=== PATIENT | male | born 1970 | race Caucasian/White ===

== ENCOUNTER 2016-06-20 18:14 | Inpatient (IN) | payer SELFPAY ==
[~2016-06-20] VITALS: Ht 190.5 cm; Wt 90.0 kg
[~2016-06-20 18:14] MED LIST: ACETAMIN-HYDROcod 325-5 MG PO; AMLO10 PO; ASPI81TA82 PO; ATOR10TA PO; BUME1TAB PO; CARV6.25 PO; FERR324T4 PO; KCL20 PO; LEVA500T PO; LISI20 PO; NRSS SQ; SPIR25 PO; VITA100020 PO
[2016-06-20 18:20] VITALS: BP 160/106; PULSE 96; RESP 16; TEMP 97.8; O2SAT 98
--- NOTE | 2016-06-20 18:35 | PD ---
HPI Chief Complaint: Chest Pain Time Seen by Provider: 18:20 Travel History International Travel<30 days: No Contact w/Intl Traveler<30days: No Traveled to known affect area: No History of Present Illness HPI This 46-year-old male is complaining of shortness of breath and pressure in his chest. He has a history of severe congestive heart failure. He has a ejection fraction of 15%. He has been being considered for heart transplant. He has a history of diabetes. He has been having trouble with congestive failure for the past 2 weeks. He had a cardiac catheterization at [facility] 2 weeks ago and apparently had kind of event during the catheterization that was thought related to the anesthesia. He has a pacemaker defibrillator. He has a history of diabetes and has multiple open sores throughout his body. He has had his chest drained repeatedly PFSH Past Medical History Hx Anticoagulant Therapy: Yes Asthma: No Autoimmune Disease: No Blood Disorders: No Anxiety: Yes Depression: Yes Heart Rhythm Problems: No Cancer: No Cardiovascular Problems: Yes High Cholesterol: Yes Chemotherapy: No Chest Pain: Yes Congestive Heart Failure: Yes COPD: No Cerebrovascular Accident: No Diabetes: Yes Diminished Hearing: No Endocrine: Yes Fibromyalgia: Yes Gastrointestinal Disorders: Yes (c-diff) GERD: No Genitourinary: No Headaches: Yes Hiatal Hernia: No Hypertension: Yes Immune Disorder: No Musculoskeletal: No Neurologic: Yes Psychiatric: Yes Reproductive: No Respiratory: Yes (PLEURAL EFFUSION) Migraines: Yes Radiation Therapy: No Seizures: No Sleep Apnea: No Thyroid Disease: No Ulcer: No Past Surgical History Abdominal Surgery: Yes (CHOLYSECTOMY ) Cardiac Surgery: Yes (2 STENT PLACEMENT ) Cholecystectomy: Yes Coronary Stent: Yes (3 CATHS, 2 STENTS) Ear Surgery: No Endocrine Surgery: No Eye Surgery: No Genitourinary Surgery: No Gynecologic Surgery: No Neurologic Surgery: Yes (CRANIOTOMY WHEN HE WAS N[age] ) Oral Surgery: No Other Surgery: Yes (3rd left toe amputated) Social History Alcohol Use: No Tobacco Use: No Substance Use: No Allergies-Medications (Allergen,Severity, Reaction): Coded Allergies: Monosodium Glutamate (Verified Allergy, Severe, 06/20/16) Penicillin (Verified Allergy, Intermediate, SWELLING, 06/20/16) Valium (Verified Adverse Reaction, Unknown, ANXIETY, 06/20/16) Uncoded Allergies: ARTICIFICAL SWEETNER (Allergy, Severe, 06/25/15) Reported Meds & Prescriptions Reported Meds & Active Scripts Active [ACETAMIN-HYDROcod 325-5 MG] 1 TAB Tab 1 Tab PO Q6H PRN Reported Aspirin 81 Mg Tabdr 81 Mg PO DAILY Lisinopril 5 Mg Tab 5 Mg PO HS Furosemide 20 Mg Tab 20 Mg PO HS Coreg (Carvedilol) 6.25 Mg Tab 6.25 Mg PO HS Review of Systems General / Constitutional: No: Fever, Chills Eyes: No: Diploplia, Blurred Vision HENT: No: Headaches, Vertigo Cardiovascular: Positive: Chest Pain or Discomfort, No: Palpitations, Irregular Rhythm Respiratory: Positive: Cough, Shortness of Breath Gastrointestinal: No: Vomiting Genitourinary: No: Dysuria Musculoskeletal: No: Myalgias Skin: Positive Rash, Positive Lesions Neurologic: Positive: Weakness, Dizziness Physical Exam Narrative GENERAL: Chronically ill-appearing male. He is very pale SKIN: Warm and dry. He has multiple pustular lesions. There is one on his right leg which has fair amount of drainage HEAD: Atraumatic. Normocephalic. EYES: Pupils equal and round. No scleral icterus. No injection or drainage. ENT: No nasal bleeding or discharge. Mucous membranes pink and moist. NECK: Trachea midline. No JVD. CARDIOVASCULAR: Regular rate and rhythm. No murmur appreciated. RESPIRATORY: No accessory muscle use. Diminished breath sounds in the right chest GASTROINTESTINAL: Abdomen soft, non-tender, nondistended. Hepatic and splenic margins not palpable. MUSCULOSKELETAL: No obvious deformities. No clubbing. No cyanosis. Bilateral pedal edema NEUROLOGICAL: Awake and alert. No obvious cranial nerve deficits. Motor grossly within normal limits. Normal speech. PSYCHIATRIC: Appropriate mood and affect; insight and judgment normal. Data Data Last Documented VS Vital Signs Date Time Temp Pulse Resp B/P Pulse Ox O2 Delivery O2 Flow Rate FiO2 06/20/16 18:20 97.8 96 16 160/106 98 Orders Electrocardiogram (06/20/16 18:31) Complete Blood Count With Diff (06/20/16 18:31) Comprehensive Metabolic Panel (06/20/16 18:31) Troponin I (06/20/16 18:31) B-Type Natriuretic Peptide (06/20/16 18:31) Prothrombin Time / Inr (Pt) (06/20/16 18:31) Act Partial Throm Time (Ptt) (06/20/16 18:31) Urinalysis - C+S If Indicated (06/20/16 18:31) Magnesium (Mg) (06/20/16 18:31) Wound Culture And Gram Stain (06/20/16 18:31) Chest, Single Ap (06/20/16 18:31) Labs Laboratory Tests Test 06/20/16 18:15 White Blood Count 6.7 TH/MM3 Red Blood Count 5.00 MIL/MM3 Hemoglobin 11.8 GM/DL Hematocrit 37.3 % Mean Corpuscular Volume 74.5 FL Mean Corpuscular Hemoglobin 23.7 PG Mean Corpuscular Hemoglobin 31.8 % Concent Red Cell Distribution Width 19.8 % Platelet Count 329 TH/MM3 Mean Platelet Volume 8.5 FL Neutrophils (%) (Auto) 73.9 % Lymphocytes (%) (Auto) 19.4 % Monocytes (%) (Auto) 4.6 % Eosinophils (%) (Auto) 1.2 % Basophils (%) (Auto) 0.9 % Neutrophils # (Auto) 4.9 TH/MM3 Lymphocytes # (Auto) 1.3 TH/MM3 Monocytes # (Auto) 0.3 TH/MM3 Eosinophils # (Auto) 0.1 TH/MM3 Basophils # (Auto) 0.1 TH/MM3 CBC Comment AUTO DIFF Prothrombin Time 16.5 SEC Prothromb Time International 1.5 RATIO Ratio Activated Partial 28.9 SEC Thromboplast Time Sodium Level 139 MEQ/L Potassium Level 4.2 MEQ/L Chloride Level 103 MEQ/L Carbon Dioxide Level 25.2 MEQ/L Anion Gap 11 MEQ/L Blood Urea Nitrogen 27 MG/DL Creatinine 1.40 MG/DL Estimat Glomerular Filtration 55 ML/MIN Rate Random Glucose 168 MG/DL Calcium Level 8.6 MG/DL Magnesium Level 2.1 MG/DL Total Bilirubin 1.2 MG/DL Aspartate Amino Transf 29 U/L (AST/SGOT) Alanine Aminotransferase 26 U/L (ALT/SGPT) Alkaline Phosphatase 282 U/L Troponin I 0.02 NG/ML B-Type Natriuretic Peptide 2336 PG/ML Total Protein 8.4 GM/DL Albumin 3.2 GM/DL [facility] Medical Decision Making Medical Screen Exam Complete: Yes Emergency Medical Condition: Yes Medical Record Reviewed: Yes Differential Diagnosis Differential includes CHF, cardiomyopathy, MO Narrative Course EKG shows paced rhythm. Chest x-ray shows moderate-sized right pleural effusion. The heart isn't enlarged. Pulmonary vascularity is normal Matt Marc MD Jun 20, 2016 18:35
[2016-06-20] MEDS ORDERED: CARV6.25 PO (18:49)
[2016-06-20] MEDS ORDERED: ASPI1TAB69 PO (18:49)
[2016-06-20] MEDS ORDERED: FURO20TA PO (18:49)
[2016-06-20] MEDS ORDERED: LISI-519 PO (18:49)
[2016-06-20 19:00] LABS: CHLORIDE 103 MEQ/L (98-107); POTASSIUM 4.2 MEQ/L (3.5-5.1); SODIUM (NA) 139 MEQ/L (136-145)
[2016-06-20 19:03] LABS: ANION GAP 11 MEQ/L (5-15); BICARBONATE 25.2 MEQ/L (21.0-32.0); MAGNESIUM 2.1 MG/DL (1.5-2.5)
[2016-06-20 19:04] LABS: BLOOD UREA NITROGEN 27 MG/DL (7-18)
[2016-06-20 19:06] LABS: ALT (GPT) 26 U/L (12-78); APTT (PATIENT) 28.9 SEC (24.3-30.1); INTERNATIONAL NORMALIZED RATIO 1.5 RATIO; PROTHROMBIN TIME - PATIENT 16.5 SEC (9.8-11.6)
[2016-06-20 19:07] LABS: AST (GOT) 29 U/L (15-37); GLOMERULAR FILTRATION RATE 55 ML/MIN (>89)
--- NOTE | 2016-06-20 19:07 | RADHPO ---
EXAM DATE/TIME: 06/20/2016 18:53 [place] COMPARISON: CHEST SINGLE AP, February 08, 2016, 7:26. INDICATIONS : Shortness of breath. MEDICAL HISTORY : Hypertension. Diabetes mellitus type II. Hypercholesterolemia. SURGICAL HISTORY : Pacemaker. Cholecystectomy. Coronary artery stent. Congestive heart failure, Cirrhosis. ENCOUNTER: Initial ACUITY: 2 days PAIN SCORE: 0/10 LOCATION: Bilateral chest FINDINGS: Pacemaker is implanted in the left chest. There are minimal bibasilar parenchymal changes with a mod erate right-sided pleural effusion. Consolidative changes present in the right base. Pulmonary vasc ularity is reasonably normal. CONCLUSION: 1. Consolidative changes in the right base with moderate size right pleural effusion. 2. The heart is enlarged. 3. Pulmonary vascularity is normal. Jim Dumont MD FACR on June 20, 2016 at 19:03 Board Certified Radiologist. This report was verified electronically.
[2016-06-20 19:08] LABS: TOTAL BILIRUBIN ADULT 1.2 MG/DL (0.2-1.0)
[2016-06-20 19:09] LABS: ALKALINE PHOSPHATASE 282 U/L (45-117)
[2016-06-20 19:27] LABS: AUTOMATED NEUTROPHIL # 4.9 TH/MM3 (1.8-7.7); BASOPHIL # 0.1 TH/MM3 (0-0.2); BASOPHIL % 0.9 % (0.0-2.0); EOSINOPHIL # 0.1 TH/MM3 (0-0.4); EOSINOPHIL % 1.2 % (0.0-4.0); HEMATOCRIT 37.3 % (39.0-51.0); LYMPH % 19.4 % (9.0-44.0); LYMPHOCYTE # 1.3 TH/MM3 (1.0-4.8); MEAN CELL VOLUME 74.5 FL (80.0-100.0); MEAN CORPUSCULAR HEMOGLOBIN 23.7 PG (27.0-34.0); MEAN CORPUSCULAR HGB CONC 31.8 % (32.0-36.0); MONO % 4.6 % (0.0-8.0); NEUT % 73.9 % (16.0-70.0); PLATELET COUNT 329 TH/MM3 (150-450); RED CELL DISTRIBUTION WIDTH 19.8 % (11.6-17.2); WHITE BLOOD COUNT 6.7 TH/MM3 (4.0-11.0)
[2016-06-20 19:28] LABS: HEMO FLAGS AUTO DIFF
[2016-06-20 19:37] LABS: BLOOD, URINE TRACE (NEG); GLUCOSE,URINE NEG (NEG); KETONE, URINE NEG (NEG); NITRITE,URINE NEG (NEG)
[2016-06-20 19:45] LABS: URINE COLOR YELLOW (YELLW/STRAW)
[2016-06-20 19:46] LABS: HYALINE CAST, URINE 15-19 /lpf (RARE)
[2016-06-20 19:47] LABS: BACTERIA, URINE OCC /hpf; COMMENT (UR) CULT NOT INDICATED; CULTURE IF INDICATED CULT NOT INDICATED; RBC, URINE 0-3 /hpf (0-3)
[2016-06-20 19:57] LABS: SCAN/DIFF AUTO DIFF CONFIRMED
[2016-06-20] MEDS ORDERED: FUROSEMIDE 40 MG/4 ML VIAL IV PUSH ONE (20:00)
[2016-06-20] MEDS ORDERED: ALPRAZolam 0.5 MG TAB PO ONE (20:45)
[2016-06-20] MEDS ORDERED: ACETAMINOPHEN 325 MG TAB PO ONE (20:45)
[2016-06-20 20:46] VITALS: BP 148/102; PULSE 99; RESP 18; O2SAT 97
[2016-06-20] MEDS ORDERED: CARVEDILOL 6.25 MG TAB PO SCH (21:45)
[2016-06-20 22:09] VITALS: BP 147/112; PULSE 91; RESP 18; O2SAT 98
[2016-06-20 22:33] VITALS: BP 139/103
[2016-06-20] MEDS ORDERED: LISINOPRIL 5 MG TAB PO ONE (23:30)
[2016-06-20] MEDS ORDERED: GLUCAGON 1 MG/ML VIAL OTHER PRN (23:45)
[2016-06-20] MEDS ORDERED: DEXTROSE 50% IN WATER 50 ML VIAL(D50) IV PUSH PRN (23:45)
[2016-06-21] VITALS (12 sets, daily range): BP systolic 119–155; BP diastolic 91–107; PULSE 64–93; RESP 16–22; TEMP 97.5–98.2; O2SAT 95–99
[2016-06-21 04:49] LABS: POTASSIUM 4.1 MEQ/L (3.5-5.1)
[2016-06-21 04:53] LABS: BICARBONATE 26.5 MEQ/L (21.0-32.0); MAGNESIUM 2.1 MG/DL (1.5-2.5)
[2016-06-21] MEDS: LOW DOSE INSULIN NOVOLIN REGULAR SUPPLEMENTAL SCALE SQ SCH ×4 (05:40→21:00)
[2016-06-21] MEDS: POTASSIUM CHLORIDE 20 MEQ CONTROLLED RELEASE TAB PO SCH ×2 (09:15→21:03)
[2016-06-21] MEDS: ASPIRIN EC 81 MG TABEC PO SCH (09:15)
[2016-06-21] MEDS: SODIUM CHLORIDE 0.9% FLUSH 5 ML FLUSH IVF SCH ×2 (09:16→21:06)
[2016-06-21] MEDS: FUROSEMIDE 40 MG/4 ML VIAL IVP SCH ×2 (09:16→17:45)
[2016-06-21] MEDS: HEPARIN SODIUM - SQ 10,000 UNITS/ML VIAL SQ SCH ×2 (13:35→21:04)
[2016-06-21] MEDS: PANTOPRAZOLE SOD 40 MG DELAYED RELEASE TAB PO SCH (13:35)
[2016-06-21] MEDS: LEVOFLOXACIN 250 MG PREMIX INJ 50 ML IV SCH (13:35)
--- NOTE | 2016-06-21 14:54 | MH ---
cc: JADA VIZCAINO MD DATE OF ADMISSION: 06/20/2016 CHIEF COMPLAINT Shortness of breath HISTORY OF PRESENT ILLNESS This is a 46-year-old male well-known to me and had been seen me in the past and admitted under my service. PAST MEDICAL HISTORY/PAST SURGICAL HISTORY: Significant for congestive heart failure, anxiety, depression, fibromyalgia, headache, hypertension, cardiomyopathy in need of cardiac transplant, pleural effusion, history of cholecystectomy, to do stent placement in the heart. A craniotomy in the past, left toe amputation who came to the emergency room department [facility] with shortness of breath and also having wound on the both lower extremities which are getting worse. He was recently hospitalized was hospitalized in the past with pneumonia. He had a congestive heart failure with ejection fraction 15% and he is saying that his shortness of breath getting worse and he denies any cough. Denies any nausea or vomiting, diarrhea, constipation. He denies any blood in stool any blood in urine. He denies any chest pain other than that nothing significant past medical-surgical history as dictated above. SOCIAL HISTORY He denies smoking, drinking, taking any drugs. He does live at home with . He is unemployed. FAMILY HISTORY Nothing significant ALLERGIES MONOSODIUM GLUTAMATE PENICILLIN VALIUM ARTIFICAL SWEETER MEDICATIONS 1. Aspirin 81 mg p.o. daily. 2. Lisinopril 5 mg p.o. at bedtime. 3. Furosemide 20 mg daily. 4. Coreg 6.25 mg p.o. at bedtime REVIEW OF SYSTEMS review of systems positive for shortness of breath which has been improved of bilateral lower extremity swelling and a lower extremity wound. All other review of systems are negative. PHYSICAL EXAMINATION This is 46-year male sitting laying on the bed not sitting on the bed not in acute distress. VITAL SIGNS: Temperature 97.5, heart rate 80, respirations 22, blood pressure 146/104, O2 saturation 99% on room air. HEAD, EYES, EARS, NOSE, AND THROAT: Normocephalic, atraumatic. Extraocular muscles intact, Pupils equal, round, reactive to light and accommodation. Oral mucosa moist. NECK: Supple. No visible thyromegaly or neck mass. Trachea central. CARDIOVASCULAR SYSTEM: Regular rate and rhythm. LUNGS: Respiration bilateral mild crackles. ABDOMEN: Soft, nontender. Bowel sounds. EXTREMITIES: Shows no cyanosis or clubbing. Amputation of the left toes and second toe and wound on the lower wound on the foot which had mild erythema which have erythema. SKIN: Warm and dry shows the wound on the lower extremity. PSYCHIATRIC: The patient is cooperative. LABORATORY DATA Include CBC totally unremarkable except for hemoglobin 11.8 low, medical 37.3 low, MCV 74.5 low, MCH is 23.7 low, MCHC 31.8 low, RDW is 19.8 high, neutrophils 73.9 high. BMP totally unremarkable except for BUN 29 at 27 high creatinine 1.40 high, glucose 168 high, total bilirubin 1.2 high alkaline phosphatase 282 high BNP 57446 high, total protein 8.4 high, albumin 3.2 low. PT 16.5, INR 0.5, APTT 28.9. Urine examination shows trace of occult blood 6 to 8 white blood cells. 6 to 8 squamous epithelial cells. Culture not indicated. Gram stain of the wound culture done report is still pending. Chest x-ray Done shows consolidative changes in the right base with moderate-sized right pleural effusion. The heart is enlarged pulmonary vascularity is normal. ASSESSMENT/PLAN This is a 46-year male who came to the ER diagnosed with 1. Shortness of breath; most likely secondary to congestive heart failure exacerbation. The patient has acute on chronic systolic heart failure, ejection fraction 15% in the previous echo the patient is on lisinopril. The patient on Lasix 40 mg IV twice a day. Fluid restriction to 1.5 liters a day. Cardiology consulted. Further recommendation per cardiology. 2. Lower extremity wound, wound cultures done. Wound care nurse consulted. I will start the patient on Levaquin 250 mg IV daily for the wound infection. 3. History of hypertension. Continue home medication started clonidine 0.1 mg p.o. q. 6-hour p.r.n. if blood pressure above 180/95. 4. Deep venous thrombosis prophylaxis and Lovenox 5000 units subcutaneous twice a day. 5. Gastrointestinal prophylaxis Protonix 40 mg p.o. daily. 6. Renal insufficiency will monitor BUN, creatinine. His high B-type natriuretic peptide secondary to congestive heart failure exacerbation. 7. Anemia secondary to chronic disease. 8. Deep venous thrombosis prophylaxis. 9. We are going to manage the patient daily basis and make recommendation daily basis. MD Freida Siu /11:55 AM /12:06 PM MTDDaniela
--- NOTE | 2016-06-21 16:30 | EKG ---
Date Performed: 06/20/2016 Time Performed: 18:11:22 PTAGE: 46 years EKG: P wave syncrinous pacing with ventricular fussion. The underlying QRS complex is largely co nducted, but is partially Paced. When compared to previous tracing, the pacing activity is new, so Th e studies are not directly comparable. Clinical correlation to reprogram the pacing devise to avoid V entricular fussion would be appropriate. Abnormal ECG PREVIOUS TRACING : 02/08/2016 07.15 DOCTOR: Chanelle Soliz Interpretating Date/Time 06/21/2016 16:29:26
[2016-06-21] MEDS: SODIUM CHLORIDE 0.9% FLUSH 5 ML FLUSH IVF PRN (17:45)
[2016-06-21] MEDS ORDERED: LISINOPRIL 5 MG TAB PO SCH (21:00)
[2016-06-21] MEDS: LISINOPRIL 5 MG TAB PO SCH (21:02)
[2016-06-21] MEDS: CARVEDILOL 12.5 MG TAB PO SCH (21:03)
[2016-06-21] MEDS: METOLAZONE 5 MG TAB PO SCH (21:16)
[2016-06-21] MEDS: ALPRAZolam 0.5 MG TAB PO PRN (21:39)
[2016-06-22] VITALS (15 sets, daily range): BP systolic 112–140; BP diastolic 77–106; PULSE 59–72; RESP 4–24; TEMP 97.5–98; O2SAT 96–100
[2016-06-22] MEDS: ACETAMINOPHEN/HYDROcodone 325 MG/5 MG TAB PO PRN ×3 (01:28→16:47)
--- NOTE | 2016-06-22 05:50 | MB ---
cc: GABRIELLA ZEPEDA GLENN H. M.D. DATE OF CONSULTATION: 06/21/2016 REASON FOR CONSULTATION: Congestive heart failure. HISTORY OF PRESENT ILLNESS The patient is a 46-year-old white male with a history of diabetes, coronary artery disease, hypertension, severe ischemic cardiomyopathy with ejection fraction of 15-20%, status post recent biventricular AICD implant, followed in the office by Dr. Gabriella Zepeda, who presented to the hospital with an approximately 3-day history of increasing shortness of breath. Over these few days he has also been having increasing pedal edema. He denies chest pain, palpitations, lightheadedness, syncope, near-syncope, paroxysmal nocturnal dyspnea. He reports compliance with his medications and a no added salt diet. He has had no AICD shocks since implant. According to the patient his AICD is an investigational device is under a [employer] research protocol. Since coming into the hospital his shortness of breath has minimally improved. PAST MEDICAL HISTORY 1. Diabetes. 2. Coronary artery disease status post percutaneous coronary intervention on the LAD about [address] Mack Abreu. 3. Hypertension 4. Severe ischemic cardiomyopathy with ejection fraction of 15-20% demonstrated by echo 01/22/2016. 5. Hyperlipidemia. 6. Fibromyalgia. 7. Status post [employer] biventricular AICD implant 3 months ago. HIS CARDIAC MEDIATIONS: at home 1. Coreg 6.25 mg p.o. q.h.s. 2. Furosemide 20 mg p.o. q.h.s. 3. Lisinopril 5 mg p.o. q.h.s. 4. Aspirin 81 mg p.o. daily. ALLERGIES PENICILLIN VALIUM MONOSODIUM BUTAMIRATE FAMILY HISTORY Noncontributory. SOCIAL HISTORY The patient denies history of alcohol, tobacco abuse. REVIEW OF SYSTEMS Review of systems as in the history of present illness otherwise negative or noncontributory. He also denies headache, dyspepsia, bright red blood per rectum, cough, fevers. PHYSICAL EXAMINATION: VITAL SIGNS: On physical examination his blood pressure 140/95 with a pulse of 74, respirations 18. IN GENERAL: In general he is a well-developed, well-nourished white male in no acute distress HEAD, EYES, EARS, NOSE, AND THROAT: Jugular venous pressure is normal. Carotid pulses are 2+ bilaterally and without bruits. CHEST: Examination of the chest reveals markedly decreased breath sounds at the bases right greater than left. CARDIOVASCULAR SYSTEM: On cardiac examination he has a regular rhythm and rate without definite S3-S4 or murmur. ABDOMEN: On abdominal examination he has a soft, nontender abdomen. Bowel sounds are present. There is no definite hepatosplenomegaly. EXTREMITIES: Examination of extremities reveals no clubbing or cyanosis. There is 1+ pretibial edema bilaterally. RADIOLOGIC: Chest x-ray Shows consolidative changes in the right base with moderate right-sided pleural effusion. LABORATORY DATA: Laboratory data includes WBC 6.7, hemoglobin 11.8, platelets 329, potassium 4.1, BUN 29, creatinine 1.40, troponin 0.02, INR 1.5. IMPRESSION Recurrent right pleural effusion, possible congestive heart failure exacerbation in this 46-year-old white male with a history of ischemic cardiomyopathy, ejection fraction 15-20%, coronary artery disease, diabetes, hypertension, status post biventricular AICD implant. Review of his records reveal a few admissions in the last 2 years for congestive heart failure. He has also had as many as eight thoracenteses for recurrent right pleural effusion and a couple for left pleural effusions in the past. The precipitating factor for the recurrences of his pulmonary edema and congestive heart failure is not entirely clear. He reports compliance with his medications and a low-sodium diet. His blood pressures have been very suboptimally controlled and could be contributing to heart failure exacerbations. With respect to his coronary artery disease, there is no evidence for acute coronary syndrome. The patient reports no history of arrhythmias or AICD shocks since implant. RECOMMENDATIONS 1. Optimize the dosing of his beta jovany and GILA inhibitor. 2. His carvedilol and GILA inhibitor should be taken b.i.d. 3. Consider another right-sided thoracentesis 4. Continue intravenous Lasix diuresis. 5. Consider Entresto although he has no insurance coverage for medications at this time. MD SUSAN Black/maricel /8:42 PM /5:41 AM RAMIRO
[2016-06-22 06:21] LABS: BASOPHIL % 0.8 % (0.0-2.0); EOSINOPHIL # 0.1 TH/MM3 (0-0.4); EOSINOPHIL % 2.6 % (0.0-4.0); HEMATOCRIT 34.2 % (39.0-51.0); LYMPH % 26.6 % (9.0-44.0); LYMPHOCYTE # 1.3 TH/MM3 (1.0-4.8); MEAN CELL VOLUME 75.1 FL (80.0-100.0); MEAN CORPUSCULAR HEMOGLOBIN 23.8 PG (27.0-34.0); MEAN CORPUSCULAR HGB CONC 31.8 % (32.0-36.0); MONO % 7.4 % (0.0-8.0); NEUT % 62.6 % (16.0-70.0); PLATELET COUNT 262 TH/MM3 (150-450); RED BLOOD COUNT 4.56 MIL/MM3 (4.50-5.90); RED CELL DISTRIBUTION WIDTH 20.9 % (11.6-17.2); WHITE BLOOD COUNT 4.8 TH/MM3 (4.0-11.0)
[2016-06-22 06:24] LABS: HEMO FLAGS DIFF FINAL
[2016-06-22 06:29] LABS: CHLORIDE 104 MEQ/L (98-107); POTASSIUM 4.3 MEQ/L (3.5-5.1); SODIUM (NA) 140 MEQ/L (136-145)
[2016-06-22 06:49] LABS: ALKALINE PHOSPHATASE 210 U/L (45-117); ALT (GPT) 16 U/L (12-78); ANION GAP 10 MEQ/L (5-15); AST (GOT) 13 U/L (15-37); BLOOD UREA NITROGEN 36 MG/DL (7-18); GLOMERULAR FILTRATION RATE 51 ML/MIN (>89)
[2016-06-22] MEDS: LOW DOSE INSULIN NOVOLIN REGULAR SUPPLEMENTAL SCALE SQ SCH ×4 (07:00→21:00)
[2016-06-22] MEDS: METOLAZONE 5 MG TAB PO SCH (07:56)
[2016-06-22] MEDS: CARVEDILOL 12.5 MG TAB PO SCH ×2 (07:57→21:52)
[2016-06-22] MEDS: ASPIRIN EC 81 MG TABEC PO SCH (07:57)
[2016-06-22] MEDS: LISINOPRIL 5 MG TAB PO SCH ×2 (07:58→21:52)
[2016-06-22] MEDS: POTASSIUM CHLORIDE 20 MEQ CONTROLLED RELEASE TAB PO SCH ×2 (07:58→21:52)
[2016-06-22] MEDS: PANTOPRAZOLE SOD 40 MG DELAYED RELEASE TAB PO SCH (07:58)
[2016-06-22] MEDS: FUROSEMIDE 40 MG/4 ML VIAL IVP SCH ×2 (07:59→16:47)
[2016-06-22] MEDS: SODIUM CHLORIDE 0.9% FLUSH 5 ML FLUSH IVF SCH ×2 (07:59→21:54)
[2016-06-22] MEDS: HEPARIN SODIUM - SQ 10,000 UNITS/ML VIAL SQ SCH ×2 (07:59→21:52)
--- NOTE | 2016-06-22 08:56 | PD.CARD.PN ---
Subjective Subjective Remarks Pt's bp better controlled, breathing improved but still a bit "heavy." Objective Medications Administered Medications Medications (Trade) Dose Ordered Sig/Roya Route PRN Reason Start Time Stop Time Status Last Admin Dose Admin IV Flush (NS Flush) 2 ml BID IVF 06/21/16 09:00 06/22/16 07:59 IV Flush (NS Flush) 2 ml UNSCH PRN IVF FLUSH AFTER USING IV ACCESS 06/20/16 21:30 06/21/16 17:45 Furosemide (Lasix Inj) 40 mg BID@09,18 IVP 06/21/16 09:00 06/22/16 07:59 Potassium Chloride (KCl) 20 meq BID PO 06/21/16 09:00 06/22/16 07:58 Aspirin (Ecotrin Ec) 81 mg DAILY PO 06/21/16 09:00 06/22/16 07:57 Acetaminophen/ Hydrocodone Bitart 1 tab 1 tab Q6H PRN PO PAIN SCALE 1 TO 10 06/20/16 22:00 06/22/16 07:59 Levofloxacin/ Dextrose (Levaquin 250 Mg Premix Inj) 50 ml @ 50 mls/hr Q24H IV 06/21/16 13:00 06/21/16 13:35 Heparin Sodium (Porcine) (Heparin Inj) 5,000 units Q12HR SQ 06/21/16 13:00 06/22/16 07:59 Pantoprazole Sodium (Protonix) 40 mg DAILY PO 06/21/16 13:00 06/22/16 07:58 Carvedilol (Coreg) 12.5 mg BID PO 06/21/16 21:00 06/22/16 07:57 Lisinopril (Prinivil) 5 mg BID PO 06/21/16 21:00 06/22/16 07:58 Metolazone (Zaroxolyn) 5 mg DAILY PO 06/21/16 21:00 06/22/16 07:56 Alprazolam (Xanax) 0.5 mg HS PRN PO ANXIETY 06/21/16 21:45 06/21/16 21:39 Vital Signs / I&O Vital Signs Date Time Temp Pulse Resp B/P Pulse Ox O2 Delivery O2 Flow Rate FiO2 06/22/16 08:00 62 06/22/16 08:00 97.5 62 21 131/96 96 06/22/16 04:13 98.0 68 15 136/94 97 06/22/16 04:00 62 06/22/16 01:15 70 24 127/90 06/22/16 00:00 98.0 72 23 134/104 98 06/22/16 00:00 71 06/21/16 20:00 78 06/21/16 20:00 98.0 74 18 140/95 98 06/21/16 19:21 76 20 129/97 98 06/21/16 16:00 64 06/21/16 16:00 97.6 65 18 119/91 95 06/21/16 12:00 74 06/21/16 12:00 97.6 74 21 143/107 98 I/O 06/21/16 06/21/16 06/21/16 06/22/16 06/22/16 06/22/16 07:00 15:00 23:00 07:00 15:00 23:00 Intake Total 240 ml 520 ml 240 ml 220 ml Output Total 300 ml 850 ml 700 ml 775 ml Balance -60 ml -330 ml -460 ml -555 ml Intake Oral 240 ml 520 ml 240 ml 220 ml Output Urine Total 300 ml 850 ml 700 ml 775 ml Stool Total 0 ml # Voids 3 # Bowel Movements 1 0 Physical Exam GENERAL: This is a well-nourished, well-developed patient, in no apparent distress. CARDIOVASCULAR: Regular rate and rhythm without murmurs, gallops, or rubs. RESPIRATORY: Decreased at bases GASTROINTESTINAL: Abdomen soft, non-tender, nondistended. Normal active bowel sounds MUSCULOSKELETAL: Extremities without clubbing, cyanosis, or edema. NEURO: Alert & Oriented x4 to person, place, time, situation. Moves all ext x4 Laboratory Laboratory Tests Test 06/21/16 06/22/16 11:50 06:00 Nasal Screen MRSA (PCR) NEGATIVE White Blood Count 4.8 TH/MM3 Red Blood Count 4.56 MIL/MM3 Hemoglobin 10.9 GM/DL Hematocrit 34.2 % Mean Corpuscular Volume 75.1 FL Mean Corpuscular Hemoglobin 23.8 PG Mean Corpuscular Hemoglobin 31.8 % Concent Red Cell Distribution Width 20.9 % Platelet Count 262 TH/MM3 Mean Platelet Volume 8.2 FL Neutrophils (%) (Auto) 62.6 % Lymphocytes (%) (Auto) 26.6 % Monocytes (%) (Auto) 7.4 % Eosinophils (%) (Auto) 2.6 % Basophils (%) (Auto) 0.8 % Neutrophils # (Auto) 3.0 TH/MM3 Lymphocytes # (Auto) 1.3 TH/MM3 Monocytes # (Auto) 0.4 TH/MM3 Eosinophils # (Auto) 0.1 TH/MM3 Basophils # (Auto) 0.0 TH/MM3 CBC Comment DIFF FINAL Differential Comment Sodium Level 140 MEQ/L Potassium Level 4.3 MEQ/L Chloride Level 104 MEQ/L Carbon Dioxide Level 26.0 MEQ/L Anion Gap 10 MEQ/L Blood Urea Nitrogen 36 MG/DL Creatinine 1.50 MG/DL Estimat Glomerular Filtration 51 ML/MIN Rate Random Glucose 106 MG/DL Calcium Level 7.8 MG/DL Total Bilirubin 1.0 MG/DL Aspartate Amino Transf 13 U/L (AST/SGOT) Alanine Aminotransferase 16 U/L (ALT/SGPT) Alkaline Phosphatase 210 U/L Total Protein 6.4 GM/DL Albumin 2.4 GM/DL Imaging Last Impressions Chest X-Ray 06/20/16 1831 Signed Impressions: Service Date/Time: June 18:53 - CONCLUSION: 1. Consolidative changes in the right base with moderate size right pleural effusion. 2. The heart is enlarged. 3. Pulmonary vascularity is normal. Jim Dumont MD FACR Assessment and Plan Problem List: (1) Acute on chronic diastolic CHF (congestive heart failure) Assessment and Plan: Improving, he would like medical mgt of his pleural effusion (seen by cxr) if at all possible; continue IV lasix for now, perhaps can change to PO tomorrow. (2) Ischemic cardiomyopathy Assessment and Plan: on mary/bb; entresto would be ideal if he could get coverage (3) CAD (coronary artery disease) (4) Hypertension Assessment and Plan: Improved on current regimen. Mahamed Dickerson MD Jun 22, 2016 08:56
--- NOTE | 2016-06-22 10:58 | HHI.PR ---
Subjective History of Present Illness Patient feel weak and tired. US guided right side thoracocentesis ordered d/w [employer] Yoel. Review of Systems Constitutional Constitutional: Fatigue, Weakness Pulmonary Respiratory: Shortness of Breath Vitals/Results Intake & Output 06/21/16 06/21/16 06/22/16 15:00 23:00 07:00 Intake Total 520 ml 240 ml 220 ml Output Total 850 ml 700 ml 775 ml Balance -330 ml -460 ml -555 ml Intake Oral 520 ml 240 ml 220 ml Output Urine Total 850 ml 700 ml 775 ml Stool Total 0 ml # Voids 3 # Bowel Movements 1 0 Vital Signs Vital Signs Date Time Temp Pulse Resp B/P Pulse Ox O2 Delivery O2 Flow Rate FiO2 06/22/16 08:00 62 06/22/16 08:00 97.5 62 21 131/96 96 06/22/16 04:13 98.0 68 15 136/94 97 06/22/16 04:00 62 06/22/16 01:15 70 24 127/90 06/22/16 00:00 98.0 72 23 134/104 98 06/22/16 00:00 71 06/21/16 20:00 78 06/21/16 20:00 98.0 74 18 140/95 98 06/21/16 19:21 76 20 129/97 98 06/21/16 16:00 64 06/21/16 16:00 97.6 65 18 119/91 95 06/21/16 12:00 74 06/21/16 12:00 97.6 74 21 143/107 98 CBC/BMP: 06/22/16 0600 06/22/16 0600 Lab Results Laboratory Tests Test 06/21/16 06/22/16 11:50 06:00 Nasal Screen MRSA (PCR) NEGATIVE White Blood Count 4.8 TH/MM3 Red Blood Count 4.56 MIL/MM3 Hemoglobin 10.9 GM/DL Hematocrit 34.2 % Mean Corpuscular Volume 75.1 FL Mean Corpuscular Hemoglobin 23.8 PG Mean Corpuscular Hemoglobin 31.8 % Concent Red Cell Distribution Width 20.9 % Platelet Count 262 TH/MM3 Mean Platelet Volume 8.2 FL Neutrophils (%) (Auto) 62.6 % Lymphocytes (%) (Auto) 26.6 % Monocytes (%) (Auto) 7.4 % Eosinophils (%) (Auto) 2.6 % Basophils (%) (Auto) 0.8 % Neutrophils # (Auto) 3.0 TH/MM3 Lymphocytes # (Auto) 1.3 TH/MM3 Monocytes # (Auto) 0.4 TH/MM3 Eosinophils # (Auto) 0.1 TH/MM3 Basophils # (Auto) 0.0 TH/MM3 CBC Comment DIFF FINAL Differential Comment Sodium Level 140 MEQ/L Potassium Level 4.3 MEQ/L Chloride Level 104 MEQ/L Carbon Dioxide Level 26.0 MEQ/L Anion Gap 10 MEQ/L Blood Urea Nitrogen 36 MG/DL Creatinine 1.50 MG/DL Estimat Glomerular Filtration 51 ML/MIN Rate Random Glucose 106 MG/DL Calcium Level 7.8 MG/DL Total Bilirubin 1.0 MG/DL Aspartate Amino Transf 13 U/L (AST/SGOT) Alanine Aminotransferase 16 U/L (ALT/SGPT) Alkaline Phosphatase 210 U/L Total Protein 6.4 GM/DL Albumin 2.4 GM/DL Physical Exam General General Appearance: No Acute Distress, Comfortable Eyes Eye Exam: Pupils Equal, Pupils Reactive, Sclera White, Extraocular Movement Intact Throat Throat Exam: Oral Mucosa [place] & Moist Neck Neck Exam: Neck Supple, Trachea Midline Pulmonary Resp Exam: Clear Bilaterally Cardiology CV Exam: Regular, Normal Sinus Rhythm Gastrointestinal/Abdomen GI Exam: Soft, Non-Tender, Bowel Sounds Present Musculoskeletal MS Exam: Joints Intact Integumentary Skin Exam: Warm, Dry Skin Remarks wound on foot. Extremeties Extremities Exam: Pitting Edema Neurologic Neuro Exam: Alert, Awake, Oriented, Speech Clear, Moving All Extremities, No Focal Deficits PUD Prophylasis PUD Prophylaxis: Protonix Assessment/Plan Assessment/Plan ASSESSMENT/PLAN This is a 46-year male who came to the ER diagnosed with 1. Shortness of breath; most likely secondary to congestive heart failure exacerbation. The patient has acute on chronic systolic heart failure, ejection fraction 15% in the previous echo the patient is on lisinopril. The patient on Lasix 40 mg IV twice a day. Fluid restriction to 1.5 liters a day. Cardiology input noted. Further recommendation per cardiology. 2. Lower extremity wound, wound cultures done. Wound care nurse input noted. patient on Levaquin 250 mg IV daily for the wound infection. 3. History of hypertension. Continue home medication started clonidine 0.1 mg p.o. q. 6-hour p.r.n. if blood pressure above 180/95. 4. Deep venous thrombosis prophylaxis and Lovenox 5000 units subcutaneous twice a day. 5. Gastrointestinal prophylaxis Protonix 40 mg p.o. daily. 6. Renal insufficiency will monitor BUN, creatinine. His high B-type natriuretic peptide secondary to congestive heart failure exacerbation. 7. Anemia secondary to chronic disease. 8. Right side Pleural effusion .. US guided right side thoracocentesis ordered. We are going to manage the patient daily basis and make recommendation daily basis. check CBC with diff CMP in AM. Discussed Condition with: Patient Kyle Cassidy MD Jun 22, 2016 10:58
[2016-06-22] MEDS: SODIUM CHLORIDE 0.9% FLUSH 5 ML FLUSH IVF PRN ×2 (13:11→16:47)
[2016-06-22] MEDS: LEVOFLOXACIN 250 MG PREMIX INJ 50 ML IV SCH (13:11)
--- NOTE | 2016-06-22 19:54 | PD.ID.CON ---
History of Present Illness Service ID Consult Requested By Dr Cassidy Reason for Consult cellu;itis Primary Care Physician No Primary Care Physician Diagnoses: History of Present Illness 46 yo diabetic male with CAD and severe ischemic cardiomyopathy with EF of 15 % and pleural effusaions admitted with CHF exacerbation in ICU sp CT guided R side thoracenthesis today Afebrile Normal WBC Pt has a L plantar diabetic wound which was cultured and has normal skin dori growth at 24 hrs Pt has chronic BLE edema and he states that his legs are normally discolored and even more swollen at baseline He also has multiple shallow scattered ulcer on both lower extremeties biggest one on the L plantr griselda Per chart, he has this ulcer for months and it apears that he had in back in Febemebr thr R ankle wound also was presnet in Feb and it greww out PSAE S to levaquine Pt is on Levaquine He states the LLE redness has improved Review of Systems Respiratory: COMPLAINS OF: Shortness of breath Cardiovascular: COMPLAINS OF: Lower Extremity Edema, Orthopnea Other as per history of present illness, the rest of 12 point review is negative Past Family Social History Allergies: Coded Allergies: Monosodium Glutamate (Verified Allergy, Severe, 06/20/16) Penicillin (Verified Allergy, Intermediate, SWELLING, 06/20/16) Valium (Verified Adverse Reaction, Unknown, ANXIETY, 06/20/16) Uncoded Allergies: ARTICIFICAL SWEETNER (Allergy, Severe, 06/25/15) Past Medical History Diabees HTN CAD TBI Past Surgical History cardiac stents AICD craniotomy 2/2 TBI L 2-3 toes amputation Active Ordered Medications Medications where reviewed in EMR Antibiotics Include: levaquine Family History Non-Contributory. Social History No Tobacco. No ETOH. No Illicit Drugs. Physical Exam Vital Signs Vital Signs Date Time Temp Pulse Resp B/P Pulse Ox O2 Delivery O2 Flow Rate FiO2 06/22/16 16:00 60 06/22/16 16:00 98.0 60 14 121/97 96 06/22/16 12:00 60 06/22/16 12:00 97.5 60 17 125/87 96 06/22/16 08:00 62 06/22/16 08:00 97.5 62 21 131/96 96 06/22/16 04:13 98.0 68 15 136/94 97 06/22/16 04:00 62 06/22/16 01:15 70 24 127/90 06/22/16 00:00 98.0 72 23 134/104 98 06/22/16 00:00 71 06/21/16 20:00 78 06/21/16 20:00 98.0 74 18 140/95 98 Physical Exam CONSTITUTIONAL/GENERAL: This is an adequately nourished patient chronically ill appearing, in no apparent distress. TUBES/LINES/DRAINS: SKIN: No jaundice, rashes, Scattered crusted lesions mostly on the back. Skin temperature appropriate. Not diaphoretic. HEAD: Atraumatic. Normocephalic. EYES: Pupils equal and round and reactive. Extraocular motions intact. No scleral icterus. No injection or drainage. Fundi not examined. ENT: Hearing grossly normal. Nose without bleeding or purulent drainage. Oral mucosae moist without visible erythema, exudates, masses, or lesions. NECK: Trachea midline. Supple, nontender. No palpable thyroid enlargement or nodularity. CARDIOVASCULAR: Regular rate and rhythm + systolic murmur, no gallops, or rubs. No JVD. Pedal pls not palpabe (likely 2/2 edema) RESPIRATORY/CHEST: Symmetric, unlabored respirations. B/b crackles to auscultation. Breath sounds equal bilaterally. . GASTROINTESTINAL: Abdomen soft, non-tender, nondistended. No hepato-splenomegaly , or palpable masses. No guarding. Bowel sounds present. GENITOURINARY: Without palpable bladder distension. Landeros catheter in place. MUSCULOSKELETAL: Extremities without clubbing, cyanosis, B/l 2-3 + lower extremeits edema Chronic apearing discoloration sp L 2-3 toes amputation - well healed . No joint tenderness or effusion noted. No calf tenderness. No mottling or clubbing. Prominent loss of skin appendages Multiple showllow ulcers BLE some open some crusted L plannta stage III clean based wound with minimal odorless serous dc LYMPHATICS: No palpable cervical or supraclavicular adenopathy. NEUROLOGICAL: Awake and alert. Motor and grossly within normal limits. Decreased sensation BLE in socks distribtion Follows commands. Normal speech. Moves all extremities. PSYCHIATRIC: No obvious anxiety/depression. no apparent hallucinations or other psychotic thought process. Laboratory Laboratory Tests Test 06/22/16 06:00 White Blood Count 4.8 Red Blood Count 4.56 Hemoglobin 10.9 Hematocrit 34.2 Mean Corpuscular Volume 75.1 Mean Corpuscular Hemoglobin 23.8 Mean Corpuscular Hemoglobin 31.8 Concent Red Cell Distribution Width 20.9 Platelet Count 262 Mean Platelet Volume 8.2 Neutrophils (%) (Auto) 62.6 Lymphocytes (%) (Auto) 26.6 Monocytes (%) (Auto) 7.4 Eosinophils (%) (Auto) 2.6 Basophils (%) (Auto) 0.8 Neutrophils # (Auto) 3.0 Lymphocytes # (Auto) 1.3 Monocytes # (Auto) 0.4 Eosinophils # (Auto) 0.1 Basophils # (Auto) 0.0 CBC Comment DIFF FINAL Differential Comment Sodium Level 140 Potassium Level 4.3 Chloride Level 104 Carbon Dioxide Level 26.0 Anion Gap 10 Blood Urea Nitrogen 36 Creatinine 1.50 Estimat Glomerular Filtration 51 Rate Random Glucose 106 Calcium Level 7.8 Total Bilirubin 1.0 Aspartate Amino Transf 13 (AST/SGOT) Alanine Aminotransferase 16 (ALT/SGPT) Alkaline Phosphatase 210 Total Protein 6.4 Albumin 2.4 Date/Time Procedure Status Source Growth 06/20/16 19:12 Gram Stain - Final Resulted Wound Leg 06/20/16 19:12 Wound Culture - Preliminary Resulted Wound Leg HEAVY GROWTH NORMAL SKIN DORI AT 24HRS Result Diagram: 06/22/16 0600 06/22/16 0600 Imaging Last Impressions Chest X-Ray 06/20/16 1831 Signed Impressions: Service Date/Time: June 18:53 - CONCLUSION: 1. Consolidative changes in the right base with moderate size right pleural effusion. 2. The heart is enlarged. 3. Pulmonary vascularity is normal. Jim Dumont MD FACR Assessment and Plan Assessment and Plan Severe cardiomyopathy with CHF exacerbation Chronic diabetic wounds none appear infected Doubt cellulitis, BLE skin changes appear chronic and is comnbination of chronic edema, venostasis , diabetic chronic skin changes Recent h/o C.diff hypervirulent strain 027 (November 2015) - Dc Levaquine - observe clinically for signs of wound infx and cellulitis - monitor WBC, temp Discussed Condition With Renetta Lester MD Jun 22, 2016 19:54
--- NOTE | 2016-06-22 20:08 | PD.RAD ---
Post US Procedure Prog Note Pre Procedure Diagnosis: (1) Pleural effusion Post Procedure Diagnosis: (1) Pleural effusion Procedure Date: Jun 22, 2016 Supervising Radiologist: Richard Rivas Proceduralist/Assist: Julia Montes Anesthesia: Local Plan of Activity Patient to Unit: Nursing Unit Patient Condition: Good See PACS Report for procedural detail/treatment Drainage Procedure Procedure 1 Imaging Guidance: Ultrasound Side: Right Procedure Type: Thoracentesis Congolese: 6 Drainage: Suction Fluid Removal (CCs): 1850 Fluid Description: Yellow, Simple Richard Rivas MD Jun 22, 2016 20:08
--- NOTE | 2016-06-22 20:32 | RADHPO ---
EXAM DATE/TIME: 06/22/2016 20:08 [facility] COMPARISON: CHEST SINGLE AP, June 20, 2016, 18:53. INDICATIONS : Status post thoracentesis. MEDICAL HISTORY : Diabetes mellitus type II. Hypertension. Congestive heart failure. Cirrhosis. SURGICAL HISTORY : Coronary artery stent. Pacemaker. ENCOUNTER: Initial ACUITY: 1 day PAIN SCORE: 0/10 LOCATION: chest FINDINGS: Pacemaker device is noted with control pack over the left chest. There has been interval right thorac entesis. Minimal residual right pleural fluid and atelectasis at the right base. No evidence of pneum othorax. Moderate persistent left pleural effusion. Stable moderate cardiomegaly. CONCLUSION: No evidence of pneumothorax post right thoracentesis. Richard Rivas MD Board Certified Radiologist. This report was verified electronically.
--- NOTE | 2016-06-22 20:38 | RADHPO ---
EXAM DATE/TIME: 06/23/2016 00:11 [facility] COMPARISON: None. INDICATIONS : Pleural effusion. MEDICAL HISTORY : Hypertension. CHF. Dyspnea. Fibromyalgia. Diabetes. Cirrhosis. SURGICAL HISTORY : Cholecystectomy 2nd and 3rd toe amputated. Heart cath. Craniotomy. ENCOUNTER: [facility] ACUITY: 1 day PAIN SCORE: 7/10 LOCATION: Right chest. Total volume of 2850 of clear, yellow fluid was removed. Fluid was discarded. Thoracentesis was therapeutic only. Post procedure scanning reveals no hematoma or other complication. TECHNIQUE: 1. Ultrasound guidance for thoracentesis. 2. Thoracentesis. The risks, benefits, and alternatives to ultrasound guided thoracentesis were explained to the patien t in lay simple terms, including the risk of bleeding and infection. Written and verbal informed con sent was obtained. Appropriate area for thoracentesis was marked under ultrasound guidance with the patient in the uprig ht position. Overlying skin was prepped and draped in the usual sterile fashion and with local anest hetic, a dermatotomy was made with an 11 blade scalpel. A 6 [place] thoracentesis catheter was placed in the pleural space and fluid was removed. Catheter was then removed and a sterile dressing applie d. There were no immediate complications. The patient tolerated the procedure well and the left the ultrasound suite in stable condition. Chest radiograph is to be obtained. CONCLUSION: Uncomplicated ultrasound guided thoracentesis. Richard Rivas MD Board Certified Radiologist. This report was verified electronically.
[2016-06-22] MEDS: ALPRAZolam 0.5 MG TAB PO PRN (22:12)
[2016-06-23] VITALS (7 sets, daily range): BP systolic 93–132; BP diastolic 69–89; PULSE 60–78; RESP 13–29; TEMP 97.5–98.1; O2SAT 93–98
[2016-06-23 06:28] LABS: AUTOMATED NEUTROPHIL # 6.5 TH/MM3 (1.8-7.7); BASOPHIL % 0.2 % (0.0-2.0); EOSINOPHIL # 0.1 TH/MM3 (0-0.4); HEMATOCRIT 37.8 % (39.0-51.0); LYMPH % 6.4 % (9.0-44.0); LYMPHOCYTE # 0.5 TH/MM3 (1.0-4.8); MEAN CELL VOLUME 75.3 FL (80.0-100.0); MEAN CORPUSCULAR HEMOGLOBIN 23.7 PG (27.0-34.0); MEAN CORPUSCULAR HGB CONC 31.5 % (32.0-36.0); MONO % 4.7 % (0.0-8.0); NEUT % 87.7 % (16.0-70.0); PLATELET COUNT 235 TH/MM3 (150-450); RED BLOOD COUNT 5.03 MIL/MM3 (4.50-5.90); RED CELL DISTRIBUTION WIDTH 20.9 % (11.6-17.2); WHITE BLOOD COUNT 7.4 TH/MM3 (4.0-11.0)
[2016-06-23 06:32] LABS: HEMO FLAGS AUTO DIFF
[2016-06-23 06:35] LABS: CHLORIDE 102 MEQ/L (98-107); POTASSIUM 4.1 MEQ/L (3.5-5.1); SODIUM (NA) 140 MEQ/L (136-145)
[2016-06-23 06:39] LABS: ANION GAP 11 MEQ/L (5-15); BICARBONATE 26.9 MEQ/L (21.0-32.0)
[2016-06-23 06:40] LABS: BLOOD UREA NITROGEN 37 MG/DL (7-18)
[2016-06-23 06:43] LABS: ALT (GPT) 17 U/L (12-78); AST (GOT) 15 U/L (15-37); GLOMERULAR FILTRATION RATE 47 ML/MIN (>89)
[2016-06-23 06:44] LABS: TOTAL BILIRUBIN ADULT 1.3 MG/DL (0.2-1.0)
[2016-06-23 06:45] LABS: ALKALINE PHOSPHATASE 213 U/L (45-117)
[2016-06-23 06:55] LABS: KERATOCYTES OCC (NORMAL); OVALOCYTES 1+ (NORMAL); PLATELET ESTIMATE SMEAR NORMAL (NORMAL); PLATELET MORPHOLOGY NORMAL (NORMAL); SCAN/DIFF AUTO DIFF CONFIRMED
[2016-06-23] MEDS: FUROSEMIDE 40 MG/4 ML VIAL IVP SCH (08:17)
[2016-06-23] MEDS: HEPARIN SODIUM - SQ 10,000 UNITS/ML VIAL SQ SCH ×2 (08:17→21:13)
[2016-06-23] MEDS: ASPIRIN EC 81 MG TABEC PO SCH (08:17)
[2016-06-23] MEDS: PANTOPRAZOLE SOD 40 MG DELAYED RELEASE TAB PO SCH (08:17)
[2016-06-23] MEDS: LISINOPRIL 5 MG TAB PO SCH ×2 (08:18→21:13)
[2016-06-23] MEDS: POTASSIUM CHLORIDE 20 MEQ CONTROLLED RELEASE TAB PO SCH ×2 (08:18→21:12)
[2016-06-23] MEDS: METOLAZONE 5 MG TAB PO SCH (08:18)
[2016-06-23] MEDS: ACETAMINOPHEN/HYDROcodone 325 MG/5 MG TAB PO PRN (08:18)
[2016-06-23] MEDS: SODIUM CHLORIDE 0.9% FLUSH 5 ML FLUSH IVF SCH ×2 (08:18→21:12)
[2016-06-23] MEDS: CARVEDILOL 12.5 MG TAB PO SCH ×2 (08:18→21:13)
--- NOTE | 2016-06-23 08:36 | PD.CARD.PN ---
Subjective Subjective Remarks Pt doing well, breathing back to baseline Objective Medications Administered Medications Medications (Trade) Dose Ordered Sig/Roya Route PRN Reason Start Time Stop Time Status Last Admin Dose Admin IV Flush (NS Flush) 2 ml BID IVF 06/21/16 09:00 06/23/16 08:18 IV Flush (NS Flush) 2 ml UNSCH PRN IVF FLUSH AFTER USING IV ACCESS 06/20/16 21:30 06/22/16 16:47 Furosemide (Lasix Inj) 40 mg BID@,18 IVP 06/21/16 09:00 06/23/16 08:17 Potassium Chloride (KCl) 20 meq BID PO 06/21/16 09:00 06/23/16 08:18 Aspirin (Ecotrin Ec) 81 mg DAILY PO 06/21/16 09:00 06/23/16 08:17 Acetaminophen/ Hydrocodone Bitart ([place] 5-325 Mg) 1 tab Q6H PRN PO PAIN SCALE 1 TO 10 06/20/16 22:00 06/23/16 08:18 Heparin Sodium (Porcine) (Heparin Inj) 5,000 units Q12HR SQ 06/21/16 13:00 06/23/16 08:17 Pantoprazole Sodium (Protonix) 40 mg DAILY PO 06/21/16 13:00 06/23/16 08:17 Carvedilol (Coreg) 12.5 mg BID PO 06/21/16 21:00 06/23/16 08:18 Lisinopril (Prinivil) 5 mg BID PO 06/21/16 21:00 06/23/16 08:18 Metolazone (Zaroxolyn) 5 mg DAILY PO 06/21/16 21:00 06/23/16 08:18 Alprazolam (Xanax) 0.5 mg HS PRN PO ANXIETY 06/21/16 21:45 06/22/16 22:12 Vital Signs / I&O Vital Signs Date Time Temp Pulse Resp B/P Pulse Ox O2 Delivery O2 Flow Rate FiO2 06/23/16 04:00 78 15 06/23/16 04:00 70 06/23/16 03:22 98.1 78 13 116/89 97 06/23/16 00:00 60 06/23/16 00:00 97.7 62 14 110/78 97 06/22/16 21:15 97.7 60 4 135/99 100 06/22/16 21:15 60 16 135/99 99 06/22/16 21:00 62 24 140/103 99 06/22/16 21:00 97.7 60 20 140/103 100 06/22/16 20:45 62 20 135/106 100 06/22/16 20:45 97.6 60 18 135/102 100 06/22/16 20:28 98.0 60 16 122/90 100 06/22/16 20:25 97.7 60 18 122/90 100 06/22/16 20:05 60 18 112/77 99 06/22/16 20:00 60 06/22/16 19:50 59 18 118/82 98 06/22/16 16:00 60 06/22/16 16:00 98.0 60 14 121/97 96 06/22/16 12:00 60 06/22/16 12:00 97.5 60 17 125/87 96 I/O 06/22/16 06/22/16 06/22/16 06/23/16 06/23/16 06/23/16 07:00 15:00 23:00 07:00 15:00 23:00 Intake Total 220 ml 480 ml 320 ml 60 ml Output Total 775 ml 850 ml 3925 ml 700 ml Balance -555 ml -370 ml -3605 ml -640 ml Intake Oral 220 ml 480 ml 320 ml 60 ml Output Urine Total 775 ml 850 ml 1075 ml 700 ml Stool Total 0 ml Drainage Total 2850 ml # Voids 3 3 # Bowel Movements 0 1 0 Physical Exam GENERAL: This is a well-nourished, well-developed patient, in no apparent distress. CARDIOVASCULAR: Regular rate and rhythm without murmurs, gallops, or rubs. RESPIRATORY: Decreased at bases GASTROINTESTINAL: Abdomen soft, non-tender, nondistended. Normal active bowel sounds MUSCULOSKELETAL: Extremities without clubbing, cyanosis, or edema. NEURO: Alert & Oriented x4 to person, place, time, situation. Moves all ext x4 Laboratory Laboratory Tests Test 06/23/16 06:00 White Blood Count 7.4 TH/MM3 Red Blood Count 5.03 MIL/MM3 Hemoglobin 11.9 GM/DL Hematocrit 37.8 % Mean Corpuscular Volume 75.3 FL Mean Corpuscular Hemoglobin 23.7 PG Mean Corpuscular Hemoglobin 31.5 % Concent Red Cell Distribution Width 20.9 % Platelet Count 235 TH/MM3 Mean Platelet Volume 8.5 FL Neutrophils (%) (Auto) 87.7 % Lymphocytes (%) (Auto) 6.4 % Monocytes (%) (Auto) 4.7 % Eosinophils (%) (Auto) 1.0 % Basophils (%) (Auto) 0.2 % Neutrophils # (Auto) 6.5 TH/MM3 Lymphocytes # (Auto) 0.5 TH/MM3 Monocytes # (Auto) 0.3 TH/MM3 Eosinophils # (Auto) 0.1 TH/MM3 Basophils # (Auto) 0.0 TH/MM3 CBC Comment AUTO DIFF Differential Comment AUTO DIFF CONFIRMED Platelet Estimate NORMAL Platelet Morphology Comment NORMAL Ovalocytes 1+ Keratocytes OCC Sodium Level 140 MEQ/L Potassium Level 4.1 MEQ/L Chloride Level 102 MEQ/L Carbon Dioxide Level 26.9 MEQ/L Anion Gap 11 MEQ/L Blood Urea Nitrogen 37 MG/DL Creatinine 1.60 MG/DL Estimat Glomerular Filtration 47 ML/MIN Rate Random Glucose 115 MG/DL Calcium Level 8.1 MG/DL Total Bilirubin 1.3 MG/DL Aspartate Amino Transf 15 U/L (AST/SGOT) Alanine Aminotransferase 17 U/L (ALT/SGPT) Alkaline Phosphatase 213 U/L Total Protein 6.9 GM/DL Albumin 2.6 GM/DL Imaging Last Impressions Chest X-Ray 06/20/16 1831 Signed Impressions: Service Date/Time: June 18:53 - CONCLUSION: 1. Consolidative changes in the right base with moderate size right pleural effusion. 2. The heart is enlarged. 3. Pulmonary vascularity is normal. Jim Dumont MD FACR Assessment and Plan Problem List: (1) Acute on chronic diastolic CHF (congestive heart failure) Assessment and Plan: Improving, he would like medical mgt of his pleural effusion (seen by cxr) if at all possible; stopped IV lasix (seems dry and cr. bumped) will start PO tomorrow. (2) Ischemic cardiomyopathy Assessment and Plan: on mary/bb; entresto would be ideal if he could get coverage (3) CAD (coronary artery disease) (4) Hypertension Assessment and Plan: Improved on current regimen. Assessment and Plan Likely could go home later today or tomorrow; will sign off at this time, please call with questions. Mahamed Dickerson MD Jun 23, 2016 08:36
[2016-06-23] MEDS: LOW DOSE INSULIN NOVOLIN REGULAR SUPPLEMENTAL SCALE SQ SCH ×4 (12:13→21:00)
--- NOTE | 2016-06-23 13:22 | HHI.PR ---
Subjective History of Present Illness Patient feel better . S/P US guided right side thoracocentesis Review of Systems Constitutional Constitutional: Fatigue, Weakness Pulmonary Respiratory: Shortness of Breath Vitals/Results Intake & Output 06/22/16 06/22/16 06/23/16 15:00 23:00 07:00 Intake Total 480 ml 320 ml 60 ml Output Total 850 ml 3925 ml 700 ml Balance -370 ml -3605 ml -640 ml Intake Oral 480 ml 320 ml 60 ml Output Urine Total 850 ml 1075 ml 700 ml Stool Total 0 ml Drainage Total 2850 ml # Voids 3 # Bowel Movements 1 0 Vital Signs Vital Signs Date Time Temp Pulse Resp B/P Pulse Ox O2 Delivery O2 Flow Rate FiO2 06/23/16 08:00 97.5 66 19 132/85 98 06/23/16 08:00 66 06/23/16 04:00 78 15 06/23/16 04:00 70 06/23/16 03:22 98.1 78 13 116/89 97 06/23/16 00:00 60 06/23/16 00:00 97.7 62 14 110/78 97 06/22/16 21:15 97.7 60 4 135/99 100 06/22/16 21:15 60 16 135/99 99 06/22/16 21:00 62 24 140/103 99 06/22/16 21:00 97.7 60 20 140/103 100 06/22/16 20:45 62 20 135/106 100 06/22/16 20:45 97.6 60 18 135/102 100 06/22/16 20:28 98.0 60 16 122/90 100 06/22/16 20:25 97.7 60 18 122/90 100 06/22/16 20:05 60 18 112/77 99 06/22/16 20:00 60 06/22/16 19:50 59 18 118/82 98 06/22/16 16:00 60 06/22/16 16:00 98.0 60 14 121/97 96 CBC/BMP: 06/23/16 0600 06/23/16 0600 Lab Results Laboratory Tests Test 06/23/16 06:00 White Blood Count 7.4 TH/MM3 Red Blood Count 5.03 MIL/MM3 Hemoglobin 11.9 GM/DL Hematocrit 37.8 % Mean Corpuscular Volume 75.3 FL Mean Corpuscular Hemoglobin 23.7 PG Mean Corpuscular Hemoglobin 31.5 % Concent Red Cell Distribution Width 20.9 % Platelet Count 235 TH/MM3 Mean Platelet Volume 8.5 FL Neutrophils (%) (Auto) 87.7 % Lymphocytes (%) (Auto) 6.4 % Monocytes (%) (Auto) 4.7 % Eosinophils (%) (Auto) 1.0 % Basophils (%) (Auto) 0.2 % Neutrophils # (Auto) 6.5 TH/MM3 Lymphocytes # (Auto) 0.5 TH/MM3 Monocytes # (Auto) 0.3 TH/MM3 Eosinophils # (Auto) 0.1 TH/MM3 Basophils # (Auto) 0.0 TH/MM3 CBC Comment AUTO DIFF Differential Comment AUTO DIFF CONFIRMED Platelet Estimate NORMAL Platelet Morphology Comment NORMAL Ovalocytes 1+ Keratocytes OCC Sodium Level 140 MEQ/L Potassium Level 4.1 MEQ/L Chloride Level 102 MEQ/L Carbon Dioxide Level 26.9 MEQ/L Anion Gap 11 MEQ/L Blood Urea Nitrogen 37 MG/DL Creatinine 1.60 MG/DL Estimat Glomerular Filtration 47 ML/MIN Rate Random Glucose 115 MG/DL Calcium Level 8.1 MG/DL Total Bilirubin 1.3 MG/DL Aspartate Amino Transf 15 U/L (AST/SGOT) Alanine Aminotransferase 17 U/L (ALT/SGPT) Alkaline Phosphatase 213 U/L Total Protein 6.9 GM/DL Albumin 2.6 GM/DL Physical Exam General General Appearance: No Acute Distress, Comfortable Eyes Eye Exam: Pupils Equal, Pupils Reactive, Sclera White, Extraocular Movement Intact Throat Throat Exam: Oral Mucosa [place] & Moist Neck Neck Exam: Neck Supple, Trachea Midline Pulmonary Resp Exam: Clear Bilaterally Cardiology CV Exam: Regular, Normal Sinus Rhythm Gastrointestinal/Abdomen GI Exam: Soft, Non-Tender, Bowel Sounds Present Musculoskeletal MS Exam: Joints Intact Integumentary Skin Exam: Warm, Dry Skin Remarks wound on foot. Extremeties Extremities Exam: Pitting Edema Neurologic Neuro Exam: Alert, Awake, Oriented, Speech Clear, Moving All Extremities, No Focal Deficits PUD Prophylasis PUD Prophylaxis: Protonix Assessment/Plan Assessment/Plan ASSESSMENT/PLAN This is a 46-year male who came to the ER diagnosed with 1. Shortness of breath; most likely secondary to congestive heart failure exacerbation. The patient has acute on chronic systolic heart failure, ejection fraction 15% in the previous echo the patient is on lisinopril. The patient on Lasix 40 mg IV twice a day. Fluid restriction to 1.5 liters a day. Cardiology input noted. Further recommendation per cardiology. 2. Lower extremity wound, wound cultures done. Wound care nurse input noted. patient on Levaquin 250 mg IV daily for the wound infection. 3. History of hypertension. Continue home medication started clonidine 0.1 mg p.o. q. 6-hour p.r.n. if blood pressure above 180/95. 4. Deep venous thrombosis prophylaxis and Lovenox 5000 units subcutaneous twice a day. 5. Gastrointestinal prophylaxis Protonix 40 mg p.o. daily. 6. Renal insufficiency will monitor BUN, creatinine. His high B-type natriuretic peptide secondary to congestive heart failure exacerbation. 7. Anemia secondary to chronic disease. 8. Right side Pleural effusion .. S/P US guided right side thoracocentesis. We are going to manage the patient daily basis and make recommendation daily basis. check CBC with diff CMP in AM. Discussed Condition with: Patient Kyle Cassidy MD Jun 23, 2016 13:22
[2016-06-24] VITALS (9 sets, daily range): BP systolic 96–132; BP diastolic 64–98; PULSE 54–76; RESP 16–37; TEMP 97.7–98.2; O2SAT 95–97
[2016-06-24 05:56] LABS: CHLORIDE 101 MEQ/L (98-107); SODIUM (NA) 141 MEQ/L (136-145)
[2016-06-24 06:01] LABS: ANION GAP 10 MEQ/L (5-15); BICARBONATE 30.2 MEQ/L (21.0-32.0); BLOOD UREA NITROGEN 34 MG/DL (7-18)
[2016-06-24 06:04] LABS: ALT (GPT) 13 U/L (12-78); AST (GOT) 13 U/L (15-37); GLOMERULAR FILTRATION RATE 47 ML/MIN (>89); TOTAL BILIRUBIN ADULT 0.8 MG/DL (0.2-1.0)
[2016-06-24 06:05] LABS: ALKALINE PHOSPHATASE 177 U/L (45-117)
[2016-06-24 06:10] LABS: AUTOMATED NEUTROPHIL # 2.6 TH/MM3 (1.8-7.7); BASOPHIL % 0.6 % (0.0-2.0); EOSINOPHIL # 0.1 TH/MM3 (0-0.4); HEMATOCRIT 32.2 % (39.0-51.0); LYMPH % 23.4 % (9.0-44.0); LYMPHOCYTE # 0.9 TH/MM3 (1.0-4.8); MEAN CELL VOLUME 74.8 FL (80.0-100.0); MEAN CORPUSCULAR HGB CONC 30.8 % (32.0-36.0); MONO % 7.8 % (0.0-8.0); NEUT % 65.2 % (16.0-70.0); PLATELET COUNT 226 TH/MM3 (150-450); RED CELL DISTRIBUTION WIDTH 20.8 % (11.6-17.2); WHITE BLOOD COUNT 3.9 TH/MM3 (4.0-11.0)
[2016-06-24 06:23] LABS: HEMO FLAGS AUTO DIFF
[2016-06-24] MEDS: LOW DOSE INSULIN NOVOLIN REGULAR SUPPLEMENTAL SCALE SQ SCH ×4 (06:45→20:50)
[2016-06-24 07:03] LABS: OVALOCYTES 1+ (NORMAL); SCAN/DIFF AUTO DIFF CONFIRMED
--- NOTE | 2016-06-24 07:30 | HHI.PR ---
Subjective History of Present Illness Patient feel better .have wheezing started on duoneb neublization. 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 OK to DC HOME TODAY. Review of Systems Constitutional Constitutional: Fatigue, Weakness Pulmonary Respiratory: Shortness of Breath Vitals/Results Intake & Output 06/23/16 06/23/16 06/24/16 15:00 23:00 07:00 Intake Total 520 ml 120 ml 240 ml Output Total 2300 ml 1050 ml 575 ml Balance -1780 ml -930 ml -335 ml Intake Oral 520 ml 120 ml 240 ml IV Total 0 ml 0 ml Output Urine Total 2300 ml 1050 ml 575 ml # Bowel Movements 0 0 3 Vital Signs Vital Signs Date Time Temp Pulse Resp B/P Pulse Ox O2 Delivery O2 Flow Rate FiO2 06/24/16 04:00 98.0 68 16 96/64 95 06/24/16 04:00 60 06/24/16 00:00 98.2 60 21 106/77 95 06/24/16 00:00 60 06/23/16 20:00 60 06/23/16 20:00 98.1 60 15 110/77 93 06/23/16 16:00 60 06/23/16 16:00 98.0 60 22 93/69 06/23/16 12:00 64 06/23/16 12:00 97.8 64 29 120/84 98 06/23/16 08:00 97.5 66 19 132/85 98 06/23/16 08:00 66 CBC/BMP: 06/24/16 0425 06/24/16 0425 Lab Results Laboratory Tests Test 06/24/16 04:25 White Blood Count 3.9 TH/MM3 Red Blood Count 4.30 MIL/MM3 Hemoglobin 9.9 GM/DL Hematocrit 32.2 % Mean Corpuscular Volume 74.8 FL Mean Corpuscular Hemoglobin 23.0 PG Mean Corpuscular Hemoglobin 30.8 % Concent Red Cell Distribution Width 20.8 % Platelet Count 226 TH/MM3 Mean Platelet Volume 9.0 FL Neutrophils (%) (Auto) 65.2 % Lymphocytes (%) (Auto) 23.4 % Monocytes (%) (Auto) 7.8 % Eosinophils (%) (Auto) 3.0 % Basophils (%) (Auto) 0.6 % Neutrophils # (Auto) 2.6 TH/MM3 Lymphocytes # (Auto) 0.9 TH/MM3 Monocytes # (Auto) 0.3 TH/MM3 Eosinophils # (Auto) 0.1 TH/MM3 Basophils # (Auto) 0.0 TH/MM3 CBC Comment AUTO DIFF Differential Comment AUTO DIFF CONFIRMED Ovalocytes 1+ Sodium Level 141 MEQ/L Potassium Level 4.0 MEQ/L Chloride Level 101 MEQ/L Carbon Dioxide Level 30.2 MEQ/L Anion Gap 10 MEQ/L Blood Urea Nitrogen 34 MG/DL Creatinine 1.60 MG/DL Estimat Glomerular Filtration 47 ML/MIN Rate Random Glucose 148 MG/DL Calcium Level 7.7 MG/DL Total Bilirubin 0.8 MG/DL Aspartate Amino Transf 13 U/L (AST/SGOT) Alanine Aminotransferase 13 U/L (ALT/SGPT) Alkaline Phosphatase 177 U/L Total Protein 6.2 GM/DL Albumin 2.3 GM/DL Physical Exam General General Appearance: No Acute Distress, Comfortable Eyes Eye Exam: Pupils Equal, Pupils Reactive, Sclera White, Extraocular Movement Intact Throat Throat Exam: Oral Mucosa [place] & Moist Neck Neck Exam: Neck Supple, Trachea Midline Pulmonary Resp Exam: Clear Bilaterally Cardiology CV Exam: Regular, Normal Sinus Rhythm Gastrointestinal/Abdomen GI Exam: Soft, Non-Tender, Bowel Sounds Present Musculoskeletal MS Exam: Joints Intact Integumentary Skin Exam: Warm, Dry Skin Remarks wound on foot. Extremeties Extremities Exam: Pitting Edema Neurologic Neuro Exam: Alert, Awake, Oriented, Speech Clear, Moving All Extremities, No Focal Deficits PUD Prophylasis PUD Prophylaxis: Protonix Assessment/Plan Assessment/Plan ASSESSMENT/PLAN This is a 46-year male who came to the ER diagnosed with 1. Shortness of breath; most likely secondary to congestive heart failure exacerbation. The patient has acute on chronic systolic heart failure, ejection fraction 15% in the previous echo the patient is on lisinopril. The patient on Lasix 40 mg IV twice a day. Fluid restriction to 1.5 liters a day. Cardiology input noted. Further recommendation per cardiology. 2. Lower extremity wound, wound cultures done. Wound care nurse input noted. patient on Levaquin 250 mg IV daily for the wound infection. 3. History of hypertension. Continue home medication started clonidine 0.1 mg p.o. q. 6-hour p.r.n. if blood pressure above 180/95. 4. Deep venous thrombosis prophylaxis and Lovenox 5000 units subcutaneous twice a day. 5. Gastrointestinal prophylaxis Protonix 40 mg p.o. daily. 6. Renal insufficiency will monitor BUN, creatinine. His high B-type natriuretic peptide secondary to congestive heart failure exacerbation. 7. Anemia secondary to chronic disease. 8. Right side Pleural effusion .. S/P US guided right side thoracocentesis. OK TO DC HOME TODAY. F/U WITH PCP/ CARDIOLOGY 1 WEEK. Discussed Condition with: Patient Kyle Cassidy MD Jun 24, 2016 07:30
[2016-06-24] MEDS ORDERED: FURO1TAB60 PO (07:43)
[2016-06-24] MEDS ORDERED: POTA20TA5 PO (07:43)
[2016-06-24] MEDS ORDERED: ALPR.5 PO (07:43)
[2016-06-24] MEDS: POTASSIUM CHLORIDE 20 MEQ CONTROLLED RELEASE TAB PO SCH ×2 (08:04→20:50)
[2016-06-24] MEDS: ACETAMINOPHEN/HYDROcodone 325 MG/5 MG TAB PO PRN ×2 (08:04→17:23)
[2016-06-24] MEDS: ASPIRIN EC 81 MG TABEC PO SCH (08:04)
[2016-06-24] MEDS: HEPARIN SODIUM - SQ 10,000 UNITS/ML VIAL SQ SCH ×2 (08:05→20:49)
[2016-06-24] MEDS: METOLAZONE 5 MG TAB PO SCH (08:05)
[2016-06-24] MEDS: PANTOPRAZOLE SOD 40 MG DELAYED RELEASE TAB PO SCH (08:05)
[2016-06-24] MEDS: CARVEDILOL 12.5 MG TAB PO SCH ×2 (08:05→20:49)
[2016-06-24] MEDS: SODIUM CHLORIDE 0.9% FLUSH 5 ML FLUSH IVF SCH ×2 (08:05→20:49)
[2016-06-24] MEDS: LISINOPRIL 5 MG TAB PO SCH ×2 (08:05→20:50)
[2016-06-24] MEDS: FUROSEMIDE 40 MG TAB PO SCH (08:05)
[2016-06-24] MEDS: RESP: ALBUTEROL 2.5 MG/IPRATROPIUM 0.5 MG NEB (SCH) NEB ×3 (09:51→20:07)
[2016-06-25] VITALS (7 sets, daily range): BP systolic 128–142; BP diastolic 51–107; PULSE 61–74; RESP 16–26; TEMP 96.5–98.4; O2SAT 97–99
[2016-06-25] MEDS: RESP: ALBUTEROL 2.5 MG/IPRATROPIUM 0.5 MG NEB (SCH) NEB ×4 (03:32→21:26)
[2016-06-25 04:45] LABS: AUTOMATED NEUTROPHIL # 3.3 TH/MM3 (1.8-7.7); BASOPHIL % 0.8 % (0.0-2.0); EOSINOPHIL # 0.2 TH/MM3 (0-0.4); HEMATOCRIT 32.4 % (39.0-51.0); LYMPH % 19.8 % (9.0-44.0); MEAN CELL VOLUME 76.1 FL (80.0-100.0); MEAN CORPUSCULAR HEMOGLOBIN 23.9 PG (27.0-34.0); MEAN CORPUSCULAR HGB CONC 31.4 % (32.0-36.0); MONO % 7.4 % (0.0-8.0); PLATELET COUNT 219 TH/MM3 (150-450); RED BLOOD COUNT 4.26 MIL/MM3 (4.50-5.90); WHITE BLOOD COUNT 4.9 TH/MM3 (4.0-11.0)
[2016-06-25 04:49] LABS: HEMO FLAGS AUTO DIFF
[2016-06-25 04:50] LABS: CHLORIDE 103 MEQ/L (98-107); POTASSIUM 3.9 MEQ/L (3.5-5.1); SODIUM (NA) 140 MEQ/L (136-145)
[2016-06-25 04:55] LABS: ANION GAP 8 MEQ/L (5-15); BICARBONATE 29.2 MEQ/L (21.0-32.0); BLOOD UREA NITROGEN 30 MG/DL (7-18)
[2016-06-25 04:58] LABS: ALT (GPT) 15 U/L (12-78); AST (GOT) 15 U/L (15-37); GLOMERULAR FILTRATION RATE 55 ML/MIN (>89)
[2016-06-25 04:59] LABS: TOTAL BILIRUBIN ADULT 0.8 MG/DL (0.2-1.0)
[2016-06-25 05:01] LABS: ALKALINE PHOSPHATASE 184 U/L (45-117)
[2016-06-25] MEDS: ACETAMINOPHEN/HYDROcodone 325 MG/5 MG TAB PO PRN ×2 (05:18→21:15)
[2016-06-25] MEDS: LOW DOSE INSULIN NOVOLIN REGULAR SUPPLEMENTAL SCALE SQ SCH ×4 (06:20→21:14)
[2016-06-25 06:48] LABS: HOWELL-JOLLY BODIES PRESENT (NONE SEEN); SCAN/DIFF AUTO DIFF CONFIRMED
[2016-06-25] MEDS: SODIUM CHLORIDE 0.9% FLUSH 5 ML FLUSH IVF SCH ×2 (09:19→20:55)
[2016-06-25] MEDS: FUROSEMIDE 40 MG TAB PO SCH (09:20)
[2016-06-25] MEDS: ASPIRIN EC 81 MG TABEC PO SCH (09:20)
[2016-06-25] MEDS: POTASSIUM CHLORIDE 20 MEQ CONTROLLED RELEASE TAB PO SCH ×2 (09:20→20:55)
[2016-06-25] MEDS: CARVEDILOL 12.5 MG TAB PO SCH ×2 (09:20→20:55)
[2016-06-25] MEDS: LISINOPRIL 5 MG TAB PO SCH ×2 (09:20→20:55)
[2016-06-25] MEDS: METOLAZONE 5 MG TAB PO SCH (09:21)
[2016-06-25] MEDS: PANTOPRAZOLE SOD 40 MG DELAYED RELEASE TAB PO SCH (09:21)
[2016-06-25] MEDS: HEPARIN SODIUM - SQ 10,000 UNITS/ML VIAL SQ SCH ×2 (09:22→20:55)
--- NOTE | 2016-06-25 11:32 | HHI.PR ---
Subjective History of Present Illness Patient feel better .have wheezing on duoneb neublization. d/w MANUFACTURERS AGENT Yoel. start Physical therapy. Review of Systems Constitutional Constitutional: Fatigue, Weakness Pulmonary Respiratory: Shortness of Breath Vitals/Results Intake & Output 06/24/16 06/24/16 06/25/16 15:00 23:00 07:00 Intake Total 320 ml 240 ml 240 ml Output Total 900 ml 500 ml 350 ml Balance -580 ml -260 ml -110 ml Intake Oral 320 ml 240 ml 240 ml IV Total 0 ml 0 ml Output Urine Total 900 ml 500 ml 350 ml # Voids 2 # Bowel Movements 2 0 0 Vital Signs Vital Signs Date Time Temp Pulse Resp B/P Pulse Ox O2 Delivery O2 Flow Rate FiO2 06/25/16 04:00 98.1 68 26 134/99 99 06/25/16 00:00 98.3 64 18 138/92 98 06/24/16 20:00 64 06/24/16 20:00 97.7 70 16 132/92 97 06/24/16 16:19 62 06/24/16 16:19 98.2 62 20 124/98 95 06/24/16 12:00 54 06/24/16 12:00 98.0 54 22 106/77 95 CBC/BMP: 06/25/16 0407 06/25/16 0407 Lab Results Laboratory Tests Test 06/25/16 04:07 White Blood Count 4.9 TH/MM3 Red Blood Count 4.26 MIL/MM3 Hemoglobin 10.2 GM/DL Hematocrit 32.4 % Mean Corpuscular Volume 76.1 FL Mean Corpuscular Hemoglobin 23.9 PG Mean Corpuscular Hemoglobin 31.4 % Concent Red Cell Distribution Width 21.0 % Platelet Count 219 TH/MM3 Mean Platelet Volume 8.9 FL Neutrophils (%) (Auto) 68.0 % Lymphocytes (%) (Auto) 19.8 % Monocytes (%) (Auto) 7.4 % Eosinophils (%) (Auto) 4.0 % Basophils (%) (Auto) 0.8 % Neutrophils # (Auto) 3.3 TH/MM3 Lymphocytes # (Auto) 1.0 TH/MM3 Monocytes # (Auto) 0.4 TH/MM3 Eosinophils # (Auto) 0.2 TH/MM3 Basophils # (Auto) 0.0 TH/MM3 CBC Comment AUTO DIFF Differential Comment AUTO DIFF CONFIRMED [place] Bodies PRESENT Sodium Level 140 MEQ/L Potassium Level 3.9 MEQ/L Chloride Level 103 MEQ/L Carbon Dioxide Level 29.2 MEQ/L Anion Gap 8 MEQ/L Blood Urea Nitrogen 30 MG/DL Creatinine 1.40 MG/DL Estimat Glomerular Filtration 55 ML/MIN Rate Random Glucose 177 MG/DL Calcium Level 8.1 MG/DL Total Bilirubin 0.8 MG/DL Aspartate Amino Transf 15 U/L (AST/SGOT) Alanine Aminotransferase 15 U/L (ALT/SGPT) Alkaline Phosphatase 184 U/L Total Protein 6.4 GM/DL Albumin 2.4 GM/DL Physical Exam General General Appearance: No Acute Distress, Comfortable Eyes Eye Exam: Pupils Equal, Pupils Reactive, Sclera White, Extraocular Movement Intact Throat Throat Exam: Oral Mucosa [place] & Moist Neck Neck Exam: Neck Supple, Trachea Midline Pulmonary Resp Exam: Clear Bilaterally Cardiology CV Exam: Regular, Normal Sinus Rhythm Gastrointestinal/Abdomen GI Exam: Soft, Non-Tender, Bowel Sounds Present Musculoskeletal MS Exam: Joints Intact Integumentary Skin Exam: Warm, Dry Skin Remarks wound on foot. Extremeties Extremities Exam: Pitting Edema Neurologic Neuro Exam: Alert, Awake, Oriented, Speech Clear, Moving All Extremities, No Focal Deficits PUD Prophylasis PUD Prophylaxis: Protonix Assessment/Plan Assessment/Plan ASSESSMENT/PLAN This is a 46-year male who came to the ER diagnosed with 1. Shortness of breath; most likely secondary to congestive heart failure exacerbation. The patient has acute on chronic systolic heart failure, ejection fraction 15% in the previous echo the patient is on lisinopril. The patient on Lasix 40 mg IV twice a day. Fluid restriction to 1.5 liters a day. Cardiology input noted. Further recommendation per cardiology. 2. Lower extremity wound, wound cultures done. Wound care nurse input noted. patient on Levaquin 250 mg IV daily for the wound infection. 3. History of hypertension. Continue home medication started clonidine 0.1 mg p.o. q. 6-hour p.r.n. if blood pressure above 180/95. 4. Deep venous thrombosis prophylaxis and Lovenox 5000 units subcutaneous twice a day. 5. Gastrointestinal prophylaxis Protonix 40 mg p.o. daily. 6. Renal insufficiency will monitor BUN, creatinine. His high B-type natriuretic peptide secondary to congestive heart failure exacerbation. 7. Anemia secondary to chronic disease. 8. Right side Pleural effusion .. S/P US guided right side thoracocentesis. start Physical therapy. Discussed Condition with: Patient Kyle Cassidy MD Jun 25, 2016 11:32
[2016-06-25] MEDS: ALPRAZolam 0.5 MG TAB PO PRN (21:14)
[2016-06-26] VITALS: BP 142/99; PULSE 75; RESP 18; TEMP 96.7; O2SAT 97
[2016-06-26] MEDS: RESP: ALBUTEROL 2.5 MG/IPRATROPIUM 0.5 MG NEB (SCH) NEB ×4 (03:21→22:00)
[2016-06-26 04:00] VITALS: BP 110/82; PULSE 106; RESP 18; TEMP 97.5; O2SAT 98
--- NOTE | 2016-06-26 05:09 | HHI.PR ---
Subjective History of Present Illness Patient feel better Have wheezing on duoneb neublization. d/w GABRIELA Davis . getting Physical therapy. still feel weak and tired. Review of Systems Constitutional Constitutional: Fatigue, Weakness Pulmonary Respiratory: Shortness of Breath Vitals/Results Intake & Output 06/25/16 06/25/16 06/26/16 15:00 23:00 07:00 Intake Total 525 ml 460 ml Output Total 675 ml 200 ml Balance -150 ml 260 ml Intake Oral 525 ml 460 ml Output Urine Total 675 ml 200 ml # Voids 3 # Bowel Movements 0 Vital Signs Vital Signs Date Time Temp Pulse Resp B/P Pulse Ox O2 Delivery O2 Flow Rate FiO2 06/26/16 04:00 97.5 106 18 110/82 98 06/26/16 00:00 96.7 75 18 142/99 97 06/25/16 20:00 96.5 74 18 142/107 97 06/25/16 20:00 74 06/25/16 16:00 98.1 66 17 128/88 98 06/25/16 12:00 97.5 70 20 131/86 99 06/25/16 09:18 98.0 74 16 132/88 98 06/25/16 08:30 64 CBC/BMP: 06/25/16 0407 06/25/16 0407 Physical Exam General General Appearance: No Acute Distress, Comfortable Eyes Eye Exam: Pupils Equal, Pupils Reactive, Sclera White, Extraocular Movement Intact Throat Throat Exam: Oral Mucosa [place] & Moist Neck Neck Exam: Neck Supple, Trachea Midline Pulmonary Resp Exam: Clear Bilaterally Cardiology CV Exam: Regular, Normal Sinus Rhythm Gastrointestinal/Abdomen GI Exam: Soft, Non-Tender, Bowel Sounds Present Musculoskeletal MS Exam: Joints Intact Integumentary Skin Exam: Warm, Dry Skin Remarks wound on foot. Extremeties Extremities Exam: Pitting Edema Neurologic Neuro Exam: Alert, Awake, Oriented, Speech Clear, Moving All Extremities, No Focal Deficits PUD Prophylasis PUD Prophylaxis: Protonix Assessment/Plan Assessment/Plan ASSESSMENT/PLAN This is a 46-year male who came to the ER diagnosed with 1. Shortness of breath; most likely secondary to congestive heart failure exacerbation. The patient has acute on chronic systolic heart failure, ejection fraction 15% in the previous echo the patient is on lisinopril. The patient on Lasix 40 mg IV twice a day. Fluid restriction to 1.5 liters a day. Cardiology input noted. Further recommendation per cardiology. 2. Lower extremity wound, wound cultures done. Wound care nurse input noted. ID Input noted. 3. History of hypertension. Continue home medication on clonidine 0.1 mg p.o. q. 6-hour p.r.n. if blood pressure above 180/95. 4. Deep venous thrombosis prophylaxis and Lovenox 5000 units subcutaneous twice a day. 5. Gastrointestinal prophylaxis Protonix 40 mg p.o. daily. 6. Renal insufficiency will monitor BUN, creatinine. His high B-type natriuretic peptide secondary to congestive heart failure exacerbation. 7. Anemia secondary to chronic disease. 8. Right side Pleural effusion .. S/P US guided right side thoracocentesis. getting Physical therapy. Check CBC with diff CMP in AM. Discussed Condition with: Patient Kyle Cassidy MD Jun 26, 2016 05:09
[2016-06-26] MEDS: LOW DOSE INSULIN NOVOLIN REGULAR SUPPLEMENTAL SCALE SQ SCH ×4 (06:08→21:00)
[2016-06-26 08:00] VITALS: BP 137/84; PULSE 71; RESP 18; TEMP 97.4; O2SAT 97
[2016-06-26] MEDS: CARVEDILOL 12.5 MG TAB PO SCH ×2 (09:20→21:29)
[2016-06-26] MEDS: ASPIRIN EC 81 MG TABEC PO SCH (09:20)
[2016-06-26] MEDS: POTASSIUM CHLORIDE 20 MEQ CONTROLLED RELEASE TAB PO SCH ×2 (09:20→21:29)
[2016-06-26] MEDS: PANTOPRAZOLE SOD 40 MG DELAYED RELEASE TAB PO SCH (09:20)
[2016-06-26] MEDS: ACETAMINOPHEN/HYDROcodone 325 MG/5 MG TAB PO PRN ×2 (09:20→21:36)
[2016-06-26] MEDS: LISINOPRIL 5 MG TAB PO SCH ×2 (09:20→21:29)
[2016-06-26] MEDS: METOLAZONE 5 MG TAB PO SCH (09:21)
[2016-06-26] MEDS: SODIUM CHLORIDE 0.9% FLUSH 5 ML FLUSH IVF SCH ×2 (09:21→21:29)
[2016-06-26] MEDS: HEPARIN SODIUM - SQ 10,000 UNITS/ML VIAL SQ SCH ×2 (09:21→21:29)
[2016-06-26] MEDS: FUROSEMIDE 40 MG TAB PO SCH (09:21)
[2016-06-26 12:00] VITALS: BP 141/85; PULSE 71; RESP 18; TEMP 97; O2SAT 98
[2016-06-26 16:00] VITALS: BP 139/83; PULSE 62; RESP 18; TEMP 97.3; O2SAT 96
[2016-06-26 20:00] VITALS: BP 118/83; PULSE 68; PULSE 69; RESP 20; TEMP 96.9; O2SAT 98
[2016-06-26] MEDS: ALPRAZolam 0.5 MG TAB PO PRN (21:35)
[2016-06-27] VITALS: BP 120/83; PULSE 65; RESP 20; TEMP 96.4; O2SAT 94
[2016-06-27] MEDS: RESP: ALBUTEROL 2.5 MG/IPRATROPIUM 0.5 MG NEB (SCH) NEB ×4 (03:46→21:50)
[2016-06-27 04:00] VITALS: BP 124/85; PULSE 65; RESP 20; TEMP 97; O2SAT 95
[2016-06-27] MEDS: LOW DOSE INSULIN NOVOLIN REGULAR SUPPLEMENTAL SCALE SQ SCH ×4 (06:08→22:01)
[2016-06-27 08:00] VITALS: BP 117/83; PULSE 62; RESP 20; TEMP 96.3; O2SAT 96
--- NOTE | 2016-06-27 08:19 | HHI.PR ---
Subjective History of Present Illness Patient feel weak and tired Have wheezing on duoneb neublization. d/w GABRIELA Davis at bed side. . getting Physical therapy. Review of Systems Constitutional Constitutional: Fatigue, Weakness Pulmonary Respiratory: Shortness of Breath Vitals/Results Intake & Output 06/26/16 06/26/16 06/27/16 15:00 23:00 07:00 Intake Total 950 ml 120 ml 120 ml Output Total 300 ml 1225 ml Balance 950 ml -180 ml -1105 ml Intake Oral 950 ml 120 ml 120 ml Output Urine Total 300 ml 1225 ml # Voids 6 1 4 # Bowel Movements 0 0 Vital Signs Vital Signs Date Time Temp Pulse Resp B/P Pulse Ox O2 Delivery O2 Flow Rate FiO2 06/27/16 04:00 97.0 65 20 124/85 95 06/27/16 00:00 96.4 65 20 120/83 94 06/26/16 20:00 96.9 68 20 118/83 98 06/26/16 20:00 69 06/26/16 16:00 97.3 62 18 139/83 96 06/26/16 12:00 97.0 71 18 141/85 98 06/26/16 10:22 18 CBC/BMP: 06/25/16 0407 06/25/16 0407 Physical Exam General General Appearance: No Acute Distress, Comfortable Eyes Eye Exam: Pupils Equal, Pupils Reactive, Sclera White, Extraocular Movement Intact Throat Throat Exam: Oral Mucosa [place] & Moist Neck Neck Exam: Neck Supple, Trachea Midline Pulmonary Resp Exam: Clear Bilaterally Cardiology CV Exam: Regular, Normal Sinus Rhythm Gastrointestinal/Abdomen GI Exam: Soft, Non-Tender, Bowel Sounds Present Musculoskeletal MS Exam: Joints Intact Integumentary Skin Exam: Warm, Dry Skin Remarks wound on foot. Extremeties Extremities Exam: Pitting Edema Neurologic Neuro Exam: Alert, Awake, Oriented, Speech Clear, Moving All Extremities, No Focal Deficits PUD Prophylasis PUD Prophylaxis: Protonix Assessment/Plan Assessment/Plan ASSESSMENT/PLAN This is a 46-year male who came to the ER diagnosed with 1. Shortness of breath; most likely secondary to congestive heart failure exacerbation. The patient has acute on chronic systolic heart failure, ejection fraction 15% in the previous echo the patient is on lisinopril. The patient on Lasix 40 mg IV twice a day. Fluid restriction to 1.5 liters a day. Cardiology input noted. Further recommendation per cardiology. 2. Lower extremity wound, wound cultures done. Wound care nurse input noted. ID Input noted. 3. History of hypertension. Continue home medication on clonidine 0.1 mg p.o. q. 6-hour p.r.n. if blood pressure above 180/95. 4. Deep venous thrombosis prophylaxis and Lovenox 5000 units subcutaneous twice a day. 5. Gastrointestinal prophylaxis Protonix 40 mg p.o. daily. 6. Renal insufficiency will monitor BUN, creatinine. His high B-type natriuretic peptide secondary to congestive heart failure exacerbation. 7. Anemia secondary to chronic disease. 8. Right side Pleural effusion .. S/P US guided right side thoracocentesis. getting Physical therapy. Check CBC with diff CMP in AM. Discussed Condition with: Patient Kyle Cassidy MD Jun 27, 2016 08:19
[2016-06-27] MEDS: CARVEDILOL 12.5 MG TAB PO SCH ×2 (10:34→22:00)
[2016-06-27] MEDS: HEPARIN SODIUM - SQ 10,000 UNITS/ML VIAL SQ SCH ×2 (10:34→21:58)
[2016-06-27] MEDS: PANTOPRAZOLE SOD 40 MG DELAYED RELEASE TAB PO SCH (10:34)
[2016-06-27] MEDS: FUROSEMIDE 40 MG TAB PO SCH (10:35)
[2016-06-27] MEDS: LISINOPRIL 5 MG TAB PO SCH ×2 (10:35→22:00)
[2016-06-27] MEDS: METOLAZONE 5 MG TAB PO SCH (10:35)
[2016-06-27] MEDS: ASPIRIN EC 81 MG TABEC PO SCH (10:35)
[2016-06-27] MEDS: SODIUM CHLORIDE 0.9% FLUSH 5 ML FLUSH IVF SCH ×2 (10:36→21:58)
[2016-06-27] MEDS: POTASSIUM CHLORIDE 20 MEQ CONTROLLED RELEASE TAB PO SCH ×2 (10:36→22:00)
[2016-06-27 12:00] VITALS: BP 120/80; PULSE 66; RESP 20; TEMP 96.6; O2SAT 96
[2016-06-27] MEDS: ACETAMINOPHEN/HYDROcodone 325 MG/5 MG TAB PO PRN ×2 (13:25→22:01)
[2016-06-27 16:00] VITALS: BP 120/95; PULSE 61; RESP 18; TEMP 96.7; O2SAT 97
[2016-06-27 20:00] VITALS: BP 141/104; PULSE 72; PULSE 73; RESP 18; TEMP 95.1; O2SAT 98
[2016-06-28] VITALS: BP 119/81; PULSE 68; RESP 18; TEMP 96.7; O2SAT 93
[2016-06-28 04:00] VITALS: BP 125/83; PULSE 88; RESP 18; TEMP 96.8; O2SAT 98
[2016-06-28] MEDS: RESP: ALBUTEROL 2.5 MG/IPRATROPIUM 0.5 MG NEB (SCH) NEB (04:00)
[2016-06-28] MEDS: LOW DOSE INSULIN NOVOLIN REGULAR SUPPLEMENTAL SCALE SQ SCH ×4 (05:49→21:00)
[2016-06-28 06:18] LABS: AUTOMATED NEUTROPHIL # 3.1 TH/MM3 (1.8-7.7); BASOPHIL % 0.8 % (0.0-2.0); EOSINOPHIL # 0.3 TH/MM3 (0-0.4); EOSINOPHIL % 6.6 % (0.0-4.0); HEMATOCRIT 32.6 % (39.0-51.0); LYMPH % 21.9 % (9.0-44.0); MEAN CELL VOLUME 75.3 FL (80.0-100.0); MEAN CORPUSCULAR HEMOGLOBIN 23.8 PG (27.0-34.0); MEAN CORPUSCULAR HGB CONC 31.6 % (32.0-36.0); NEUT % 63.7 % (16.0-70.0); PLATELET COUNT 236 TH/MM3 (150-450); RED BLOOD COUNT 4.33 MIL/MM3 (4.50-5.90); RED CELL DISTRIBUTION WIDTH 20.9 % (11.6-17.2); WHITE BLOOD COUNT 4.7 TH/MM3 (4.0-11.0)
[2016-06-28 06:19] LABS: HEMO FLAGS DIFF FINAL
[2016-06-28] MEDS: ACETAMINOPHEN/HYDROcodone 325 MG/5 MG TAB PO PRN ×3 (06:21→17:46)
[2016-06-28 06:25] LABS: CHLORIDE 103 MEQ/L (98-107); POTASSIUM 4.2 MEQ/L (3.5-5.1); SODIUM (NA) 141 MEQ/L (136-145)
[2016-06-28 06:32] LABS: ANION GAP 8 MEQ/L (5-15); BLOOD UREA NITROGEN 22 MG/DL (7-18)
[2016-06-28 06:35] LABS: ALT (GPT) 13 U/L (12-78); AST (GOT) 13 U/L (15-37); GLOMERULAR FILTRATION RATE 72 ML/MIN (>89)
[2016-06-28 06:37] LABS: TOTAL BILIRUBIN ADULT 0.5 MG/DL (0.2-1.0)
[2016-06-28 06:38] LABS: ALKALINE PHOSPHATASE 168 U/L (45-117)
[2016-06-28 08:00] VITALS: BP 100/50; PULSE 55; PULSE 80; RESP 18; TEMP 97.2; O2SAT 93
--- NOTE | 2016-06-28 08:04 | HHI.PR ---
Subjective History of Present Illness Patient feel weak and tired Have wheezing on duoneb neublization. d/w RNGrace at bed side. . getting Physical therapy. All question answered to patient satisfaction have bradycardia cardiology on board. Review of Systems Constitutional Constitutional: Fatigue, Weakness Pulmonary Respiratory: Shortness of Breath Vitals/Results Intake & Output 06/27/16 06/27/16 06/28/16 15:00 23:00 07:00 Intake Total 1070 ml 80 ml Output Total 1400 ml 800 ml Balance -330 ml -720 ml Intake Oral 1070 ml 80 ml IV Total 0 ml 0 ml Output Urine Total 1400 ml 800 ml # Bowel Movements 0 0 Vital Signs Vital Signs Date Time Temp Pulse Resp B/P Pulse Ox O2 Delivery O2 Flow Rate FiO2 06/28/16 04:00 96.8 88 18 125/83 98 06/28/16 00:00 96.7 68 18 119/81 93 06/27/16 20:00 72 06/27/16 20:00 95.1 73 18 141/104 98 06/27/16 16:00 96.7 61 18 120/95 97 06/27/16 14:31 18 06/27/16 12:00 96.6 66 20 120/80 96 CBC/BMP: 06/28/16 0545 06/28/16 0545 Lab Results Laboratory Tests Test 06/28/16 05:45 White Blood Count 4.7 TH/MM3 Red Blood Count 4.33 MIL/MM3 Hemoglobin 10.3 GM/DL Hematocrit 32.6 % Mean Corpuscular Volume 75.3 FL Mean Corpuscular Hemoglobin 23.8 PG Mean Corpuscular Hemoglobin 31.6 % Concent Red Cell Distribution Width 20.9 % Platelet Count 236 TH/MM3 Mean Platelet Volume 8.6 FL Neutrophils (%) (Auto) 63.7 % Lymphocytes (%) (Auto) 21.9 % Monocytes (%) (Auto) 7.0 % Eosinophils (%) (Auto) 6.6 % Basophils (%) (Auto) 0.8 % Neutrophils # (Auto) 3.1 TH/MM3 Lymphocytes # (Auto) 1.0 TH/MM3 Monocytes # (Auto) 0.3 TH/MM3 Eosinophils # (Auto) 0.3 TH/MM3 Basophils # (Auto) 0.0 TH/MM3 CBC Comment DIFF FINAL Differential Comment Sodium Level 141 MEQ/L Potassium Level 4.2 MEQ/L Chloride Level 103 MEQ/L Carbon Dioxide Level 30.0 MEQ/L Anion Gap 8 MEQ/L Blood Urea Nitrogen 22 MG/DL Creatinine 1.10 MG/DL Estimat Glomerular Filtration 72 ML/MIN Rate Random Glucose 123 MG/DL Calcium Level 7.9 MG/DL Total Bilirubin 0.5 MG/DL Aspartate Amino Transf 13 U/L (AST/SGOT) Alanine Aminotransferase 13 U/L (ALT/SGPT) Alkaline Phosphatase 168 U/L Total Protein 6.4 GM/DL Albumin 2.3 GM/DL Physical Exam General General Appearance: No Acute Distress, Comfortable Eyes Eye Exam: Pupils Equal, Pupils Reactive, Sclera White, Extraocular Movement Intact Throat Throat Exam: Oral Mucosa [place] & Moist Neck Neck Exam: Neck Supple, Trachea Midline Pulmonary Resp Exam: Clear Bilaterally Cardiology CV Exam: Regular, Normal Sinus Rhythm Gastrointestinal/Abdomen GI Exam: Soft, Non-Tender, Bowel Sounds Present Musculoskeletal MS Exam: Joints Intact Integumentary Skin Exam: Warm, Dry Skin Remarks wound on foot. Extremeties Extremities Exam: Pitting Edema Neurologic Neuro Exam: Alert, Awake, Oriented, Speech Clear, Moving All Extremities, No Focal Deficits PUD Prophylasis PUD Prophylaxis: Protonix Assessment/Plan Assessment/Plan ASSESSMENT/PLAN This is a 46-year male who came to the ER diagnosed with 1. Shortness of breath; most likely secondary to congestive heart failure exacerbation. The patient has acute on chronic systolic heart failure, ejection fraction 15% in the previous echo the patient is on lisinopril. The patient on Lasix 40 mg IV twice a day. Fluid restriction to 1.5 liters a day. Cardiology input noted. Further recommendation per cardiology. 2. Lower extremity wound, wound cultures done. Wound care nurse input noted. ID Input noted. 3. History of hypertension. Continue home medication on clonidine 0.1 mg p.o. q. 6-hour p.r.n. if blood pressure above 180/95. 4. Deep venous thrombosis prophylaxis and Lovenox 5000 units subcutaneous twice a day. 5. Gastrointestinal prophylaxis Protonix 40 mg p.o. daily. 6. Renal insufficiency will monitor BUN, creatinine. His high B-type natriuretic peptide secondary to congestive heart failure exacerbation. 7. Anemia secondary to chronic disease. 8. Right side Pleural effusion .. S/P US guided right side thoracocentesis. 9. Bradycardia cardiology on board. getting Physical therapy. Check CBC with diff CMP in AM. Discussed Condition with: Patient Kyle Cassidy MD Jun 28, 2016 08:04
[2016-06-28] MEDS: METOLAZONE 5 MG TAB PO SCH (08:41)
[2016-06-28] MEDS: FUROSEMIDE 40 MG TAB PO SCH (08:42)
[2016-06-28] MEDS: POTASSIUM CHLORIDE 20 MEQ CONTROLLED RELEASE TAB PO SCH ×2 (08:42→23:12)
[2016-06-28] MEDS: LISINOPRIL 5 MG TAB PO SCH ×2 (08:42→23:14)
[2016-06-28] MEDS: PANTOPRAZOLE SOD 40 MG DELAYED RELEASE TAB PO SCH (08:42)
[2016-06-28] MEDS: HEPARIN SODIUM - SQ 10,000 UNITS/ML VIAL SQ SCH ×2 (08:43→23:13)
[2016-06-28] MEDS: SODIUM CHLORIDE 0.9% FLUSH 5 ML FLUSH IVF SCH ×2 (08:43→23:12)
[2016-06-28] MEDS: CARVEDILOL 12.5 MG TAB PO SCH ×2 (08:43→23:14)
[2016-06-28] MEDS: ASPIRIN EC 81 MG TABEC PO SCH (08:43)
[2016-06-28 12:00] VITALS: BP 108/54; PULSE 60; RESP 18; TEMP 97.3; O2SAT 94
[2016-06-28 16:00] VITALS: BP 110/60; PULSE 60; RESP 18; TEMP 98; O2SAT 92
[2016-06-28 20:00] VITALS: BP 143/100; PULSE 65; PULSE 68; RESP 18; TEMP 95.9; O2SAT 100
[2016-06-29] VITALS (8 sets, daily range): BP systolic 114–141; BP diastolic 78–100; PULSE 62–72; RESP 14–18; TEMP 96.4–97.7; O2SAT 92–98
[2016-06-29] MEDS: LOW DOSE INSULIN NOVOLIN REGULAR SUPPLEMENTAL SCALE SQ SCH ×4 (06:07→21:25)
[2016-06-29 07:31] LABS: AUTOMATED NEUTROPHIL # 3.1 TH/MM3 (1.8-7.7); BASOPHIL % 0.8 % (0.0-2.0); EOSINOPHIL # 0.3 TH/MM3 (0-0.4); EOSINOPHIL % 6.3 % (0.0-4.0); HEMATOCRIT 35.3 % (39.0-51.0); LYMPH % 17.2 % (9.0-44.0); LYMPHOCYTE # 0.8 TH/MM3 (1.0-4.8); MEAN CELL VOLUME 75.6 FL (80.0-100.0); MEAN CORPUSCULAR HGB CONC 31.8 % (32.0-36.0); NEUT % 67.7 % (16.0-70.0); PLATELET COUNT 241 TH/MM3 (150-450); RED BLOOD COUNT 4.67 MIL/MM3 (4.50-5.90); RED CELL DISTRIBUTION WIDTH 21.1 % (11.6-17.2); WHITE BLOOD COUNT 4.6 TH/MM3 (4.0-11.0)
[2016-06-29 07:33] LABS: HEMO FLAGS DIFF FINAL
[2016-06-29 07:40] LABS: CHLORIDE 101 MEQ/L (98-107); SODIUM (NA) 139 MEQ/L (136-145)
[2016-06-29 07:44] LABS: ANION GAP 8 MEQ/L (5-15); BICARBONATE 29.8 MEQ/L (21.0-32.0)
[2016-06-29 07:45] LABS: BLOOD UREA NITROGEN 24 MG/DL (7-18)
[2016-06-29 07:48] LABS: ALT (GPT) 14 U/L (12-78); AST (GOT) 14 U/L (15-37); GLOMERULAR FILTRATION RATE 72 ML/MIN (>89)
[2016-06-29 07:49] LABS: TOTAL BILIRUBIN ADULT 0.6 MG/DL (0.2-1.0)
[2016-06-29 07:51] LABS: ALKALINE PHOSPHATASE 184 U/L (45-117)
--- NOTE | 2016-06-29 08:03 | HHI.PR ---
Subjective History of Present Illness Patient feel weak and tired Have wheezing on duoneb Neublization. d/w RN Kristie at bed side. . getting Physical therapy. All question answered to patient satisfaction have bradycardia cardiology on board. have diarrhea check stool studies.. Review of Systems Constitutional Constitutional: Fatigue, Weakness Pulmonary Respiratory: Shortness of Breath Vitals/Results Intake & Output 06/28/16 06/28/16 06/29/16 15:00 23:00 07:00 Intake Total 840 ml 240 ml Output Total 300 ml 300 ml Balance 540 ml -60 ml Intake Oral 840 ml 240 ml IV Total 0 ml 0 ml Output Urine Total 300 ml 300 ml # Voids 3 # Bowel Movements 1 Vital Signs Vital Signs Date Time Temp Pulse Resp B/P Pulse Ox O2 Delivery O2 Flow Rate FiO2 06/29/16 04:00 96.5 68 18 141/93 92 06/29/16 00:00 96.4 64 18 123/85 94 06/28/16 20:00 95.9 65 18 143/100 100 06/28/16 20:00 68 06/28/16 16:00 98.0 60 18 110/60 92 06/28/16 13:13 20 06/28/16 12:00 97.3 60 18 108/54 94 CBC/BMP: 06/29/16 0715 06/29/16 0715 Lab Results Laboratory Tests Test 06/29/16 07:15 White Blood Count 4.6 TH/MM3 Red Blood Count 4.67 MIL/MM3 Hemoglobin 11.2 GM/DL Hematocrit 35.3 % Mean Corpuscular Volume 75.6 FL Mean Corpuscular Hemoglobin 24.0 PG Mean Corpuscular Hemoglobin 31.8 % Concent Red Cell Distribution Width 21.1 % Platelet Count 241 TH/MM3 Mean Platelet Volume 8.6 FL Neutrophils (%) (Auto) 67.7 % Lymphocytes (%) (Auto) 17.2 % Monocytes (%) (Auto) 8.0 % Eosinophils (%) (Auto) 6.3 % Basophils (%) (Auto) 0.8 % Neutrophils # (Auto) 3.1 TH/MM3 Lymphocytes # (Auto) 0.8 TH/MM3 Monocytes # (Auto) 0.4 TH/MM3 Eosinophils # (Auto) 0.3 TH/MM3 Basophils # (Auto) 0.0 TH/MM3 CBC Comment DIFF FINAL Differential Comment Sodium Level 139 MEQ/L Potassium Level 4.0 MEQ/L Chloride Level 101 MEQ/L Carbon Dioxide Level 29.8 MEQ/L Anion Gap 8 MEQ/L Blood Urea Nitrogen 24 MG/DL Creatinine 1.10 MG/DL Estimat Glomerular Filtration 72 ML/MIN Rate Random Glucose 156 MG/DL Calcium Level 8.1 MG/DL Total Bilirubin 0.6 MG/DL Aspartate Amino Transf 14 U/L (AST/SGOT) Alanine Aminotransferase 14 U/L (ALT/SGPT) Alkaline Phosphatase 184 U/L Total Protein 6.8 GM/DL Albumin 2.5 GM/DL Physical Exam General General Appearance: No Acute Distress, Comfortable Eyes Eye Exam: Pupils Equal, Pupils Reactive, Sclera White, Extraocular Movement Intact Throat Throat Exam: Oral Mucosa [place] & Moist Neck Neck Exam: Neck Supple, Trachea Midline Pulmonary Resp Exam: Clear Bilaterally Cardiology CV Exam: Regular, Normal Sinus Rhythm Gastrointestinal/Abdomen GI Exam: Soft, Non-Tender, Bowel Sounds Present Musculoskeletal MS Exam: Joints Intact Integumentary Skin Exam: Warm, Dry Skin Remarks wound on foot. Extremeties Extremities Exam: Pitting Edema Neurologic Neuro Exam: Alert, Awake, Oriented, Speech Clear, Moving All Extremities, No Focal Deficits PUD Prophylasis PUD Prophylaxis: Protonix Assessment/Plan Assessment/Plan ASSESSMENT/PLAN This is a 46-year male who came to the ER diagnosed with 1. Shortness of breath; most likely secondary to congestive heart failure exacerbation. The patient has acute on chronic systolic heart failure, ejection fraction 15% in the previous echo the patient is on lisinopril. The patient on Lasix 40 mg IV twice a day. Fluid restriction to 1.5 liters a day. Cardiology input noted. Further recommendation per cardiology. 2. Lower extremity wound, wound cultures done. Wound care nurse input noted. ID Input noted. 3. History of hypertension. Continue home medication on clonidine 0.1 mg p.o. q. 6-hour p.r.n. if blood pressure above 180/95. 4. Deep venous thrombosis prophylaxis and Lovenox 5000 units subcutaneous twice a day. 5. Gastrointestinal prophylaxis Protonix 40 mg p.o. daily. 6. Renal insufficiency will monitor BUN, creatinine. His high B-type natriuretic peptide secondary to congestive heart failure exacerbation. 7. Anemia secondary to chronic disease. 8. Right side Pleural effusion .. S/P US guided right side thoracocentesis. 9. Bradycardia cardiology on board. 10. Diarrhea check stool studies.. getting Physical therapy. Check CBC with diff CMP in AM. Discussed Condition with: Patient Kyle Cassidy MD Jun 29, 2016 08:03
[2016-06-29] MEDS: SODIUM CHLORIDE 0.9% FLUSH 5 ML FLUSH IVF SCH ×2 (09:00→21:24)
[2016-06-29] MEDS: ASPIRIN EC 81 MG TABEC PO SCH (09:06)
[2016-06-29] MEDS: LISINOPRIL 5 MG TAB PO SCH ×2 (09:06→21:24)
[2016-06-29] MEDS: METOLAZONE 5 MG TAB PO SCH (09:07)
[2016-06-29] MEDS: PANTOPRAZOLE SOD 40 MG DELAYED RELEASE TAB PO SCH (09:07)
[2016-06-29] MEDS: FUROSEMIDE 40 MG TAB PO SCH (09:07)
[2016-06-29] MEDS: ACETAMINOPHEN/HYDROcodone 325 MG/5 MG TAB PO PRN ×3 (09:07→21:02)
[2016-06-29] MEDS: HEPARIN SODIUM - SQ 10,000 UNITS/ML VIAL SQ SCH ×2 (09:08→21:24)
[2016-06-29] MEDS: POTASSIUM CHLORIDE 20 MEQ CONTROLLED RELEASE TAB PO SCH ×2 (09:08→21:24)
[2016-06-29] MEDS: CARVEDILOL 12.5 MG TAB PO SCH ×2 (09:08→21:24)
[2016-06-30] VITALS: BP 142/99; PULSE 66; RESP 18; TEMP 97; O2SAT 97
[2016-06-30] MEDS: ACETAMINOPHEN/HYDROcodone 325 MG/5 MG TAB PO PRN ×2 (03:11→08:36)
[2016-06-30 04:00] VITALS: BP 129/92; PULSE 66; RESP 16; TEMP 96.5; O2SAT 96
[2016-06-30] MEDS: LOW DOSE INSULIN NOVOLIN REGULAR SUPPLEMENTAL SCALE SQ SCH (05:03)
[2016-06-30 07:28] LABS: AUTOMATED NEUTROPHIL # 2.6 TH/MM3 (1.8-7.7); EOSINOPHIL # 0.3 TH/MM3 (0-0.4); EOSINOPHIL % 6.2 % (0.0-4.0); HEMATOCRIT 31.6 % (39.0-51.0); LYMPH % 24.4 % (9.0-44.0); MEAN CELL VOLUME 75.1 FL (80.0-100.0); MEAN CORPUSCULAR HEMOGLOBIN 23.4 PG (27.0-34.0); MEAN CORPUSCULAR HGB CONC 31.1 % (32.0-36.0); MONO % 8.2 % (0.0-8.0); NEUT % 60.2 % (16.0-70.0); PLATELET COUNT 243 TH/MM3 (150-450); RED BLOOD COUNT 4.21 MIL/MM3 (4.50-5.90); RED CELL DISTRIBUTION WIDTH 21.2 % (11.6-17.2); WHITE BLOOD COUNT 4.2 TH/MM3 (4.0-11.0)
[2016-06-30 07:29] LABS: HEMO FLAGS AUTO DIFF
[2016-06-30 07:43] LABS: CHLORIDE 101 MEQ/L (98-107); POTASSIUM 4.1 MEQ/L (3.5-5.1); SODIUM (NA) 138 MEQ/L (136-145)
[2016-06-30 07:48] LABS: ANION GAP 7 MEQ/L (5-15); BLOOD UREA NITROGEN 23 MG/DL (7-18)
[2016-06-30 07:51] LABS: ALT (GPT) 13 U/L (12-78); AST (GOT) 16 U/L (15-37); GLOMERULAR FILTRATION RATE 72 ML/MIN (>89)
[2016-06-30 07:53] LABS: TOTAL BILIRUBIN ADULT 0.6 MG/DL (0.2-1.0)
[2016-06-30 07:54] LABS: ALKALINE PHOSPHATASE 174 U/L (45-117)
[2016-06-30 08:00] VITALS: BP 141/100; PULSE 68; RESP 19; TEMP 98.1; O2SAT 96
[2016-06-30] MEDS: SODIUM CHLORIDE 0.9% FLUSH 5 ML FLUSH IVF SCH (08:35)
[2016-06-30] MEDS: HEPARIN SODIUM - SQ 10,000 UNITS/ML VIAL SQ SCH (08:35)
[2016-06-30] MEDS: FUROSEMIDE 40 MG TAB PO SCH (08:36)
[2016-06-30] MEDS: METOLAZONE 5 MG TAB PO SCH (08:36)
[2016-06-30] MEDS: CARVEDILOL 12.5 MG TAB PO SCH (08:36)
[2016-06-30] MEDS: ASPIRIN EC 81 MG TABEC PO SCH (08:36)
[2016-06-30] MEDS: POTASSIUM CHLORIDE 20 MEQ CONTROLLED RELEASE TAB PO SCH (08:36)
[2016-06-30] MEDS: LISINOPRIL 5 MG TAB PO SCH (08:36)
[2016-06-30] MEDS: PANTOPRAZOLE SOD 40 MG DELAYED RELEASE TAB PO SCH (08:36)
[2016-06-30 09:07] LABS: SCAN/DIFF AUTO DIFF CONFIRMED
--- NOTE | 2016-06-30 09:50 | HHI.PR ---
Subjective History of Present Illness Patient feel weak and tired Have wheezing on duoneb Neublization. d/w RN Agnieszka at bed side. . getting Physical therapy. All question answered to patient satisfaction have bradycardia cardiology on board...resolved wants to go home today ..OK to DC Home today. Review of Systems Constitutional Constitutional: Fatigue, Weakness Pulmonary Respiratory: Shortness of Breath Vitals/Results Intake & Output 06/29/16 06/29/16 06/30/16 15:00 23:00 07:00 Output Total 600 ml Balance -600 ml Output Urine Total 600 ml # Voids 2 # Bowel Movements 0 Vital Signs Vital Signs Date Time Temp Pulse Resp B/P Pulse Ox O2 Delivery O2 Flow Rate FiO2 06/30/16 08:00 98.1 68 19 141/100 96 06/30/16 04:00 96.5 66 16 129/92 96 06/30/16 00:00 97.0 66 18 142/99 97 06/29/16 22:29 18 06/29/16 20:10 72 06/29/16 20:00 97.5 62 16 127/88 98 06/29/16 17:00 96.8 66 15 137/95 97 06/29/16 15:04 97.7 62 14 114/78 94 CBC/BMP: 06/30/16 0700 06/30/16 0700 Lab Results Laboratory Tests Test 06/30/16 07:00 White Blood Count 4.2 TH/MM3 Red Blood Count 4.21 MIL/MM3 Hemoglobin 9.8 GM/DL Hematocrit 31.6 % Mean Corpuscular Volume 75.1 FL Mean Corpuscular Hemoglobin 23.4 PG Mean Corpuscular Hemoglobin 31.1 % Concent Red Cell Distribution Width 21.2 % Platelet Count 243 TH/MM3 Mean Platelet Volume 8.6 FL Neutrophils (%) (Auto) 60.2 % Lymphocytes (%) (Auto) 24.4 % Monocytes (%) (Auto) 8.2 % Eosinophils (%) (Auto) 6.2 % Basophils (%) (Auto) 1.0 % Neutrophils # (Auto) 2.6 TH/MM3 Lymphocytes # (Auto) 1.0 TH/MM3 Monocytes # (Auto) 0.3 TH/MM3 Eosinophils # (Auto) 0.3 TH/MM3 Basophils # (Auto) 0.0 TH/MM3 CBC Comment AUTO DIFF Differential Comment AUTO DIFF CONFIRMED Sodium Level 138 MEQ/L Potassium Level 4.1 MEQ/L Chloride Level 101 MEQ/L Carbon Dioxide Level 30.0 MEQ/L Anion Gap 7 MEQ/L Blood Urea Nitrogen 23 MG/DL Creatinine 1.10 MG/DL Estimat Glomerular Filtration 72 ML/MIN Rate Random Glucose 130 MG/DL Calcium Level 7.9 MG/DL Total Bilirubin 0.6 MG/DL Aspartate Amino Transf 16 U/L (AST/SGOT) Alanine Aminotransferase 13 U/L (ALT/SGPT) Alkaline Phosphatase 174 U/L Total Protein 6.7 GM/DL Albumin 2.4 GM/DL Physical Exam General General Appearance: No Acute Distress, Comfortable Eyes Eye Exam: Pupils Equal, Pupils Reactive, Sclera White, Extraocular Movement Intact Throat Throat Exam: Oral Mucosa [place] & Moist Neck Neck Exam: Neck Supple, Trachea Midline Pulmonary Resp Exam: Clear Bilaterally Cardiology CV Exam: Regular, Normal Sinus Rhythm Gastrointestinal/Abdomen GI Exam: Soft, Non-Tender, Bowel Sounds Present Musculoskeletal MS Exam: Joints Intact Integumentary Skin Exam: Warm, Dry Skin Remarks wound on foot. Extremeties Extremities Exam: Pitting Edema Neurologic Neuro Exam: Alert, Awake, Oriented, Speech Clear, Moving All Extremities, No Focal Deficits PUD Prophylasis PUD Prophylaxis: Protonix Assessment/Plan Assessment/Plan ASSESSMENT/PLAN This is a 46-year male who came to the ER diagnosed with 1. Shortness of breath; most likely secondary to congestive heart failure exacerbation. The patient has acute on chronic systolic heart failure, ejection fraction 15% in the previous echo the patient is on lisinopril. The patient on Lasix 40 mg IV twice a day. Fluid restriction to 1.5 liters a day. Cardiology input noted. Further recommendation per cardiology. 2. Lower extremity wound, wound cultures done. Wound care nurse input noted. ID Input noted. 3. History of hypertension. Continue home medication on clonidine 0.1 mg p.o. q. 6-hour p.r.n. if blood pressure above 180/95. 4. Deep venous thrombosis prophylaxis and Lovenox 5000 units subcutaneous twice a day. 5. Gastrointestinal prophylaxis Protonix 40 mg p.o. daily. 6. Renal insufficiency will monitor BUN, creatinine. His high B-type natriuretic peptide secondary to congestive heart failure exacerbation. 7. Anemia secondary to chronic disease. 8. Right side Pleural effusion .. S/P US guided right side thoracocentesis. 9. Bradycardia cardiology on board. 10. Diarrhea check stool studies.. getting Physical therapy. .OK to DC Home today. f/u with PCP/Cardiology 1 week. Discussed Condition with: Patient Kyle Cassidy MD Jun 30, 2016 09:50
--- NOTE | 2016-07-03 05:31 | MD ---
cc: KYLE VIZCAINO MD ADMISSION DATE: 06/20/2016 DISCHARGE DATE: 06/30/2016 DISPOSITION Okay to discharge the patient home. CONDITION AT THE TIME OF DISCHARGE Satisfactory. ACTIVITY As tolerated. DIET Cardiac diet. ALLERGY ARTIFICIAL SWEETENERS. MONOSODIUM GLUTAMATE. PENICILLIN. VALIUM. DISCHARGE MEDICATIONS 1. Xanax 0.5 mg at bedtime p.r.n. anxiety. 2. Fosamax 40 mg p.o. daily. 3. Potassium chloride 20 mEq twice a day. 4. Aspirin 81 mg p.o. daily. 5. Coreg 6.25 mg twice a day. 6. Lisinopril 5 mg p.o. daily. 7. Lortab 5/325 q. 6 p.r.n. pain. FOLLOWUP The patient was advised to follow up with PCP and Cardiology. ADMISSION DIAGNOSIS Shortness of breath secondary to CHF exacerbation. HOSPITAL COURSE The patient had acute on chronic systolic heart failure, ejection fraction of 15%. The patient was seen by Cardiology and was given diuretic during hospital stay. The patient's condition improved. The patient had right-sided pleural effusion and thoracocentesis was done. The patient remained stable. The patient also had a wound on the lower extremity. Wound Care managed the patient during the hospital stay. Dr. Flori Hardwick saw the patient during the hospital stay. The patient was given Levaquin during hospital stay by Dr. Hardwick who discontinued it. Patient advised to follow with PCP. Further details in the medical record. Kyle Vizcaino MD EA/TRAVIS /7:48 AM /5:16 AM
--- NOTE | 2016-07-09 22:18 | MD ---
cc: KYLE VIZCAINO MD ADMISSION DATE: 06/20/2016 DISCHARGE DATE: 06/30/2016 Okay to discharge the patient. Condition at the time of discharge satisfactory. Activity as tolerated. Diet, cardiac diet. ALLERGIES ARTIFICIAL SWEETENERS, MONOSODIUM GLUATMATE, PENICILLIN, VALIUM. DISCHARGE MEDICATIONS Include: 1. Xanax 0.5 mg p.o. at bedtime p.r.n. anxiety. 2. Furosemide 40 mg p.o. daily. 3. Potassium chloride 20 mEq twice a day. 4. Aspirin 81 mg daily. 5. Coreg 6.25 mg at bedtime. 6. Lisinopril 5 mg p.o. daily. 7. Declo 5/325 q.6 hours p.r.n. pain. The patient advised to follow up with PCP and cardiology in one week. ADMISSION DIAGNOSES 1. Shortness of breath secondary to CHF exacerbation and right-sided pleural effusion. The CHF exacerbation improved and right-sided pleural effusion is status post thoracocentesis. The patient had ejection fraction of 15%. The patient had acute on chronic systolic heart failure. 2. History of lower extremity wound. Infectious disease saw the patient. Wound culture was done and the patient got a wound treatment during the hospital stay. 3. History of hypertension. 4. History of renal insufficiency. 5. Anemia secondary to chronic disease. 6. Bradycardia. Cardiology saw the patient. 7. Diarrhea which has improved. 8. Right-sided pleural effusion status post ultrasound-guided right-sided thoracentesis. HOSPITAL COURSE This is a 46-year-old male who came to the ER with CHF exacerbation and right-sided pleural effusion. The patient seen by cardiology. The patient is a frequent admission because of ejection fraction of 15%. Patient has cardiomyopathy. The patient remained stable. No acute event happened. Discharged in satisfactory condition. The patient had anemia with a hemoglobin of 9.8, most likely secondary to chronic disease. The patient had renal insufficiency which is improved. The patient's urinalysis did not show UTI. Further details in the medical record. Kyle Vizcaino MD EA/KAITLYN /11:52 AM /10:11 PM
== END 2016-06-30 11:37 | disposition home or self-care (01) | DRG 293 ==
LOC: PHED 18:14 → PHEDA 20:03 → PHICU 22:40 → PH3B 06-25 18:26
PROVIDERS: ADMIT Family Medicine; ATTEND Family Medicine
PROC: 0W9930Z Drainage of Right Pleural Cavity with Drainage Device, Percutaneous Approach (ICD-10-PCS; principal; 2016-06-23)
DX: I50.43 Acute on chronic combined systolic (congestive) and diastolic (congestive) heart failure (principal); K74.60 Unspecified cirrhosis of liver; E11.9 Type 2 diabetes mellitus without complications; D63.8 Anemia in other chronic diseases classified elsewhere; E78.5 Hyperlipidemia, unspecified; I25.10 Atherosclerotic heart disease of native coronary artery without angina pectoris; I11.0 Hypertensive heart disease with heart failure; I25.5 Ischemic cardiomyopathy; M79.7 Fibromyalgia; N28.9 Disorder of kidney and ureter, unspecified; Z79.82 Long term (current) use of aspirin; Z89.429 Acquired absence of other toe(s), unspecified side; Z95.810 Presence of automatic (implantable) cardiac defibrillator; Z95.5 Presence of coronary angioplasty implant and graft
CPT/HCPCS: 32555; 71010; 80048; 80053; 81001; 82948; 83735; 83880; 84484; 85025; 85610; 85730; 87070; 87205; 87641; 93005; 94640; 94664; C1729; J1644; J1940; J1956

== ENCOUNTER 2018-06-08 15:39 | Inpatient (IN) ==
[2018-06-08] MEDS ORDERED: Vancomycin Inj 1,000 MG in Sodium Chlor 0.9% Inj 250 ML IV.SIG ONE (16:21)
[2018-06-08] MEDS ORDERED: Levofloxacin 500 mg Premix Inj 500 MG/100 ML PIGGYBACK IV.SIG ONE (16:21)
[2018-06-08] MEDS ORDERED: Clindamycin 600 mg/NS Premix 600 MG/50 ML PIGGYBACK IV.SIG ONE (16:30)
--- NOTE | 2018-06-08 16:34 | ED ---
HPI General Chief complaint: Skin/Abscess/Foreign Body Stated complaint: bilateral feet reevaluate injury Time Seen by Provider: 06/08/18 15:58 Source: patient, family, RN notes reviewed and old records reviewed Mode of arrival: ambulatory History of Present Illness HPI narrative: 48yM presenting with bilateral foot infection. The patient states "I walked 20 miles earlier in the month and got huge blisters to both of my feet which got infected". He says that he was admitted to [facility] for 4 days, discharged 4 days ago, but was unable to get a follow up appointment with his privacy attorney due to the holidays. He says "I'm having fevers and chills, my feet hurt even worse than usual, and they smell terrible. " He last changed his bandages 2 days ago. His significant other told the RN separately that the patient "keeps intentionally infecting his feet so he can get admitted to different hospitals". Denies history of diabetes but takes metformin at home. Denies IVDA. Related Data Home Medications Medication Instructions Recorded Confirmed furosemide [Lasix] 40 mg PO DAILY 04/20/18 06/08/18 lisinopril 20 mg PO DAILY 05/03/18 06/08/18 metformin 1,000 mg PO DAILY 06/08/18 06/08/18 Previous Rx's Medication Instructions Recorded lisinopril 30 mg PO DAILY #30 tab 05/03/18 Allergies Allergy/AdvReac Type Severity Reaction Status Date / Time monosodium glutamate Allergy Severe Headache Verified 06/08/18 15:46 penicillin G Allergy Intermediate SWELLING Verified 06/08/18 15:46 diazepam AdvReac Unknown ANXIETY Verified 06/08/18 15:46 ARTICIFICAL SWEETNER Allergy Severe Headache Uncoded 06/08/18 15:46 Review of Systems ROS: all other systems reviewed are negative PMFSH History History Provided By: Patient and Medical Record Medical History Medical History CHF (congestive heart failure) (Acute) FH: cholecystectomy (Acute) History of Clostridium difficile infection (Acute) Pacemaker (Acute) Surgical History Surgical History History of heart artery stent (Acute) History of surgery of head (Acute) Social History Social History Substance History: No History of Abuse Second Hand Smoke Exposure: No Smoking Status: Never smoker Tobacco Type: Cigarettes How Often Do You Have a Drink Containing Alcohol: Never Recent Travel [facility] within the Last 8 Weeks: No Recent Out of Country Travel within the Last 8 Weeks: No Exam Const General: disheveled HENMT Face and sinus: normal facial exam Eyes General: appearance normal, both eyes and all related structures Resp Effort & Inspection: normal respiratory effort Auscultation: no rhonchi and no wheezes Cardio Rate: regular rate Rhythm: regular rhythm GI Inspection: non-distended Palpation: soft and nontender Skin Other: Bilateral feet were wrapped in saturated malodorous chucks with xeroform beneath bandage on left foot Significant sloughing and desquamation of soles of both feet with erythematous, macerated skin beneath; deep unstageable ulcer on sole of right foot beneath MTP Sensation intact, able to move all digits Palpable dorsalis pedis pulses Neuro General: alert, awake, oriented x3 and no focal motor deficits Course Initial Documented Vital Signs Temperature 99.3 F 06/08/18 15:42 Pulse Rate 89 06/08/18 15:42 Respiratory Rate 16 06/08/18 15:42 Blood Pressure 174/98 H 06/08/18 15:42 Pulse Oximetry 98 06/08/18 15:42 Last Documented Vital Signs Temperature 99.3 F 06/08/18 15:42 Pulse Rate 80 06/08/18 18:20 Respiratory Rate 20 06/08/18 18:20 Blood Pressure 131/92 H 06/08/18 18:20 Pulse Oximetry 100 06/08/18 18:20 Medical Decision Making [facility] Narrative Medical decision making narrative: Assessment: 48yM presenting with bilateral foot infections Plan: Labs CXR Blood cultures X-ray bilateral feet Patient requires inpatient admission for podiatry consult/ debridement. Case discussed with Dr. Marrero of [facility]. Medical Screen Exam Complete: Yes Emergency Medical Condition: Yes Differential Diagnosis Differential Diagnosis: Differential diagnosis includes, but is not limited to: osteomyelitis, diabetic foot ulcers, bacteremia, gangrene, sepsis/SIRS Lab Data Lab results reviewed: Yes I reviewed the patient's lab results. Result diagrams: 06/08/18 16:40 06/08/18 16:40 Lab Results 06/08/18 06/08/18 06/08/18 Range/Units 16:40 16:40 16:40 CBC w Diff Auto diff final WBC 8.1 (4.0-11.0) th/mm3 RBC 3.23 L (4.50-5.90) mil/mm3 Hgb 8.5 L (13.0-17.0) gm/dL Hct 26.4 L (39.0-51.0) % MCV 81.9 (80.0-100.0) fL MCH 26.4 L (27.0-34.0) pg MCHC 32.2 (32.0-36.0) % RDW 15.3 (11.6-17.2) % Plt Count 452 H (150-450) th/mm3 MPV 7.7 (7.0-11.0) fL Neut % (Auto) 79.8 H (16.0-70.0) % Lymph % (Auto) 9.7 (9.0-44.0) % [place] % (Auto) 7.0 (0.0-8.0) % Eos % (Auto) 3.1 (0.0-4.0) % Baso % (Auto) 0.4 (0.0-2.0) % Neut # (Auto) 6.4 (1.8-7.7) th/mm3 Lymph # (Auto) 0.8 L (1.0-4.8) th/mm3 [place] # (Auto) 0.6 (0.0-0.9) th/mm3 Eos # (Auto) 0.3 (0.0-0.4) th/mm3 Baso # (Auto) 0.0 (0.0-0.2) th/mm3 WBC Differential . Differential Comment . Sodium 137 (136-145) meq/L Potassium 4.2 (3.5-5.1) meq/L Chloride 103 (98-107) meq/L Carbon Dioxide 26.2 (21.0-32.0) meq/L Anion Gap 8 (5-15) meq/L BUN 13 (7-18) mg/dL Creatinine 1.30 (0.60-1.30) mg/dL Estimated GFR 59 L (>89) mL/min Random Glucose 174 H (74-106) mg/dL Lactic Acid 1.2 (0.4-2.0) mmol/L Calcium 7.9 L (8.5-10.1) mg/dL Magnesium 2.2 (1.5-2.5) mg/dL Total Bilirubin 0.4 (0.2-1.0) mg/dL AST 10 L (15-37) U/L ALT 10 L (12-78) U/L Alkaline Phosphatase 99 (45-117) U/L Total Protein 7.9 (6.4-8.2) g/dL Albumin 2.1 L (3.4-5.0) g/dL Serum Alcohol Less than 3 (0-5) mg/dL Imaging Data Radiologist's impression: Chest X-Ray 06/08/18 16:16 CONCLUSION: No acute intrathoracic disease. Stable examination. 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 Deformity of the distal second and third metatarsal without clearly destructive changes. No specific findings of osteomyelitis. Foot X-Ray 06/08/18 16:43 CONCLUSION: Intact bony structures without destructive changes to suggest osteomyelitis. Persistent radiopaque foreign body between the first and second metatarsals. ECG Data Attestation: I personally reviewed and interpreted this ECG as follows: Interpretation: Rate: 98 BPM Rhythm: Ventricular paced Frannie: Normal Further analysis limited due to paced rhythm Impression: V paced EKG, previous EKGs were not pacer-dependent. Discharge Plan Discharge Disposition Patient Disposition: ED Admit(ED Internal Use Only) Discharge Condition Condition: Stable Discharge Order Discharge Orders: ED Use Only Admit Order (Routine); Ordered 06/08/18 Ordered By: Raquel Noonan Discharge Details Diagnosis: Diabetic infection of left foot, Diabetic infection of right foot Physicians Team ED Provider: Raquel Noonan Primary Care Provider: Primary Care Physici,No Rxs /Orders / Referrals /Forms Prescriptions: No Action lisinopril 20 mg Tablet 20 mg PO DAILY RF: 0 lisinopril 30 mg tablet 30 mg PO DAILY Qty: 30 RF: 0 furosemide [Lasix] 40 mg Tablet 40 mg PO DAILY RF: 0 metformin 1,000 mg Tablet 1,000 mg PO DAILY RF: 0 Discharge Interventions Interventions: Vital Signs Last Done: 06/08/18 18:20 Status ED Status: Admitted Patient
--- NOTE | 2018-06-08 16:49 | XR ---
EXAM DATE: 06/08/2018 4:44 PM EST AGE/SEX: 48 years / Male INDICATIONS: Fever, cough. CLINICAL DATA: This is the patient's initial encounter. Patient reports that signs and symptoms have been present for 1 day and indicates a pain score of 0/10. MEDICAL/SURGICAL HISTORY: . Cardiovascular disease. Congestive heart failure. . Coronary arter y stent. Cholecystectomy. Pacemaker. COMPARISON: [facility], CHEST 1V SINGLE AP, 04/26/2018. . FINDINGS: A single AP view of the chest demonstrates the lungs to be symmetrically aerated without evidence of mass, infiltrate or effusion. The cardiomediastinal contours are unremarkable. There is a pacemaker overlying the left chest. Osseous structures are intact. CONCLUSION: No acute intrathoracic disease. Stable examination. Electronically signed by: Jaime Richardson MD Board Certified Radiologist 06/08/2018 4:47 PM EST
[2018-06-08 16:52] LABS: Baso % (Auto) 0.4 % (0.0-2.0); Eos # (Auto) 0.3 th/mm3 (0.0-0.4); Eos % (Auto) 3.1 % (0.0-4.0); Hematocrit 26.4 % (39.0-51.0); Hemoglobin 8.5 gm/dL (13.0-17.0); Lymph # (Auto) 0.8 th/mm3 (1.0-4.8); Lymph % (Auto) 9.7 % (9.0-44.0); Mean Corpuscular HGB Conc 32.2 % (32.0-36.0); Mean Corpuscular Hemoglobin 26.4 pg (27.0-34.0); Mean Corpuscular Volume 81.9 fL (80.0-100.0); Mean Platelet Volume 7.7 fL (7.0-11.0); Mono # (Auto) 0.6 th/mm3 (0.0-0.9); Neut # (Auto) 6.4 th/mm3 (1.8-7.7); Neut % (Auto) 79.8 % (16.0-70.0); Platelet Count 452 th/mm3 (150-450); Red Blood Count 3.23 mil/mm3 (4.50-5.90); Red Cell Distribution Width 15.3 % (11.6-17.2); White Blood Count 8.1 th/mm3 (4.0-11.0)
--- NOTE | 2018-06-08 17:16 | XR ---
EXAM DATE: 06/08/2018 5:11 PM EST AGE/SEX: 48 years / Male INDICATIONS: Left foot pain, evaluate for osteomyelitis. CLINICAL DATA: This is the patient's initial encounter. Patient reports that signs and symptoms have been present for 1 day and indicates a pain score of 6/10. MEDICAL/SURGICAL HISTORY: Diabetes. . Amputation toes, left foot. [place] [facility] [id number] 10/19/[place]. . FINDINGS: Second and third toes have been amputated. There is significant deformity of the distal second and th ird metatarsals. There are no clearly destructive changes. Cortex appears to be intact. Overlying sof t tissue swelling is noted. CONCLUSION: Status post amputation of the second and third toes. Deformity of the distal second and third metatarsal without clearly destructive changes. No specific findings of osteomyelitis. Electronically signed by: Tom Sawyer MD Board Certified Radiologist 06/08/2018 5:15 PM EST
--- NOTE | 2018-06-08 17:17 | XR ---
EXAM DATE: 06/08/2018 5:12 PM EST AGE/SEX: 48 years / Male INDICATIONS: Right foot pain, evaluate for osteomyelitis. CLINICAL DATA: This is the patient's subsequent encounter. Patient reports that signs and symptoms h ave been present for 1 day and indicates a pain score of 6/10. MEDICAL/SURGICAL HISTORY: Diabetes. None. COMPARISON: [facility] – [place], FOOT COMPLETE RIGHT 3V, 04/27/2018. . FINDINGS: Soft tissue swelling is identified in the forefoot predominantly involving the great toe. Radiopaque foreign body remains evident between the first and second metatarsals. Bony structures remain intact without clearly destructive changes. Joints are intact without evidence of destructive change. CONCLUSION: Intact bony structures without destructive changes to suggest osteomyelitis. Persistent radiopaque foreign body between the first and second metatarsals. Electronically signed by: Tom Sawyer MD Board Certified Radiologist 06/08/2018 5:16 PM EST
[2018-06-08 17:45] LABS: Chloride 103 meq/L (98-107); Potassium 4.2 meq/L (3.5-5.1); Sodium 137 meq/L (136-145)
[2018-06-08 17:50] LABS: Albumin 2.1 g/dL (3.4-5.0); Anion Gap 8 meq/L (5-15); Blood Urea Nitrogen 13 mg/dL (7-18); Calcium 7.9 mg/dL (8.5-10.1); Carbon Dioxide 26.2 meq/L (21.0-32.0); Glucose,Random 174 mg/dL (74-106); Magnesium 2.2 mg/dL (1.5-2.5)
[2018-06-08 17:53] LABS: Alanine Aminotransferase 10 U/L (12-78); Aspartate Aminotransferase 10 U/L (15-37); Glomerular Filtration Rate 59 mL/min (>89)
[2018-06-08 17:55] LABS: Total Protein 7.9 g/dL (6.4-8.2)
[2018-06-08 17:56] LABS: Alkaline Phosphatase 99 U/L (45-117)
[2018-06-08] MEDS ORDERED: Sod Chloride 0.9% Inj 1,000 ML IV.SIG ONE (18:29)
[2018-06-08] MEDS ORDERED: Dextrose 50% in Water 50 ML Vial IV.PUSH PRN (18:31)
[2018-06-08] MEDS ORDERED: Acetaminophen 325 MG Tablet PO PRN (18:32)
[2018-06-08] MEDS ORDERED: Bisacodyl 10 MG Supp RECTAL PRN (18:32)
[2018-06-08 18:56] LABS: Bilirubin,Urine Negative (Negative); Clarity,Urine Clear (Clear); Color,Urine Yellow (Yellw/Straw); Glucose,Urine (UA) Negative (Negative); Leukocyte Esterase,Urine Negative (Negative); Nitrite,Urine Negative (Negative); PH,Urine 6.5 (5.0-8.5); Specific Gravity,Urine 1.015 (1.002-1.035); Urobilinogen,Urine 0.2 mg/dL (Less than 2)
[2018-06-08 19:02] LABS: Bacteria,Urine Rare /hpf; Hyaline Casts,Urine 0-3 /lpf (0-3); Mucus,Urine Few /lpf (Occasional); Squamous Epithelial Cell,Urine 0-5 /hpf (0-5); WBC,Urine 0-5 /hpf (0-5)
[2018-06-08 19:06] LABS: Barbiturate Screen,Urine Neg (Neg); Cannabinoid Screen,Urine Pos (Neg); Cocaine Screen,Urine Neg (Neg)
[2018-06-08 19:07] LABS: Amphetamine Screen,Urine Neg (Neg)
[2018-06-08 19:12] LABS: Opiate Screen,Urine Neg (Neg)
[2018-06-08] MEDS ORDERED: Vancomycin Consult Pharmacy OTHER PRN (20:00)
[2018-06-08] MEDS: Aztreonam Inj 2 GM in Sodium Chloride 0.9% Inj 100 ML IV.SIG SCH (21:53)
[2018-06-08] MEDS ORDERED: Vancomycin Inj 1,250 MG in Sodium Chlor 0.9% Inj 250 ML IV.SIG SCH (22:00)
[2018-06-08] MEDS: Insulin NovoLOG Aspart Correctional Sugar Inj SQ SCH (22:04)
[2018-06-09] MEDS: Aztreonam Inj 2 GM in Sodium Chloride 0.9% Inj 100 ML IV.SIG SCH ×3 (03:33→22:27)
[2018-06-09 07:27] LABS: Baso % (Auto) 0.9 % (0.0-2.0); Eos # (Auto) 0.3 th/mm3 (0.0-0.4); Eos % (Auto) 6.6 % (0.0-4.0); Hematocrit 22.1 % (39.0-51.0); Hemoglobin 7.1 gm/dL (13.0-17.0); Lymph # (Auto) 0.8 th/mm3 (1.0-4.8); Lymph % (Auto) 15.7 % (9.0-44.0); Mean Corpuscular HGB Conc 32.3 % (32.0-36.0); Mean Corpuscular Hemoglobin 26.5 pg (27.0-34.0); Mean Corpuscular Volume 82.1 fL (80.0-100.0); Mean Platelet Volume 7.9 fL (7.0-11.0); Mono # (Auto) 0.4 th/mm3 (0.0-0.9); Mono % (Auto) 8.1 % (0.0-8.0); Neut # (Auto) 3.7 th/mm3 (1.8-7.7); Neut % (Auto) 68.7 % (16.0-70.0); Platelet Count 377 th/mm3 (150-450); Red Blood Count 2.69 mil/mm3 (4.50-5.90); Red Cell Distribution Width 15.3 % (11.6-17.2); White Blood Count 5.2 th/mm3 (4.0-11.0)
[2018-06-09 07:35] LABS: Chloride 105 meq/L (98-107); Potassium 4.2 meq/L (3.5-5.1); Sodium 137 meq/L (136-145)
[2018-06-09 07:42] LABS: Albumin 1.7 g/dL (3.4-5.0); Anion Gap 7 meq/L (5-15); Blood Urea Nitrogen 13 mg/dL (7-18); Calcium 7.6 mg/dL (8.5-10.1); Carbon Dioxide 24.7 meq/L (21.0-32.0); Glucose,Random 87 mg/dL (74-106)
[2018-06-09 07:43] LABS: Alanine Aminotransferase 9 U/L (12-78)
[2018-06-09 07:44] LABS: Aspartate Aminotransferase 9 U/L (15-37)
[2018-06-09 07:45] LABS: Glomerular Filtration Rate 65 mL/min (>89); Total Protein 6.8 g/dL (6.4-8.2)
[2018-06-09 07:46] LABS: Alkaline Phosphatase 81 U/L (45-117)
[2018-06-09] MEDS: Vancomycin Inj 1,250 MG in Sodium Chlor 0.9% Inj 250 ML IV.SIG SCH ×2 (08:14→15:10)
[2018-06-09] MEDS: Lisinopril 20 MG Tablet PO SCH (08:34)
[2018-06-09] MEDS: Furosemide 40 MG Tablet PO SCH (08:35)
[2018-06-09] MEDS: Insulin NovoLOG Aspart Correctional Sugar Inj SQ SCH ×4 (08:36→22:26)
--- NOTE | 2018-06-09 14:58 | P.CONPSY ---
Provisional Diagnosis Admission Date: June 08, 2018 18:29 [place] I.: Adjustment disorder with mixed anxiety and depressed mood, history of anxiety, rule out malingering History of Present Illness Service: Medicine Primary Care Provider: No Primary Care Physician History of Present Illness: The patient is a 48 year-old man, domiciled in [place] with his , no kids, unemployed, supported by [facility] with a psychiatric history of anxiety, no previous psychiatric hospitalizations, no previous suicide attempts , he was Jones acted once and seen in the ER in [place], but discharged, medical history of CHF,hypertension, who presents with bilateral foot infection. The patient states "I walked 20 miles earlier in the month and got huge blisters to both of my feet which got infected". 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 He says "I'm having fevers and chills, my feet hurt even worse than usual, and they smell terrible." He last changed his bandages 2 days ago. His significant other told the RN separately that the patient "keeps intentionally infecting his feet so he can get admitted to different hospitals". Consulted to psychiatry to address self harming behavior. On my psychiatric evaluation I find a patient that is calm, cooperative, pleasant. The patient denies that he has been walking to harm himself. He says that he does get upset with his and to calm down he walks. He says that for his is easier to say that the reason he works is to harm himself than analyzing that he does this due to her behavior. The patient reports that he is only encounter with psychiatry was several months ago when he Karen acted himself in a very similar situation, after argument with his , walking several miles," and I do not have what to sleep, so I Karen act myself". Today the patient denies symptoms of depression , he denies anxiety, he denies bautista and psychosis. He is logical, coherent and relevant. There is no evidence of primary or secondary gain. He denies suicidal and homicidal ideation, denies visual and auditory hallucinations. PPHx: Psychiatric history of anxiety, no prepsychotic hospitalizations, no suicidal PMHx: CHF, hypertension Substance Hx: No illegal drugs, no ankle Family Hx: No family psychiatric Social Hx: The patient was born and raised in [place], he lives in [place] with his , no kids, unemployed, on SSI [facility] - History History Provided By: Patient - Medical History Medical History: Medical History (Last Reviewed 06/10/18 @ 07:21 by Best Butts) CHF (congestive heart failure) FH: cholecystectomy History of Clostridium difficile infection Pacemaker - Surgical History Surgical History: Surgical History (Last Reviewed 06/10/18 @ 07:21 by Best Butts) History of heart artery stent History of surgery of head - Family History Family History: Family History (Last Updated 06/09/18 @ 19:07 by Moy Marrero MD) Mother Brain cancer Father Lung cancer - Tobacco History Second Hand Smoke Exposure: No Smoking Status: Never smoker Tobacco Type: Cigarettes - Alcohol History How Often Do You Have a Drink Containing Alcohol: Never - Substance Use History Substance History: No History of Abuse - Travel History Recent Travel in the USA Within the Last 8 Weeks: No Recent Travel Out of the Country Within the Last 8 Weeks: No - Immunization History Tetanus Immunization: >5 Years Hx Influenza Vaccine This Season: No Medications and Allergies Active Medications: Active Medications Acetaminophen (Tylenol) 650 mg PO Q4H PRN PRN Reason: Temp > 100.4 Hydrocodone Bitart/Acetaminophen ([place] 5/325) 1 tab PO Q4H PRN PRN Reason: PAIN SCALE 1 TO 10 Last Admin: 06/09/18 00:20 Dose: 1 tab Al Hydroxide/Mg Hydroxide (Milk Of Magnesia Liq) 30 ml PO Q12H PRN PRN Reason: Mild Constipation Bisacodyl (Dulcolax Supp) 10 mg RECTAL DAILY PRN PRN Reason: SEVERE CONSITIPATION Dextrose (D50w Vial) 50 ml IV.PUSH UNSCH PRN PRN Reason: PER HYPOGLYCEMIA PROTOCOL Furosemide (Lasix) 40 mg PO DAILY [facility] Last Admin: 06/09/18 08:35 Dose: 40 mg Glucagon (Glucagon Inj) 1 mg OTHER PRN PRN PRN Reason: for Hypoglycemia Protocol Aztreonam 2 gm/ Sodium (Chloride) 100 mls @ 200 mls/hr IV.SIG Q8H [facility] Last Infusion: 06/09/18 12:28 Dose: Infused Metronidazole/Sodium Chloride (Flagyl 500 Mg Inj) 100 mls @ 100 mls/hr IV.SIG Q8H [facility] Last Infusion: 06/09/18 14:16 Dose: Infused Vancomycin HCl 1,250 mg/ (Sodium Chloride) 262.5 mls @ 250 mls/hr IV.SIG Q12H [facility] Last Infusion: 06/09/18 10:15 Dose: Infused Insulin Aspart (Novolog Insulin Correctional Sugar Inj) 0 unit SQ ACHS [facility]; Protocol Last Admin: 06/09/18 12:24 Dose: Not Given Lactulose (Lactulose Liq) 30 ml PO DAILY PRN PRN Reason: SEVERE CONSITIPATION Lisinopril (Prinivil) 20 mg PO DAILY [facility] Last Admin: 06/09/18 08:34 Dose: 20 mg Miscellaneous Information ([facility] Ordered Lab Info) 1 each OTHER ONCE ONE Stop: 06/10/18 15:46 Ondansetron HCl (Zofran Inj) 4 mg IV.PUSH Q6H PRN PRN Reason: NAUSEA OR VOMITING Pharmacy Profile Note (Vancomycin Consult Pharmacy) 1 each OTHER UNSCH PRN PRN Reason: Pharmacy to dose Sennosides (Senokot) 17.2 mg PO Q12H PRN PRN Reason: Moderate Constipation Sodium Chloride (Ns Flush) 2 ml IV.FLUSH BID [facility] Last Admin: 06/09/18 08:36 Dose: Not Given Sodium Chloride (Ns Flush) 2 ml IV.FLUSH PRN PRN PRN Reason: FLUSH AFTER USING IV ACCESS Allergies Allergy/AdvReac Type Severity Reaction Status Date / Time monosodium glutamate Allergy Severe Headache Verified 06/08/18 15:46 penicillin G Allergy Intermediate SWELLING Verified 06/08/18 15:46 diazepam AdvReac Unknown ANXIETY Verified 06/08/18 15:46 ARTICIFICAL SWEETNER Allergy Severe Headache Uncoded 06/08/18 15:46 Home Medications Medication Instructions Recorded Confirmed Type furosemide [Lasix] 40 mg PO DAILY 04/20/18 06/08/18 History lisinopril 20 mg PO DAILY 05/03/18 06/08/18 History metformin 1,000 mg PO DAILY 06/08/18 06/08/18 History Exam Vital signs: Vital Signs 06/08/18 15:42 06/08/18 18:20 06/08/18 19:27 Temperature 99.3 F Pulse Rate 89 80 85 Respiratory Rate 16 20 15 Blood Pressure 174/98 H 131/92 H 177/95 H Pulse Oximetry 98 100 96 06/08/18 20:00 06/09/18 00:00 06/09/18 04:00 Temperature 99.1 F 99.3 F 98.4 F Pulse Rate 84 70 75 Respiratory Rate 20 16 16 Blood Pressure 168/81 H 170/97 H 151/81 H Pulse Oximetry 96 98 98 06/09/18 08:00 06/09/18 12:00 Temperature 97.3 F L 97.7 F Pulse Rate 63 63 Respiratory Rate 17 20 Blood Pressure 170/81 H 176/93 H Pulse Oximetry 99 98 Intake & Output 06/08/18 06/09/18 06/09/18 18:59 06:59 18:59 Intake Total 204 / 204 1790 / 1790 562.5 / 562.5 Output Total 200 / 200 Balance 204 / 204 1590 / 1590 562.5 / 562.5 Weight 83 kg 86.2 kg Intake: IV / 204 1550 / 1550 562.5 / 562.5 Azactam Inj 2 GM In NS Inj 100 200 / 200 100 / 100 ML @ 200 mls/hr IV.SIG Q8H [facility] Rx#:[id number] Cleocin Inj 600 MG In NS Inj 104 / 104 100 ML @ 200 mls/hr IV.SIG ONCE ONE Rx#:[id number] Levaquin 500 mg Premix Inj 500 100 / 100 mg In 100 ml @ 100 mls/hr IV. SIG ONCE ONE Rx#:[id number] NS Inj 1,000 ML @ Wide Open IV. 1000 / 1000 SIG BOLUS ONE Rx#:[id number] Vancomycin Inj 1,000 MG In NS 250 / 250 Inj 250 ML @ 250 mls/hr IV.SIG ONCE ONE Rx#:[id number] Vancomycin Inj 1,250 MG In NS 262.5 / 262.5 Inj 250 ML @ 250 mls/hr IV.SIG Q12H [facility] Rx#:[id number] Flagyl 500 MG Inj 100 ML @ 100 100 / 100 200 / 200 mls/hr IV.SIG Q8H [facility] Rx#: [id number] Oral 240 / 240 Output: Urine 200 / 200 Other: Date of Last Bowel Movement 12/31/18 12/31/18 Weight On Admission 83 kg Mental Status Examination Appearance: Appropriate Consciousness: Alert Orientation: x4 Motor Activity: Normal gait Speech: Unremarkable Language: Adequate Fund of Knowledge: Adequate Attention and Concentration: Adequate Memory: Unremarkable Mood: Appropriate Affect: Appropriate Thought Process & Associations: Intact Thought Content: Appropriate Hallucination Type: None Delusion Type: None Suicidal Ideation: No Suicidal Plan: No Suicidal Intention: No Homicidal Ideation: No Homicidal Plan: No Homicidal Intention: No Insight: Adequate Judgment: Adequate Assessment and Plan - Assessment (1) Adjustment disorder with mixed disturbance of emotions and conduct Code(s): F43.25 - Adjustment disorder with mixed disturbance of emotions and conduct Status: Acute - Plan Plan: The patient does not present any neuropsychiatric symptoms are required an immediate psychiatric intervention. The patient denies symptomatology of depression, anxiety, bautista and psychosis. Patient denies suicidal and homicidal ideation, he denies visual and auditory hallucinations. He denies the use of illegal drugs and alcohol. Reports good energy, good appetite, good sleep. He is logical, coherent and relevant. Reports that he does walk multiple miles when he got upset with his in order to cope with anger, but not to hurt himself. Patient does not meet criteria for involuntary psychiatric admission. Support, motivation, psychoeducation provided. No psychotropics recommended at the moment. Consult appreciated. Justification for Continued Inpatient Stay: No admission is indicated.
--- NOTE | 2018-06-09 15:44 | ECG ---
Date Performed: 06/08/2018 Time Performed: 16:26:57 PTAGE: 48 years EKG: ELECTRONIC VENTRICULAR PACEMAKER Compared to previous tracing, ventricular paced rhythm is now noted ABNORMAL RHYTHM ECG PREVIOUS TRACING : 06/20/2016 18.11 DOCTOR: King Garner Interpretating Date/Time 06/09/2018 15:42:30
--- NOTE | 2018-06-09 18:56 | P.HPIM ---
History of Present Illness Primary Care Physician: No Primary Care Physician History of Present Illness: 48-year-old male with a history of CHF status post AICD and pacemaker, hypertension, denies history of diabetes but takes metformin, who says he walked 20 Miles after getting in a verbal argument with his , was admitted to [facility] and discharged 4 days ago. Presents to our hospital due to purulent drainage from bilateral feet, and he reports several day worsening of chronic vague pain in bilateral feet. He reports chills but no measured fevers. He denies any chest pain or shortness of breath. Denies any history of exertional chest pain. Patient says he was able to walk 20 miles with only several breaks. Inpatient Certification: I certify that the inpatient services were ordered in accordance with Medicare regulations governing the order. This includes certification that hospital inpatient services are reasonable and necessary and in the case of services not specified as inpatient-only under 42 CFR 419.22(n), that they are appropriately provided as inpatient services in accordance to with the 2-midnight benchmark under 43 CFR 412.3(e) Estimated Total Length of Stay (Days): 3 Plans for Post Hospital Care: Not yet determined Review of Systems All other systems reviewed negative except as stated in HPI PMFSH - History History Provided By: Patient - Medical History Medical History: Medical History (Last Reviewed 06/09/18 @ 19:06 by Moy Marrero MD) CHF (congestive heart failure) FH: cholecystectomy History of Clostridium difficile infection Pacemaker - Surgical History Surgical History: Surgical History (Last Reviewed 06/09/18 @ 19:06 by Moy Marrero MD) History of heart artery stent History of surgery of head - Family History Family History: Family History (Last Updated 06/09/18 @ 19:07 by Moy Marrero MD) Mother Brain cancer Father Lung cancer - Tobacco History Second Hand Smoke Exposure: No Smoking Status: Never smoker Tobacco Type: Cigarettes - Alcohol History How Often Do You Have a Drink Containing Alcohol: Never - Substance Use History Substance History: No History of Abuse - Travel History Recent Travel in the [place] Within the Last 8 Weeks: No Recent Travel Out of the Country Within the Last 8 Weeks: No - Immunization History Tetanus Immunization: >5 Years Hx Influenza Vaccine This Season: No Medications and Allergies Active Medications: Active Medications Acetaminophen (Tylenol) 650 mg PO Q4H PRN PRN Reason: Temp > 100.4 Hydrocodone Bitart/Acetaminophen ([place] 5/325) 1 tab PO Q4H PRN PRN Reason: PAIN SCALE 1 TO 10 Last Admin: 06/09/18 00:20 Dose: 1 tab Al Hydroxide/Mg Hydroxide (Milk Of Magnesia Liq) 30 ml PO Q12H PRN PRN Reason: Mild Constipation Bisacodyl (Dulcolax Supp) 10 mg RECTAL DAILY PRN PRN Reason: SEVERE CONSITIPATION Dextrose (D50w Vial) 50 ml IV.PUSH UNSCH PRN PRN Reason: PER HYPOGLYCEMIA PROTOCOL Furosemide (Lasix) 40 mg PO DAILY [facility] Last Admin: 06/09/18 08:35 Dose: 40 mg Glucagon (Glucagon Inj) 1 mg OTHER PRN PRN PRN Reason: for Hypoglycemia Protocol Aztreonam 2 gm/ Sodium (Chloride) 100 mls @ 200 mls/hr IV.SIG Q8H [facility] Last Infusion: 06/09/18 12:28 Dose: Infused Metronidazole/Sodium Chloride (Flagyl 500 Mg Inj) 100 mls @ 100 mls/hr IV.SIG Q8H [facility] Last Infusion: 06/09/18 14:16 Dose: Infused Vancomycin HCl 1,250 mg/ (Sodium Chloride) 262.5 mls @ 250 mls/hr IV.SIG Q12H [facility] Last Infusion: 06/09/18 16:30 Dose: Infused Insulin Aspart (Novolog Insulin Correctional Sugar Inj) 0 unit SQ ACHS [facility]; Protocol Last Admin: 06/09/18 17:02 Dose: 1 unit Lactulose (Lactulose Liq) 30 ml PO DAILY PRN PRN Reason: SEVERE CONSITIPATION Lisinopril (Prinivil) 20 mg PO DAILY [facility] Last Admin: 06/09/18 08:34 Dose: 20 mg Miscellaneous Information ([facility] Ordered Lab Info) 1 each OTHER ONCE ONE Stop: 06/10/18 15:46 Ondansetron HCl (Zofran Inj) 4 mg IV.PUSH Q6H PRN PRN Reason: NAUSEA OR VOMITING Pharmacy Profile Note (Vancomycin Consult Pharmacy) 1 each OTHER UNSCH PRN PRN Reason: Pharmacy to dose Sennosides (Senokot) 17.2 mg PO Q12H PRN PRN Reason: Moderate Constipation Sodium Chloride (Ns Flush) 2 ml IV.FLUSH BID [facility] Last Admin: 06/09/18 08:36 Dose: Not Given Sodium Chloride (Ns Flush) 2 ml IV.FLUSH PRN PRN PRN Reason: FLUSH AFTER USING IV ACCESS Allergies Allergy/AdvReac Type Severity Reaction Status Date / Time monosodium glutamate Allergy Severe Headache Verified 06/08/18 15:46 penicillin G Allergy Intermediate SWELLING Verified 06/08/18 15:46 diazepam AdvReac Unknown ANXIETY Verified 06/08/18 15:46 ARTICIFICAL SWEETNER Allergy Severe Headache Uncoded 06/08/18 15:46 Home Medications Medication Instructions Recorded Confirmed Type furosemide [Lasix] 40 mg PO DAILY 04/20/18 06/08/18 History lisinopril 20 mg PO DAILY 05/03/18 06/08/18 History metformin 1,000 mg PO DAILY 06/08/18 06/08/18 History Exam Vital signs: Vital Signs 06/08/18 19:27 06/08/18 20:00 06/09/18 00:00 Temperature 99.1 F 99.3 F Pulse Rate 85 84 70 Respiratory Rate 15 20 16 Blood Pressure 177/95 H 168/81 H 170/97 H Pulse Oximetry 96 96 98 06/09/18 04:00 06/09/18 08:00 06/09/18 12:00 Temperature 98.4 F 97.3 F L 97.7 F Pulse Rate 75 63 63 Respiratory Rate 16 17 20 Blood Pressure 151/81 H 170/81 H 176/93 H Pulse Oximetry 98 99 98 Intake & Output 06/08/18 06/09/18 06/09/18 18:59 06:59 18:59 Intake Total 204 / 204 1790 / 1790 825.0 / 825.0 Output Total 200 / 200 Balance 204 / 204 1590 / 1590 825.0 / 825.0 Weight 83 kg 86.2 kg Intake: IV 204 / 204 1550 / 1550 825.0 / 825.0 Azactam Inj 2 GM In NS Inj 100 200 / 200 100 / 100 ML @ 200 mls/hr IV.SIG Q8H [facility] Rx#:[id number] Cleocin Inj 600 MG In NS Inj 104 / 104 100 ML @ 200 mls/hr IV.SIG ONCE ONE Rx#:[id number] Levaquin 500 mg Premix Inj 500 100 / 100 mg In 100 ml @ 100 mls/hr IV. SIG ONCE ONE Rx#:[id number] NS Inj 1,000 ML @ Wide Open IV. 1000 / 1000 SIG BOLUS ONE Rx#:[id number] Vancomycin Inj 1,000 MG In NS 250 / 250 Inj 250 ML @ 250 mls/hr IV.SIG ONCE ONE Rx#:[id number] Vancomycin Inj 1,250 MG In NS 525.0 / 525.0 Inj 250 ML @ 250 mls/hr IV.SIG Q12H [facility] Rx#:[id number] Flagyl 500 MG Inj 100 ML @ 100 100 / 100 200 / 200 mls/hr IV.SIG Q8H [facility] Rx#: [id number] Oral 240 / 240 Output: Urine 200 / 200 Other: Date of Last Bowel Movement 06/08/18 06/08/18 Weight On Admission 83 kg Narrative: GENERAL: Patient sitting up in bed. Appears comfortable. Alert and oriented x4. SKIN: Warm and dry. HEAD: Atraumatic. Normocephalic. EYES: Pupils equal and round. No scleral icterus. No injection or drainage. ENT: No nasal bleeding or discharge. Mucous membranes pink and moist. NECK: Trachea midline. No JVD. CARDIOVASCULAR: Regular rate and rhythm. Paced. He is pink the left chest without any surrounding erythema. RESPIRATORY: No accessory muscle use. Clear to auscultation. Breath sounds equal bilaterally. GASTROINTESTINAL: Abdomen soft, non-tender, nondistended. Hepatic and splenic margins not palpable. MUSCULOSKELETAL: Extremities without clubbing. Bilateral feet with maceration, purulent drainage. NEUROLOGICAL: Awake and alert. No obvious cranial nerve deficits. Motor grossly within normal limits. Five out of 5 muscle strength in the arms and legs. Normal speech. PSYCHIATRIC: Appropriate mood and affect; insight and judgment normal. Results - Labs CBC & Chem 7: 06/09/18 06:15 06/09/18 06:15 Labs: Short CBC 06/09/18 Range/Units 06:15 WBC 5.2 (4.0-11.0) th/mm3 Hgb 7.1 L (13.0-17.0) gm/dL Hct 22.1 L (39.0-51.0) % Plt Count 377 (150-450) th/mm3 [facility] 06/09/18 06:15 Sodium 137 Potassium 4.2 Chloride 105 Carbon Dioxide 24.7 BUN 13 Creatinine 1.20 Calcium 7.6 L Liver Function 06/09/18 Range/Units 06:15 Total Bilirubin 0.3 (0.2-1.0) mg/dL AST 9 L (15-37) U/L ALT 9 L (12-78) U/L Alkaline Phosphatase 81 (45-117) U/L Albumin 1.7 L (3.4-5.0) g/dL Urine 06/08/18 Range/Units 18:48 Urine Color Yellow (Yellw/Straw) Urine Clarity Clear (Clear) Urine pH 6.5 (5.0-8.5) Ur Specific [place] 1.015 (1.002-1.035) Urine Protein Trace (Neg-Trace) mg/dL Urine Glucose (UA) Negative (Negative) mg/dL Caprini VTE Risk Assessment Caprini VTE Risk Assessment: No/Low Risk (score <= 1) Caprini Risk Assessment Model: Point Value = 1 Point Value = 2 Point Value = 3 Point Value = 5 Age 41-60 Minor surgery BMI > 25 kg/m2 Swollen legs Varicose veins or History of unexplained or recurrent spontaneous Oral contraceptives or hormone replacement Sepsis (< 1 month) Serious lung disease, including pneumonia (< 1 month) Abnormal pulmonary function Acute myocardial infarction Congestive heart failure (< 1 month) History of inflammatory bowel disease Medical patient at bed rest Age 61-74 Arthroscopic surgery Major open surgery (> 45 min) Laparoscopic surgery (> 45 min) Malignancy Confined to bed (> 72 hours) Immobilizing plaster cast Central venous access Age >= 75 History of VTE Family history of VTE Factor V Leiden Prothrombin [id number] Lupus anticoagulant Anticardiolipin antibodies Elevated serum homocysteine Heparin-induced thrombocytopenia Other congenital or acquired thrombophilia Stroke (< 1 month) Elective arthroplasty Hip, pelvis, or leg fracture Acute spinal cord injury (< 1 month) Prophylaxis Regimen: Total Risk Factor Score Risk Level Prophylaxis Regimen 0-1 Low Early ambulation 2 Moderate Order ONE of the following: *Sequential Compression Device (SCD) *Heparin 5000 units SQ BID 3-4 Higher Order ONE of the following medications: *Heparin 5000 units SQ TID *Enoxaparin/Lovenox 40 mg SQ daily (WT < 150 kg, CrCl > 30 mL/min) *Enoxaparin/Lovenox 30 mg SQ daily (WT < 150 kg, CrCl > 10-29 mL/min) *Enoxaparin/Lovenox 30 mg SQ BID (WT < 150 kg, CrCl > 30 mL/min) AND/OR *Sequential Compression Device (SCD) 5 or more Highest Order ONE of the following medications: *Heparin 5000 units SQ TID (Preferred with Epidurals) *Enoxaparin/Lovenox 40 mg SQ daily (WT < 150 kg, CrCl > 30 mL/min) *Enoxaparin/Lovenox 30 mg SQ daily (WT < 150 kg, CrCl > 10-29 mL/min) *Enoxaparin/Lovenox 30 mg SQ BID (WT < 150 kg, CrCl > 30 mL/min) AND *Sequential Compression Device (SCD) Assessment and Plan - Plan //Infected osteomyelitis X-rays of bilateral feet not conclusive for ostium myelitis, however ESR markedly elevated -Risk of limb loss Broad-spectrum antibiotics to cover anaerobes, gram-negative -We will check A1c for diabetes, however in setting of anemia may not be accurate Discussed with podiatry. We will plan for debridement tomorrow. //History of chronic systolic CHF. -Continue home lisinopril and furosemide. -Uncertain why patient is not on beta-jovany. -Request records from Dr. Costa's office. Patient denies any history of exertional chest pain. //History of self-injurious behavior Appreciate psychiatry assistance. Patient is not suicidal. //History of suspected diabetes. Check A1c. Diabetic diet and sliding scale Discussed Condition With: Patient, nurse, pickle pumper H&P: Quality - VTE Deep Vein Thrombosis/Pulmonary Embolism Present on Admission: No
--- NOTE | 2018-06-09 19:10 | MB ---
cc: Ammon Noland DPM DATE: 06/09/2018 REASON FOR CONSULTATION: Bilateral foot ulcers, infection. HISTORY OF PRESENT ILLNESS: This is a 48-year-old male who states he walked many miles, developed huge blisters, got infected. He went to [facility]. He received a bedside debridement and then was discharged home 4 days later. The patient continued to get worse. He had a terrible smell. He presented to [place]. I am currently seeing the patient at bedside. He denies any other new complaints. PAST MEDICAL HISTORY: Diabetes, peripheral neuropathy, congestive heart failure, history of heart artery stenting, surgery of head, history of Clostridium difficile. ALLERGIES: MONOSODIUM GLUTAMATE, PENICILLIN G, DIAZEPAM, ARTIFICIAL SWEETENER. OUTPATIENT MEDICATIONS: Reviewed. INPATIENT MEDICATIONS: Also reviewed. He is receiving vancomycin. No anticoagulants noted. PHYSICAL EXAMINATION: VITAL SIGNS: Temperature is 97.7, pulse rate 63, respiratory rate 20, blood pressure is 176/93. He is saturating 98% on room air. GENERAL: This is an alert and oriented gentleman seen at bedside exhibiting nonlabored respirations. EXTREMITIES: Bilateral lower extremities are examined. There is noted to be an expansile eschar, foul smelling drainage from the distal lateral hindfoot and ankle. This appears to be more like a burn eschar. It wraps around to the posterolateral Achilles and heel as well as the lateral ankle. The patient is missing digits 2 and 3, with eschars at the distal aspect of the second and third digit. There is chronic edema noted of the left lower extremity. The foot is warm. There appears to be good capillary refill time to the digits that remain, 1, 4 and 5. Sensation is significantly decreased to light touch, but intact to deep pressure. Right lower extremity, there is a similar wet eschar-type appearance of the plantar aspect of the medial arch with foreign body, sand, dirt, gravel noted to be all around the wound. There is a 1 cm x 2 cm ulceration of the plantar aspect of the first MPJ which appears to be a full-thickness ulceration. It possibly probes down to joint capsule. Pulses are hard to palpate through the edema of the dorsal right foot. There is erythema. There is no obvious ulcer of the ankle. Sensation decreased to the right lower extremity. LABORATORY FINDINGS: White blood cell 5.2, hemoglobin and hematocrit 7 and 22, platelet count is 377. ESR 124. Chem-7: Sodium 137, potassium 4.2, chloride 105, CO2 24.7, BUN is 13, creatinine 1.2. Random glucose is 161, AST is 9, ALT is 9. X-RAY FINDINGS: Right foot: Soft tissue swelling. Radiopaque foreign body between the first and second metatarsals. Upon questioning the patient, he said that has been there since he is 10 years old, it is a piece of glass. 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 Cortex appears to be intact. ASSESSMENT AND PLAN: Expansile lower extremity ulcers with eschars possible peripheral vascular disease. My recommendation is for operative debridement as soon as possible in the a.m. and then likely transfer to the [facility] for vascular evaluation. I reviewed the severity of the left lower extremity as well as the right. The patient understood. He wished for limb salvage efforts. The patient is n.p.o. after midnight. CT ordered of the of the left foot and of the left foot and ankle to further visualize if there is any bony destructive process. JOY Perez/ewelina , 06:07 PM , 06:15 PM
[2018-06-09 20:26] LABS: Reticulocyte Percent 1.4 % (0.4-3.0)
[2018-06-09 20:30] LABS: % Iron Saturation 11.3 % (20-50)
--- NOTE | 2018-06-09 22:50 | CT ---
EXAM DATE: 06/09/2018 10:30 PM EST AGE/SEX: 48 years / Male INDICATIONS: Evaluate glass in patients right foot. Abnormal foot x-ray. CLINICAL DATA: This is the patient's initial encounter. Patient reports that signs and symptoms have been present for 2 days and indicates a pain score of 7/10. MEDICAL/SURGICAL HISTORY: Diabetes. Congestive heart failure. Cardiovascular disease. Cholecystec alex. Coronary artery stent. Pacemaker. RADIATION DOSE: 8.57 CTDI (mGy) ; Combined studies COMPARISON: No prior exams available for comparison. TECHNIQUE: Multiple contiguous axial images were acquired using a multirow detector CT scanner witho ut contrast. Multiplanar reconstruction was performed in the sagittal and coronal planes. Using auto mated exposure control and adjustment of the mA and/or kV according to patient size, radiation dose w as kept as low as reasonably achievable to obtain optimal diagnostic quality images. DICOM format im age data is available electronically for review and comparison. FINDINGS: CT confirms a linear radiopaque foreign body in the soft tissues between the first and second metatar sals measuring about 1.8 cm in length. No acute bony abnormalities. No bony destructive changes. 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 CONCLUSION: 1. Linear radiopaque foreign body in soft tissue between first and second metatarsals measuring 1.8 cm in length without surrounding fluid or mass identified. Electronically signed by: Blake Abarca MD Board Certified Radiologist 06/09/2018 10:48 PM EST
--- NOTE | 2018-06-09 22:52 | CT ---
EXAM DATE: 06/09/2018 10:33 PM EST AGE/SEX: 48 years / Male INDICATIONS: Lateral left ankle ulcer. CLINICAL DATA: This is the patient's initial encounter. Patient reports that signs and symptoms have been present for 2 days and indicates a pain score of 7/10. MEDICAL/SURGICAL HISTORY: Diabetes. Congestive heart failure. Cardiovascular disease. Cholecy stectomy. Pacemaker. Coronary artery stent. RADIATION DOSE: 8.57 CTDI (mGy) ; Combined studies COMPARISON: No prior exams available for comparison. TECHNIQUE: Multiple contiguous axial images were acquired using a multirow detector CT scanner witho ut contrast. Multiplanar reconstruction was performed in the sagittal and coronal planes. Using aut omated exposure control and adjustment of the mA and/or kV according to patient size, radiation dose was kept as low as reasonably achievable to obtain optimal diagnostic quality images. DICOM format i mage data is available electronically for review and comparison. FINDINGS: There is superficial ulceration the soft tissues overlying the lateral hindfoot and ankle with some s uperficial subcutaneous air present. There is also some ulceration in the soft tissues around the nini l. No associated aggressive bony destructive changes are identified. No fracture or dislocation is se en. 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 CONCLUSION: 1. Superficial ulcerations around the left ankle without drainable abscess or sinus tract identified . No bony destructive changes. No fracture or dislocation. Electronically signed by: Blake Abarca MD Board Certified Radiologist 06/09/2018 10:51 PM EST
[2018-06-10] MEDS: Vancomycin Inj 1,250 MG in Sodium Chlor 0.9% Inj 250 ML IV.SIG SCH ×2 (03:30→17:02)
[2018-06-10] MEDS: Aztreonam Inj 2 GM in Sodium Chloride 0.9% Inj 100 ML IV.SIG SCH ×3 (04:50→20:54)
[2018-06-10] MEDS ORDERED: Chlorhexidine Gluconate 2% 1 Pack (2 Cloths) TOPICAL ONE (06:48)
[2018-06-10 06:55] LABS: Baso # (Auto) 0.1 th/mm3 (0.0-0.2); Baso % (Auto) 1.1 % (0.0-2.0); Eos # (Auto) 0.4 th/mm3 (0.0-0.4); Eos % (Auto) 7.5 % (0.0-4.0); Hematocrit 21.8 % (39.0-51.0); Lymph # (Auto) 0.8 th/mm3 (1.0-4.8); Lymph % (Auto) 15.3 % (9.0-44.0); Mean Corpuscular HGB Conc 31.9 % (32.0-36.0); Mean Corpuscular Hemoglobin 25.9 pg (27.0-34.0); Mean Platelet Volume 7.8 fL (7.0-11.0); Mono # (Auto) 0.4 th/mm3 (0.0-0.9); Mono % (Auto) 8.3 % (0.0-8.0); Neut # (Auto) 3.4 th/mm3 (1.8-7.7); Neut % (Auto) 67.8 % (16.0-70.0); Platelet Count 380 th/mm3 (150-450); Red Blood Count 2.69 mil/mm3 (4.50-5.90); Red Cell Distribution Width 14.3 % (11.6-17.2); White Blood Count 5.1 th/mm3 (4.0-11.0)
[2018-06-10] MEDS ORDERED: Bupivacaine PF 0.25% Inj 30 ML Vial ONE (06:56)
[2018-06-10] MEDS ORDERED: Sodium Chlor 0.9% Inj 500 ML IV.SIG SCH (07:00)
[2018-06-10 07:20] LABS: Albumin 1.5 g/dL (3.4-5.0); Carbon Dioxide 25.9 meq/L (21.0-32.0); Magnesium 1.9 mg/dL (1.5-2.5); Total Protein 6.2 g/dL (6.4-8.2)
[2018-06-10 07:25] LABS: Calcium 7.4 mg/dL (8.5-10.1)
[2018-06-10] MEDS: Insulin NovoLOG Aspart Correctional Sugar Inj SQ SCH ×4 (08:00→21:46)
[2018-06-10] MEDS ORDERED: fentaNYL Citrate Inj 100 MCG/2 ML Ampul ONE (08:15)
--- NOTE | 2018-06-10 08:30 | P.BOP ---
- Preoperative Diagnosis (1) Ulcer of right lower extremity with necrosis of muscle (2) Ulcer of left lower extremity with necrosis of muscle (3) Diabetic infection of left foot (4) Diabetic infection of right foot - Postoperative Diagnosis (1) Diabetic infection of left foot (2) Diabetic infection of right foot (3) Ulcer of left lower extremity with necrosis of muscle (4) Ulcer of right lower extremity with necrosis of muscle Date of procedure: 06/10/18 Procedure: Sharp excisional debridement BL feet and ankles legs full thickness to muscle Anesthesia: KIERAN Surgeon: Ammon Gold DPM Estimated blood loss (mL): 30 Pathology: other (BL LE wound cx) Condition: stable Disposition: other (Transfer to [facility] for Vascular surgery consult will need repeat debridment Fri- sat)
--- NOTE | 2018-06-10 09:01 | MP ---
cc: Ammon Noland DPM DATE OF OPERATION: 06/10/2018 PREOPERATIVE DIAGNOSIS: Bilateral lower extremity expansile ulcerations involving digits, midfoot, hindfoot, and ankle, left worse than right. POSTOPERATIVE DIAGNOSIS: Bilateral lower extremity expansile ulcerations involving digits, midfoot, hindfoot, and ankle, left worse than right. PROCEDURE PERFORMED: Expansile sharp excisional debridement of the full-thickness ulcerations down to muscle belly, greater than 25 square cm. SURGEON: Ammon Noland DPM. ESTIMATED BLOOD LOSS: Less than 30 mL. ANESTHESIA: General. SPECIMENS: Wound culture, deep portion of posterior heel, left foot, and mid portion of right mid foot. MATERIALS: None. INJECTABLES: None. TOURNIQUET: None. JUSTIFICATION FOR PROCEDURE: A 48-year-old male, who was admitted for significant expansile, infected bilateral lower extremity diabetic ulcerations. The patient apparently was seen at [facility]. A bedside debridement was performed, and the patient was discharged. The patient noticed odor and increased redness. The patient had significant worsening, presented to the ED. White count normal. X-ray showed a foreign body, likely a shard of glass with no fluid collection, verified by CT. CTs of the bilateral feet and ankles did not show any obvious cortical abnormality. Superficial foreign body and fluid noted, but no obvious deep abscess or cortical erosive process. The patient appears to be a poorly controlled diabetic with a significant past medical history including CHF and pacemaker. The patient was educated on the risks and benefits of surgery including, but not limited to need for repeat surgery, loss of limb or . The patient wished to proceed with limb salvage efforts. PROCEDURE IN DETAIL: Under mild sedation, the patient was brought in the operating room, placed on the operating table in the supine position. Following the induction of general anesthesia, the bilateral lower extremities were scrubbed, prepped, and draped in the usual aseptic fashion. Bilateral lower extremities were examined. There was noted to be expansile infected eschars that involved the dorsal aspect of the bilateral hallux, the plantar aspect of the bilateral feet, left worse than right. There was an eschar and a full-thickness necrosis down to muscle belly of the abductor hallucis, and almost down to the periosteal surface of the posterior heel. This wrapped around to the lateral dorsum of the foot. All of the nonviable tissue was debrided utilizing sharp selective technique, utilizing iris scissors, 15 blade, curettage, and rongeur. Punctate bleeding was noted. Cultures were taken. Bandages applied. Of note, there was noted to be gravel, which appeared to be pet dander, but no obvious tunneling or tracking down below the muscle. There appeared to be no bone exposure. The lesser digits of the left foot had significant soft tissue loss after debridement, due to the full-thickness infected eschar. Xeroform applied. Bulky bandages applied. Capillary fill time remained to the digits. The patient was transferred from OR to PACU with all vital signs stable. I am requesting vascular evaluation to make sure the patient has enough circulation to heal. The patient will need repeat debridements, possible wound VAC application multiple times in the next 7-10 days. Continue antibiotics. We will continue to follow. JOY Perez/vishnu , 08:29 AM , 08:38 AM
[2018-06-10] MEDS: Furosemide 40 MG Tablet PO SCH (09:43)
[2018-06-10] MEDS: Lisinopril 20 MG Tablet PO SCH (09:43)
[2018-06-10] MEDS ORDERED: VANCOMYCIN TROUGH OTHER ONE ×2 (09:45→15:45)
--- NOTE | 2018-06-10 16:38 | P.PNIM ---
Subjective Interval history: Patient says he is feeling right. He does have some nausea after surgery without vomiting this has resolved. Denies any chest pain or shortness of breath. Physical Exam Vital signs: Vital Signs 06/09/18 20:00 06/09/18 20:07 06/10/18 00:00 Temperature 98.8 F 98 F Pulse Rate 81 73 Respiratory Rate 20 20 Blood Pressure 183/100 H 152/80 H 158/89 H Pulse Oximetry 98 98 06/10/18 04:00 06/10/18 04:20 06/10/18 06:46 Temperature 98.2 F 98.2 F Pulse Rate 73 79 Respiratory Rate 20 18 Blood Pressure 187/100 H 162/82 H 160/78 H Pulse Oximetry 98 95 06/10/18 08:10 06/10/18 08:15 06/10/18 08:30 Temperature 97.8 F Pulse Rate 85 80 87 Respiratory Rate 14 14 16 Blood Pressure 179/99 H 189/100 H 192/92 H Pulse Oximetry 100 100 99 06/10/18 09:30 06/10/18 12:00 Temperature 97.4 F L Pulse Rate 90 Respiratory Rate 19 Blood Pressure 153/81 H Pulse Oximetry 99 99 Intake & Output 06/09/18 06/10/18 06/10/18 18:59 06:59 18:59 Intake Total 825.0 / 825.0 562.5 / 562.5 1000 / 1000 Output Total 60 / 60 Balance 825.0 / 825.0 562.5 / 562.5 940 / 940 Weight 86.5 kg Intake: IV 825.0 / 825.0 562.5 / 562.5 650 / 650 Azactam Inj 2 GM In NS Inj 100 100 / 100 200 / 200 100 / 100 ML @ 200 mls/hr IV.SIG Q8H [facility] Rx#:[id number] LR 1000 mL Inj 1,000 ML @ 30 350 / 350 mls/hr IV.SIG .Q24H [facility]RI[facility] Rx#: [id number] Vancomycin Inj 1,250 MG In NS 525.0 / 525.0 262.5 / 262.5 Inj 250 ML @ 250 mls/hr IV.SIG Q12H [facility] Rx#:[id number] Flagyl 500 MG Inj 100 ML @ 100 200 / 200 100 / 100 200 / 200 mls/hr IV.SIG Q8H [facility] Rx#: [id number] Anesthesia Amount 350 / 350 Output: Estimated Blood Loss 60 / 60 Other: Post Void Residual 1,250 # Voids 4 Date of Last Bowel Movement 06/08/18 Narrative: GENERAL: Sitting in bed. Appears comfortable. SKIN: Warm and dry. HEAD: Normocephalic. EYES: No scleral icterus. No injection or drainage. NECK: Supple, trachea midline. No JVD or lymphadenopathy. CARDIOVASCULAR: Regular rate and rhythm without murmurs, gallops, or rubs. RESPIRATORY: Breath sounds equal bilaterally. No accessory muscle use. GASTROINTESTINAL: Abdomen soft, non-tender, nondistended. MUSCULOSKELETAL: No cyanosis,.. Bilateral legs dressed with dressing clean dry and intact. BACK: Nontender without obvious deformity. No CVA tenderness. Results - Labs CBC & Chem 7: 06/10/18 06:30 06/10/18 06:30 Laboratory Results - last 24 hr 06/09/18 06/09/18 06/09/18 06:15 16:35 19:15 CBC w Diff WBC RBC Hgb Hct MCV MCH MCHC RDW Plt Count MPV Neut % (Auto) Lymph % (Auto) [place] % (Auto) Eos % (Auto) Baso % (Auto) Neut # (Auto) Lymph # (Auto) [place] # (Auto) Eos # (Auto) Baso # (Auto) WBC Differential Differential Comment Retic Count 1.4 Absolute Retic 42.3 Sodium Potassium Chloride Carbon Dioxide Anion Gap BUN Creatinine Estimated GFR POC Glucose 195 H Random Glucose Calcium Phosphorus Magnesium Iron 17 L TIBC 150 L % Saturation 11.3 L Ferritin 202 Total Bilirubin Direct Bilirubin Indirect Bilirubin AST ALT Alkaline Phosphatase Total Protein Albumin 06/09/18 06/09/18 06/10/18 19:15 22:11 06:25 CBC w Diff WBC RBC Hgb 8.3 L Hct MCV MCH MCHC RDW Plt Count MPV Neut % (Auto) Lymph % (Auto) [place] % (Auto) Eos % (Auto) Baso % (Auto) Neut # (Auto) Lymph # (Auto) [place] # (Auto) Eos # (Auto) Baso # (Auto) WBC Differential Differential Comment Retic Count Absolute Retic Sodium Potassium Chloride Carbon Dioxide Anion Gap BUN Creatinine Estimated GFR POC Glucose 165 H 124 H Random Glucose Calcium Phosphorus Magnesium Iron TIBC % Saturation Ferritin Total Bilirubin Direct Bilirubin Indirect Bilirubin AST ALT Alkaline Phosphatase Total Protein Albumin 06/10/18 06/10/18 06/10/18 06:30 06:30 11:11 CBC w Diff Auto diff final WBC 5.1 RBC 2.69 L Hgb 7.0 L Hct 21.8 L MCV 81.0 MCH 25.9 L MCHC 31.9 L RDW 14.3 Plt Count 380 MPV 7.8 Neut % (Auto) 67.8 Lymph % (Auto) 15.3 [place] % (Auto) 8.3 H Eos % (Auto) 7.5 H Baso % (Auto) 1.1 Neut # (Auto) 3.4 Lymph # (Auto) 0.8 L [place] # (Auto) 0.4 Eos # (Auto) 0.4 Baso # (Auto) 0.1 WBC Differential . Differential Comment . Retic Count Absolute Retic Sodium 137 Potassium 4.0 Chloride 106 Carbon Dioxide 25.9 Anion Gap 5 BUN 11 Creatinine 1.10 Estimated GFR 72 L POC Glucose 186 H Random Glucose 121 H Calcium 7.4 L* Phosphorus 3.0 Magnesium 1.9 Iron TIBC % Saturation Ferritin Total Bilirubin 0.2 Direct Bilirubin 0.1 Indirect Bilirubin 0.1 AST 7 L ALT 8 L Alkaline Phosphatase 73 Total Protein 6.2 L D Albumin 1.5 L Microbiology 06/08/18 16:40 Blood - Peripheral Aerobic Blood Culture - Preliminary No growth in 2 days 06/08/18 16:40 Blood - Peripheral Anaerobic Blood Culture - Preliminary No growth in 2 days 06/08/18 16:25 Blood - Peripheral Aerobic Blood Culture - Preliminary No growth in 2 days 06/08/18 16:25 Blood - Peripheral Anaerobic Blood Culture - Preliminary No growth in 2 days - Imaging Impressions Ankle CT 06/09/18 00:00 CONCLUSION: 1. Superficial ulcerations around the left ankle without drainable abscess or sinus tract identified. No bony destructive changes. No fracture or dislocation. Foot CT 06/09/18 00:00 CONCLUSION: 1. Linear radiopaque foreign body in soft tissue between first and second metatarsals measuring 1.8 cm in length without surrounding fluid or mass identified. Assessment and Plan - Plan //Infected osteomyelitis X-rays of bilateral feet not conclusive for ostium myelitis, however ESR markedly elevated -Risk of limb loss Broad-spectrum antibiotics to cover anaerobes, gram-negative -We will check A1c for diabetes, however in setting of anemia may not be accurate Discussed with podiatry. We will plan for debridement tomorrow. = 1/2. Status post debridement. As per discussion with podiatry, patient will need transferred to the [facility] for vascular workup and evaluation. Appreciate podiatry and vascular assistance. //History of chronic systolic CHF. -Continue home lisinopril and furosemide. -Uncertain why patient is not on beta-jovany. -Pending records from Dr. Costa's office. Patient denies any history of exertional chest pain. = 1/2. Pressures elevated. Will add enalapril IV as needed. Will discontinue IV fluids. //History of self-injurious behavior Appreciate psychiatry assistance. Patient is not suicidal. //History of suspected diabetes. Check A1c. Diabetic diet and sliding scale = A1c pending. Discussed Condition With: Patient, nurse, Dr. Noland Discharge Planning: Transfer to [facility]
[2018-06-10 16:48] LABS: Hemoglobin A1c 7.7 % (4.3-6.0)
--- NOTE | 2018-06-10 17:41 | P.PNVS ---
Subjective Subjective/Hospital Course: Referral received Discussed with Dr. Noland Patient will be transferred to [facility] at which point I will proceed with full consultation Thanks Timmy Objective Vital Signs / I&O: Vital Signs 06/09/18 20:00 06/09/18 20:07 06/10/18 00:00 Temperature 98.8 F 98 F Pulse Rate 81 73 Respiratory Rate 20 20 Blood Pressure 183/100 H 152/80 H 158/89 H Pulse Oximetry 98 98 06/10/18 04:00 06/10/18 04:20 06/10/18 06:46 Temperature 98.2 F 98.2 F Pulse Rate 73 79 Respiratory Rate 20 18 Blood Pressure 187/100 H 162/82 H 160/78 H Pulse Oximetry 98 95 06/10/18 08:10 06/10/18 08:15 06/10/18 08:30 Temperature 97.8 F Pulse Rate 85 80 87 Respiratory Rate 14 14 16 Blood Pressure 179/99 H 189/100 H 192/92 H Pulse Oximetry 100 100 99 06/10/18 09:30 06/10/18 12:00 Temperature 97.4 F L Pulse Rate 90 Respiratory Rate 19 Blood Pressure 153/81 H Pulse Oximetry 99 99 Intake & Output 06/09/18 06/10/18 06/10/18 18:59 06:59 18:59 Intake Total 825.0 / 825.0 562.5 / 562.5 1000 / 1000 Output Total 60 / 60 Balance 825.0 / 825.0 562.5 / 562.5 940 / 940 Weight 86.5 kg Intake: IV 825.0 / 825.0 562.5 / 562.5 650 / 650 Azactam Inj 2 GM In NS Inj 100 100 / 100 200 / 200 100 / 100 ML @ 200 mls/hr IV.SIG Q8H [facility] Rx#:[id number] LR 1000 mL Inj 1,000 ML @ 30 350 / 350 mls/hr IV.SIG .Q24H [facility] Rx#: [id number] Vancomycin Inj 1,250 MG In NS 525.0 / 525.0 262.5 / 262.5 Inj 250 ML @ 250 mls/hr IV.SIG Q12H [facility] Rx#:[id number] Flagyl 500 MG Inj 100 ML @ 100 200 / 200 100 / 100 200 / 200 mls/hr IV.SIG Q8H [facility] Rx#: [id number] Anesthesia Amount 350 / 350 Output: Estimated Blood Loss 60 / 60 Other: Post Void Residual 1,250 # Voids 4 Date of Last Bowel Movement 06/08/18 Laboratory Results - last 24 hr 06/09/18 06/09/18 06/09/18 06:15 19:15 19:15 CBC w Diff WBC RBC Hgb 8.3 L Hct MCV MCH MCHC RDW Plt Count MPV Neut % (Auto) Lymph % (Auto) [place] % (Auto) Eos % (Auto) Baso % (Auto) Neut # (Auto) Lymph # (Auto) [place] # (Auto) Eos # (Auto) Baso # (Auto) WBC Differential Differential Comment Retic Count 1.4 Absolute Retic 42.3 Sodium Potassium Chloride Carbon Dioxide Anion Gap BUN Creatinine Estimated GFR POC Glucose Random Glucose Calcium Phosphorus Magnesium Iron 17 L TIBC 150 L % Saturation 11.3 L Ferritin 202 Total Bilirubin Direct Bilirubin Indirect Bilirubin AST ALT Alkaline Phosphatase Total Protein Albumin 06/09/18 06/10/18 06/10/18 22:11 06:25 06:30 CBC w Diff Auto diff final WBC 5.1 RBC 2.69 L Hgb 7.0 L Hct 21.8 L MCV 81.0 MCH 25.9 L MCHC 31.9 L RDW 14.3 Plt Count 380 MPV 7.8 Neut % (Auto) 67.8 Lymph % (Auto) 15.3 [place] % (Auto) 8.3 H Eos % (Auto) 7.5 H Baso % (Auto) 1.1 Neut # (Auto) 3.4 Lymph # (Auto) 0.8 L [place] # (Auto) 0.4 Eos # (Auto) 0.4 Baso # (Auto) 0.1 WBC Differential . Differential Comment . Retic Count Absolute Retic Sodium Potassium Chloride Carbon Dioxide Anion Gap BUN Creatinine Estimated GFR POC Glucose 165 H 124 H Random Glucose Calcium Phosphorus Magnesium Iron TIBC % Saturation Ferritin Total Bilirubin Direct Bilirubin Indirect Bilirubin AST ALT Alkaline Phosphatase Total Protein Albumin 06/10/18 06/10/18 06/10/18 06:30 11:11 16:57 CBC w Diff WBC RBC Hgb Hct MCV MCH MCHC RDW Plt Count MPV Neut % (Auto) Lymph % (Auto) [place] % (Auto) Eos % (Auto) Baso % (Auto) Neut # (Auto) Lymph # (Auto) [place] # (Auto) Eos # (Auto) Baso # (Auto) WBC Differential Differential Comment Retic Count Absolute Retic Sodium 137 Potassium 4.0 Chloride 106 Carbon Dioxide 25.9 Anion Gap 5 BUN 11 Creatinine 1.10 Estimated GFR 72 L POC Glucose 186 H 129 H Random Glucose 121 H Calcium 7.4 L* Phosphorus 3.0 Magnesium 1.9 Iron TIBC % Saturation Ferritin Total Bilirubin 0.2 Direct Bilirubin 0.1 Indirect Bilirubin 0.1 AST 7 L ALT 8 L Alkaline Phosphatase 73 Total Protein 6.2 L D Albumin 1.5 L Microbiology 06/08/18 16:40 Aerobic Blood Culture - Preliminary Blood - Peripheral No growth in 2 days Anaerobic Blood Culture - Preliminary No growth in 2 days 06/08/18 16:25 Aerobic Blood Culture - Preliminary Blood - Peripheral No growth in 2 days Anaerobic Blood Culture - Preliminary No growth in [address] 06/09/18 00:00 CONCLUSION: 1. Superficial ulcerations around the left ankle without drainable abscess or sinus tract identified. No bony destructive changes. No fracture or dislocation. Foot CT 06/09/18 00:00 CONCLUSION: 1. Linear radiopaque foreign body in soft tissue between first and second metatarsals measuring 1.8 cm in length without surrounding fluid or mass identified.
[2018-06-11] MEDS: Aztreonam Inj 2 GM in Sodium Chloride 0.9% Inj 100 ML IV.SIG SCH ×3 (03:37→20:06)
[2018-06-11] MEDS ORDERED: Vancomycin Inj 1,000 MG in Sodium Chlor 0.9% Inj 250 ML IV.SIG SCH (08:00)
[2018-06-11] MEDS: Lisinopril 20 MG Tablet PO SCH (08:38)
[2018-06-11] MEDS: Furosemide 40 MG Tablet PO SCH (08:38)
[2018-06-11] MEDS: Insulin NovoLOG Aspart Correctional Sugar Inj SQ SCH ×4 (08:39→20:42)
[2018-06-11] MEDS ORDERED: Pharmacy Ordered Lab Info OTHER ONE (09:00)
--- NOTE | 2018-06-11 09:27 | P.PNIM ---
Subjective Interval history: Patient says he is feeling well. Ate breakfast. Denies any chest pain or shortness of breath. denies Bleeding. Physical Exam Vital signs: Vital Signs 06/10/18 09:30 06/10/18 12:00 06/10/18 16:00 Temperature 97.4 F L 97.8 F Pulse Rate 90 72 Respiratory Rate 19 15 Blood Pressure 153/81 H 140/73 Pulse Oximetry 99 99 98 06/10/18 20:00 06/11/18 00:00 Temperature 99.1 F 99.2 F Pulse Rate 75 68 Respiratory Rate 20 20 Blood Pressure 158/77 H 182/88 H Pulse Oximetry 98 98 Intake & Output 06/10/18 06/11/18 06/11/18 18:59 06:59 18:59 Intake Total 1562.5 / 1562.5 400 / 400 Output Total 460 / 460 1250 / 1250 Balance 1102.5 / 1102.5 -850 / -850 Weight 86.5 kg Intake: IV 912.5 / 912.5 400 / 400 Azactam Inj 2 GM In NS Inj 100 100 / 100 200 / 200 ML @ 200 mls/hr IV.SIG Q8H PATRICK Rx#:[id number] LR 1000 mL Inj 1,000 ML @ 30 350 / 350 mls/hr IV.SIG .Q24H PATRICK Rx#: [id number] Vancomycin Inj 1,250 MG In NS 262.5 / 262.5 Inj 250 ML @ 250 mls/hr IV.SIG Q12H PATRICK Rx#:[id number] Flagyl 500 MG Inj 100 ML @ 100 200 / 200 200 / 200 mls/hr IV.SIG Q8H PATRICK Rx#: [id number] Oral 300 / 300 Anesthesia Amount 350 / 350 Output: Urine 400 / 400 1250 / 1250 Estimated Blood Loss 60 / 60 Other: Post Void Residual 4 Date of Last Bowel Movement 06/10/18 Narrative: GENERAL: Sitting in bed. Appears comfortable. Alert and oriented x3. SKIN: Warm and dry. HEAD: Normocephalic. EYES: No scleral icterus. No injection or drainage. NECK: Supple, trachea midline. No JVD. CARDIOVASCULAR: Regular rate and rhythm without murmurs, gallops, or rubs. RESPIRATORY: Breath sounds equal bilaterally. No accessory muscle use. GASTROINTESTINAL: Abdomen soft, non-tender, nondistended. MUSCULOSKELETAL: No cyanosis,.. Bilateral legs dressed with dressing clean dry and intact. BACK: Nontender without obvious deformity. No CVA tenderness. Results - Labs CBC & Chem 7: 06/10/18 06:30 06/11/18 06:15 Laboratory Results - last 24 hr 06/09/18 06/10/18 06/10/18 19:15 11:11 16:40 Creatinine Estimated GFR POC Glucose 186 H Hemoglobin A1c 7.7 H Vancomycin Trough 23.3 H 06/10/18 06/10/18 06/11/18 16:57 21:40 06:15 Creatinine 1.10 Estimated GFR 72 L POC Glucose 129 H 138 H Hemoglobin A1c Vancomycin Trough 06/11/18 07:41 Creatinine Estimated GFR POC Glucose 104 Hemoglobin A1c Vancomycin Trough Microbiology 06/08/18 16:40 Blood - Peripheral Aerobic Blood Culture - Preliminary No growth in 2 days 06/08/18 16:40 Blood - Peripheral Anaerobic Blood Culture - Preliminary No growth in 2 days 06/08/18 16:25 Blood - Peripheral Aerobic Blood Culture - Preliminary No growth in 2 days 06/08/18 16:25 Blood - Peripheral Anaerobic Blood Culture - Preliminary No growth in 2 days Assessment and Plan - Plan //Infected osteomyelitis X-rays of bilateral feet not conclusive for ostium myelitis, however ESR markedly elevated -Risk of limb loss Broad-spectrum antibiotics to cover anaerobes, gram-negative -We will check A1c for diabetes, however in setting of anemia may not be accurate Discussed with podiatry. We will plan for debridement tomorrow. = 1/2. Status post debridement. As per discussion with podiatry, patient will need transferred to the [facility] for vascular workup and evaluation. Appreciate podiatry and vascular assistance. =1/3. Plan transfer to [facility] for vascular surgery consultation. //History of chronic systolic CHF. -Continue home lisinopril and furosemide. -Uncertain why patient is not on beta-jovany. -Pending records from Dr. Costa's office. Patient denies any history of exertional chest pain. = 1/2. Pressures elevated. Will add enalapril IV as needed. Will discontinue IV fluids. = 1/3. Blood pressures continue elevated. Will add amlodipine. //History of self-injurious behavior Appreciate psychiatry assistance. Patient is not suicidal. //History of suspected diabetes. Check A1c. Diabetic diet and sliding scale = A1c pending. Discharge Planning: Transfer to [facility]
[2018-06-11] MEDS: amLODIPine 5 MG Tablet PO SCH (10:59)
[2018-06-11] MEDS: Vancomycin Inj 1,250 MG in Sodium Chlor 0.9% Inj 250 ML IV.SIG SCH (12:46)
--- NOTE | 2018-06-11 16:25 | P.PNVS ---
Subjective Subjective/Hospital Course: Referral received Discussed with Dr. Noland Patient will be transferred to [facility] at which point I will proceed with full consultation Thanks Timmy 06/11/2018 Patient still has not been transferred to [facility] despite order entered by Dr. Noland yesterday morning Had an on the patient is not being transferred I would have gone and seen him at [facility]. I received this afternoon call from [place] charge who stated that I have to put the order for transfer in addition to the order given by Dr. Noland. I discussed with the deputy sheriff chief and would encourage patient to be transferred because patient will need vascular workup and probably several vascular procedures either endovascular or open in addition to podiatry surgery I have also instructed the charge to let me know if patient is not transferred for I will be happy to see him at [facility] Objective Vital Signs / I&O: Vital Signs 06/10/18 20:00 06/11/18 00:00 06/11/18 08:00 Temperature 99.1 F 99.2 F Pulse Rate 75 68 Respiratory Rate 20 20 Blood Pressure 158/77 H 182/88 H Pulse Oximetry 98 98 96 06/11/18 10:37 06/11/18 14:53 Temperature 96.4 F L 97.1 F L Pulse Rate 72 62 Respiratory Rate 18 16 Blood Pressure 192/100 H 195/89 H Pulse Oximetry 96 98 Intake & Output 06/10/18 06/11/18 06/11/18 18:59 06:59 18:59 Intake Total 1562.5 / 1562.5 400 / 400 512.5 / 512.5 Output Total 460 / 460 1250 / 1250 1550 / 1550 Balance 1102.5 / 1102.5 -850 / -850 -1037.5 / -1037.5 Weight 86.5 kg Intake: IV 912.5 / 912.5 400 / 400 512.5 / 512.5 Azactam Inj 2 GM In NS Inj 100 100 / 100 200 / 200 100 / 100 ML @ 200 mls/hr IV.SIG Q8H PATRICK Rx#:[id number] LR 1000 mL Inj 1,000 ML @ 30 350 / 350 50 / 50 mls/hr IV.SIG .Q24H PATRICK Rx#: [id number] Vancomycin Inj 1,250 MG In NS 262.5 / 262.5 262.5 / 262.5 Inj 250 ML @ 250 mls/hr IV.SIG Q18H PATRICK Rx#:[id number] Flagyl 500 MG Inj 100 ML @ 100 200 / 200 200 / 200 100 / 100 mls/hr IV.SIG Q8H PATRICK Rx#: [id number] Oral 300 / 300 Anesthesia Amount 350 / 350 Output: Urine 400 / 400 1250 / 1250 1550 / 1550 Estimated Blood Loss 60 / 60 Other: Post Void Residual 4 Date of Last Bowel Movement 06/10/18 Laboratory Results - last 24 hr 06/09/18 06/10/18 06/10/18 19:15 16:40 16:57 Creatinine Estimated GFR POC Glucose 129 H Hemoglobin A1c 7.7 H Vancomycin Trough 23.3 H 06/10/18 06/11/18 06/11/18 21:40 06:15 07:41 Creatinine 1.10 Estimated GFR 72 L POC Glucose 138 H 104 Hemoglobin A1c Vancomycin Trough 06/11/18 11:59 Creatinine Estimated GFR POC Glucose 132 H Hemoglobin A1c Vancomycin Trough Microbiology 06/10/18 07:45 Acid Fast Bacilli Smear - Final Other No acid fast bacilli seen 06/10/18 07:45 Acid Fast Bacilli Smear - Final Other No acid fast bacilli seen 06/10/18 07:45 Gram Stain - Final Wound - Ankle Wound Culture - Preliminary Staphylococcus aureus 06/10/18 07:45 Gram Stain - Final Wound - Ankle Wound Culture - Preliminary Staphylococcus aureus 06/08/18 16:40 Aerobic Blood Culture - Preliminary Blood - Peripheral No growth in 3 days Anaerobic Blood Culture - Preliminary No growth in 3 days 06/08/18 16:25 Aerobic Blood Culture - Preliminary Blood - Peripheral No growth in 3 days Anaerobic Blood Culture - Preliminary No growth in 3 days 06/10/18 07:45 Fungal Smear - Final Wound - Ankle No fungal elements seen 06/10/18 07:45 Fungal Smear - Final Other No fungal elements seen Impressions Ankle CT 06/09/18 00:00 CONCLUSION: 1. Superficial ulcerations around the left ankle without drainable abscess or sinus tract identified. No bony destructive changes. No fracture or dislocation. Foot CT 06/09/18 00:00 CONCLUSION: 1. Linear radiopaque foreign body in soft tissue between first and second metatarsals measuring 1.8 cm in length without surrounding fluid or mass identified.
[2018-06-12] MEDS: Aztreonam Inj 2 GM in Sodium Chloride 0.9% Inj 100 ML IV.SIG SCH ×3 (04:08→20:50)
[2018-06-12] MEDS: Vancomycin Inj 1,250 MG in Sodium Chlor 0.9% Inj 250 ML IV.SIG SCH (06:02)
[2018-06-12] MEDS: Furosemide 40 MG Tablet PO SCH (08:10)
[2018-06-12] MEDS: amLODIPine 5 MG Tablet PO SCH (08:10)
[2018-06-12] MEDS: Lisinopril 20 MG Tablet PO SCH (08:10)
[2018-06-12] MEDS: Insulin NovoLOG Aspart Correctional Sugar Inj SQ SCH ×4 (08:12→22:40)
[2018-06-12 10:24] LABS: Baso # (Auto) 0.1 th/mm3 (0.0-0.2); Baso % (Auto) 1.5 % (0.0-2.0); Eos # (Auto) 0.3 th/mm3 (0.0-0.4); Eos % (Auto) 6.5 % (0.0-4.0); Hematocrit 22.2 % (39.0-51.0); Hemoglobin 7.5 gm/dL (13.0-17.0); Lymph # (Auto) 0.8 th/mm3 (1.0-4.8); Lymph % (Auto) 15.8 % (9.0-44.0); Mean Corpuscular HGB Conc 33.7 % (32.0-36.0); Mean Corpuscular Hemoglobin 27.1 pg (27.0-34.0); Mean Corpuscular Volume 80.4 fL (80.0-100.0); Mean Platelet Volume 7.3 fL (7.0-11.0); Mono # (Auto) 0.4 th/mm3 (0.0-0.9); Mono % (Auto) 7.3 % (0.0-8.0); Neut # (Auto) 3.6 th/mm3 (1.8-7.7); Neut % (Auto) 68.9 % (16.0-70.0); Platelet Count 349 th/mm3 (150-450); Red Blood Count 2.76 mil/mm3 (4.50-5.90); Red Cell Distribution Width 15.3 % (11.6-17.2); White Blood Count 5.3 th/mm3 (4.0-11.0)
[2018-06-12 10:49] LABS: Calcium 7.5 mg/dL (8.5-10.1); Carbon Dioxide 30.6 meq/L (21.0-32.0); Potassium 3.5 meq/L (3.5-5.1)
[2018-06-12] MEDS ORDERED: amLODIPine 5 MG Tablet PO ONE (11:56)
--- NOTE | 2018-06-12 12:01 | P.PNIM ---
Subjective Interval history: Follow-up on patient with bilateral feet ulcers,infection. Patient seen and examined. Patient complaining of nausea and dry heaves since 4 :00 this morning. Patient denies any fever or chills. Denies any abdominal pain. He denies any chest pain or shortness of breath. Physical Exam Vital signs: Last Vital Signs Temp 97.9 F 06/12/18 11:54 Pulse 69 06/12/18 11:54 Resp 20 06/12/18 11:54 BP 177/93 H 06/12/18 11:54 Pulse Ox 100 06/12/18 11:54 Intake & Output 06/10/18 06/11/18 06/12/18 06/13/18 06:59 06:59 06:59 06:59 Intake Total 1387.5 / 1387.5 1962.5 / 1962.5 912.5 / 912.5 262.5 / 262.5 Output Total 1710 / 1710 2650 / 2650 Balance 1387.5 / 1387.5 252.5 / 252.5 -1737.5 / -1737.5 262.5 / 262.5 Weight 86.5 kg 86.5 kg 79.8 kg Narrative: GENERAL: Well-developed well-nourished male patient in no acute distress. Awake and alert. SKIN: Warm and dry. HEENT: Atraumatic. Normocephalic. Pupils equal and round. No scleral icterus. No injection or drainage. No nasal bleeding or discharge. Mucous membranes pink and moist. NECK: Trachea midline. CARDIOVASCULAR: Regular rate and rhythm. No murmur appreciated. s/p pacemaker implantation left side of chest. RESPIRATORY: No accessory muscle use. Clear to auscultation. Breath sounds equal bilaterally. GASTROINTESTINAL: Abdomen soft, non-tender, nondistended. Hypoactive BS. MUSCULOSKELETAL: + Mild erythema noted over anterior lower legs bilaterally. Both feet are wrapped in postop dressing which is clean dry and intact. NEUROLOGICAL: Awake and alert. No obvious cranial nerve deficits. Able to move all extremities spontaneously. Normal speech. PSYCHIATRIC: Calm and cooperative. Results Labs CBC & Chem 7: 06/12/18 09:36 06/12/18 09:36 Labs: Microbiology 06/08/18 16:40 Blood - Peripheral Aerobic Blood Culture - Preliminary No growth in 4 days 06/08/18 16:40 Blood - Peripheral Anaerobic Blood Culture - Preliminary No growth in 4 days 06/08/18 16:25 Blood - Peripheral Aerobic Blood Culture - Preliminary No growth in 4 days 06/08/18 16:25 Blood - Peripheral Anaerobic Blood Culture - Preliminary No growth in 4 days 06/10/18 07:45 Wound - Ankle Gram Stain - Final 06/10/18 07:45 Wound - Ankle Wound Culture - Preliminary Staphylococcus aureus Group B beta Strep Group D Enterococcus gram negative rods Yeast species 06/10/18 07:45 Wound - Ankle Gram Stain - Final 06/10/18 07:45 Wound - Ankle Wound Culture - Preliminary Staphylococcus aureus Group D Enterococcus 06/10/18 07:45 Other Acid Fast Bacilli Smear - Final No acid fast bacilli seen 06/10/18 07:45 Other Acid Fast Bacilli Smear - Final No acid fast bacilli seen 06/10/18 07:45 Wound - Ankle Fungal Smear - Final No fungal elements seen 06/10/18 07:45 Other Fungal Smear - Final No fungal elements seen Assessment and Plan Plan 48-year-old male with a history of CHF status post AICD and pacemaker, hypertension and questionable diabetes admitted with bilateral feet infected ulcerative lesions: Bilateral feet ulcers, infected Imaging does not show any evidence of underlying osteomyelitis S/p expansile debridement of full-thickness ulceration down to muscle belly performed by Dr. Noland 06/10/18 left wound cx + group D enterococcus, staph, group B beta strep, gram-negative rods, yeast right wound cx + D enterococcus and staph -Podiatry following, appreciate assistance -Vascular surgery following for suspected PVD. CTA with runoff ordered/pending. -Consult ID, appreciate assistance -Continue patient on IV antibiotics -aztreonam, metronidazole and vancomycin pending ID recs -Continue to monitor wounds for healing Hypertension, not well controlled -Continue patient on lisinopril -Increase dose of Norvasc to 10 mg daily -IV Enalapril PRN with parameters -Continue to monitor BP and adjust treatment accordingly History of chronic systolic CHF, not decompensated -Continue on lisinopril and Lasix -Uncertain why patient is not on beta-jovany, awaiting records from Dr. Costa's office -Continue to monitor volume status Diabetes, chronic A1c 7.7 blood sugars acceptable -Continue to hold home dose of metformin -Accu-Cheks and insulin sliding scale Anemia, hypochromic, microcytic -Hemoglobin is low at 7.0, repeat hemoglobin today 7.5 -Obtain iron studies, ferritin and B12 level -Monitor for any evidence of active bleeding -Continue to monitor CBC Nausea, dry heaves Uncertain etiology, patient denies any complaints of abdominal pain. History of previous cholecystectomy -IV antiemetics -Monitor LFTs and lipase level -Monitor History of self-injurious behavior -Patient evaluated by psychiatry, not suicidal at this time DVT prophylaxis -Hold off on chemical prophylaxis pending need for possible further surgical intervention Progress Note: Quality VTE Deep Vein Thrombosis/Pulmonary Embolism Present on Admission: No
--- NOTE | 2018-06-12 13:24 | MB ---
cc: Danny Min MD,Alma BORRERO DATE: 06/12/2018 REQUESTING PHYSICIAN: Alma Castellanos. REASON FOR CONSULTATION: Bilateral feet lesions, status post debridement. ID consult for infection management. HISTORY OF PRESENT ILLNESS: This is a 48-year-old white male, who developed severe wound infection of both feet after he walked for 20 miles. The patient was evaluated on 06/08/2018, and was noted to have abscess of the skin with large blisters of both feet. He was previously admitted to [facility], and was subsequently discharged to follow with a signal circuit designer. He presented to [facility] and reportedly was having fever and chills. He also was noted to have foul smell from both feet. The patient was evaluated, and has undergone surgical procedures by podiatry. Operative note indicates that he had expansile sharp excisional debridement of full-thickness ulceration down to the muscle belly on both feet. The left was noted to be worse than the right. Per communication with Dr. Noland, the wounds are very bad and may need repeated debridements. The patient is in no acute distress currently. He has no other complaints. He is afebrile. Cultures from the wound are Staphylococcus aureus and group D Enterococcus at the right ankle, and there is a mixture of Staphylococcus aureus, group D Enterococcus, group B beta strep, gram-negative rods, and yeast at the left ankle. He has been evaluated by vascular surgery. PAST MEDICAL HISTORY: Congestive heart failure, history of Clostridium difficile infection. PAST SURGICAL HISTORY: History of cholecystectomy, history of pacemaker, history of coronary stent. ALLERGIES: PENICILLIN, DIAZEPAM, ARTIFICIAL SWEETENER, MONOSODIUM GLUTAMATE. MEDICATIONS: Azactam, metronidazole, vancomycin, Lasix, Vasotec, [place] 5 p.r.n. SOCIAL HISTORY: No tobacco, no alcohol, no illicit drugs. FAMILY HISTORY: Noncontributory. REVIEW OF SYSTEMS: All systems have been reviewed and negative except for features mentioned in history of present illness. PHYSICAL EXAMINATION: GENERAL: He is a slender, well-developed male, who is in no acute distress. He is awake, alert, and oriented. VITAL SIGNS: Temperature 97.9, BP 177/93, respirations 20, heart rate 69. HEENT: The head is atraumatic. Extraocular movements grossly intact. Pupils reactive to light. No icterus. Oropharynx: Moist mucosa without lesions. NECK: Supple without adenopathy. LUNGS: Decreased breath sounds. HEART: Regular S1 and S2. No murmurs, rubs or gallops. ABDOMEN: Bowel sounds present. Soft, nontender. EXTREMITIES: Both feet are wrapped in surgical dressings, and these were not removed for inspection at this time since the patient is postop. SKIN: The patient has some mild erythematous hue to the skin of the legs. No diffuse rash. NEUROLOGIC: Nonfocal. The patient is calm and cooperative. LABORATORY DATA: WBC 5.3, platelets 349, 60% neutrophils, 15% lymphocytes, 7% monocytes, hemoglobin 7.5. Creatinine 1.03, BUN 8, sodium 140. IMPRESSION: Bilateral wound infection of the feet with polymicrobial organism in a patient with severe wounds. RECOMMENDATIONS: 1. Continue vancomycin. 2. Change metronidazole to p.o. 3. Continue Azactam. 4. Add fluconazole for yeast. Thank you for this consultation. The patient's progress will be monitored and further recommendations will be given upon followup. Danny Min MD FFDaniela/rh , 12:46 PM , 12:58 PM
--- NOTE | 2018-06-12 13:36 | CT ---
EXAM DATE: 06/12/2018 12:04 PM EST AGE/SEX: 48 years / Male INDICATIONS: Peripheral vascular disease to both legs. CLINICAL DATA: This is the patient's initial encounter. Patient reports that signs and symptoms have been present for 1 day and indicates a pain score of 4/10. MEDICAL/SURGICAL HISTORY: Congestive heart failure. Pacemaker. Cholecystectomy. Coronary artery s tent. RADIATION DOSE: 3.43 CTDI (mGy) COMPARISON: No prior exams available for comparison. TECHNIQUE: Volumetric scanning was performed using a multi-row detector CT scanner during bolus infu cheryl of 96 ml Omnipaque 350 (iohexol) nonionic water-soluble contrast as a single exam dose. The d marilee was post processed with a variety of visualization algorithms including full volume maximum inten sity projection, multi-planar sliding thin slab reformation, curved planar reformation, and surface r endering techniques. Using automated exposure control and adjustment of the mA and/or kV according t o patient size, radiation dose was kept as low as reasonably achievable to obtain optimal diagnostic quality images. DICOM format image data is available electronically for review and comparison. FINDINGS: Angiographic Findings: Abdominal Aorta: Moderate diffuse arthroscopic calcifications without flow-limiting stenosis or aneu rysm. Renal Arteries: Single patent renal arteries. Mesenteric Arteries: Celiac, SMA, and LEILA are patent. Right side: Inflow: Minimal calcified plaque in the iliac arteries. The Common, internal and external iliac arter ies are patent. The common femoral artery is patent. Outflow: The profunda is patent. The SFA is patent. The popliteal artery is patent. Runoff: Three vessel runoff. Diffuse plaque throughout the peroneal artery and mild plaque in the tib ioperoneal trunk. Left side: Inflow: Minimal calcified plaque in the iliac arteries. The Common, internal and external iliac arter ies are patent. The common femoral artery is patent. Outflow: The profunda is patent. The SFA is patent. The popliteal artery is patent. Runoff: Three vessel runoff. Diffuse plaque throughout the peroneal artery and mild plaque in the tib ioperoneal trunk. General Findings: LOWER LUNGS: The visualized lower lungs are clear. LIVER: Visualized portions are normal in appearance. SPLEEN: Visualized portions are normal in appearance. PANCREAS: Unremarkable without mass or calcification. KIDNEYS: Kidneys demonstrate symmetrical enhancement and are symmetrical in size without evidence fo r radiopaque renal calculi or hydronephrosis. ADRENAL GLANDS: Unremarkable. BOWEL/MESENTERY: No dilated loops of bowel. Stool seen throughout colon. No free fluid or drainable fluid collections. No free air or pneumatosis. ABDOMINAL WALL: Intact. Small fat-containing bilateral inguinal hernias. RETROPERITONEUM: No evidence of adenopathy in the retrocrural, para-aortic, or deep pelvic regions. BLADDER: Contours are smooth. REPRODUCTIVE: No abnormal masses or calcifications seen. INGUINAL: The inguinal region is unremarkable without evidence of adenopathy. BONY STRUCTURES: No focal lytic or blastic bony lesions. CONCLUSION: 1. Diffuse arterial atherosclerotic disease without significant flow-limiting aortic, iliac or femor al stenosis. 2. Diffuse atherosclerotic calcifications involving the runoff vessels with limited three-vessel run off bilaterally. 3. Small fat-containing bilateral inguinal hernias. Electronically signed by: Kurt Oneill MD Board Certified Radiologist 06/12/2018 1:35 PM EST
[2018-06-12] MEDS: metroNIDAZOLE 500 MG Tablet PO SCH (14:46)
--- NOTE | 2018-06-12 16:06 | P.PNPOD ---
Physical Exam Vital signs: Vital Signs 06/11/18 18:56 06/11/18 20:00 06/12/18 00:00 Temperature 96.5 F L 97.6 F 98.7 F Pulse Rate 67 65 80 Respiratory Rate 18 18 20 Blood Pressure 168/81 H 165/81 H 193/96 H Pulse Oximetry 98 97 97 06/12/18 04:00 06/12/18 07:56 06/12/18 11:54 Temperature 98.2 F 98.2 F 97.9 F Pulse Rate 72 73 69 Respiratory Rate 20 16 20 Blood Pressure 187/98 H 186/97 H 177/93 H Pulse Oximetry 98 96 100 Intake & Output 06/11/18 06/12/18 06/12/18 18:59 06:59 18:59 Intake Total 512.5 / 512.5 400 / 400 462.5 / 462.5 Output Total 2350 / 2350 300 / 300 Balance -1837.5 / -1837.5 100 / 100 462.5 / 462.5 Weight 79.8 kg Intake: IV 512.5 / 512.5 400 / 400 462.5 / 462.5 Azactam Inj 2 GM In NS Inj 100 100 / 100 200 / 200 100 / 100 ML @ 200 mls/hr IV.SIG Q8H [facility] Rx#:[id number] LR 1000 mL Inj 1,000 ML @ 30 50 / 50 mls/hr IV.SIG .Q24H PATR[facility] Rx#: [id number] Vancomycin Inj 1,250 MG In NS 262.5 / 262.5 262.5 / 262.5 Inj 250 ML @ 250 mls/hr IV.SIG Q18H PATRICK Rx#:[id number] Flagyl 500 MG Inj 100 ML @ 100 100 / 100 200 / 200 100 / 100 mls/hr IV.SIG Q8H PATRICK Rx#: [id number] Oral 0 / 0 Output: Urine 2350 / 2350 300 / 300 Other: Date of Last Bowel Movement 06/10/18 Medications and Allergies Active Medications: Active Medications Acetaminophen (Tylenol) 650 mg PO Q4H PRN PRN Reason: Temp > 100.4 Hydrocodone Bitart/Acetaminophen ([place] 5/325) 1 tab PO Q4H PRN PRN Reason: PAIN SCALE 1 TO 10 Last Admin: 06/09/18 00:20 Dose: 1 tab Al Hydroxide/Mg Hydroxide (Milk Of Magnesia Liq) 30 ml PO Q12H PRN PRN Reason: Mild Constipation Amlodipine Besylate (Norvasc) 10 mg PO DAILY [facility] Bisacodyl (Dulcolax Supp) 10 mg RECTAL DAILY PRN PRN Reason: SEVERE CONSITIPATION Dextrose (D50w Vial) 50 ml IV.PUSH UNSCH PRN PRN Reason: PER HYPOGLYCEMIA PROTOCOL Enalaprilat (Vasotec Inj) 1.25 mg IV.PUSH Q6H PRN PRN Reason: SBP>160, DBP>90 Last Admin: 06/11/18 02:23 Dose: 1.25 mg Fluconazole (Diflucan) 200 mg PO DAILY [facility] Last Admin: 06/12/18 15:40 Dose: 200 mg Furosemide (Lasix) 40 mg PO DAILY [facility] Last Admin: 06/12/18 08:10 Dose: 40 mg Glucagon (Glucagon Inj) 1 mg OTHER PRN PRN PRN Reason: for Hypoglycemia Protocol Aztreonam 2 gm/ Sodium (Chloride) 100 mls @ 200 mls/hr IV.SIG Q8H [facility] Last Infusion: 06/12/18 15:40 Dose: Infused Sodium Chloride (Ns Inj) 500 mls @ 30 mls/hr IV.SIG .Q10H [facility] Last Admin: 06/10/18 07:18 Dose: Not Given Vancomycin HCl 1,250 mg/ (Sodium Chloride) 262.5 mls @ 250 mls/hr IV.SIG Q18H [facility] Last Infusion: 06/12/18 07:31 Dose: Infused Insulin Aspart (Novolog Insulin Correctional Sugar Inj) 0 unit SQ ACHS [facility]; Protocol Last Admin: 06/12/18 12:57 Dose: 1 unit Lactulose (Lactulose Liq) 30 ml PO DAILY PRN PRN Reason: SEVERE CONSITIPATION Lisinopril (Prinivil) 20 mg PO DAILY [facility] Last Admin: 06/12/18 08:10 Dose: 20 mg Metronidazole (Flagyl) 500 mg PO Q8HR [facility] Last Admin: 06/12/18 14:46 Dose: Not Given Miscellaneous Information ([facility] Ordered Lab Info) 1 each OTHER ONCE ONE Stop: 06/12/18 23:46 Ondansetron HCl (Zofran Inj) 4 mg IV.PUSH Q6H PRN PRN Reason: NAUSEA OR VOMITING Last Admin: 06/12/18 06:33 Dose: 4 mg Ondansetron HCl (Zofran Odt) 4 mg PO Q4H PRN PRN Reason: NAUSEA Pharmacy Profile Note (Vancomycin Consult Pharmacy) 1 each OTHER UNSCH PRN PRN Reason: Pharmacy to dose Prochlorperazine Edisylate (Compazine Inj) 5 mg IV.PUSH Q8H PRN PRN Reason: NAUSEA OR VOMITING Sennosides (Senokot) 17.2 mg PO Q12H PRN PRN Reason: Moderate Constipation Sodium Chloride (Ns Flush) 2 ml IV.FLUSH BID PATRICK Last Admin: 06/12/18 09:30 Dose: 2 ml Sodium Chloride (Ns Flush) 2 ml IV.FLUSH PRN PRN PRN Reason: FLUSH AFTER USING IV ACCESS Allergies Allergy/AdvReac Type Severity Reaction Status Date / Time monosodium glutamate Allergy Severe Headache Verified 06/08/18 15:46 penicillin G Allergy Intermediate SWELLING Verified 06/08/18 15:46 diazepam AdvReac Unknown ANXIETY Verified 06/08/18 15:46 ARTICIFICAL SWEETNER Allergy Severe Headache Uncoded 06/08/18 15:46 Home Medications Medication Instructions Recorded Confirmed Type furosemide [Lasix] 40 mg PO DAILY 04/20/18 06/08/18 History lisinopril 20 mg PO DAILY 05/03/18 06/08/18 History metformin 1,000 mg PO DAILY 06/08/18 06/08/18 History Results - Labs CBC & Chem 7: 06/12/18 09:36 06/12/18 09:36 Laboratory Results - last 24 hr 06/11/18 06/11/18 06/12/18 16:17 20:20 00:38 WBC RBC Hgb Hct MCV MCH MCHC RDW Plt Count MPV Neut % (Auto) Lymph % (Auto) [place] % (Auto) Eos % (Auto) Baso % (Auto) Neut # (Auto) Lymph # (Auto) [place] # (Auto) Eos # (Auto) Baso # (Auto) WBC Differential Differential Comment Sodium Potassium Chloride Carbon Dioxide Anion Gap BUN Creatinine Estimated GFR POC Glucose 141 H 158 H 161 H Random Glucose Calcium 06/12/18 06/12/18 06/12/18 04:47 08:12 09:36 WBC 5.3 RBC 2.76 L Hgb 7.5 L Hct 22.2 L MCV 80.4 MCH 27.1 MCHC 33.7 RDW 15.3 Plt Count 349 MPV 7.3 Neut % (Auto) 68.9 Lymph % (Auto) 15.8 [place] % (Auto) 7.3 Eos % (Auto) 6.5 H Baso % (Auto) 1.5 Neut # (Auto) 3.6 Lymph # (Auto) 0.8 L [place] # (Auto) 0.4 Eos # (Auto) 0.3 Baso # (Auto) 0.1 WBC Differential . Differential Comment Auto diff final Sodium Potassium Chloride Carbon Dioxide Anion Gap BUN Creatinine Estimated GFR POC Glucose 145 H 114 H Random Glucose Calcium 06/12/18 06/12/18 09:36 12:48 WBC RBC Hgb Hct MCV MCH MCHC RDW Plt Count MPV Neut % (Auto) Lymph % (Auto) [place] % (Auto) Eos % (Auto) Baso % (Auto) Neut # (Auto) Lymph # (Auto) [place] # (Auto) Eos # (Auto) Baso # (Auto) WBC Differential Differential Comment Sodium 140 Potassium 3.5 Chloride 105 Carbon Dioxide 30.6 Anion Gap 4 L BUN 8 Creatinine 1.03 Estimated GFR 77 L POC Glucose 151 H Random Glucose 115 H Calcium 7.5 L Microbiology 06/08/18 16:40 Blood - Peripheral Aerobic Blood Culture - Preliminary No growth in 4 days 06/08/18 16:40 Blood - Peripheral Anaerobic Blood Culture - Preliminary No growth in 4 days 06/08/18 16:25 Blood - Peripheral Aerobic Blood Culture - Preliminary No growth in 4 days 06/08/18 16:25 Blood - Peripheral Anaerobic Blood Culture - Preliminary No growth in 4 days 06/10/18 07:45 Wound - Ankle Gram Stain - Final 06/10/18 07:45 Wound - Ankle Wound Culture - Preliminary Staphylococcus aureus Group B beta Strep Group D Enterococcus gram negative rods Yeast species 06/10/18 07:45 Wound - Ankle Gram Stain - Final 06/10/18 07:45 Wound - Ankle Wound Culture - Preliminary Staphylococcus aureus Group D Enterococcus 06/10/18 07:45 Other Acid Fast Bacilli Smear - Final No acid fast bacilli seen 06/10/18 07:45 Other Acid Fast Bacilli Smear - Final No acid fast bacilli seen - Imaging Impressions Aorta w/Runoff CTA 06/12/18 07:52 CONCLUSION: 1. Diffuse arterial atherosclerotic disease without significant flow-limiting aortic, iliac or femoral stenosis. 2. Diffuse atherosclerotic calcifications involving the runoff vessels with limited three-vessel runoff bilaterally. 3. Small fat-containing bilateral inguinal hernias. Assessment and Plan - Assessment (1) Ulcer of right lower extremity with necrosis of muscle Code(s): L97.913 - Non-pressure chronic ulcer of unspecified part of right lower leg with necrosis of muscle Status: Acute (2) Ulcer of left lower extremity with necrosis of muscle Code(s): L97.923 - Non-pressure chronic ulcer of unspecified part of left lower leg with necrosis of muscle Status: Acute - Plan To OR tomorrow morning for debridement of ulcers right and left legs/ankles NPO after midnight
[2018-06-12] MEDS ORDERED: Pharmacy Ordered Lab Info OTHER ONE (23:45)
[2018-06-13] MEDS: metroNIDAZOLE 500 MG Tablet PO SCH ×4 (00:33→22:15)
[2018-06-13 01:15] LABS: Albumin 2.1 g/dL (3.4-5.0)
[2018-06-13 01:41] LABS: % Iron Saturation 19.1 % (20-50); Total Protein 8.2 g/dL (6.4-8.2); Vancomycin,Trough 18.7 mcg/mL (5.0-10.0)
[2018-06-13] MEDS: Vancomycin Inj 1,250 MG in Sodium Chlor 0.9% Inj 250 ML IV.SIG SCH ×2 (02:11→17:45)
[2018-06-13] MEDS: Aztreonam Inj 2 GM in Sodium Chloride 0.9% Inj 100 ML IV.SIG SCH ×3 (04:40→20:43)
[2018-06-13] MEDS ORDERED: Bupivacaine 0.25% Inj 50 ML MDV Vial ONE (07:02)
[2018-06-13] MEDS: Lisinopril 20 MG Tablet PO SCH ×2 (07:26→11:15)
[2018-06-13] MEDS: amLODIPine 5 MG Tablet PO SCH ×2 (07:27→11:16)
[2018-06-13] MEDS: Insulin NovoLOG Aspart Correctional Sugar Inj SQ SCH ×4 (07:31→21:29)
[2018-06-13] MEDS ORDERED: fentaNYL Citrate Inj 100 MCG/2 ML Ampul ONE (09:12)
--- NOTE | 2018-06-13 09:14 | P.BOP ---
- Preoperative Diagnosis (1) Ulcer of right lower extremity with necrosis of muscle (2) Ulcer of left lower extremity with necrosis of muscle - Postoperative Diagnosis (1) Ulcer of right lower extremity with necrosis of muscle (2) Ulcer of left lower extremity with necrosis of muscle Date of procedure: 06/13/18 Procedure: 1. Excisional debridement of ulcers right and left legs, ankles, feet Excisional debridement of ulcers with #15 blade, curette, and rongeur of all fibronecrotic tissue down to level of healthy bleeding subcutaneous tissue. Dressing with xeroform, 4x4, abd, cast padding, mary applied bilaterally. No tourniquet utilized. DISPOSITION: Nonweightbearing bilateral lower extremities Plan to OR early next week for final debridement and graft with Dr Samuel bilaterally, if wound appearance is healthy and patient is able to be compliant with nonweightbearing. If not, will continue local wound care per window caser' s arrangements. Anesthesia: GETA Surgeon: Goldie Sainz DPM Medication Technician: staff Estimated blood loss (mL): 20 Pathology: none sent Condition: stable Disposition: PACU
[2018-06-13] MEDS: Furosemide 40 MG Tablet PO SCH (12:10)
--- NOTE | 2018-06-13 13:20 | P.PNIM ---
Subjective Interval history: Follow-up on patient with bilateral feet cellulitis. Patient seen and examined. Patient is very lethargic having just returned from I&D procedure by podiatry. Physical Exam Vital signs: Last Vital Signs Temp 97.7 F 06/13/18 09:40 Pulse 69 06/13/18 09:40 Resp 14 06/13/18 09:40 BP 168/96 H 06/13/18 09:40 Pulse Ox 97 06/13/18 09:40 Intake & Output 06/11/18 06/12/18 06/13/18 06/14/18 06:59 06:59 06:59 06:59 Intake Total 1962.5 / 1962.5 912.5 / 912.5 1725.0 / 1725.0 Output Total 1710 / 1710 2650 / 2650 2400 / 2400 Balance 252.5 / 252.5 -1737.5 / -1737.5 -675.0 / -675.0 Weight 86.5 kg 79.8 kg Narrative: GENERAL: Well-developed well-nourished male patient in no acute distress. Lethargic status post OR procedure. SKIN: Warm and dry. HEENT: Atraumatic. Normocephalic. Pupils equal and round. No scleral icterus. No injection or drainage. No nasal discharge. Mucous membranes pink and moist. NECK: Trachea midline. CARDIOVASCULAR: Regular rate and rhythm. No murmur appreciated. s/p pacemaker implantation left side of chest. RESPIRATORY: No accessory muscle use. Clear to auscultation. Breath sounds equal bilaterally. GASTROINTESTINAL: Abdomen soft, non-tender, nondistended. Hypoactive BS. MUSCULOSKELETAL: + Mild erythema noted over anterior lower legs bilaterally. Both feet are wrapped in postop dressing which is clean dry and intact. NEUROLOGICAL: Lethargic. No obvious cranial nerve deficits. Able to move all extremities spontaneously. Normal speech. PSYCHIATRIC: Calm and cooperative. Results Labs CBC & Chem 7: 06/12/18 09:36 06/13/18 05:02 Labs: Microbiology 06/10/18 07:45 Wound - Ankle Gram Stain - Final 06/10/18 07:45 Wound - Ankle Wound Culture - Preliminary Staphylococcus aureus Group B beta Strep Enterococcus faecalis gram negative rods Ewa tropicalis 06/08/18 16:40 Blood - Peripheral Aerobic Blood Culture - Final No growth in 5 days 06/08/18 16:40 Blood - Peripheral Anaerobic Blood Culture - Final No growth in 5 days 06/08/18 16:25 Blood - Peripheral Aerobic Blood Culture - Final No growth in 5 days 06/08/18 16:25 Blood - Peripheral Anaerobic Blood Culture - Final No growth in 5 days 06/10/18 07:45 Wound - Ankle Gram Stain - Final 06/10/18 07:45 Wound - Ankle Wound Culture - Final Staphylococcus aureus Enterococcus faecalis Imaging Imaging: Impressions Aorta w/Runoff CTA 06/12/18 07:52 CONCLUSION: 1. Diffuse arterial atherosclerotic disease without significant flow-limiting aortic, iliac or femoral stenosis. 2. Diffuse atherosclerotic calcifications involving the runoff vessels with limited three-vessel runoff bilaterally. 3. Small fat-containing bilateral inguinal hernias. Assessment and Plan (1) Ulcer of right lower extremity with necrosis of muscle: Code(s): L97.913 - Non-pressure chronic ulcer of unspecified part of right lower leg with necrosis of muscle Status: Acute (2) Ulcer of left lower extremity with necrosis of muscle: Code(s): L97.923 - Non-pressure chronic ulcer of unspecified part of left lower leg with necrosis of muscle Status: Acute Plan 48-year-old male with a history of CHF status post AICD and pacemaker, hypertension and questionable diabetes admitted with bilateral feet infected ulcerative lesions: Bilateral feet ulcers, infected Imaging does not show any evidence of underlying osteomyelitis S/p expansile debridement of full-thickness ulceration down to muscle belly performed by Dr. Noland 06/10/18 left wound cx + group D enterococcus, staph, group B beta strep, gram-negative rods, yeast right wound cx + D enterococcus and staph -Podiatry following, appreciate assistance. s/p I&D today. Plan for serial I& D on Friday. -Vascular surgery following for suspected PVD. CTA with runoff shows diffuse arterial atherosclerotic disease without significant stenosis. -ID following, appreciate assistance -Continue patient on IV aztreonam and vancomycin and p.o. metronidazole. -Continue to monitor wounds for healing Hypertension BP improved -Continue patient on lisinopril and Norvasc -IV Enalapril PRN with parameters -Continue to monitor BP and adjust treatment accordingly History of chronic systolic CHF, not decompensated -Continue on lisinopril and Lasix -Uncertain why patient is not on beta-jovany, awaiting records from Dr. Costa's office -Continue to monitor volume status Diabetes, chronic A1c 7.7 blood sugars acceptable -Continue to hold home dose of metformin -Accu-Cheks and insulin sliding scale Anemia, hypochromic, microcytic -Hemoglobin is low at 7.0, repeat hemoglobin today 7.5 -Obtain iron studies, ferritin and B12 level -Monitor for any evidence of active bleeding -Continue to monitor CBC -repeat labs in a.m. Nausea, dry heaves Uncertain etiology, patient denies any complaints of abdominal pain. Suspect anesthesia side effect History of previous cholecystectomy -IV antiemetics prn -Monitor LFTs -Monitor History of self-injurious behavior -Patient evaluated by psychiatry, not suicidal at this time DVT prophylaxis -Hold off on chemical prophylaxis pending further surgical intervention Progress Note: Quality VTE Deep Vein Thrombosis/Pulmonary Embolism Present on Admission: No
--- NOTE | 2018-06-13 13:47 | P.PNVS ---
Subjective Subjective/Hospital Course: Referral received Discussed with Dr. Noland Patient will be [facility] at which point I will proceed with full consultation Eh Warner 06/11/2018 Patient still has not been transferred to [facility] despite order entered by Dr. Noland yesterday morning Had an on the patient is not being transferred I would have gone and seen him at [facility]. I received this afternoon call from [place] charge who stated that I have to put the order for transfer in addition to the order given by Dr. Noland. I discussed with the airport maintenance chief and would encourage patient to be transferred because patient will need vascular workup and probably several vascular procedures either endovascular or open in addition to podiatry surgery I have also instructed the charge to let me know if patient is not transferred for I will be happy to see him at [facility] 06/13/2018 Patient seen yesterday and evaluated Full consult is dictated Patient has palpable femoral pulses and distal pulses by Doppler Both feet have large groin area as being a large plantar ulcer on the right and degloved area of infection on the left ankle and foot. Both have been debrided and cleaned out by podiatry in the operating room CTA with a runoff confirms clinical diagnosis. Patient does not have any reconstructable vascular disease however he has diffuse atherosclerotic changes with severe calcifications of both SFAs and distal trifurcation vessels and then severe small vessel disease of the feet. Based on the above he has no vessels that would be amiable to get any reconstruction nonetheless he is at high risk of losing his feet due to small vessel disease in the future Objective Vital Signs / I&O: Vital Signs 06/12/18 16:43 06/12/18 20:00 06/13/18 00:00 Temperature 98.0 F 97.3 F L Pulse Rate 70 71 Respiratory Rate 24 16 16 Blood Pressure 163/88 H 159/74 H Pulse Oximetry 99 97 06/13/18 04:00 06/13/18 07:23 06/13/18 09:07 Temperature 96.9 F L 98.0 F 97.5 F L Pulse Rate 68 72 60 Respiratory Rate 16 16 15 Blood Pressure 140/77 187/98 H 111/64 Pulse Oximetry 98 97 96 06/13/18 09:15 06/13/18 09:30 06/13/18 09:40 Temperature 97.7 F Pulse Rate 60 65 69 Respiratory Rate 15 13 14 Blood Pressure 131/75 171/97 H 168/96 H Pulse Oximetry 99 99 97 Intake & Output 06/12/18 06/13/18 06/13/18 18:59 06:59 18:59 Intake Total 1262.5 / 1262.5 462.5 / 462.5 100 / 100 Output Total 1999 400 / 400 Balance -737.5 / -737.5 62.5 / 62.5 100 / 100 Intake: IV 462.5 / 462.5 462.5 / 462.5 100 / 100 Azactam Inj 2 GM In NS Inj 100 100 / 100 200 / 200 100 / 100 ML @ 200 mls/hr IV.SIG Q8H PATRICK Rx#:[id number] Vancomycin Inj 1,250 MG In NS 262.5 / 262.5 262.5 / 262.5 Inj 250 ML @ 250 mls/hr IV.SIG Q18H [facility]RICK Rx#:[id number] Flagyl 500 MG Inj 100 ML @ 100 100 / 100 mls/hr IV.SIG Q8H PATRICK Rx#: [id number] Oral 800 / 800 Output: Urine 1999 400 / 400 Other: Date of Last Bowel Movement 06/12/18 06/12/18 # Bowel Movements 1 Laboratory Results - last 24 hr 06/12/18 06/12/18 06/13/18 17:57 22:24 00:20 Creatinine Estimated GFR POC Glucose 122 H 162 H Iron 35 L TIBC 183 L % Saturation 19.1 L Ferritin 239 Total Bilirubin 0.2 Direct Bilirubin 0.1 Indirect Bilirubin 0.1 AST 16 ALT 10 L Alkaline Phosphatase 114 Total Protein 8.2 D Albumin 2.1 L Lipase 243 Vitamin B12 381 Vancomycin Trough 18.7 H 06/13/18 06/13/18 06/13/18 05:01 05:02 07:22 Creatinine 1.06 Estimated GFR 75 L POC Glucose 105 112 H Iron TIBC % Saturation Ferritin Total Bilirubin Direct Bilirubin Indirect Bilirubin AST ALT Alkaline Phosphatase Total Protein Albumin Lipase Vitamin B12 Vancomycin Trough 06/13/18 06/13/18 09:31 11:58 Creatinine Estimated GFR POC Glucose 95 108 Iron TIBC % Saturation Ferritin Total Bilirubin Direct Bilirubin Indirect Bilirubin AST ALT Alkaline Phosphatase Total Protein Albumin Lipase Vitamin B12 Vancomycin Trough Microbiology 06/10/18 07:45 Gram Stain - Final Wound - Ankle Wound Culture - Preliminary Staphylococcus aureus Group B beta Strep Enterococcus faecalis gram negative rods Ewa tropicalis 06/08/18 16:40 Aerobic Blood Culture - Final Blood - Peripheral No growth in 5 days Anaerobic Blood Culture - Final No growth in 5 days 06/08/18 16:25 Aerobic Blood Culture - Final Blood - Peripheral No growth in 5 days Anaerobic Blood Culture - Final No growth in 5 days 06/10/18 07:45 Gram Stain - Final Wound - Ankle Wound Culture - Final Staphylococcus aureus Enterococcus faecalis Impressions Aorta w/Runoff CTA 06/12/18 07:52 CONCLUSION: 1. Diffuse arterial atherosclerotic disease without significant flow-limiting aortic, iliac or femoral stenosis. 2. Diffuse atherosclerotic calcifications involving the runoff vessels with limited three-vessel runoff bilaterally. 3. Small fat-containing bilateral inguinal hernias.
--- NOTE | 2018-06-13 14:08 | MB ---
cc: Jin Quach MD DATE: 06/12/2018 CONSULTING PHYSICIAN: Jin Quach MD, vascular surgery. REASON FOR CONSULTATION: Ulcers of both feet, peripheral vascular disease, hypertension, and diabetes mellitus. HISTORY OF PRESENT ILLNESS: This is 48-year-old male is admitted to the hospital after he was initially at [facility] a few days ago. He is noted to have purulent drainage from both feet, large plantar ulcer on the right foot around the second and third metatarsal, and then on the left foot laterally a large denuded area with maceration and infection. Question raised about the vascular implications. The patient states in the past, he could walk a fair distance. PAST MEDICAL HISTORY: Diabetes mellitus which is poorly controlled, hypertension, CHF, C. difficile colitis, ischemic cardiomyopathy, hypertension. PAST SURGICAL HISTORY: Pacemaker placement, cholecystectomy, and debridements as above noted, as well as cardiac stent placement. SOCIAL HISTORY: The patient never smoked or drank. PHYSICAL EXAMINATION: GENERAL: An unfortunate 48-year-old male appearing fairly ill. HEAD: Normocephalic. No trauma to head. HEENT: Pupils appear to be equally reactive. Extraocular muscles are intact. NECK: Bilateral carotid pulses. No bruits. CHEST: Clear bilateral breath sounds. HEART: Regular rate and rhythm. The patient has a pacemaker defibrillator in place. ABDOMEN: Soft. No rebound. No guarding. No masses. PELVIS: Stable. EXTREMITIES: The patient actually has palpable femoral pulses. He has dopplerable popliteal pulses as well as posterior tibial and dorsalis pedis. However, there is dressing on both feet, so I could sort of get posterior tibial higher up and anterior tibial instead. NEUROLOGIC: The patient is grossly intact. IMPRESSION RECOMMENDATIONS: I reviewed laboratory and diagnostic procedures. This gentleman has poorly controlled diabetes mellitus, hypertension, and clear stigmata of vascular disease. Dr. Goldie Sainz is involved in podiatry examination of the patient's lesions of both feet. This has been extensively debrided, and dressing is now on. As far as the vascular supply is concerned, the patient has fairly good inflow on CTA, and this confirms the palpable pulses. Going down the SFAs, the patient has diffuse calcifications, but no hemodynamically significant stenosis. Vessels are kind of ratty and chewed up, however patent. Coming to trifurcation, again, there is severe calcification and multilevel mild stenosis, but no hemodynamically significant lesion that could be or should be in any way addressed by endovascular or open means. The patient has typical stigmata of diabetic small vessel disease because coming by the ankles the patient has severe small vessel disease involving both feet. In summary, this patient has diffuse vascular disease without any correctable lesions. He is at high risk of losing his both legs due to small vessel disease and diabetes. I will continue to follow. Thank you very much for your referral. MD TIFF Rivera/marce , 01:45 PM , 01:55 PM
[2018-06-14] MEDS: Aztreonam Inj 2 GM in Sodium Chloride 0.9% Inj 100 ML IV.SIG SCH ×3 (03:32→20:50)
[2018-06-14 04:56] LABS: Baso # (Auto) 0.2 th/mm3 (0.0-0.2); Baso % (Auto) 2.3 % (0.0-2.0); Eos # (Auto) 0.2 th/mm3 (0.0-0.4); Eos % (Auto) 2.8 % (0.0-4.0); Hematocrit 27.1 % (39.0-51.0); Hemoglobin 8.8 gm/dL (13.0-17.0); Lymph # (Auto) 0.9 th/mm3 (1.0-4.8); Lymph % (Auto) 14.1 % (9.0-44.0); Mean Corpuscular HGB Conc 32.3 % (32.0-36.0); Mean Corpuscular Hemoglobin 26.3 pg (27.0-34.0); Mean Corpuscular Volume 81.3 fL (80.0-100.0); Mean Platelet Volume 7.2 fL (7.0-11.0); Mono # (Auto) 0.4 th/mm3 (0.0-0.9); Mono % (Auto) 6.4 % (0.0-8.0); Neut % (Auto) 74.4 % (16.0-70.0); Platelet Count 489 th/mm3 (150-450); Red Blood Count 3.34 mil/mm3 (4.50-5.90); Red Cell Distribution Width 16.1 % (11.6-17.2); White Blood Count 6.7 th/mm3 (4.0-11.0)
[2018-06-14] MEDS: metroNIDAZOLE 500 MG Tablet PO SCH ×3 (05:14→23:20)
[2018-06-14 05:28] LABS: Alanine Aminotransferase 8 U/L (12-78); Albumin 1.9 g/dL (3.4-5.0); Anion Gap 7 meq/L (5-15); Aspartate Aminotransferase 13 U/L (15-37); Blood Urea Nitrogen 11 mg/dL (7-18); Calcium 7.5 mg/dL (8.5-10.1); Carbon Dioxide 30.8 meq/L (21.0-32.0); Chloride 102 meq/L (98-107); Glomerular Filtration Rate 58 mL/min (>89); Glucose,Random 178 mg/dL (74-106); Potassium 3.2 meq/L (3.5-5.1); Sodium 140 meq/L (136-145)
[2018-06-14 05:30] LABS: Alkaline Phosphatase 120 U/L (45-117); Total Protein 7.9 g/dL (6.4-8.2)
[2018-06-14] MEDS ORDERED: Sod Chloride 0.9% Inj 1,000 ML IV.CONT SCH (07:51)
--- NOTE | 2018-06-14 07:54 | P.PNIM ---
Subjective Interval history: Follow up on patient with bilateral feet infection. Patient seen and examined. Patient states his nausea has resolved. He denies any complaints of pain. He denies any fever or chills. He denies any chest pain or dyspnea. Physical Exam Vital signs: Last Vital Signs Temp 98.3 F 06/14/18 07:12 Pulse 99 H 06/14/18 07:12 Resp 18 06/14/18 07:12 BP 192/103 H 06/14/18 07:12 Pulse Ox 95 06/14/18 07:12 Intake & Output 06/12/18 06/13/18 06/14/18 06/15/18 06:59 06:59 06:59 06:59 Intake Total 912.5 / 912.5 1725.0 / 1725.0 562.5 / 562.5 Output Total 2650 / 2650 2400 / 2400 1100 / 1100 Balance -1737.5 / -1737.5 -675.0 / -675.0 -537.5 / -537.5 Weight 79.8 kg 80 kg Narrative: GENERAL: Well-developed well-nourished male patient in no acute distress. Awake and alert. Appears comfortable. SKIN: Warm and dry. HEENT: Atraumatic. Normocephalic. Pupils equal and round. No scleral icterus. No injection or drainage. No nasal discharge. Mucous membranes pink and moist. NECK: Trachea midline. CARDIOVASCULAR: Regular rate and rhythm. No murmur appreciated. s/p pacemaker implantation left side of chest. RESPIRATORY: No accessory muscle use. Clear to auscultation. Breath sounds equal bilaterally. GASTROINTESTINAL: Abdomen soft, non-tender, nondistended. Normal BS. MUSCULOSKELETAL: + Mild erythema noted over anterior lower legs bilaterally. Both feet are wrapped in postop dressing which is clean dry and intact. NEUROLOGICAL: Awake and alert. No obvious cranial nerve deficits. Able to move all extremities spontaneously. Normal speech. PSYCHIATRIC: Calm and cooperative. Results Labs CBC & Chem 7: 06/14/18 04:27 06/14/18 04:27 Labs: Microbiology 06/10/18 07:45 Wound - Ankle Gram Stain - Final 06/10/18 07:45 Wound - Ankle Wound Culture - Preliminary Staphylococcus aureus Group B beta Strep Enterococcus faecalis gram negative rods Ewa tropicalis 06/08/18 16:40 Blood - Peripheral Aerobic Blood Culture - Final No growth in 5 days 06/08/18 16:40 Blood - Peripheral Anaerobic Blood Culture - Final No growth in 5 days 06/08/18 16:25 Blood - Peripheral Aerobic Blood Culture - Final No growth in 5 days 06/08/18 16:25 Blood - Peripheral Anaerobic Blood Culture - Final No growth in 5 days 06/10/18 07:45 Wound - Ankle Gram Stain - Final 06/10/18 07:45 Wound - Ankle Wound Culture - Final Staphylococcus aureus Enterococcus faecalis Assessment and Plan (1) Ulcer of right lower extremity with necrosis of muscle: Code(s): L97.913 - Non-pressure chronic ulcer of unspecified part of right lower leg with necrosis of muscle Status: Acute (2) Ulcer of left lower extremity with necrosis of muscle: Code(s): L97.923 - Non-pressure chronic ulcer of unspecified part of left lower leg with necrosis of muscle Status: Acute Plan 48-year-old male with a history of CHF status post AICD and pacemaker, hypertension and questionable diabetes admitted with bilateral feet infected ulcerative lesions: Bilateral feet ulcers, infected Imaging does not show any evidence of underlying osteomyelitis S/p expansile debridement of full-thickness ulceration down to muscle belly performed by Dr. Noland 06/10/18 left wound cx + group D enterococcus, staph, group B beta strep, gram-negative rods, yeast right wound cx + D enterococcus and staph -Podiatry following, appreciate assistance. s/p I&D yesterday. Plan for repeat I&D tomorrow. -Vascular surgery following for suspected PVD. CTA with runoff shows diffuse arterial atherosclerotic disease without significant stenosis. Patient does not have any reconstructable vascular disease. -ID following, appreciate assistance -Continue patient on IV aztreonam and vancomycin and p.o. metronidazole. -Continue to monitor wounds for healing Hypertension -Continue patient on lisinopril and Norvasc -IV Enalapril PRN with parameters -Continue to monitor BP and adjust treatment accordingly DEYSI, suspect secondary to poor po intake secondary to nausea and dry heaves following anesthesia -Cr trended up to 1.33, baseline appears to be around 1.1 -IVF x 1 L -hold po Lasix for now -avoid nephrotoxic agents -repeat BMP in am. Monitor creatinine closely while on Vancomycin. History of chronic systolic CHF, not decompensated -Continue on lisinopril and Lasix -Uncertain why patient is not on beta-jovany, awaiting records from Dr. Costa's office. Will start on Metoprolol 25mg BID. -Continue to monitor volume status Diabetes, chronic A1c 7.7 blood sugars acceptable -Continue to hold home dose of metformin -Accu-Cheks and insulin sliding scale Anemia, hypochromic, microcytic -Hemoglobin is low at 7.0, repeat hemoglobin improved to 8.8 -Monitor for any evidence of active bleeding -Continue to monitor CBC as indicated Nausea, dry heaves, suspect secondary to anesthesia side effect Patient denies any complaints of abdominal pain. History of previous cholecystectomy -IV antiemetics prn -Monitor Hypokalemia K 3.2 -po repletion ordered -obtain mag level -repeat BMP in am History of self-injurious behavior -Patient evaluated by psychiatry, not suicidal at this time DVT prophylaxis -Hold off on chemical prophylaxis pending further surgical intervention Progress Note: Quality VTE Deep Vein Thrombosis/Pulmonary Embolism Present on Admission: No
[2018-06-14] MEDS: amLODIPine 5 MG Tablet PO SCH (08:01)
[2018-06-14] MEDS: Lisinopril 20 MG Tablet PO SCH (08:02)
[2018-06-14] MEDS: hydrALAZINE 25 MG Tablet PO SCH ×3 (08:05→17:30)
[2018-06-14] MEDS: Insulin NovoLOG Aspart Correctional Sugar Inj SQ SCH ×4 (09:22→22:28)
[2018-06-14] MEDS: Vancomycin Inj 1,250 MG in Sodium Chlor 0.9% Inj 250 ML IV.SIG SCH (18:06)
[2018-06-14] MEDS: Metoprolol Tartrate 25 MG Tablet PO SCH (21:42)
[2018-06-15] MEDS: Aztreonam Inj 2 GM in Sodium Chloride 0.9% Inj 100 ML IV.SIG SCH ×2 (04:23→14:31)
[2018-06-15] MEDS: metroNIDAZOLE 500 MG Tablet PO SCH ×2 (06:00→16:10)
--- NOTE | 2018-06-15 07:36 | P.PNIM ---
Subjective Interval history: Follow up on diabetic patient with bilateral feet infection. Patient seen and examined. Miscommunication - patient not scheduled for surgery today. Cleared to resume diet by podiatry. Patient denies any acute medical complaints or concerns. Says pain in his feet is controlled. He denies any fever or chills. He denies any chest pain or dyspnea. He denies any N/V or abdominal pain. Physical Exam Vital signs: Last Vital Signs Temp 97.2 F L 06/15/18 04:00 Pulse 67 06/15/18 04:00 Resp 12 06/15/18 04:00 BP 162/85 H 06/15/18 04:00 Pulse Ox 95 06/15/18 04:00 Intake & Output 06/13/18 06/14/18 06/15/18 06/16/18 06:59 06:59 06:59 06:59 Intake Total 1725.0 / 1725.0 562.5 / 562.5 1562.5 / 1562.5 Output Total 2400 / 2400 1100 / 1100 500 / 500 Balance -675.0 / -675.0 -537.5 / -537.5 1062.5 / 1062.5 Weight 80 kg Narrative: GENERAL: Well-developed well-nourished male patient in no acute distress. Awake and alert. Appears comfortable sitting up in bed, is at the bedside. SKIN: Warm and dry. HEENT: Atraumatic. Normocephalic. Pupils equal and round. No scleral icterus. No injection or drainage. No nasal discharge. Mucous membranes pink and moist. NECK: Trachea midline. CARDIOVASCULAR: Regular rate and rhythm. No murmur appreciated. s/p pacemaker implantation left side of chest. RESPIRATORY: No accessory muscle use. Clear to auscultation. Breath sounds equal bilaterally. GASTROINTESTINAL: Abdomen soft, non-tender, nondistended. Normal BS. MUSCULOSKELETAL: + Mild erythema noted over anterior lower legs bilaterally, improving. Both feet are wrapped in postop dressing, C/D/I. NEUROLOGICAL: Awake and alert. No obvious cranial nerve deficits. Able to move all extremities spontaneously. Normal speech. PSYCHIATRIC: Calm and cooperative. Results Labs CBC & Chem 7: 06/14/18 04:27 06/15/18 07:20 Labs: Microbiology 06/10/18 07:45 Wound - Ankle Gram Stain - Final 06/10/18 07:45 Wound - Ankle Wound Culture - Preliminary Staphylococcus aureus Group B beta Strep Enterococcus faecalis gram negative rods Ewa tropicalis Assessment and Plan (1) Ulcer of right lower extremity with necrosis of muscle: Code(s): L97.913 - Non-pressure chronic ulcer of unspecified part of right lower leg with necrosis of muscle Status: Acute (2) Ulcer of left lower extremity with necrosis of muscle: Code(s): L97.923 - Non-pressure chronic ulcer of unspecified part of left lower leg with necrosis of muscle Status: Acute Plan 48-year-old male with a history of CHF status post AICD and pacemaker, hypertension and questionable diabetes admitted with bilateral feet infected ulcerative lesions: Bilateral feet ulcers, infected Imaging does not show any evidence of underlying osteomyelitis S/p expansile debridement of full-thickness ulceration down to muscle belly performed by Dr. Noland 06/10/18 left wound cx + group D enterococcus, staph, group B beta strep, gram-negative rods, yeast right wound cx + D enterococcus and staph -Podiatry following, appreciate assistance. s/p I&D 06/10 and 06/13. -Vascular surgery following for suspected PVD. CTA with runoff shows diffuse arterial atherosclerotic disease without significant stenosis. Patient does not have any reconstructable vascular disease. -ID following, appreciate assistance -Continue patient on IV aztreonam and vancomycin and p.o. metronidazole. -Continue to monitor wounds for healing Hypertension still not optimized -Continue patient on lisinopril, Norvasc and metoprolol. Increase Hydralazine to 50mg TID. -IV Enalapril PRN with parameters -Continue to monitor BP and adjust treatment accordingly DEYSI, suspect secondary to poor po intake secondary to nausea and dry heaves following anesthesia -Cr trended up to 1.33, baseline appears to be around 1.1 -creatinine improved to 1.06 s/p IVF -hold po Lasix for now -avoid nephrotoxic agents -repeat BMP in am. Monitor creatinine closely while on Vancomycin. History of chronic systolic CHF, not decompensated -Continue on lisinopril and Lasix -Uncertain why patient is not on beta-jovany, awaiting records from Dr. Costa's office. Will start on Metoprolol 25mg BID. -Continue to monitor volume status Diabetes, chronic A1c 7.7 blood sugars acceptable -Continue to hold home dose of metformin -Accu-Cheks and insulin sliding scale Anemia, hypochromic, microcytic -Hemoglobin is low at 7.0, repeat hemoglobin improved to 8.8 -Monitor for any evidence of active bleeding -Continue to monitor CBC as indicated Nausea, dry heaves, suspect secondary to anesthesia side effect, resolved Patient denies any complaints of abdominal pain. History of previous cholecystectomy -IV antiemetics prn -Monitor Hypokalemia -resolved s/p repletion History of self-injurious behavior -Patient evaluated by psychiatry, not suicidal at this time DVT prophylaxis -Heparin sq Progress Note: Quality VTE Deep Vein Thrombosis/Pulmonary Embolism Present on Admission: No
[2018-06-15] MEDS: Lisinopril 20 MG Tablet PO SCH (08:10)
[2018-06-15] MEDS: amLODIPine 5 MG Tablet PO SCH (08:10)
[2018-06-15] MEDS ORDERED: Sod Chloride 0.9% Inj 1,000 ML IV.CONT SCH (08:10)
[2018-06-15] MEDS: Metoprolol Tartrate 25 MG Tablet PO SCH ×2 (08:11→21:36)
[2018-06-15] MEDS: hydrALAZINE 25 MG Tablet PO SCH ×3 (08:11→18:09)
[2018-06-15 09:00] LABS: Calcium 7.7 mg/dL (8.5-10.1); Carbon Dioxide 28.7 meq/L (21.0-32.0); Potassium 3.6 meq/L (3.5-5.1)
[2018-06-15] MEDS: Insulin NovoLOG Aspart Correctional Sugar Inj SQ SCH ×3 (09:45→17:56)
--- NOTE | 2018-06-15 11:48 | P.PNVS ---
Subjective Subjective/Hospital Course: Referral received Discussed with Dr. Noland Patient will be transferred to [facility] at which point I will proceed with full consultation Eh Warner 06/11/2018 Patient still has not been transferred to [facility] despite order entered by Dr. Noland yesterday morning Had an on the patient is not being transferred I would have gone and seen him at [facility]. I received this afternoon call from [place] charge who stated that I have to put the order for transfer in addition to the order given by Dr. Noland. I discussed with the branch or department chief librarian and would encourage patient to be transferred because patient will need vascular workup and probably several vascular procedures either endovascular or open in addition to podiatry surgery I have also instructed the charge to let me know if patient is not transferred for I will be happy to see him at [facility] 06/13/2018 Patient seen yesterday and evaluated Full consult is dictated Patient has palpable femoral pulses and distal pulses by Doppler Both feet have large groin area as being a large plantar ulcer on the right and degloved area of infection on the left ankle and foot. Both have been debrided and cleaned out by podiatry in the operating room CTA with a runoff confirms clinical diagnosis. Patient does not have any reconstructable vascular disease however he has diffuse atherosclerotic changes with severe calcifications of both SFAs and distal trifurcation vessels and then severe small vessel disease of the feet. Based on the above he has no vessels that would be amiable to get any reconstruction nonetheless he is at high risk of losing his feet due to small vessel disease in the future 06/15/2018 Nothing to add from the vascular point As above noted patient does not have any unreconstructable disease however he has diffuse degenerative atherosclerotic changes with advanced small vessel disease. In the future this patient may end up needing bilateral below-knee amputations For the time being I agree with podiatry treatment and there is nothing to add from vascular point Objective Vital Signs / I&O: Vital Signs 06/14/18 14:50 06/14/18 19:30 06/14/18 20:00 Temperature 98 F 98.3 F Pulse Rate 81 90 Respiratory Rate 18 16 16 Blood Pressure 137/74 162/87 H Pulse Oximetry 98 96 06/15/18 00:00 06/15/18 04:00 06/15/18 07:40 Temperature 98.3 F 97.2 F L 98.2 F Pulse Rate 69 67 68 Respiratory Rate 12 12 18 Blood Pressure 150/76 H 162/85 H 156/79 H Pulse Oximetry 96 95 Intake & Output 06/14/18 06/15/18 06/15/18 18:59 06:59 18:59 Intake Total 1100 / 1100 462.5 / 462.5 Output Total 500 / 500 Balance 600 / 600 462.5 / 462.5 Intake: IV 1100 / 1100 462.5 / 462.5 NS Inj 1,000 ML @ 100 mls/hr IV 1000 / 1000 .CONT .Q10H PATRICK Rx#:[id number] Azactam Inj 2 GM In NS Inj 100 100 / 100 200 / 200 ML @ 200 mls/hr IV.SIG Q8H PATRICK Rx#:[id number] Vancomycin Inj 1,250 MG In NS 262.5 / 262.5 Inj 250 ML @ 250 mls/hr IV.SIG Q24H PATRICK Rx#:[id number] Output: Urine 500 / 500 Other: Date of Last Bowel Movement 06/13/17 Laboratory Results - last 24 hr 06/14/18 06/14/18 06/14/18 04:27 12:21 17:28 Sodium Potassium Chloride Carbon Dioxide Anion Gap BUN Creatinine Estimated GFR POC Glucose 116 H 209 H Random Glucose Calcium Magnesium 1.6 06/14/18 06/15/18 06/15/18 21:44 07:20 08:15 Sodium 140 Potassium 3.6 Chloride 105 Carbon Dioxide 28.7 Anion Gap 6 BUN 10 Creatinine 1.06 Estimated GFR 75 L POC Glucose 213 H 165 H Random Glucose 150 H Calcium 7.7 L Magnesium Microbiology 06/10/18 07:45 Gram Stain - Final Wound - Ankle Wound Culture - Final Staphylococcus aureus Group B beta Strep Enterococcus faecalis Achromobacter xylosox/denitri Wea tropicalis
[2018-06-15] MEDS: Heparin - SQ 10,000 UNITS/ML Vial SQ SCH ×2 (13:47→21:35)
--- NOTE | 2018-06-15 15:40 | P.PNID ---
Subjective Remarks: Notes reviewed. Patient says he feels okay. He denies pain in the feet. He is due to go for another surgery of the feet. Debridement and possibly skin grafting. No fever or chills. This is a 48-year-old white male, who developed severe wound infection of both feet after he walked for 20 miles. The patient was evaluated on 06/08/2018, and was noted to have abscess of the skin with large blisters of both feet. He was previously admitted to [facility], and was subsequently discharged to follow with a professional organizer. He presented to [facility] and reportedly was having fever and chills. He also was noted to have foul smell from both feet. The patient was evaluated, and has undergone surgical procedures by podiatry. Operative note indicates that he had expansile sharp excisional debridement of full-thickness ulceration down to the muscle belly on both feet. The left was noted to be worse than the right. Per communication with Dr. Noland, the wounds are very bad and may need repeated debridemen. Cultures from the wound has Staphylococcus aureus and group D Enterococcus at the right ankle and there is a mixture of Staphylococcus aureus, group D Enterococcus, group B beta strep, a, back to, and yeast at the left ankle. Past Medical History: PAST MEDICAL HISTORY: Congestive heart failure, history of Clostridium difficile infection. PAST SURGICAL HISTORY: History of cholecystectomy, history of pacemaker, history of coronary stent. Allergies/Adverse Reactions: Allergies monosodium glutamate Allergy (Severe, Verified 06/08/18 15:46) Headache penicillin G Allergy (Intermediate, Verified 06/08/18 15:46) SWELLING diazepam Adverse Reaction (Unknown, Verified 06/08/18 15:46) ANXIETY ARTICIFICAL SWEETNER Allergy (Severe, Uncoded 06/08/18 15:46) Headache Objective Vital Signs 06/14/18 19:30 06/14/18 20:00 06/15/18 00:00 Temperature 98.3 F 98.3 F Pulse Rate 90 69 Respiratory Rate 16 16 12 Blood Pressure 162/87 H 150/76 H Pulse Oximetry 96 96 06/15/18 04:00 06/15/18 07:40 06/15/18 11:10 Temperature 97.2 F L 98.2 F 98.1 F Pulse Rate 67 68 60 Respiratory Rate 12 18 17 Blood Pressure 162/85 H 156/79 H 162/82 H Pulse Oximetry 95 98 Intake & Output 06/14/18 06/15/18 06/15/18 18:59 06:59 18:59 Intake Total 1100 / 1100 462.5 / 462.5 100 / 100 Output Total 500 / 500 Balance 600 / 600 462.5 / 462.5 100 / 100 Intake: IV 1100 / 1100 462.5 / 462.5 100 / 100 NS Inj 1,000 ML @ 100 mls/hr IV 1000 / 1000 .CONT .Q10H PATRICK Rx#:[id number] Azactam Inj 2 GM In NS Inj 100 100 / 100 200 / 200 100 / 100 ML @ 200 mls/hr IV.SIG Q8H PATRICK Rx#:[id number] Vancomycin Inj 1,250 MG In NS 262.5 / 262.5 Inj 250 ML @ 250 mls/hr IV.SIG Q24H PATRICK Rx#:[id number] Output: Urine 500 / 500 Other: Date of Last Bowel Movement 06/13/17 06/10/18 07:45 Other Fungal Smear - Final No fungal elements seen 06/10/18 07:45 Other Fungal Culture - Preliminary Ewa tropicalis 06/10/18 07:45 Wound - Ankle Gram Stain - Final 06/10/18 07:45 Wound - Ankle Wound Culture - Final Staphylococcus aureus Group B beta Strep Enterococcus faecalis Achromobacter xylosox/denitri Ewa tropicalis 06/08/18 16:40 Blood - Peripheral Aerobic Blood Culture - Final No growth in 5 days 06/08/18 16:40 Blood - Peripheral Anaerobic Blood Culture - Final No growth in 5 days 06/08/18 16:25 Blood - Peripheral Aerobic Blood Culture - Final No growth in 5 days 06/08/18 16:25 Blood - Peripheral Anaerobic Blood Culture - Final No growth in 5 days 06/10/18 07:45 Wound - Ankle Gram Stain - Final 06/10/18 07:45 Wound - Ankle Wound Culture - Final Staphylococcus aureus Enterococcus faecalis Lab - Hematology Results 06/14/18 04:27 WBC 6.7 RBC 3.34 L Hgb 8.8 L Hct 27.1 L MCV 81.3 MCH 26.3 L MCHC 32.3 RDW 16.1 Plt Count 489 H D MPV 7.2 Neut % (Auto) 74.4 H Lymph % (Auto) 14.1 Sibley % (Auto) 6.4 Eos % (Auto) 2.8 Baso % (Auto) 2.3 H Neut # (Auto) 5.0 Lymph # (Auto) 0.9 L Sibley # (Auto) 0.4 Eos # (Auto) 0.2 Baso # (Auto) 0.2 WBC Differential . Differential Comment Auto diff final Lab - Chemistry Results 06/13/18 06/13/18 06/14/18 17:33 20:51 04:27 Sodium 140 Potassium 3.2 L Chloride 102 Carbon Dioxide 30.8 Anion Gap 7 BUN 11 Creatinine 1.33 H Estimated GFR 58 L POC Glucose 128 H 163 H Random Glucose 178 H Calcium 7.5 L Magnesium Total Bilirubin 0.1 L AST 13 L ALT 8 L Alkaline Phosphatase 120 H Total Protein 7.9 Albumin 1.9 L 06/14/18 06/14/18 06/14/18 04:27 08:12 12:21 Sodium Potassium Chloride Carbon Dioxide Anion Gap BUN Creatinine Estimated GFR POC Glucose 216 H 116 H Random Glucose Calcium Magnesium 1.6 Total Bilirubin AST ALT Alkaline Phosphatase Total Protein Albumin 06/14/18 06/14/18 06/15/18 17:28 21:44 07:20 Sodium 140 Potassium 3.6 Chloride 105 Carbon Dioxide 28.7 Anion Gap 6 BUN 10 Creatinine 1.06 Estimated GFR 75 L POC Glucose 209 H 213 H Random Glucose 150 H Calcium 7.7 L Magnesium Total Bilirubin AST ALT Alkaline Phosphatase Total Protein Albumin 06/15/18 06/15/18 08:15 13:28 Sodium Potassium Chloride Carbon Dioxide Anion Gap BUN Creatinine Estimated GFR POC Glucose 165 H 126 H Random Glucose Calcium Magnesium Total Bilirubin AST ALT Alkaline Phosphatase Total Protein Albumin Imaging: ITS Impressions Chest X-Ray 06/08/18 16:16 CONCLUSION: No acute intrathoracic disease. Stable examination. Foot X-Ray 06/08/18 16:43 CONCLUSION: Intact bony structures without destructive changes to suggest osteomyelitis. Persistent radiopaque foreign body between the first and second metatarsals. Ankle CT 06/09/18 00:00 CONCLUSION: 1. Superficial ulcerations around the left ankle without drainable abscess or sinus tract identified. No bony destructive changes. No fracture or dislocation. Foot CT 06/09/18 00:00 CONCLUSION: 1. Linear radiopaque foreign body in soft tissue between first and second metatarsals measuring 1.8 cm in length without surrounding fluid or mass identified. Aorta w/Runoff CTA 06/12/18 07:52 CONCLUSION: 1. Diffuse arterial atherosclerotic disease without significant flow-limiting aortic, iliac or femoral stenosis. 2. Diffuse atherosclerotic calcifications involving the runoff vessels with limited three-vessel runoff bilaterally. 3. Small fat-containing bilateral inguinal hernias. Physical Exam: PHYSICAL EXAMINATION: GENERAL: Patient in no acute distress. Noted that he had a headache earlier. HEENT: The head is atraumatic. Extraocular movements grossly intact. Pupils reactive to light. No icterus. Oropharynx: Moist mucosa without lesions. NECK: Supple without adenopathy. LUNGS: Decreased breath sounds. HEART: Regular S1 and S2. No murmurs, rubs or gallops. ABDOMEN: Bowel sounds present. Soft, nontender. EXTREMITIES: Both feet are wrapped in surgical dressings. SKIN: The patient has some mild erythematous hue to the skin of the legs. No diffuse rash. NEUROLOGIC: Nonfocal. The patient is calm and cooperative. Assessment and Plan - Plan IMPRESSION: Bilateral wound infection of the feet with polymicrobial organism in a patient with severe wounds and noted to have muscle necrosis . RECOMMENDATIONS: 1. Continue vancomycin to cover group B strep, staph aureus and enterococcus. 2. Change metronidazole to p.o. continue for prophylaxis against C. difficile in patient with history of C. difficile no requiring broad-spectrum antibiotics. 3. Stop Azactam. The Achromobacter is resistant 4. Begin imipenem for Achromobacter. Patient is allergic to penicillin. 5. Continue fluconazole for Ewa tropicalis. 6. Monitor response to antibiotic treatment.
[2018-06-15] MEDS: Vancomycin Inj 1,250 MG in Sodium Chlor 0.9% Inj 250 ML IV.SIG SCH (19:51)
--- NOTE | 2018-06-15 22:01 | P.PNPOD ---
Subjective Interval history: s/p b/l foot and ankle debridement DOS 06/13/18 Dr Little Seen at bedside this am. Physical Exam Vital signs: Vital Signs 06/15/18 00:00 06/15/18 04:00 06/15/18 07:40 Temperature 98.3 F 97.2 F L 98.2 F Pulse Rate 69 67 68 Respiratory Rate 12 12 18 Blood Pressure 150/76 H 162/85 H 156/79 H Pulse Oximetry 96 95 06/15/18 11:10 06/15/18 15:50 06/15/18 21:03 Temperature 98.1 F 98.0 F 98.6 F Pulse Rate 60 60 80 Respiratory Rate 17 18 18 Blood Pressure 162/82 H 138/70 148/76 H Pulse Oximetry 98 99 98 Intake & Output 06/15/18 06/15/18 06/16/18 06:59 18:59 06:59 Intake Total 462.5 / 462.5 300 / 300 100 / 100 Balance 462.5 / 462.5 300 / 300 100 / 100 Intake: IV 462.5 / 462.5 300 / 300 100 / 100 Azactam Inj 2 GM In NS Inj 100 200 / 200 100 / 100 ML @ 200 mls/hr IV.SIG Q8H PATRICK Rx#:[id number] Primaxin Inj 500 MG In NS Inj 100 / 100 100 ML @ 200 mls/hr IV.SIG Q6H PATRICK Rx#:[id number] Vancomycin Inj 1,250 MG In NS 262.5 / 262.5 Inj 250 ML @ 250 mls/hr IV.SIG Q24H PATRICK Rx#:[id number] Other: Date of Last Bowel Movement 06/13/17 06/13/17 Narrative: b/l feet and ankle with diffuse granular and mildly fibrotic lesion. No drainage and no acute soi. NVS unchanged. Medications and Allergies Active Medications: Active Medications Acetaminophen (Tylenol) 650 mg PO Q4H PRN PRN Reason: Temp > 100.4 Hydrocodone Bitart/Acetaminophen ([place] 5/325) 1 tab PO Q4H PRN PRN Reason: PAIN SCALE 1 TO 10 Last Admin: 06/15/18 18:19 Dose: 1 tab Al Hydroxide/Mg Hydroxide (Milk Of Magnesia Liq) 30 ml PO Q12H PRN PRN Reason: Mild Constipation Amlodipine Besylate (Norvasc) 10 mg PO DAILY [facility] Last Admin: 06/15/18 08:10 Dose: 10 mg Bisacodyl (Dulcolax Supp) 10 mg RECTAL DAILY PRN PRN Reason: SEVERE CONSITIPATION Dextrose (D50w Vial) 50 ml IV.PUSH UNSCH PRN PRN Reason: PER HYPOGLYCEMIA PROTOCOL Enalaprilat (Vasotec Inj) 1.25 mg IV.PUSH Q6H PRN PRN Reason: SBP>160, DBP>90 Last Admin: 06/11/18 02:23 Dose: 1.25 mg Fluconazole (Diflucan) 200 mg PO DAILY [facility] Last Admin: 06/15/18 08:11 Dose: 200 mg Furosemide (Lasix) 40 mg PO DAILY [facility] Last Admin: 06/13/18 12:10 Dose: 40 mg Glucagon (Glucagon Inj) 1 mg OTHER PRN PRN PRN Reason: for Hypoglycemia Protocol Heparin Sodium (Porcine) (Heparin Inj) 5,000 units SQ Q12HR [facility] Last Admin: 06/15/18 21:35 Dose: 5,000 units Hydralazine HCl (Apresoline) 50 mg PO TID [facility] Last Admin: 06/15/18 18:09 Dose: 50 mg Vancomycin HCl 1,250 mg/ (Sodium Chloride) 262.5 mls @ 250 mls/hr IV.SIG Q24H [facility] Last Admin: 06/15/18 19:51 Dose: 250 mls/hr Sodium Chloride (Ns Inj) 1,000 mls @ 84 mls/hr IV.CONT .[id number] [facility] Last Infusion: 06/15/18 17:57 Dose: Infused Imipenem/Cilastatin Sodium 500 (mg/ Sodium Chloride) 100 mls @ 200 mls/hr IV.SIG Q6H [facility] Last Infusion: 06/15/18 19:32 Dose: Infused Insulin Aspart (Novolog Insulin Correctional Sugar Inj) 0 unit SQ ACHS [facility]; Protocol Last Admin: 06/15/18 17:56 Dose: Not Given Lactulose (Lactulose Liq) 30 ml PO DAILY PRN PRN Reason: SEVERE CONSITIPATION Lisinopril (Prinivil) 20 mg PO DAILY [facility] Last Admin: 06/15/18 08:10 Dose: 20 mg Metoprolol Tartrate (Lopressor) 25 mg PO BID [facility] Last Admin: 06/15/18 21:36 Dose: 25 mg Metronidazole (Flagyl) 500 mg PO Q8HR [facility] Last Admin: 06/15/18 16:10 Dose: 500 mg Miscellaneous Information ([facility] Ordered Lab Info) 0 each OTHER ONCE ONE Stop: 06/16/18 17:46 Ondansetron HCl (Zofran Inj) 4 mg IV.PUSH Q6H PRN PRN Reason: NAUSEA OR VOMITING Last Admin: 06/13/18 12:16 Dose: 4 mg Ondansetron HCl (Zofran Odt) 4 mg PO Q4H PRN PRN Reason: NAUSEA Last Admin: 06/14/18 13:54 Dose: 4 mg Pharmacy Profile Note (Vancomycin Consult Pharmacy) 1 each OTHER UNSCH PRN PRN Reason: Pharmacy to dose Prochlorperazine Edisylate (Compazine Inj) 5 mg IV.PUSH Q8H PRN PRN Reason: NAUSEA OR VOMITING Last Admin: 06/14/18 17:46 Dose: 5 mg Sennosides (Senokot) 17.2 mg PO Q12H PRN PRN Reason: Moderate Constipation Sodium Chloride (Ns Flush) 2 ml IV.FLUSH BID [facility] Last Admin: 06/15/18 08:11 Dose: 2 ml Sodium Chloride (Ns Flush) 2 ml IV.FLUSH PRN PRN PRN Reason: FLUSH AFTER USING IV ACCESS Allergies Allergy/AdvReac Type Severity Reaction Status Date / Time monosodium glutamate Allergy Severe Headache Verified 06/08/18 15:46 penicillin G Allergy Intermediate SWELLING Verified 06/08/18 15:46 diazepam AdvReac Unknown ANXIETY Verified 06/08/18 15:46 ARTICIFICAL SWEETNER Allergy Severe Headache Uncoded 06/08/18 15:46 Home Medications Medication Instructions Recorded Confirmed Type furosemide [Lasix] 40 mg PO DAILY 04/20/18 06/08/18 History lisinopril 20 mg PO DAILY 05/03/18 06/08/18 History metformin 1,000 mg PO DAILY 06/08/18 06/08/18 History Results - Labs CBC & Chem 7: 06/14/18 04:27 06/15/18 07:20 Laboratory Results - last 24 hr 06/15/18 06/15/18 06/15/18 07:20 08:15 13:28 Sodium 140 Potassium 3.6 Chloride 105 Carbon Dioxide 28.7 Anion Gap 6 BUN 10 Creatinine 1.06 Estimated GFR 75 L POC Glucose 165 H 126 H Random Glucose 150 H Calcium 7.7 L 06/15/18 06/15/18 18:21 21:28 Sodium Potassium Chloride Carbon Dioxide Anion Gap BUN Creatinine Estimated GFR POC Glucose 238 H 184 H Random Glucose Calcium Microbiology 06/10/18 07:45 Other Fungal Smear - Final No fungal elements seen 06/10/18 07:45 Other Fungal Culture - Preliminary Ewa tropicalis 06/10/18 07:45 Wound - Ankle Gram Stain - Final 06/10/18 07:45 Wound - Ankle Wound Culture - Final Staphylococcus aureus Group B beta Strep Enterococcus faecalis Achromobacter xylosox/denitri Ewa tropicalis Assessment and Plan - Assessment (1) Ulcer of right lower extremity with necrosis of muscle Code(s): L97.913 - Non-pressure chronic ulcer of unspecified part of right lower leg with necrosis of muscle Status: Acute (2) Ulcer of left lower extremity with necrosis of muscle Code(s): L97.923 - Non-pressure chronic ulcer of unspecified part of left lower leg with necrosis of muscle Status: Acute - Plan To the OR on 06/16/18 at 12.30 Plan for wound debridement and skin graft application. Plan for d/c on 06/16/17 f/u with Dr Gold in 1 week Patinet will keep dressing clean dry and intact untill f/u Abx per ID No further intervention per Vascular.
[2018-06-16] MEDS: Insulin NovoLOG Aspart Correctional Sugar Inj SQ SCH ×5 (00:22→21:19)
[2018-06-16] MEDS: metroNIDAZOLE 500 MG Tablet PO SCH ×4 (00:56→21:08)
[2018-06-16] MEDS: Metoprolol Tartrate 25 MG Tablet PO SCH ×2 (08:11→21:09)
[2018-06-16] MEDS: Lisinopril 20 MG Tablet PO SCH (08:11)
[2018-06-16] MEDS: amLODIPine 5 MG Tablet PO SCH (08:12)
[2018-06-16] MEDS: hydrALAZINE 25 MG Tablet PO SCH ×3 (08:12→17:53)
--- NOTE | 2018-06-16 10:09 | P.PNIM ---
Subjective Interval history: The patient was resting in bed. He said his pain was controlled. He was awaiting the procedure. He had a bowel movement yesterday. He has been urinating well. Looking forward to eating something. Would like his anesthesia changed because he gets violently ill from it. Discussed with nursing. Physical Exam Vital signs: Last Vital Signs Temp 97.8 F 06/16/18 08:00 Pulse 66 06/16/18 08:00 Resp 20 06/16/18 08:00 BP 151/79 H 06/16/18 08:00 Pulse Ox 99 06/16/18 08:00 Intake & Output 06/14/18 06/15/18 06/16/18 06/17/18 06:59 06:59 06:59 06:59 Intake Total 562.5 / 562.5 1562.5 / 1562.5 762.5 / 762.5 100 / 100 Output Total 1100 / 1100 500 / 500 Balance -537.5 / -537.5 1062.5 / 1062.5 762.5 / 762.5 100 / 100 Weight 80 kg Narrative: GENERAL: Well-developed well-nourished male patient in no acute distress. SKIN: Warm and dry. HEENT: Atraumatic. Normocephalic. Pupils equal and round. No scleral icterus. No injection or drainage. No nasal discharge. Mucous membranes pink and moist. NECK: Trachea midline. CARDIOVASCULAR: Regular rate and rhythm. No murmur appreciated. s/p pacemaker implantation left side of chest. RESPIRATORY: No accessory muscle use. Clear to auscultation. Breath sounds equal bilaterally. GASTROINTESTINAL: Abdomen soft, non-tender, nondistended. Normal BS. MUSCULOSKELETAL: + Mild erythema noted over anterior lower legs bilaterally, improving. Both feet are wrapped in postop dressing, C/D/I. NEUROLOGICAL: Awake and alert. No obvious cranial nerve deficits. Able to move all extremities spontaneously. Normal speech. PSYCHIATRIC: Calm and cooperative. Results Labs CBC & Chem 7: 06/14/18 04:27 06/15/18 07:20 Labs: Microbiology 06/10/18 07:45 Other Fungal Smear - Final No fungal elements seen 06/10/18 07:45 Other Fungal Culture - Preliminary Ewa tropicalis 06/10/18 07:45 Wound - Ankle Gram Stain - Final 06/10/18 07:45 Wound - Ankle Wound Culture - Final Staphylococcus aureus Group B beta Strep Enterococcus faecalis Achromobacter xylosox/denitri Ewa tropicalis Assessment and Plan (1) Ulcer of right lower extremity with necrosis of muscle: Code(s): L97.913 - Non-pressure chronic ulcer of unspecified part of right lower leg with necrosis of muscle Status: Acute (2) Ulcer of left lower extremity with necrosis of muscle: Code(s): L97.923 - Non-pressure chronic ulcer of unspecified part of left lower leg with necrosis of muscle Status: Acute Plan 48-year-old male with a history of CHF status post AICD and pacemaker, hypertension and questionable diabetes admitted with bilateral feet infected ulcerative lesions Bilateral feet ulcers, infected Imaging does not show any evidence of underlying osteomyelitis S/p expansile debridement of full-thickness ulceration down to muscle belly performed by Dr. Noland 06/10/18 left wound cx + group D enterococcus, staph, group B beta strep, gram-negative rods, yeast right wound cx + D enterococcus and staph -Podiatry following, appreciate assistance. s/p I&D 06/10 and 06/13. Repeat I&D pending. The pt is medically cleared for the procedure. -Vascular surgery following for suspected PVD. CTA with runoff shows diffuse arterial atherosclerotic disease without significant stenosis. Patient does not have any reconstructable vascular disease. -antibiotics per ID, appreciate assistance. Hypertension Still not optimized. -Continue patient on lisinopril, Norvasc and metoprolol. Increase Hydralazine to 50mg TID. Increase lisinopril to 40 mg daily. -IV Enalapril PRN with parameters -Continue to monitor BP and adjust treatment accordingly DEYSI, suspect secondary to poor po intake secondary to nausea and dry heaves following anesthesia -Cr trended up to 1.33, baseline appears to be around 1.1 -creatinine improved to 1.06 s/p IVF -hold po Lasix for now. -avoid nephrotoxic agents -repeat BMP in am. Monitor creatinine closely while on Vancomycin. History of chronic systolic CHF, not decompensated -Continue on lisinopril. -Uncertain why patient is not on beta-jovany, awaiting records from Dr. Costa's office. Will start on Metoprolol 25mg BID. -Continue to monitor volume status Diabetes, chronic A1c 7.7 blood sugars acceptable -Continue to hold home dose of metformin -Accu-Cheks and insulin sliding scale Anemia, hypochromic, microcytic -Hemoglobin is low at 7, repeat hemoglobin improved to 8.8 -Monitor for any evidence of active bleeding -Continue to monitor CBC as indicated Nausea, dry heaves, suspect secondary to anesthesia side effect, resolved Patient denies any complaints of abdominal pain. History of previous cholecystectomy -IV antiemetics prn -Monitor -pt planning to ask anesthesia for different medications for upcoming procedure. History of self-injurious behavior -Patient evaluated by psychiatry, not suicidal at this time DVT prophylaxis -Heparin sq Progress Note: Quality VTE Deep Vein Thrombosis/Pulmonary Embolism Present on Admission: No
[2018-06-16] MEDS: Heparin - SQ 10,000 UNITS/ML Vial SQ SCH ×2 (10:53→21:09)
[2018-06-16] MEDS ORDERED: Misc Info for Pharmacy OTHER STA (14:13)
[2018-06-16] MEDS ORDERED: Naloxone Inj 0.4 MG/ML Vial IV.PUSH PRN (14:13)
[2018-06-16] MEDS ORDERED: Promethazine 25 MG Supp RECTAL PRN (14:13)
[2018-06-16] MEDS ORDERED: Bisacodyl 10 MG Supp RECTAL PRN (14:13)
--- NOTE | 2018-06-16 14:19 | P.BOP ---
- Preoperative Diagnosis (1) Diabetic infection of left foot (2) Diabetic infection of right foot (3) Ulcer of right lower extremity with necrosis of muscle (4) Ulcer of left lower extremity with necrosis of muscle - Postoperative Diagnosis (1) Diabetic infection of left foot (2) Diabetic infection of right foot (3) Ulcer of right lower extremity with necrosis of muscle (4) Ulcer of left lower extremity with necrosis of muscle Date of procedure: 06/16/18 Procedure: 1) Right foot wound debridement 2) Left foot wound debridement 3) Right foot skin substitute application. 4) Left foot skin substitute application. Implants: Ede skin graft x 2 8cm x3cm Anesthesia: GETA Surgeon: Vanesa Samuel DPM Estimated blood loss (mL): 20 Pathology: none sent Condition: stable
[2018-06-16] MEDS ORDERED: fentaNYL Citrate Inj 100 MCG/2 ML Ampul ONE (14:21)
[2018-06-16] MEDS ORDERED: Pharmacy Ordered Lab Info OTHER ONE (17:45)
[2018-06-16] MEDS: Vancomycin Inj 1,250 MG in Sodium Chlor 0.9% Inj 250 ML IV.SIG SCH ×2 (17:51→19:00)
[2018-06-16] MEDS: Senna/Docusate Sodium 8.6/50 MG Tablet PO SCH (21:08)
--- NOTE | 2018-06-16 22:56 | MP ---
cc: Vanesa Samuel DPM DATE OF OPERATION: SURGEON: Vanesa Samuel DPM PREOPERATIVE DIAGNOSIS: Bilateral diabetic foot ulcers. POSTOPERATIVE DIAGNOSIS: Bilateral diabetic foot ulcers. PROCEDURE PERFORMED: 1. Bilateral wound debridement. 2. Bilateral application of skin substitute. ESTIMATED BLOOD LOSS: 15 mL. ANESTHESIA: General. COMPLICATIONS: None. MATERIALS: Neox skin graft x2, 8 x 3 cm. INJECTABLES: None. TOURNIQUET: None. BRIEF HISTORY: The patient is a 48-year-old male who has undergone 2 prior procedures for excision of foreign bodies, as well as debridement of necrotic nonviable tissue and diabetic foot ulcers for debulking. Risks, benefits, pros and cons were discussed. The patient freely consented to surgical intervention. No guarantees were given or implied. PROCEDURE IN DETAIL: The patient was brought to operating room, placed on the operating table in supine position. After a general anesthesia was administered, bilateral feet were prepped, scrubbed and draped in usual sterile aseptic manner. A significant ulceration bilaterally were debrided with a sharp excisional debridement with a #15 blade of necrotic nonviable tissue. This was carried down to the level of granular tissue. The bilateral feet and ankle were then irrigated until cleansed of all nonviable tissue and a Neox skin graft was applied on the right foot sub first and fifth metatarsal heads as well as the left medial ankle with Steri-Strips. Dry sterile dressings applied using Adaptic, 4 x 4's, Alan, and a light Varun as well too. The patient transferred back for brief period of postop monitoring and he will be monitored appropriately while in-house. At this time, he has made significant strides to improve clinically, and I do not plan on any additional surgical intervention at this point in time. Continue with IV antibiotics, and we will follow the patient while in-house. Vanesa Samuel DPM / , 10:00 PM , 10:08 PM
[2018-06-17] MEDS: metroNIDAZOLE 500 MG Tablet PO SCH ×2 (05:06→13:23)
[2018-06-17 06:07] LABS: Baso % (Auto) 0.5 % (0.0-2.0); Hematocrit 29.5 % (39.0-51.0); Hemoglobin 9.8 gm/dL (13.0-17.0); Lymph # (Auto) 0.6 th/mm3 (1.0-4.8); Lymph % (Auto) 7.8 % (9.0-44.0); Mean Corpuscular HGB Conc 33.4 % (32.0-36.0); Mean Corpuscular Hemoglobin 27.3 pg (27.0-34.0); Mean Platelet Volume 7.5 fL (7.0-11.0); Mono # (Auto) 0.1 th/mm3 (0.0-0.9); Mono % (Auto) 1.6 % (0.0-8.0); Neut # (Auto) 6.7 th/mm3 (1.8-7.7); Neut % (Auto) 90.1 % (16.0-70.0); Platelet Count 519 th/mm3 (150-450); White Blood Count 7.4 th/mm3 (4.0-11.0)
[2018-06-17 06:28] LABS: Calcium 8.4 mg/dL (8.5-10.1); Carbon Dioxide 25.4 meq/L (21.0-32.0); Potassium 4.3 meq/L (3.5-5.1)
[2018-06-17 08:05] VITALS: TEMP 98
[2018-06-17] MEDS ORDERED: Lisinopril 20 MG Tablet PO SCH (09:00)
[2018-06-17] MEDS: Insulin NovoLOG Aspart Correctional Sugar Inj SQ SCH ×2 (09:03→12:46)
[2018-06-17] MEDS: amLODIPine 5 MG Tablet PO SCH (09:04)
[2018-06-17] MEDS: Senna/Docusate Sodium 8.6/50 MG Tablet PO SCH (09:04)
[2018-06-17] MEDS: Heparin - SQ 10,000 UNITS/ML Vial SQ SCH (09:05)
[2018-06-17] MEDS: Metoprolol Tartrate 25 MG Tablet PO SCH (09:05)
[2018-06-17] MEDS: hydrALAZINE 25 MG Tablet PO SCH ×2 (09:05→12:46)
--- NOTE | 2018-06-17 11:25 | P.PNID ---
Subjective Remarks: Patient is post debridement and skin graft x2 on 06/16/2018. Notes that he had a very slight pain in the left foot. Resolved with oral pain medication. No fever. No other complaints. 48-year-old white male, who developed severe wound infection of both feet after he walked for 20 miles. The patient was evaluated on 06/08/2018, and was noted to have abscess of the skin with large blisters of both feet. He was previously admitted to [facility], and was subsequently discharged to follow with a appraiser irrigation tax. He presented to [facility] and reportedly was having fever and chills. He also was noted to have foul smell from both feet. The patient was evaluated, and has undergone surgical procedures by podiatry. Operative note indicates that he had expansile sharp excisional debridement of full-thickness ulceration down to the muscle belly on both feet. The left was noted to be worse than the right. Per communication with Dr. Noland, the wounds are very bad and may need repeated debridemen. Cultures from the wound has Staphylococcus aureus and group D Enterococcus at the right ankle and there is a mixture of Staphylococcus aureus, group D Enterococcus, group B beta strep, a, back to, and yeast at the left ankle. Past Medical History: PAST MEDICAL HISTORY: Congestive heart failure, history of Clostridium difficile infection. PAST SURGICAL HISTORY: History of cholecystectomy, history of pacemaker, history of coronary stent. Allergies/Adverse Reactions: Allergies monosodium glutamate Allergy (Severe, Verified 06/08/18 15:46) Headache penicillin G Allergy (Intermediate, Verified 06/08/18 15:46) SWELLING diazepam Adverse Reaction (Unknown, Verified 06/08/18 15:46) ANXIETY ARTICIFICAL SWEETNER Allergy (Severe, Uncoded 06/08/18 15:46) Headache Objective Vital Signs 06/16/18 11:49 06/16/18 14:14 06/16/18 15:15 Temperature 97.5 F L 97.4 F L 97.4 F L Pulse Rate 69 60 60 Respiratory Rate 20 14 14 Blood Pressure 143/89 H 127/72 138/75 Pulse Oximetry 98 100 98 06/16/18 15:59 06/16/18 20:00 06/16/18 23:48 Temperature 97.3 F L 98.0 F 97.2 F L Pulse Rate 63 77 61 Respiratory Rate 18 19 20 Blood Pressure 140/77 110/57 L 130/72 Pulse Oximetry 97 98 97 06/17/18 08:00 Temperature 98.0 F Pulse Rate 62 Respiratory Rate 18 Blood Pressure 121/61 Pulse Oximetry 98 Intake & Output 06/16/18 06/17/18 06/17/18 18:59 06:59 18:59 Intake Total 2080 / 2080 462.5 / 462.5 Output Total 1210 / 1210 400 / 400 Balance 870 / 870 62.5 / 62.5 Intake: IV 300 / 300 462.5 / 462.5 Primaxin Inj 500 MG In NS Inj 300 / 300 200 / 200 100 ML @ 200 mls/hr IV.SIG Q6H PATRICK Rx#:[id number] Vancomycin Inj 1,250 MG In NS 262.5 / 262.5 Inj 250 ML @ 250 mls/hr IV.SIG Q24H PATRICK Rx#:[id number] Oral 1280 / 1280 Anesthesia Amount 500 / 500 Output: Urine 1200 / 1200 400 / 400 Estimated Blood Loss Other: Date of Last Bowel Movement 06/15/18 06/16/18 06/10/18 07:45 Other Fungal Smear - Final No fungal elements seen 06/10/18 07:45 Other Fungal Culture - Preliminary Ewa tropicalis 06/10/18 07:45 Wound - Ankle Gram Stain - Final 06/10/18 07:45 Wound - Ankle Wound Culture - Final Staphylococcus aureus Group B beta Strep Enterococcus faecalis Achromobacter xylosox/denitri Ewa tropicalis Lab - Hematology Results 06/17/18 04:13 WBC 7.4 RBC 3.60 L Hgb 9.8 L Hct 29.5 L MCV 82.0 MCH 27.3 MCHC 33.4 RDW 17.0 Plt Count 519 H MPV 7.5 Neut % (Auto) 90.1 H Lymph % (Auto) 7.8 L Benson % (Auto) 1.6 Eos % (Auto) 0.0 Baso % (Auto) 0.5 Neut # (Auto) 6.7 Lymph # (Auto) 0.6 L Benson # (Auto) 0.1 Eos # (Auto) 0.0 Baso # (Auto) 0.0 WBC Differential . Differential Comment Auto diff final Lab - Chemistry Results 06/15/18 06/15/18 06/15/18 13:28 18:21 21:28 Sodium Potassium Chloride Carbon Dioxide Anion Gap BUN Creatinine Estimated GFR POC Glucose 126 H 238 H 184 H Random Glucose Calcium 06/16/18 06/16/18 06/16/18 08:15 14:44 20:53 Sodium Potassium Chloride Carbon Dioxide Anion Gap BUN Creatinine Estimated GFR POC Glucose 143 H 126 H 220 H Random Glucose Calcium 06/17/18 06/17/18 04:13 07:58 Sodium 138 Potassium 4.3 Chloride 104 Carbon Dioxide 25.4 Anion Gap 9 BUN 16 Creatinine 1.20 Estimated GFR 65 L POC Glucose 285 H Random Glucose 238 H Calcium 8.4 L Imaging: ITS Impressions Chest X-Ray 06/08/18 16:16 CONCLUSION: No acute intrathoracic disease. Stable examination. Foot X-Ray 06/08/18 16:43 CONCLUSION: Intact bony structures without destructive changes to suggest osteomyelitis. Persistent radiopaque foreign body between the first and second metatarsals. Ankle CT 06/09/18 00:00 CONCLUSION: 1. Superficial ulcerations around the left ankle without drainable abscess or sinus tract identified. No bony destructive changes. No fracture or dislocation. Foot CT 06/09/18 00:00 CONCLUSION: 1. Linear radiopaque foreign body in soft tissue between first and second metatarsals measuring 1.8 cm in length without surrounding fluid or mass identified. Aorta w/Runoff CTA 06/12/18 07:52 CONCLUSION: 1. Diffuse arterial atherosclerotic disease without significant flow-limiting aortic, iliac or femoral stenosis. 2. Diffuse atherosclerotic calcifications involving the runoff vessels with limited three-vessel runoff bilaterally. 3. Small fat-containing bilateral inguinal hernias. Physical Exam: PHYSICAL EXAMINATION: GENERAL: Patient in no acute distress. Noted that he had a headache earlier. HEENT: Extraocular movements grossly intact. Pupils reactive to light. No icterus. Oropharynx: Moist mucosa without lesions. NECK: Supple without adenopathy. LUNGS: Decreased breath sounds. HEART: Regular S1 and S2. No murmurs, rubs or gallops. ABDOMEN: Bowel sounds present. Soft, nontender. EXTREMITIES: Both feet are wrapped in surgical dressings. SKIN: The patient has some mild erythematous hue to the skin of the legs. No diffuse rash. NEUROLOGIC: Nonfocal. PSYCH: Calm and cooperative Assessment and Plan - Plan IMPRESSION: Bilateral wound infection of the feet with polymicrobial organism in a patient with severe wounds and noted to have muscle necrosis . Organisms include enterococcus, staph aureus, Achromobacter Group B strep and Ewa. Patient is post skin grafting after debridement. Penicillin allergy. RECOMMENDATIONS: Stop imipenem. Continue treatment with intravenous vancomycin 2 more weeks until July 01, 2018. Continue Diflucan 200 mg p.o. daily for 2 more weeks until July 01, 2018. PICC line ordered for IV antibiotics upon discharge. Case management consult for IV antibiotic arrangements for discharge. IV antibiotics ordered on infusion form. Labs ordered. Patient can be discharged from ID standpoint when arrangements are finalized.
--- NOTE | 2018-06-17 11:31 | P.DCO ---
Post Hospital Infusion Therapy - Infusion Therapy Location of Infusion Therapy: [facility] Infusion Therapy Order - Patient Information Patient Weight: 80 kg - Diagnosis (1) Diabetic infection of left foot Code(s): E11.628 - Type 2 diabetes mellitus with other skin complications; L08.9 - Local infection of the skin and subcutaneous tissue, unspecified (2) Diabetic infection of right foot Code(s): E11.628 - Type 2 diabetes mellitus with other skin complications; L08.9 - Local infection of the skin and subcutaneous tissue, unspecified (3) Ulcer of left lower extremity with necrosis of muscle Code(s): L97.923 - Non-pressure chronic ulcer of unspecified part of left lower leg with necrosis of muscle (4) Ulcer of right lower extremity with necrosis of muscle Code(s): L97.913 - Non-pressure chronic ulcer of unspecified part of right lower leg with necrosis of muscle - Administer Medication Vancomycin Additional Dosing Instructions: 1300mg IV Q24 hours Stop Treatment: 07/01/18 - Additional Information Venous Access: PICC Line Additional Instructions: [x] Peripheral flush and dressing changes per protocol [x] Implanted port and central personal lines account manager: * Implanted port: 10 ml Normal Saline followed by 5 ml Heparin 100 units/ml Heparin flush after each use and monthly to maintain. [] May leave port accessed during therapy. [] May leave peripheral site accessed for duration of therapy. [x] If patient has SOB or respiratory distress, check oxygen saturation. If less than 90% or clinical signs of respiratory distress, administer oxygen at 2 L/min. via nasal cannula and notify physician. [x] Anaphylaxis/Reaction orders: * Stop infusion. * Keep IV line open with saline flush. * Notify physician. * Monitor vital signs every 15 minutes until symptoms resolve. * Check Oxygen saturation; Oxygen at 2 L/min. via nasal cannula if less than 90% or clinical signs of respiratory distress. * Administer diphenhydramine (Benadryl) 25 mg IV STAT, (unless patient has received as pre-med). May repeat once, if necessary. * Solu-Cortef 250 mg IVP over 30-60 seconds, use 100 mg vials for each dissolution. * Epinephrine (1mg/1 ml) 0.3 mg subcutaneously or IVP now with any signs of respiratory distress. * Check with physician for new additional pre-med orders if patient is re- challenged or re-treated. [x] May remove PICC line when treatment complete, after confirming with Physician. [x] If the patient is admitted to the hospital, the ED, or transferred via EVAC , complete transfer form including medication reconciliation order sheet. Weekly Labs: BMP, Vancomycin Trough - Case Management Consult Case Management Consult-IVF: Yes - Patient Information Allergies monosodium glutamate Allergy (Severe, Verified 06/08/18 15:46) Headache penicillin G Allergy (Intermediate, Verified 06/08/18 15:46) SWELLING diazepam Adverse Reaction (Unknown, Verified 06/08/18 15:46) ANXIETY ARTICIFICAL SWEETNER Allergy (Severe, Uncoded 06/08/18 15:46) Headache
--- NOTE | 2018-06-17 14:06 | P.PNIM ---
Subjective Interval history: Patient seen and evaluated at bedside. Patient status post or with podiatry yesterday. Patient reports that his pain is well controlled with oral medication. Patient denies subjective fever and chills. Patient otherwise has no complaints and is looking forward to discharge once arrangements can be made for IV antibiotics. Patient is ordered for PICC line placement which will hopefully be completed today. Physical Exam Vital signs: Vital Signs 06/16/18 14:14 06/16/18 15:15 06/16/18 15:59 Temperature 97.4 F L 97.4 F L 97.3 F L Pulse Rate 60 60 63 Respiratory Rate 14 14 18 Blood Pressure 127/72 138/75 140/77 Pulse Oximetry 100 98 97 06/16/18 20:00 06/16/18 23:48 06/17/18 08:00 Temperature 98.0 F 97.2 F L 98.0 F Pulse Rate 77 61 62 Respiratory Rate 19 20 18 Blood Pressure 110/57 L 130/72 121/61 Pulse Oximetry 98 97 98 06/17/18 12:00 Temperature 98.0 F Pulse Rate 60 Respiratory Rate 19 Blood Pressure 125/66 Pulse Oximetry 98 Intake & Output 06/16/18 06/17/18 06/17/18 18:59 06:59 18:59 Intake Total 2080 / 2080 462.5 / 462.5 Output Total 1210 / 1210 400 / 400 Balance 870 / 870 62.5 / 62.5 Weight 80 kg Intake: IV 300 / 300 462.5 / 462.5 Primaxin Inj 500 MG In NS Inj 300 / 300 200 / 200 100 ML @ 200 mls/hr IV.SIG Q6H PATRICK Rx#:[id number] Vancomycin Inj 1,250 MG In NS 262.5 / 262.5 Inj 250 ML @ 250 mls/hr IV.SIG Q24H PATRICK Rx#:[id number] Oral 1280 / 1280 Anesthesia Amount 500 / 500 Output: Urine 1200 / 1200 400 / 400 Estimated Blood Loss Other: Date of Last Bowel Movement 06/15/18 06/16/18 General: No acute distress, conversational Cardia vascular: S1/S2 Respiratory: Clear to auscultation bilaterally Gastroenterology: Soft, nontender, nondistended, no guarding or rebound Extremity: Bilateral lower extremity wounds with dressings in place. Sensation is intact Results Labs CBC & Chem 7: 06/17/18 04:13 06/17/18 04:13 Labs: Microbiology 06/10/18 07:45 Wound - Ankle Fungal Smear - Final No fungal elements seen 06/10/18 07:45 Wound - Ankle Fungal Culture - Preliminary No growth in 1 week 06/10/18 07:45 Other Acid Fast Bacilli Smear - Final No acid fast bacilli seen 06/10/18 07:45 Other Mycobacterial Culture - Preliminary No growth in 1 week 06/10/18 07:45 Other Acid Fast Bacilli Smear - Final No acid fast bacilli seen 06/10/18 07:45 Other Mycobacterial Culture - Preliminary No growth in 1 week Assessment and Plan Plan Patient is a very pleasant 48-year-old male with past medical history of diabetes who presents with purulent left foot drainage status post OR debridement by podiatry. Podiatry: Diabetic infection Podiatry recommended she is appreciated via EMR. No further intervention planned at this time. Patient status post OR on 06/16 Infectious disease recommended she is appreciated via EMR PICC line Continue IV antibiotics as an outpatient Continue follow-up with infectious disease as an outpatient with infusions. Vascular recommendations appreciated. No further intervention recommended at this time Blood cultures reviewed. Endocrinology: Diabetes Patient on discharge should follow-up with seismograph computer as well as web art director for yearly screening Recommend patient continue on metformin 1000 mg with likely titration outpatient Continue lisinopril for blood pressure as well as benefits in diabetic patients CODE STATUS: Full code DVT prophylaxis Disposition: Pending outpatient IV antibiotic set up patient will be cleared for discharge. Progress Note: Quality VTE Deep Vein Thrombosis/Pulmonary Embolism Present on Admission: No
--- NOTE | 2018-06-17 15:04 | P.PNVS ---
Subjective Subjective/Hospital Course: Referral received Discussed with Dr. Noland Patient will be transferred to [facility] at which point I will proceed with full consultation Eh Warner 06/11/2018 Patient still has not been transferred to [facility] despite order entered by Dr. Noland yesterday morning Had an on the patient is not being transferred I would have gone and seen him at [facility]. I received this afternoon call from [place] charge who stated that I have to put the order for transfer in addition to the order given by Dr. Noland. I discussed with the c 40a crew chief and would encourage patient to be transferred because patient will need vascular workup and probably several vascular procedures either endovascular or open in addition to podiatry surgery I have also instructed the charge to let me know if patient is not transferred for I will be happy to see him at [facility] 06/13/2018 Patient seen yesterday and evaluated Full consult is dictated Patient has palpable femoral pulses and distal pulses by Doppler Both feet have large groin area as being a large plantar ulcer on the right and degloved area of infection on the left ankle and foot. Both have been debrided and cleaned out by podiatry in the operating room CTA with a runoff confirms clinical diagnosis. Patient does not have any reconstructable vascular disease however he has diffuse atherosclerotic changes with severe calcifications of both SFAs and distal trifurcation vessels and then severe small vessel disease of the feet. Based on the above he has no vessels that would be amiable to get any reconstruction nonetheless he is at high risk of losing his feet due to small vessel disease in the future 06/15/2018 Nothing to add from the vascular point As above noted patient does not have any unreconstructable disease however he has diffuse degenerative atherosclerotic changes with advanced small vessel disease. In the future this patient may end up needing bilateral below-knee amputations For the time being I agree with podiatry treatment and there is nothing to add from vascular point 06/17/2018 Nothing to add from surgical point beyond what is being done I fully agree with podiatry approach and internal medicine Wounds on the foot are healing and if any issues arise will be available. Hopefully patient will not require below-knee amputation Objective Vital Signs / I&O: Vital Signs 06/16/18 15:15 06/16/18 15:59 06/16/18 20:00 Temperature 97.4 F L 97.3 F L 98.0 F Pulse Rate 60 63 77 Respiratory Rate 14 18 19 Blood Pressure 138/75 140/77 110/57 L Pulse Oximetry 98 97 98 06/16/18 23:48 06/17/18 08:00 06/17/18 12:00 Temperature 97.2 F L 98.0 F 98.0 F Pulse Rate 61 62 60 Respiratory Rate 20 18 19 Blood Pressure 130/72 121/61 125/66 Pulse Oximetry 97 98 98 Intake & Output 06/16/18 06/17/18 06/17/18 18:59 06:59 18:59 Intake Total 2080 / 2080 462.5 / 462.5 Output Total 1210 / 1210 400 / 400 Balance 870 / 870 62.5 / 62.5 Weight 80 kg Intake: IV 300 / 300 462.5 / 462.5 Primaxin Inj 500 MG In NS Inj 300 / 300 200 / 200 100 ML @ 200 mls/hr IV.SIG Q6H PATRICK Rx#:[id number] Vancomycin Inj 1,250 MG In NS 262.5 / 262.5 Inj 250 ML @ 250 mls/hr IV.SIG Q24H PATRICK Rx#:[id number] Oral 1280 / 1280 Anesthesia Amount 500 / 500 Output: Urine 1200 / 1200 400 / 400 Estimated Blood Loss Other: Date of Last Bowel Movement 06/15/18 06/16/18 Laboratory Results - last 24 hr 06/16/18 06/16/18 06/17/18 18:31 20:53 04:13 WBC 7.4 RBC 3.60 L Hgb 9.8 L Hct 29.5 L MCV 82.0 MCH 27.3 MCHC 33.4 RDW 17.0 Plt Count 519 H MPV 7.5 Neut % (Auto) 90.1 H Lymph % (Auto) 7.8 L [place] % (Auto) 1.6 Eos % (Auto) 0.0 Baso % (Auto) 0.5 Neut # (Auto) 6.7 Lymph # (Auto) 0.6 L [place] # (Auto) 0.1 Eos # (Auto) 0.0 Baso # (Auto) 0.0 WBC Differential . Differential Comment Auto diff final Sodium Potassium Chloride Carbon Dioxide Anion Gap BUN Creatinine Estimated GFR POC Glucose 220 H Random Glucose Calcium Vancomycin Trough 10.8 H 06/17/18 06/17/1806/17/19 04:13 07:58 11:21 WBC RBC Hgb Hct MCV MCH MCHC RDW Plt Count MPV Neut % (Auto) Lymph % (Auto) [place] % (Auto) Eos % (Auto) Baso % (Auto) Neut # (Auto) Lymph # (Auto) [place] # (Auto) Eos # (Auto) Baso # (Auto) WBC Differential Differential Comment Sodium 138 Potassium 4.3 Chloride 104 Carbon Dioxide 25.4 Anion Gap 9 BUN 16 Creatinine 1.20 Estimated GFR 65 L POC Glucose 285 H 248 H Random Glucose 238 H Calcium 8.4 L Vancomycin Trough Microbiology 06/10/18 07:45 Fungal Smear - Final Wound - Ankle No fungal elements seen Fungal Culture - Preliminary No growth in 1 week 06/10/18 07:45 Acid Fast Bacilli Smear - Final Other No acid fast bacilli seen Mycobacterial Culture - Preliminary No growth in 1 week 06/10/18 07:45 Acid Fast Bacilli Smear - Final Other No acid fast bacilli seen Mycobacterial Culture - Preliminary No growth in 1 week
--- NOTE | 2018-06-17 15:17 | P.DS ---
DS: Providers Date of admission: 06/08/18 18:29 Primary care physician: Patient is a 48-year-old man with diabetes mellitus who presented here to [facility] for purulent foot drainage and pain with associated fever and chills. While hospitalized the following treatments and services were provided in his care. Consultation was appreciated by vascular surgery, infectious disease, and podiatry. During hospitalization patient underwent operative management by podiatry with debridements. Infectious disease was consulted for recommendations regarding antibiotic therapy as an outpatient. Vascular surgery was consulted prior to surgical intervention to evaluate for any vascular insufficiency that would affect wound healing and optimal recovery. Vascular surgery did not recommend any invasive procedures at this time. Patient during hospitalization was recommended to continue treatment with IV vancomycin for an additional 2 weeks until completion on July 01, 2018. Patient was also instructed to continue with Diflucan 200 mg daily for 2 weeks until July 01. Patient received a PICC line. Patient was cleared for discharge from infectious disease standpoint. Patient was cleared for discharge from vascular standpoint. During operative procedure on 06/16 patient received a debridement by podiatry. Patient to be cleared by podiatry with the following provisions. Patient is to follow-up within 1 week but with podiatry outpatient in [place]. Dressing is to be left intact without any manipulation. Patient is to maintain nonweightbearing status on affected limb until evaluated by podiatry for consideration of advancement at that point. Consults: 06/10/18 08:19 Consult to Vascular Surgery Routine Consulting Provider: Jin Quach Preferred Case Making Machine Operator:: Jin Quach Reason for Consultation: Chronic wounds BL foot and ankle, Eval for PVD Notified:: Physician Spoke with:: Dr Quach Date Notified:: 06/10/18 Time Notified:: 08:32 Ordering Provider: RAYO 06/12/18 11:07 Consult to Infectious Diseases Routine Consulting Provider: Danny Min Reason for Consultation: Bilateral feet expansile ulcerative lesions s/p debridement down to muscle belly Notified:: Service Spoke with:: ROSA Date Notified:: 06/12/18 Time Notified:: 11:19 Ordering Provider: KHANH 06/16/18 10:12 HUB Only Consult Order Routine Consulting Provider: [facility] 06/08/18 18:25 Consult to Podiatry Routine Consulting Provider: Ammon Gold Reason for Consultation: biLateral dm foot wound Notified:: Service Spoke with:: CHRIS Date Notified:: 06/08/18 Time Notified:: 18:45 Ordering Provider: WILEY Consult to Psychiatry Routine Consulting Provider: Kurt Storm Reason for Consultation: Per family report, patient has been intentionally infecting his feet to get readmitted Notified:: Office Spoke with:: GRANT Date Notified:: 06/08/18 Time Notified:: 19:27 Ordering Provider: WILEY Brief History from admission: 48-year-old male with a history of CHF status post AICD and pacemaker, hypertension, denies history of diabetes but takes metformin, who says he walked 20 Miles after getting in a verbal argument with his , was admitted to [facility] and discharged 4 days ago. Presents to our hospital due to purulent drainage from bilateral feet, and he reports several day worsening of chronic vague pain in bilateral feet. He reports chills but no measured fevers. He denies any chest pain or shortness of breath. Denies any history of exertional chest pain. Patient says he was able to walk 20 miles with only several breaks. DS: Summary Patient is a pleasant 84-year-old male with past medical history of type 2 diabetes, COPD, alpha-1 antitrypsin deficiency, and history of tobacco use who presented with complaints of weakness and shortness of breath. At presentation patient was found to have hemoglobin of 5.6 for which she was transfused packed red blood cells and admitted with the following treatments and services provided. Consultation was appreciated by gastroenterology service. Patient underwent endoscopy procedure which did not show any active source of bleeding but did note a 1 mm erosion in the distal esophagus with some old blood and some food material in the second portion but otherwise no findings acute. Patient hemoglobin was monitored during hospitalization with stabilization of blood counts. Patient clinically improved with symptoms of weakness and was able to ambulate without restriction. Patient was cleared for discharge from gastroenterology service with plan outpatient follow-up for consideration of repeat endoscopy in 2-3 weeks post discharge. Patient is clear from medical perspective otherwise. Patient was recently started on Symbicort given history of COPD. Patient to follow-up with primary medical physician as an outpatient. Patient also recommended to follow-up with his block captain on outpatient side as scheduled by patient. Time Spent with Patient Total time spent providing and/or coordinating discharge services: > 30 min Patient is a pleasant 84-year-old male with past medical history of type 2 diabetes, COPD, alpha-1 antitrypsin deficiency, and history of tobacco use who presented with complaints of weakness and shortness of breath. At presentation patient was found to have hemoglobin of 5.6 for which she was transfused packed red blood cells and admitted with the following treatments and services provided. Consultation was appreciated by gastroenterology service. Patient underwent endoscopy procedure which did not show any active source of bleeding but did note a 1 mm erosion in the distal esophagus with some old blood and some food material in the second portion but otherwise no findings acute. Patient hemoglobin was monitored during hospitalization with stabilization of blood counts. Patient clinically improved with symptoms of weakness and was able to ambulate without restriction. Patient was cleared for discharge from gastroenterology service with plan outpatient follow-up for consideration of repeat endoscopy in 2-3 weeks post discharge. Patient is clear from medical perspective otherwise. Patient was recently started on Symbicort given history of COPD. Patient to follow-up with primary medical physician as an outpatient. Patient also recommended to follow-up with his block captain on outpatient side as scheduled by patient. Quality: VTE Deep Vein Thrombosis/Pulmonary Embolism Present on Admission: No Results Labs on day of discharge: Labs from last 24 hours 06/17/18 06/17/18 06/17/18 11:21 07:58 04:13 WBC RBC Hgb Hct MCV MCH MCHC RDW Plt Count MPV Neut % (Auto) Lymph % (Auto) [place] % (Auto) Eos % (Auto) Baso % (Auto) Neut # (Auto) Lymph # (Auto) [place] # (Auto) Eos # (Auto) Baso # (Auto) WBC Differential Differential Comment Sodium 138 Potassium 4.3 Chloride 104 Carbon Dioxide 25.4 Anion Gap 9 BUN 16 Creatinine 1.20 Estimated GFR 65 L POC Glucose 248 H 285 H Random Glucose 238 H Calcium 8.4 L Vancomycin Trough 06/17/18 06/16/18 06/16/18 04:13 20:53 18:31 WBC 7.4 RBC 3.60 L Hgb 9.8 L Hct 29.5 L MCV 82.0 MCH 27.3 MCHC 33.4 RDW 17.0 Plt Count 519 H MPV 7.5 Neut % (Auto) 90.1 H Lymph % (Auto) 7.8 L [place] % (Auto) 1.6 Eos % (Auto) 0.0 Baso % (Auto) 0.5 Neut # (Auto) 6.7 Lymph # (Auto) 0.6 L [place] # (Auto) 0.1 Eos # (Auto) 0.0 Baso # (Auto) 0.0 WBC Differential . Differential Comment Auto diff final Sodium Potassium Chloride Carbon Dioxide Anion Gap BUN Creatinine Estimated GFR POC Glucose 220 H Random Glucose Calcium Vancomycin Trough 10.8 H Preliminary micro results at discharge 06/10/18 07:45 Fungal Culture - Preliminary Wound - Ankle No growth in 1 week 06/10/18 07:45 Mycobacterial Culture - Preliminary Other No growth in 1 week 06/10/18 07:45 Mycobacterial Culture - Preliminary Other No growth in 1 week 06/10/18 07:45 Fungal Culture - Preliminary Other Ewa tropicalis Impressions ITS Impressions Chest X-Ray 06/08/18 16:16 CONCLUSION: No acute intrathoracic disease. Stable examination. Foot X-Ray 06/08/18 16:43 CONCLUSION: Intact bony structures without destructive changes to suggest osteomyelitis. Persistent radiopaque foreign body between the first and second metatarsals. Ankle CT 06/09/18 00:00 CONCLUSION: 1. Superficial ulcerations around the left ankle without drainable abscess or sinus tract identified. No bony destructive changes. No fracture or dislocation. Foot CT 06/09/18 00:00 CONCLUSION: 1. Linear radiopaque foreign body in soft tissue between first and second metatarsals measuring 1.8 cm in length without surrounding fluid or mass identified. Aorta w/Runoff CTA 06/12/18 07:52 CONCLUSION: 1. Diffuse arterial atherosclerotic disease without significant flow-limiting aortic, iliac or femoral stenosis. 2. Diffuse atherosclerotic calcifications involving the runoff vessels with limited three-vessel runoff bilaterally. 3. Small fat-containing bilateral inguinal hernias. Discharge Plan Discharge Disposition Patient Disposition: 03 Discharge to SNF Discharge Condition Condition: Stable Discharge Order Discharge Orders: Discharge Order (Routine); Ordered 06/17/18 Ordered By: Azael Darling ED Use Only Admit Order (Routine); Ordered 06/08/18 Ordered By: Raquel Noonan Discharge Details Anticipated Discharge Date: 06/17/18 Discharge Comment: keep dressing clean dry and intact untill f/u with podiatry Diagnosis: Diabetic infection of left foot, Diabetic infection of right foot Physicians Team ED Provider: Raquel Noonan Primary Care Provider: Primary Care Nga Mckenzie Attending Provider: Azael Darling Other Providers: Ammon Gold ; Kurt Storm ; Jin Quach ; Danny Min ; [facility] Rxs /Orders / Referrals /Forms Prescriptions: New lisinopril 20 mg Tablet 40 mg PO DAILY 30 Days Qty: 60 RF: 0 vancomycin in 0.9 % sodium chl 1.25 gram/150 mL solution 1.25 g IV.SIG Q24H 14 Days Qty: 2100 RF: 0 metronidazole 500 mg Tablet 500 mg PO Q8HR 14 Days Qty: 84 RF: 0 fluconazole 200 mg Tablet 200 mg PO DAILY 14 Days Qty: 14 RF: 0 metoprolol tartrate 25 mg Tablet 25 mg PO BID 30 Days Qty: 60 RF: 0 Continue furosemide [Lasix] 40 mg Tablet 40 mg PO DAILY RF: 0 metformin 1,000 mg Tablet 1,000 mg PO DAILY RF: 0 Discontinued lisinopril 20 mg Tablet 20 mg PO DAILY RF: 0 lisinopril 30 mg tablet 30 mg PO DAILY Qty: 30 RF: 0 Referrals: Primary Care Nga Mckenzie [Primary Care Provider] - See Instructions Danny Min MD [Physician] - See Instructions (follow up 7-14 days please contact for recommendations regarding antibiotics if needed. ) Ammon Gold, DPM [Physician] - See Instructions (f/u 1 week post discharge DO NOT change dressing until followed up by podiatry outpatient keep dressing clean dry and intact untill f/u ) Discharge Instructions Patient Printed Instructions: Foot Care for People with Diabetes (DC), Incision and Drainage (DC) Additional Instructions: keep dressing clean dry and intact untill f/u with podiatry Discharge Interventions Interventions: Discharge Planning - Case Management Last Done: 06/09/18 11:17 Status ED Status: Left Department
[2018-06-17 15:42] VITALS: BP 132/70; PULSE 64; RESP 18; O2SAT 97
[2018-06-17] MEDS ORDERED: Heparin Central Flush 100 UNIT/ML 5 ML Vial IV.FLUSH PRN (17:10)
[2018-06-17] MEDS ORDERED: [UNRECOGNIZED DRUG - REMARK] OTHER ONE (17:45)
[2018-06-18] MEDS ORDERED: Heparin Central Flush 100 UNIT/ML 5 ML Vial IV.FLUSH SCH (09:00)
== END 2018-06-17 18:33 | DRG 623 ==
LOC: PHED 15:39 → PHEDA 18:29 → PH3 20:16 → NEPFCDU 06-11 22:40 → N07 06-16 12:42
PROVIDERS: ADMIT Internal Medicine; ATTEND Internal Medicine
DX: Z79.84 Long term (current) use of oral hypoglycemic drugs; R53.1 Weakness; Z95.0 Presence of cardiac pacemaker; L03.116 Cellulitis of left lower limb; L97.329 Non-pressure chronic ulcer of left ankle with unspecified severity; L97.529 Non-pressure chronic ulcer of other part of left foot with unspecified severity; E11.42 Type 2 diabetes mellitus with diabetic polyneuropathy; S90.821A Blister (nonthermal), right foot, initial encounter; B95.1 Streptococcus, group B, as the cause of diseases classified elsewhere; J44.9 Chronic obstructive pulmonary disease, unspecified; L03.115 Cellulitis of right lower limb; F41.9 Anxiety disorder, unspecified; N17.9 Acute kidney failure, unspecified; Z95.5 Presence of coronary angioplasty implant and graft; E11.51 Type 2 diabetes mellitus with diabetic peripheral angiopathy without gangrene; Y93.01 Activity, walking, marching and hiking; L97.519 Non-pressure chronic ulcer of other part of right foot with unspecified severity; L97.413 Non-pressure chronic ulcer of right heel and midfoot with necrosis of muscle; I25.5 Ischemic cardiomyopathy; Z95.810 Presence of automatic (implantable) cardiac defibrillator; Z88.0 Allergy status to penicillin; E11.621 Type 2 diabetes mellitus with foot ulcer; S90.822A Blister (nonthermal), left foot, initial encounter; I50.22 Chronic systolic (congestive) heart failure; I11.0 Hypertensive heart disease with heart failure; E11.622 Type 2 diabetes mellitus with other skin ulcer; L97.419 Non-pressure chronic ulcer of right heel and midfoot with unspecified severity; D50.9 Iron deficiency anemia, unspecified; L97.423 Non-pressure chronic ulcer of left heel and midfoot with necrosis of muscle; M79.5 Residual foreign body in soft tissue; E87.6 Hypokalemia; Z91.5 Personal history of self-harm; F43.25 Adjustment disorder with mixed disturbance of emotions and conduct; B95.2 Enterococcus as the cause of diseases classified elsewhere; B95.61 Methicillin susceptible Staphylococcus aureus infection as the cause of diseases classified elsewhere
CPT/HCPCS: 36569; 71010; 71045; 73630; 73700; 75635; 76937; 80048; 80053; 80069; 80076; 80202; 80307; 81001; 82565; 82607; 82728; 82948; 82962; 83036; 83540; 83550; 83605; 83690; 83735; 85018; 85025; 85044; 85651; 85652; 86403; 87015; 87040; 87070; 87077; 87102; 87106; 87116; 87147; 87186; 87205; 87206; 90765; 90767; 90775; 93005; 96365; 96367; 96375; 97110; 97161; 97164; 97530; 99285; J0131; J0743; J0780; J1644; J1815; J1956; J2405; J3010; J3370; J7030; J7050; J7120; J8501; Q4148; Q9967

== ENCOUNTER 2018-08-01 03:18 | Inpatient (IN) ==
[2018-08-01] MEDS ORDERED: Ketorolac Inj 30 MG/ML (IVP) Vial IV.PUSH ONE (04:29)
[2018-08-01 04:45] LABS: Baso # (Auto) 0.1 th/mm3 (0.0-0.2); Baso % (Auto) 0.6 % (0.0-2.0); Eos % (Auto) 0.1 % (0.0-4.0); Hematocrit 33.2 % (39.0-51.0); Hemoglobin 11.1 gm/dL (13.0-17.0); Lymph # (Auto) 0.8 th/mm3 (1.0-4.8); Lymph % (Auto) 5.5 % (9.0-44.0); Mean Corpuscular HGB Conc 33.4 % (32.0-36.0); Mean Corpuscular Volume 80.7 fL (80.0-100.0); Mean Platelet Volume 8.1 fL (7.0-11.0); Mono # (Auto) 0.8 th/mm3 (0.0-0.9); Mono % (Auto) 5.8 % (0.0-8.0); Neut # (Auto) 12.5 th/mm3 (1.8-7.7); Platelet Count 441 th/mm3 (150-450); Red Blood Count 4.12 mil/mm3 (4.50-5.90); White Blood Count 14.2 th/mm3 (4.0-11.0)
[2018-08-01 05:13] LABS: Alanine Aminotransferase 15 U/L (12-78); Albumin 3.6 g/dL (3.4-5.0); Alkaline Phosphatase 139 U/L (45-117); Anion Gap 12 meq/L (5-15); Aspartate Aminotransferase 27 U/L (15-37); Blood Urea Nitrogen 23 mg/dL (7-18); Calcium 8.6 mg/dL (8.5-10.1); Carbon Dioxide 27.4 meq/L (21.0-32.0); Chloride 97 meq/L (98-107); Glomerular Filtration Rate 46 mL/min (>89); Glucose,Random 183 mg/dL (74-106); Sodium 136 meq/L (136-145); Troponin I 0.03 ng/mL (0.02-0.05)
[2018-08-01 05:21] LABS: Potassium 2.7 meq/L (3.5-5.1)
--- NOTE | 2018-08-01 05:28 | XR ---
EXAM DATE: 08/01/2018 4:51 AM EST AGE/SEX: 48 years / Male INDICATIONS: Chest pain. CLINICAL DATA: This is the patient's initial encounter. Patient reports that signs and symptoms have been present for 3 days and indicates a pain score of 9/10. MEDICAL/SURGICAL HISTORY: Congestive heart failure. Defibrillator. Pacemaker. COMPARISON: HPO, CHEST 1V SINGLE AP, 06/08/2018. . FINDINGS: A single AP view of the chest demonstrates the lungs to be symmetrically aerated without evidence of mass, infiltrate or effusion. Pleural scarring blunts the right costophrenic angle. This is stable. T he cardiomediastinal contours are unremarkable. Osseous structures are intact. Dual-lead pacing filipe ce overlies left chest. CONCLUSION: No acute cardiopulmonary disease. Electronically signed by: Delfino Burnette MD Board Certified Radiologist 08/01/2018 5:26 AM EST
[2018-08-01] MEDS ORDERED: Potassium Chlor 20 mEq Premix 20 MEQ/100 ML PIGGYBACK IV.SIG ONE (05:35)
--- NOTE | 2018-08-01 06:37 | CT ---
EXAM DATE: 08/01/2018 5:51 AM EST AGE/SEX: 48 years / Male INDICATIONS: Chest pressure. CLINICAL DATA: This is the patient's initial encounter. Patient reports that signs and symptoms have been present for 1 day and indicates a pain score of 5/10. MEDICAL/SURGICAL HISTORY: Congestive heart failure. Diabetes. Pacemaker. Coronary artery stent. RADIATION DOSE: 14.00 CTDI (mGy) COMPARISON: No prior exams available for comparison. TECHNIQUE: Volumetric scanning was performed using a multi-row detector CT scanner during bolus infu cheryl of 74 ml Omnipaque 350 (iohexol) nonionic water-soluble contrast as a single exam dose. The john a was post processed with a variety of visualization algorithms including full volume maximum intensi ty projection and sliding thin slab reformation. Using automated exposure control and adjustment of t he mA and/or kV according to patient size, radiation dose was kept as low as reasonably achievable to obtain optimal diagnostic quality images. DICOM format image data is available electronically for r eview and comparison. FINDINGS: Pulmonary Arteries: No filling defects are seen in the pulmonary arteries out to the subsegmental ve ssels. The left and right pulmonary arteries are normal in diameter. Lung: Linear atelectasis within the dependent portion of the right lower lobe. Mild cylindrical bron chiectasis involving the basilar segments of the right lower lobe.. Effusion: A tiny right effusion. No effusion on the left.. Mediastinum: Diffuse circumferential wall thickening involving the thoracic esophagus. Heart is leonela l in size. Coronary artery atherosclerotic calcifications are noted. No evidence of mediastinal or hi lar adenopathy. Other: The axilla is unremarkable. CONCLUSION: 1. No pulmonary emboli. 2. Circumferential wall thickening throughout the thoracic esophagus suggesting esophagitis or less likely infiltrating mass. 3. Bronchiectasis within the basilar segments of the right lower lobe raising concern for chronic as piration. Electronically signed by: Delfino Burnette MD Board Certified Radiologist 08/01/2018 6:36 AM EST
[2018-08-01] MEDS ORDERED: Acetaminophen 325 MG Tablet PO PRN (06:47)
[2018-08-01] MEDS ORDERED: Bisacodyl 10 MG Supp RECTAL PRN (06:47)
[2018-08-01] MEDS ORDERED: Dextrose 50% in Water 50 ML Vial IV.PUSH PRN (06:49)
[2018-08-01] MEDS ORDERED: Sod Chloride 0.9% Inj 1,000 ML IV.CONT SCH (07:00)
--- NOTE | 2018-08-01 07:13 | ED ---
HPI General Chief Complaint: Chest Pain Stated Complaint: Medical Time Seen by Provider: 08/01/18 03:53 Source: patient Mode of arrival: EMS Limitations: no limitations History of Present Illness HPI narrative: 48-year-old male came to the emergency room brought in by EMS with chief complaint of substernal chest pain. Patient appeared to be uncomfortable. Says that he has been getting the substernal chest pain for past couple days and has been continuous. He does have cardiac history. He is also a diabetic and has been noncompliant with his medications since he does not have insurance or money to buy these medications. Patient was recently discharged from the hospital after multiple toe amputations secondary to diabetic foot wound. He still has bandages wrapped on both feet. Vital signs were relatively stable. He appears disheveled. He comes from home but does not seem like he is been taking care of himself very well. Patient denies smoking or drinking alcohol. No aggravating or relieving symptoms of the pain. Patient has history of coronary artery disease with 3 stents in the past. 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 Patient says that the last time he had seen a gasket inspector was 2 years back. He has a pacemaker. Related Data Home Medications Medication Instructions Recorded Confirmed furosemide [Lasix] 40 mg PO DAILY 04/20/18 08/01/18 metformin 1,000 mg PO DAILY 06/08/18 08/01/18 lisinopril 40 mg PO DAILY 07/28/18 08/01/18 Saccharomyces boulardii 250 mg PO BID 08/01/18 08/01/18 silver sulfadiazine 1 applic TOPICAL DAILY 08/01/18 08/01/18 simethicone 80 mg PO BID 08/01/18 08/01/18 Previous Rx's Medication Instructions Recorded metronidazole 500 mg PO Q8HR #30 tab 07/31/18 nifedipine 60 mg PO DAILY #30 tab 07/31/18 potassium chloride 20 meq PO DAILY #30 each 07/31/18 labetalol 200 mg PO BID #60 tab 08/04/18 pantoprazole 40 mg PO BID #60 tab 08/04/18 Allergies Allergy/AdvReac Type Severity Reaction Status Date / Time monosodium glutamate Allergy Severe Headache Verified 06/08/18 15:46 penicillin G Allergy Intermediate SWELLING Verified 06/08/18 15:46 diazepam AdvReac Unknown ANXIETY Verified 06/08/18 15:46 ARTICIFICAL SWEETNER Allergy Severe Headache Uncoded 06/08/18 15:46 Review of Systems ROS: all other systems reviewed are negative [facility] Medical History Medical History CHF (congestive heart failure) (Acute) Diabetes (Acute) FH: cholecystectomy (Acute) History of Clostridium difficile infection (Acute) Hypertension (Acute) Pacemaker (Acute) Surgical History Surgical History History of landy hole surgery (Acute) History of heart artery stent (Acute) History of surgery of head (Acute) S/P debridement (Acute) Family History Family History Mother Brain cancer Father Lung cancer Social History Social History Substance History: No History of Abuse Second Hand Smoke Exposure: No Smoking Status: Former smoker Tobacco Type: Cigarettes How Often Do You Have a Drink Containing Alcohol: Never Recent Travel in [facility] within the Last 8 Weeks: No Recent Out of Country Travel within the Last 8 Weeks: No Immunization History Tetanus Immunization: >5 Years Exam Narrative Exam Narrative: GENERAL: Awake, alert, anxious, moderate distress, disheveled, SKIN: Focused skin assessment warm/dry. HEAD: Atraumatic. Normocephalic. EYES: Pupils equal and round. No scleral icterus. No injection or drainage. ENT: No nasal bleeding or discharge. Mucous membranes pink and moist. NECK: Trachea midline. No JVD. CARDIOVASCULAR: Regular rate and rhythm. No murmur appreciated. RESPIRATORY: No accessory muscle use. Clear to auscultation. Breath sounds equal bilaterally. GASTROINTESTINAL: Abdomen soft, non-tender, nondistended. Hepatic and splenic margins not palpable. MUSCULOSKELETAL: No obvious deformities. No clubbing. No cyanosis. No edema. Bilateral feet wrapped in bandages with multiple toe amputation. The bandages do not appear to be soaked. No foul-smelling just NEUROLOGICAL: Awake and alert. No obvious cranial nerve deficits. Motor grossly within normal limits. Normal speech. PSYCHIATRIC: Appropriate mood and affect; insight and judgment normal. Course Initial Documented Vital Signs Temperature 98.7 F 08/01/18 04:07 Pulse Rate 102 H 08/01/18 04:07 Respiratory Rate 28 H 08/01/18 04:07 Blood Pressure 169/93 H 08/01/18 04:07 Pulse Oximetry 100 08/01/18 04:07 Last Documented Vital Signs Temperature 97.5 F L 08/04/18 04:00 Pulse Rate 63 08/04/18 16:00 Respiratory Rate 18 08/04/18 04:00 Blood Pressure 131/76 08/04/18 04:00 Pulse Oximetry 98 08/04/18 04:00 Critical Care Time Critical Care Time: Yes Total Critical Care Time: 30 Attestation: Aggregate critical care time was 30 minutes. Time to perform other separately billable procedures was not included in the critical care time. My time did not include minutes spent treating any other patients simultaneously or on activities that did not directly contribute to the patient's treatment. The services I provided to this patient were to treat and/or prevent clinically significant deterioration that could result in: Hypokalemia, IV and p.o. potassium replacement I provided critical care services requiring my management, as noted below: Chart data review, documentation time, medication orders and management, vital sign assessments/reviewing monitor data, ordering and reviewing lab tests, ordering and interpreting/reviewing x-rays and diagnostic studies, care of the patient and discussion of the patient with the admitting physicians. Medical Decision Making MDM Narrative Medical decision making narrative: 7:11 AM blood test results reveal hypokalemia. Have ordered for p.o. and IV potassium replacement. There was a CTA pulmonary angiogram ordered which shows thickened esophagus which could be secondary to candidal esophagitis given the fact that patient is a noncompliant diabetic. He does have cardiac history and 2-3 stents put in in the past. I decided to admit him. Case was discussed with the hospitalist was accepted the patient. Medical Screen Exam Complete: Yes Emergency Medical Condition: Yes Lab Data Result diagrams: 08/02/18 06:30 08/04/18 14:10 Lab Results 08/01/18 08/01/18 08/01/18 Range/Units 04:35 04:35 05:26 WBC 14.2 H (4.0-11.0) th/mm3 RBC 4.12 L (4.50-5.90) mil/mm3 Hgb 11.1 L (13.0-17.0) gm/dL Hct 33.2 L (39.0-51.0) % MCV 80.7 (80.0-100.0) fL MCH 27.0 (27.0-34.0) pg MCHC 33.4 (32.0-36.0) % RDW 18.0 H (11.6-17.2) % Plt Count 441 D (150-450) th/mm3 MPV 8.1 (7.0-11.0) fL Neut % (Auto) 88.0 H (16.0-70.0) % Lymph % (Auto) 5.5 L (9.0-44.0) % [place] % (Auto) 5.8 (0.0-8.0) % Eos % (Auto) 0.1 (0.0-4.0) % Baso % (Auto) 0.6 (0.0-2.0) % Neut # (Auto) 12.5 H (1.8-7.7) th/mm3 Lymph # (Auto) 0.8 L (1.0-4.8) th/mm3 [place] # (Auto) 0.8 (0.0-0.9) th/mm3 Eos # (Auto) 0.0 (0.0-0.4) th/mm3 Baso # (Auto) 0.1 (0.0-0.2) th/mm3 WBC Differential . Differential Comment Auto diff final Sodium 136 (136-145) meq/L Potassium 2.7 L* (3.5-5.1) meq/L Chloride 97 L (98-107) meq/L Carbon Dioxide 27.4 (21.0-32.0) meq/L Anion Gap 12 (5-15) meq/L BUN 23 H (7-18) mg/dL Creatinine 1.62 H (0.60-1.30) mg/dL Estimated GFR 46 L (>89) mL/min POC Glucose (68-110) mg/dl Random Glucose 183 H (74-106) mg/dL Lactic Acid 0.8 (0.4-2.0) mmol/L Calcium 8.6 (8.5-10.1) mg/dL Calcium Adj for Albumin (8.5-10.1) mg/dL Magnesium (1.5-2.5) mg/dL Total Bilirubin 0.4 (0.2-1.0) mg/dL AST 27 (15-37) U/L ALT 15 (12-78) U/L Alkaline Phosphatase 139 H (45-117) U/L Troponin I 0.03 (0.02-0.05) ng/mL Total Protein 9.0 H D (6.4-8.2) g/dL Albumin 3.6 D (3.4-5.0) g/dL Hepatitis A IgM Ab (Nonreactive) Hep Bs Antigen (Nonreactive) Hep B Core IgM Ab (Nonreactive) Hep C IgG Ab (Nonreactive) 08/01/18 08/01/18 08/01/18 Range/Units 08:10 10:35 10:35 WBC (4.0-11.0) th/mm3 RBC (4.50-5.90) mil/mm3 Hgb (13.0-17.0) gm/dL Hct (39.0-51.0) % MCV (80.0-100.0) fL MCH (27.0-34.0) pg MCHC (32.0-36.0) % RDW (11.6-17.2) % Plt Count (150-450) th/mm3 MPV (7.0-11.0) fL Neut % (Auto) (16.0-70.0) % Lymph % (Auto) (9.0-44.0) % [place] % (Auto) (0.0-8.0) % Eos % (Auto) (0.0-4.0) % Baso % (Auto) (0.0-2.0) % Neut # (Auto) (1.8-7.7) th/mm3 Lymph # (Auto) (1.0-4.8) th/mm3 [place] # (Auto) (0.0-0.9) th/mm3 Eos # (Auto) (0.0-0.4) th/mm3 Baso # (Auto) (0.0-0.2) th/mm3 WBC Differential Differential Comment Sodium (136-145) meq/L Potassium 3.0 L (3.5-5.1) meq/L Chloride (98-107) meq/L Carbon Dioxide (21.0-32.0) meq/L Anion Gap (5-15) meq/L BUN (7-18) mg/dL Creatinine (0.60-1.30) mg/dL Estimated GFR (>89) mL/min POC Glucose 192 H (68-110) mg/dl Random Glucose (74-106) mg/dL Lactic Acid (0.4-2.0) mmol/L Calcium (8.5-10.1) mg/dL Calcium Adj for Albumin (8.5-10.1) mg/dL Magnesium (1.5-2.5) mg/dL Total Bilirubin (0.2-1.0) mg/dL AST (15-37) U/L ALT (12-78) U/L Alkaline Phosphatase (45-117) U/L Troponin I 0.03 (0.02-0.05) ng/mL Total Protein (6.4-8.2) g/dL Albumin (3.4-5.0) g/dL Hepatitis A IgM Ab (Nonreactive) Hep Bs Antigen (Nonreactive) Hep B Core IgM Ab (Nonreactive) Hep C IgG Ab (Nonreactive) 08/01/18 08/01/18 08/01/18 Range/Units 12:44 17:27 17:40 WBC (4.0-11.0) th/mm3 RBC (4.50-5.90) mil/mm3 Hgb (13.0-17.0) gm/dL Hct (39.0-51.0) % MCV (80.0-100.0) fL MCH (27.0-34.0) pg MCHC (32.0-36.0) % RDW (11.6-17.2) % Plt Count (150-450) th/mm3 MPV (7.0-11.0) fL Neut % (Auto) (16.0-70.0) % Lymph % (Auto) (9.0-44.0) % [place] % (Auto) (0.0-8.0) % Eos % (Auto) (0.0-4.0) % Baso % (Auto) (0.0-2.0) % Neut # (Auto) (1.8-7.7) th/mm3 Lymph # (Auto) (1.0-4.8) th/mm3 [place] # (Auto) (0.0-0.9) th/mm3 Eos # (Auto) (0.0-0.4) th/mm3 Baso # (Auto) (0.0-0.2) th/mm3 WBC Differential Differential Comment Sodium (136-145) meq/L Potassium (3.5-5.1) meq/L Chloride (98-107) meq/L Carbon Dioxide (21.0-32.0) meq/L Anion Gap (5-15) meq/L BUN (7-18) mg/dL Creatinine (0.60-1.30) mg/dL Estimated GFR (>89) mL/min POC Glucose 152 H 186 H (68-110) mg/dl Random Glucose (74-106) mg/dL Lactic Acid (0.4-2.0) mmol/L Calcium (8.5-10.1) mg/dL Calcium Adj for Albumin (8.5-10.1) mg/dL Magnesium (1.5-2.5) mg/dL Total Bilirubin (0.2-1.0) mg/dL AST (15-37) U/L ALT (12-78) U/L Alkaline Phosphatase (45-117) U/L Troponin I (0.02-0.05) ng/mL Total Protein (6.4-8.2) g/dL Albumin (3.4-5.0) g/dL Hepatitis A IgM Ab Nonreactive (Nonreactive) Hep Bs Antigen Nonreactive (Nonreactive) Hep B Core IgM Ab Nonreactive (Nonreactive) Hep C IgG Ab Nonreactive (Nonreactive) 08/01/18 08/01/18 08/02/18 Range/Units 17:40 21:30 06:30 WBC 9.0 (4.0-11.0) th/mm3 RBC 3.50 L (4.50-5.90) mil/mm3 Hgb 9.5 L (13.0-17.0) gm/dL Hct 28.7 L (39.0-51.0) % MCV 82.0 (80.0-100.0) fL MCH 27.2 (27.0-34.0) pg MCHC 33.2 (32.0-36.0) % RDW 17.2 (11.6-17.2) % Plt Count 305 D (150-450) th/mm3 MPV 8.3 (7.0-11.0) fL Neut % (Auto) 81.6 H (16.0-70.0) % Lymph % (Auto) 10.5 (9.0-44.0) % [place] % (Auto) 7.4 (0.0-8.0) % Eos % (Auto) 0.1 (0.0-4.0) % Baso % (Auto) 0.4 (0.0-2.0) % Neut # (Auto) 7.4 (1.8-7.7) th/mm3 Lymph # (Auto) 0.9 L (1.0-4.8) th/mm3 [place] # (Auto) 0.7 (0.0-0.9) th/mm3 Eos # (Auto) 0.0 (0.0-0.4) th/mm3 Baso # (Auto) 0.0 (0.0-0.2) th/mm3 WBC Differential . Differential Comment Auto diff final Sodium 137 (136-145) meq/L Potassium 3.7 (3.5-5.1) meq/L Chloride 102 (98-107) meq/L Carbon Dioxide 24.1 (21.0-32.0) meq/L Anion Gap 11 (5-15) meq/L BUN 25 H (7-18) mg/dL Creatinine 1.59 H (0.60-1.30) mg/dL Estimated GFR 47 L (>89) mL/min POC Glucose 195 H (68-110) mg/dl Random Glucose 165 H (74-106) mg/dL Lactic Acid (0.4-2.0) mmol/L Calcium 7.9 L (8.5-10.1) mg/dL Calcium Adj for Albumin (8.5-10.1) mg/dL Magnesium 1.8 (1.5-2.5) mg/dL Total Bilirubin (0.2-1.0) mg/dL AST (15-37) U/L ALT (12-78) U/L Alkaline Phosphatase (45-117) U/L Troponin I 0.04 (0.02-0.05) ng/mL Total Protein (6.4-8.2) g/dL Albumin (3.4-5.0) g/dL Hepatitis A IgM Ab (Nonreactive) Hep Bs Antigen (Nonreactive) Hep B Core IgM Ab (Nonreactive) Hep C IgG Ab (Nonreactive) 08/02/18 08/02/18 08/02/18 Range/Units 06:30 08:42 12:06 WBC (4.0-11.0) th/mm3 RBC (4.50-5.90) mil/mm3 Hgb (13.0-17.0) gm/dL Hct (39.0-51.0) % MCV (80.0-100.0) fL MCH (27.0-34.0) pg MCHC (32.0-36.0) % RDW (11.6-17.2) % Plt Count (150-450) th/mm3 MPV (7.0-11.0) fL Neut % (Auto) (16.0-70.0) % Lymph % (Auto) (9.0-44.0) % [place] % (Auto) (0.0-8.0) % Eos % (Auto) (0.0-4.0) % Baso % (Auto) (0.0-2.0) % Neut # (Auto) (1.8-7.7) th/mm3 Lymph # (Auto) (1.0-4.8) th/mm3 [place] # (Auto) (0.0-0.9) th/mm3 Eos # (Auto) (0.0-0.4) th/mm3 Baso # (Auto) (0.0-0.2) th/mm3 WBC Differential Differential Comment Sodium 139 (136-145) meq/L Potassium 3.0 L (3.5-5.1) meq/L Chloride 103 (98-107) meq/L Carbon Dioxide 23.6 (21.0-32.0) meq/L Anion Gap 12 (5-15) meq/L BUN 25 H (7-18) mg/dL Creatinine 1.66 H (0.60-1.30) mg/dL Estimated GFR 45 L (>89) mL/min POC Glucose 137 H 156 H (68-110) mg/dl Random Glucose 111 H (74-106) mg/dL Lactic Acid (0.4-2.0) mmol/L Calcium 8.2 L (8.5-10.1) mg/dL Calcium Adj for Albumin (8.5-10.1) mg/dL Magnesium (1.5-2.5) mg/dL Total Bilirubin 0.3 (0.2-1.0) mg/dL AST 19 (15-37) U/L ALT 15 (12-78) U/L Alkaline Phosphatase 101 (45-117) U/L Troponin I (0.02-0.05) ng/mL Total Protein 7.1 D (6.4-8.2) g/dL Albumin 2.7 L D (3.4-5.0) g/dL Hepatitis A IgM Ab (Nonreactive) Hep Bs Antigen (Nonreactive) Hep B Core IgM Ab (Nonreactive) Hep C IgG Ab (Nonreactive) 08/02/18 08/02/18 08/03/18 Range/Units 18:09 20:05 08:00 WBC (4.0-11.0) th/mm3 RBC (4.50-5.90) mil/mm3 Hgb (13.0-17.0) gm/dL Hct (39.0-51.0) % MCV (80.0-100.0) fL MCH (27.0-34.0) pg MCHC (32.0-36.0) % RDW (11.6-17.2) % Plt Count (150-450) th/mm3 MPV (7.0-11.0) fL Neut % (Auto) (16.0-70.0) % Lymph % (Auto) (9.0-44.0) % [place] % (Auto) (0.0-8.0) % Eos % (Auto) (0.0-4.0) % Baso % (Auto) (0.0-2.0) % Neut # (Auto) (1.8-7.7) th/mm3 Lymph # (Auto) (1.0-4.8) th/mm3 [place] # (Auto) (0.0-0.9) th/mm3 Eos # (Auto) (0.0-0.4) th/mm3 Baso # (Auto) (0.0-0.2) th/mm3 WBC Differential Differential Comment Sodium (136-145) meq/L Potassium (3.5-5.1) meq/L Chloride (98-107) meq/L Carbon Dioxide (21.0-32.0) meq/L Anion Gap (5-15) meq/L BUN (7-18) mg/dL Creatinine (0.60-1.30) mg/dL Estimated GFR (>89) mL/min POC Glucose 157 H 159 H 120 H (68-110) mg/dl Random Glucose (74-106) mg/dL Lactic Acid (0.4-2.0) mmol/L Calcium (8.5-10.1) mg/dL Calcium Adj for Albumin (8.5-10.1) mg/dL Magnesium (1.5-2.5) mg/dL Total Bilirubin (0.2-1.0) mg/dL AST (15-37) U/L ALT (12-78) U/L Alkaline Phosphatase (45-117) U/L Troponin I (0.02-0.05) ng/mL Total Protein (6.4-8.2) g/dL Albumin (3.4-5.0) g/dL Hepatitis A IgM Ab (Nonreactive) Hep Bs Antigen (Nonreactive) Hep B Core IgM Ab (Nonreactive) Hep C IgG Ab (Nonreactive) 08/03/18 08/03/18 08/03/18 Range/Units 11:38 16:24 20:06 WBC (4.0-11.0) th/mm3 RBC (4.50-5.90) mil/mm3 Hgb (13.0-17.0) gm/dL Hct (39.0-51.0) % MCV (80.0-100.0) fL MCH (27.0-34.0) pg MCHC (32.0-36.0) % RDW (11.6-17.2) % Plt Count (150-450) th/mm3 MPV (7.0-11.0) fL Neut % (Auto) (16.0-70.0) % Lymph % (Auto) (9.0-44.0) % [place] % (Auto) (0.0-8.0) % Eos % (Auto) (0.0-4.0) % Baso % (Auto) (0.0-2.0) % Neut # (Auto) (1.8-7.7) th/mm3 Lymph # (Auto) (1.0-4.8) th/mm3 [place] # (Auto) (0.0-0.9) th/mm3 Eos # (Auto) (0.0-0.4) th/mm3 Baso # (Auto) (0.0-0.2) th/mm3 WBC Differential Differential Comment Sodium (136-145) meq/L Potassium (3.5-5.1) meq/L Chloride (98-107) meq/L Carbon Dioxide (21.0-32.0) meq/L Anion Gap (5-15) meq/L BUN (7-18) mg/dL Creatinine (0.60-1.30) mg/dL Estimated GFR (>89) mL/min POC Glucose 156 H 217 H 163 H (68-110) mg/dl Random Glucose (74-106) mg/dL Lactic Acid (0.4-2.0) mmol/L Calcium (8.5-10.1) mg/dL Calcium Adj for Albumin (8.5-10.1) mg/dL Magnesium (1.5-2.5) mg/dL Total Bilirubin (0.2-1.0) mg/dL AST (15-37) U/L ALT (12-78) U/L Alkaline Phosphatase (45-117) U/L Troponin I (0.02-0.05) ng/mL Total Protein (6.4-8.2) g/dL Albumin (3.4-5.0) g/dL Hepatitis A IgM Ab (Nonreactive) Hep Bs Antigen (Nonreactive) Hep B Core IgM Ab (Nonreactive) Hep C IgG Ab (Nonreactive) 08/04/18 08/04/18 08/04/18 Range/Units 04:15 04:15 08:43 WBC (4.0-11.0) th/mm3 RBC (4.50-5.90) mil/mm3 Hgb (13.0-17.0) gm/dL Hct (39.0-51.0) % MCV (80.0-100.0) fL MCH (27.0-34.0) pg MCHC (32.0-36.0) % RDW (11.6-17.2) % Plt Count (150-450) th/mm3 MPV (7.0-11.0) fL Neut % (Auto) (16.0-70.0) % Lymph % (Auto) (9.0-44.0) % [place] % (Auto) (0.0-8.0) % Eos % (Auto) (0.0-4.0) % Baso % (Auto) (0.0-2.0) % Neut # (Auto) (1.8-7.7) th/mm3 Lymph # (Auto) (1.0-4.8) th/mm3 [place] # (Auto) (0.0-0.9) th/mm3 Eos # (Auto) (0.0-0.4) th/mm3 Baso # (Auto) (0.0-0.2) th/mm3 WBC Differential Differential Comment Sodium 142 (136-145) meq/L Potassium 2.7 L* (3.5-5.1) meq/L Chloride 104 (98-107) meq/L Carbon Dioxide 28.6 (21.0-32.0) meq/L Anion Gap 9 (5-15) meq/L BUN 22 H (7-18) mg/dL Creatinine 1.72 H (0.60-1.30) mg/dL Estimated GFR 43 L (>89) mL/min POC Glucose 134 H (68-110) mg/dl Random Glucose 112 H (74-106) mg/dL Lactic Acid (0.4-2.0) mmol/L Calcium 7.4 L* D (8.5-10.1) mg/dL Calcium Adj for Albumin 8.5 (8.5-10.1) mg/dL Magnesium 2.0 (1.5-2.5) mg/dL Total Bilirubin (0.2-1.0) mg/dL AST (15-37) U/L ALT (12-78) U/L Alkaline Phosphatase (45-117) U/L Troponin I (0.02-0.05) ng/mL Total Protein (6.4-8.2) g/dL Albumin 2.6 L (3.4-5.0) g/dL Hepatitis A IgM Ab (Nonreactive) Hep Bs Antigen (Nonreactive) Hep B Core IgM Ab (Nonreactive) Hep C IgG Ab (Nonreactive) 08/04/18 08/04/18 08/04/18 Range/Units 12:23 14:10 16:21 WBC (4.0-11.0) th/mm3 RBC (4.50-5.90) mil/mm3 Hgb (13.0-17.0) gm/dL Hct (39.0-51.0) % MCV (80.0-100.0) fL MCH (27.0-34.0) pg MCHC (32.0-36.0) % RDW (11.6-17.2) % Plt Count (150-450) th/mm3 MPV (7.0-11.0) fL Neut % (Auto) (16.0-70.0) % Lymph % (Auto) (9.0-44.0) % [place] % (Auto) (0.0-8.0) % Eos % (Auto) (0.0-4.0) % Baso % (Auto) (0.0-2.0) % Neut # (Auto) (1.8-7.7) th/mm3 Lymph # (Auto) (1.0-4.8) th/mm3 [place] # (Auto) (0.0-0.9) th/mm3 Eos # (Auto) (0.0-0.4) th/mm3 Baso # (Auto) (0.0-0.2) th/mm3 WBC Differential Differential Comment Sodium (136-145) meq/L Potassium 3.8 D (3.5-5.1) meq/L Chloride (98-107) meq/L Carbon Dioxide (21.0-32.0) meq/L Anion Gap (5-15) meq/L BUN (7-18) mg/dL Creatinine (0.60-1.30) mg/dL Estimated GFR (>89) mL/min POC Glucose 168 H 96 (68-110) mg/dl Random Glucose (74-106) mg/dL Lactic Acid (0.4-2.0) mmol/L Calcium (8.5-10.1) mg/dL Calcium Adj for Albumin (8.5-10.1) mg/dL Magnesium (1.5-2.5) mg/dL Total Bilirubin (0.2-1.0) mg/dL AST (15-37) U/L ALT (12-78) U/L Alkaline Phosphatase (45-117) U/L Troponin I (0.02-0.05) ng/mL Total Protein (6.4-8.2) g/dL Albumin (3.4-5.0) g/dL Hepatitis A IgM Ab (Nonreactive) Hep Bs Antigen (Nonreactive) Hep B Core IgM Ab (Nonreactive) Hep C IgG Ab (Nonreactive) Imaging Data Radiologist's impression: Chest X-Ray 08/01/18 04:29 CONCLUSION: No acute cardiopulmonary disease. Chest CTA 08/01/18 04:33 CONCLUSION: 1. No pulmonary emboli. 2. Circumferential wall thickening throughout the thoracic esophagus suggesting esophagitis or less likely infiltrating mass. 3. Bronchiectasis within the basilar segments of the right lower lobe raising concern for chronic aspiration. ECG Data Attestation: I personally reviewed and interpreted this ECG as follows: Interpretation: Twelve-lead EKG is reviewed by me. Paced rhythm. Heart rate of 109 bpm. Discharge Plan Discharge Disposition Patient Disposition: ED Admit(ED Internal Use Only) Discharge Condition Condition: Good Discharge Order Discharge Orders: Discharge Order (Routine); Ordered 08/04/18 Ordered By: Barry Cassidy ED Use Only Admit Order (Routine); Ordered 08/01/18 Ordered By: Jamie Cuevas Discharge Details Anticipated Discharge Date: 08/04/18 Physicians Team ED Provider: Jamie Cuevas Primary Care Provider: Primary Care Magaly,Nga Attending Provider: Barry Cassidy Other Providers: Isaias Alcaraz ; Gold[facility] Sainz ; [facility] ED Status: Left Department Discharge Information Discharge Date/Time: 08/01/18 11:41
[2018-08-01] MEDS: metroNIDAZOLE 500 MG Tablet PO SCH ×3 (08:13→22:02)
[2018-08-01] MEDS: Pantoprazole Inj 40 MG Vial IV.PUSH SCH ×2 (08:14→18:11)
[2018-08-01] MEDS: Insulin NovoLOG Aspart Correctional Sugar Inj SQ SCH ×4 (09:31→22:03)
--- NOTE | 2018-08-01 10:05 | P.CONGI ---
History of Present Illness Consult date: 08/01/18 Requesting physician: Yoselin Sam Chief complaint: cHEST PAIN, RULE OUT acs, ESPOHAGITIS, HYPOKALEMIA History of Present Illness: 48-year-old male with history of coronary artery disease with stents and pacemaker and uncontrolled diabetes presented to ER complaining of substernal chest pain and dysphagia times 3 days. He reports pain and difficulty with swallowing solids and liquids times 3 days. He reports nausea but no vomiting. Initial ER workup significant for mild anemia 11.1/33.2, elevated WBC 14.2 and hypokalemia 2.7. 12-lead EKG with paced rhythm and heart rate of 109 bpm. Chest CTA revealed no pulmonary emboli but circumferential wall thickening throughout the thoracic esophagus suggesting esophagitis or less likely infiltrating mass. Also bronchiectasis within the basilar segments of the right lower lobe raising concern for chronic aspiration. Patient states he has had no previous EGD. He does have a history of heartburn and acid reflux, does not take medication. No history prior to this of dysphagia/odynophagia. Denies any recent change in bowels. Has 2-3 loose stools daily. Denies constipation. Denies abdominal cramps or urgency. Denies rectal bleeding or melena. Denies regular use of aspirin or NSAIDs. Other abnormal lab findings include elevated alkaline phosphatase 139. Normal bili and transaminases. <Nikole Cho - Last Filed: 08/01/18 10:11> PMFSH - History History Provided By: Patient - Medical History Medical History: Medical History (Last Reviewed 08/01/18 @ 07:10 by Jamie Cuevas MD) CHF (congestive heart failure) Diabetes FH: cholecystectomy History of Clostridium difficile infection Hypertension Pacemaker - Surgical History Surgical History: Surgical History (Last Reviewed 08/01/18 @ 07:10 by Jamie Cuevas MD) History of landy hole surgery History of heart artery stent History of surgery of head S/P debridement - Family History Family History: Family History (Last Reviewed 08/01/18 @ 07:10 by Jamie Cuevas MD) Mother Brain cancer Father Lung cancer - Tobacco History Second Hand Smoke Exposure: No Smoking Status: Never smoker Tobacco Type: Cigarettes - Alcohol History How Often Do You Have a Drink Containing Alcohol: Monthly or less - Substance Use History Substance History: No History of Abuse - Travel History Recent Travel in the [place] Within the Last 8 Weeks: No Recent Travel Out of the Country Within the Last 8 Weeks: No - Immunization History Tetanus Immunization: >5 Years <Nikole Cho - Last Filed: 08/01/18 10:11> - Medical History Medical History: Medical History (Last Reviewed 08/01/18 @ 07:10 by Jamie Cuevas MD) CHF (congestive heart failure) Diabetes FH: cholecystectomy History of Clostridium difficile infection Hypertension Pacemaker - Surgical History Surgical History: Surgical History (Last Reviewed 08/01/18 @ 07:10 by Jamie Cuevas MD) History of landy hole surgery History of heart artery stent History of surgery of head S/P debridement - Family History Family History: Family History (Last Reviewed 08/01/18 @ 07:10 by Jamie uCevas MD) Mother Brain cancer Father Lung cancer <Isaias Alcaraz - Last Filed: 08/01/18 14:20> Medications and Allergies Active Medications: Active Medications Acetaminophen (Tylenol) 650 mg PO Q4H PRN PRN Reason: Temp > 100.4 Al Hydroxide/Mg Hydroxide (Milk Of Magnesia Liq) 30 ml PO Q12H PRN PRN Reason: Mild Constipation Aspirin (Ecotrin) 81 mg PO DAILY [facility] Last Admin: 08/01/18 08:13 Dose: 81 mg Bisacodyl (Dulcolax Supp) 10 mg RECTAL DAILY PRN PRN Reason: SEVERE CONSITIPATION Dextrose (D50w Vial) 50 ml IV.PUSH UNSCH PRN PRN Reason: PER HYPOGLYCEMIA PROTOCOL Glucagon (Glucagon Inj) 1 mg OTHER PRN PRN PRN Reason: for Hypoglycemia Protocol Levofloxacin/Dextrose (Levaquin 750 Mg Premix Inj) 150 mls @ 100 mls/hr IV.SIG Q24H [facility] Last Infusion: 08/01/18 09:48 Dose: Infused Sodium Chloride (Ns Inj) 1,000 mls @ 100 mls/hr IV.CONT .Q10H [facility] Last Admin: 08/01/18 09:48 Dose: 100 mls/hr Insulin Aspart (Novolog Insulin Correctional Sugar Inj) 0 unit SQ ACHS PATRICK; Protocol Last Admin: 08/01/18 09:31 Dose: Not Given Lactulose (Lactulose Liq) 30 ml PO DAILY PRN PRN Reason: SEVERE CONSITIPATION Metronidazole (Flagyl) 500 mg PO Q8HR [facility] Last Admin: 08/01/18 08:13 Dose: 500 mg Morphine Sulfate (Morphine Inj) 2 mg IV.PUSH Q4H PRN PRN Reason: PAIN SCALE 6 TO 10 Nifedipine (Procardia Xl) 60 mg PO DAILY [facility] Last Admin: 08/01/18 08:13 Dose: 60 mg Non-Formulary Medication (Saccharomyces Boulardii [Saccharomyces Boulardii]) 250 mg PO BID [facility] Ondansetron HCl (Zofran Inj) 4 mg IV.PUSH Q6H PRN PRN Reason: NAUSEA OR VOMITING Pantoprazole Sodium (Protonix Inj) 40 mg IV.PUSH Q12H [facility] Last Admin: 08/01/18 08:14 Dose: 40 mg Senna/Docusate Sodium (Patience-Colace) 1 tab PO BID [facility] Sennosides (Senokot) 17.2 mg PO Q12H PRN PRN Reason: Moderate Constipation Sodium Chloride (Ns Flush) 2 ml IV.FLUSH UNSCH PRN PRN Reason: FLUSH AFTER USING IV ACCESS Sodium Chloride (Ns Flush) 2 ml IV.FLUSH BID [facility] Sodium Chloride (Ns Flush) 2 ml IV.FLUSH PRN PRN PRN Reason: FLUSH AFTER USING IV ACCESS <Nikole Cho - Last Filed: 08/01/18 10:11> Active Medications: Active Medications Acetaminophen (Tylenol) 650 mg PO Q4H PRN PRN Reason: Temp > 100.4 Al Hydroxide/Mg Hydroxide (Milk Of Magnesia Liq) 30 ml PO Q12H PRN PRN Reason: Mild Constipation Aspirin (Ecotrin) 81 mg PO DAILY [facility] Last Admin: 08/01/18 08:13 Dose: 81 mg Bisacodyl (Dulcolax Supp) 10 mg RECTAL DAILY PRN PRN Reason: SEVERE CONSITIPATION Dextrose (D50w Vial) 50 ml IV.PUSH UNSCH PRN PRN Reason: PER HYPOGLYCEMIA PROTOCOL Glucagon (Glucagon Inj) 1 mg OTHER PRN PRN PRN Reason: for Hypoglycemia Protocol Heparin Sodium (Porcine) (Heparin Inj) 5,000 units SQ Q12HR [facility] Sodium Chloride (Ns Inj) 1,000 mls @ 50 mls/hr IV.CONT .Q20H [facility] Stop: 08/01/18 16:59 Last Admin: 08/01/18 09:48 Dose: 100 mls/hr Potassium Chloride (Kcl 20 Meq Premix Inj) 20 meq in 100 mls @ 50 mls/hr IV.SIG Q2H [facility] Stop: 08/01/18 18:59 Insulin Aspart (Novolog Insulin Correctional Sugar Inj) 0 unit SQ ACHS [facility]; Protocol Last Admin: 08/01/18 12:48 Dose: Not Given Lactulose (Lactulose Liq) 30 ml PO DAILY PRN PRN Reason: SEVERE CONSITIPATION Metronidazole (Flagyl) 500 mg PO Q8HR [facility] Last Admin: 08/01/18 08:13 Dose: 500 mg Morphine Sulfate (Morphine Inj) 2 mg IV.PUSH Q4H PRN PRN Reason: PAIN SCALE 6 TO 10 Nifedipine (Procardia Xl) 60 mg PO DAILY [facility] Last Admin: 08/01/18 08:13 Dose: 60 mg Non-Formulary Medication (Saccharomyces Boulardii [Saccharomyces Boulardii]) 250 mg PO BID [facility] Last Admin: 08/01/18 10:31 Dose: Not Given Ondansetron HCl (Zofran Inj) 4 mg IV.PUSH Q6H PRN PRN Reason: NAUSEA OR VOMITING Pantoprazole Sodium (Protonix Inj) 40 mg IV.PUSH Q12H [facility] Last Admin: 08/01/18 08:14 Dose: 40 mg Potassium Chloride (Kcl Powder) 20 meq PO DAILY [facility] Senna/Docusate Sodium (Patience-Colace) 1 tab PO BID [facility] Last Admin: 08/01/18 10:22 Dose: Not Given Sennosides (Senokot) 17.2 mg PO Q12H PRN PRN Reason: Moderate Constipation Silver Sulfadiazine (Silvadene 1% Cream (50 Gm)) 1 applicatio TOPICAL DAILY [facility] Simethicone (Mylicon Chew) 80 mg PO BID [facility] Sodium Chloride (Ns Flush) 2 ml IV.FLUSH UNSCH PRN PRN Reason: FLUSH AFTER USING IV ACCESS Sodium Chloride (Ns Flush) 2 ml IV.FLUSH BID [facility] Last Admin: 08/01/18 10:22 Dose: Not Given Sodium Chloride (Ns Flush) 2 ml IV.FLUSH PRN PRN PRN Reason: FLUSH AFTER USING IV ACCESS <Isaias Alcaraz E - Last Filed: 08/01/18 14:20> Allergies Allergy/AdvReac Type Severity Reaction Status Date / Time monosodium glutamate Allergy Severe Headache Verified 06/08/18 15:46 penicillin G Allergy Intermediate SWELLING Verified 06/08/18 15:46 diazepam AdvReac Unknown ANXIETY Verified 06/08/18 15:46 ARTICIFICAL SWEETNER Allergy Severe Headache Uncoded 06/08/18 15:46 Home Medications Medication Instructions Recorded Confirmed Type furosemide [Lasix] 40 mg PO DAILY 04/20/18 08/01/18 History metformin 1,000 mg PO DAILY 06/08/18 08/01/18 History lisinopril 40 mg PO DAILY 07/28/18 08/01/18 History Saccharomyces boulardii 250 mg PO BID 08/01/18 08/01/18 History silver sulfadiazine 1 applic TOPICAL DAILY 08/01/18 08/01/18 History simethicone 80 mg PO BID 08/01/18 08/01/18 History Exam Vital signs: Vital Signs 08/01/18 04:07 08/01/18 07:36 Temperature 98.7 F Pulse Rate 102 H 89 Respiratory Rate 28 H 24 Blood Pressure 169/93 H 165/79 H Pulse Oximetry 100 97 Intake & Output 07/31/18 08/01/18 08/01/18 18:59 06:59 18:59 Intake Total 250 / 250 Balance 250 / 250 Weight 79.379 kg Intake: IV 250 / 250 Levaquin 750 mg Premix Inj 150 150 / 150 ML @ 100 mls/hr IV.SIG Q24H [facility] Rx#:[id number] KCl 20 mEq Premix Inj 20 meq In 100 / 100 100 ml @ 50 mls/hr IV.SIG ONCE ONE Rx#:[id number] <Nikole Cho C - Last Filed: 08/01/18 10:11> Vital signs: Vital Signs 08/01/18 04:07 08/01/18 07:36 08/01/18 11:41 Temperature 98.7 F Pulse Rate 102 H 89 97 H Respiratory Rate 28 H 24 20 Blood Pressure 169/93 H 165/79 H 135/92 H Pulse Oximetry 100 97 08/01/18 12:00 Temperature 98.3 F Pulse Rate 79 Respiratory Rate 18 Blood Pressure 132/67 Pulse Oximetry 98 Intake & Output 0208/01/18 08/01/18 18:59 06:59 18:59 Intake Total 250 / 250 Balance 250 / 250 Weight 79.379 kg 79.7 kg Intake: IV 250 / 250 Levaquin 750 mg Premix Inj 150 150 / 150 ML @ 100 mls/hr IV.SIG Q24H [facility] Rx#:[id number] KCl 20 mEq Premix Inj 20 meq In 100 / 100 100 ml @ 50 mls/hr IV.SIG ONCE ONE Rx#:[id number] Other: Post Void Residual 250 Weight On Admission 79.7 kg <Isaias Alcaraz E - Last Filed: 08/01/18 14:20> Results - Labs CBC & Chem 7: 08/01/18 04:35 08/01/18 04:35 Labs: Laboratory Results - last 24 hr 08/01/18 08/01/18 08/01/18 04:35 04:35 05:26 WBC 14.2 H RBC 4.12 L Hgb 11.1 L Hct 33.2 L MCV 80.7 MCH 27.0 MCHC 33.4 RDW 18.0 H Plt Count 441 D MPV 8.1 Neut % (Auto) 88.0 H Lymph % (Auto) 5.5 L [place] % (Auto) 5.8 Eos % (Auto) 0.1 Baso % (Auto) 0.6 Neut # (Auto) 12.5 H Lymph # (Auto) 0.8 L [place] # (Auto) 0.8 Eos # (Auto) 0.0 Baso # (Auto) 0.1 WBC Differential . Differential Comment Auto diff final Sodium 136 Potassium 2.7 L* Chloride 97 L Carbon Dioxide 27.4 Anion Gap 12 BUN 23 H Creatinine 1.62 H Estimated GFR 46 L POC Glucose Random Glucose 183 H Lactic Acid 0.8 Calcium 8.6 Total Bilirubin 0.4 AST 27 ALT 15 Alkaline Phosphatase 139 H Troponin I 0.03 Total Protein 9.0 H D Albumin 3.6 D 08/01/18 08:10 WBC RBC Hgb Hct MCV MCH MCHC RDW Plt Count MPV Neut % (Auto) Lymph % (Auto) [place] % (Auto) Eos % (Auto) Baso % (Auto) Neut # (Auto) Lymph # (Auto) [place] # (Auto) Eos # (Auto) Baso # (Auto) WBC Differential Differential Comment Sodium Potassium Chloride Carbon Dioxide Anion Gap BUN Creatinine Estimated GFR POC Glucose 192 H Random Glucose Lactic Acid Calcium Total Bilirubin AST ALT Alkaline Phosphatase Troponin I Total Protein Albumin - Imaging Impressions Chest X-Ray 08/01/18 04:29 CONCLUSION: No acute cardiopulmonary disease. Chest CTA 08/01/18 04:33 CONCLUSION: 1. No pulmonary emboli. 2. Circumferential wall thickening throughout the thoracic esophagus suggesting esophagitis or less likely infiltrating mass. 3. Bronchiectasis within the basilar segments of the right lower lobe raising concern for chronic aspiration. <Nikole Cho - Last Filed: 08/01/18 10:11> - Labs CBC & Chem 7: 08/01/18 04:35 08/01/18 10:35 Labs: Laboratory Results - last 24 hr 08/01/18 08/01/18 08/01/18 04:35 04:35 05:26 WBC 14.2 H RBC 4.12 L Hgb 11.1 L Hct 33.2 L MCV 80.7 MCH 27.0 MCHC 33.4 RDW 18.0 H Plt Count 441 D MPV 8.1 Neut % (Auto) 88.0 H Lymph % (Auto) 5.5 L [place] % (Auto) 5.8 Eos % (Auto) 0.1 Baso % (Auto) 0.6 Neut # (Auto) 12.5 H Lymph # (Auto) 0.8 L [place] # (Auto) 0.8 Eos # (Auto) 0.0 Baso # (Auto) 0.1 WBC Differential . Differential Comment Auto diff final Sodium 136 Potassium 2.7 L* Chloride 97 L Carbon Dioxide 27.4 Anion Gap 12 BUN 23 H Creatinine 1.62 H Estimated GFR 46 L POC Glucose Random Glucose 183 H Lactic Acid 0.8 Calcium 8.6 Total Bilirubin 0.4 AST 27 ALT 15 Alkaline Phosphatase 139 H Troponin I 0.03 Total Protein 9.0 H D Albumin 3.6 D 08/01/18 08/01/18 08/01/18 08:10 10:35 10:35 WBC RBC Hgb Hct MCV MCH MCHC RDW Plt Count MPV Neut % (Auto) Lymph % (Auto) [place] % (Auto) Eos % (Auto) Baso % (Auto) Neut # (Auto) Lymph # (Auto) [place] # (Auto) Eos # (Auto) Baso # (Auto) WBC Differential Differential Comment Sodium Potassium 3.0 L Chloride Carbon Dioxide Anion Gap BUN Creatinine Estimated GFR POC Glucose 192 H Random Glucose Lactic Acid Calcium Total Bilirubin AST ALT Alkaline Phosphatase Troponin I 0.03 Total Protein Albumin 08/01/18 12:44 WBC RBC Hgb Hct MCV MCH MCHC RDW Plt Count MPV Neut % (Auto) Lymph % (Auto) [place] % (Auto) Eos % (Auto) Baso % (Auto) Neut # (Auto) Lymph # (Auto) [place] # (Auto) Eos # (Auto) Baso # (Auto) WBC Differential Differential Comment Sodium Potassium Chloride Carbon Dioxide Anion Gap BUN Creatinine Estimated GFR POC Glucose 152 H Random Glucose Lactic Acid Calcium Total Bilirubin AST ALT Alkaline Phosphatase Troponin I Total Protein Albumin - Imaging Impressions Chest X-Ray 08/01/18 04:29 CONCLUSION: No acute cardiopulmonary disease. Chest CTA 08/01/18 04:33 CONCLUSION: 1. No pulmonary emboli. 2. Circumferential wall thickening throughout the thoracic esophagus suggesting esophagitis or less likely infiltrating mass. 3. Bronchiectasis within the basilar segments of the right lower lobe raising concern for chronic aspiration. <Isaias Alcaraz - Last Filed: 08/01/18 14:20> Assessment and Plan (1) Abnormal finding on imaging Status: Acute Code(s): R93.89 - Abnormal findings on diagnostic imaging of other specified body structures (2) Hypokalemia Status: Acute Code(s): E87.6 - Hypokalemia - Plan 1. Dysphagia and odynophagia. Abnormal imaging suggestive of esophagitis. History of GERD, history of untreated diabetes. On pantoprazole. 2. Hypokalemia, replacement has been ordered. 3. Anemia. 4. Elevated alkaline phosphatase. Patient needs upper endoscopy for further evaluation. Potassium is being replaced. Will monitor and if stable can proceed with upper endoscopy today. Hepatitis panel ordered. <Nikole Cho - Last Filed: 08/01/18 10:11> (1) Abnormal finding on imaging Status: Acute Code(s): R93.89 - Abnormal findings on diagnostic imaging of other specified body structures (2) Hypokalemia Status: Acute Code(s): E87.6 - Hypokalemia - Attending Attestation Patient seen and examined Agree with above Continue with current supportive care Monitor labs We will proceed with an EGD next <Isaias Alcaraz - Last Filed: 08/01/18 14:20>
[2018-08-01] MEDS: Senna/Docusate Sodium 8.6/50 MG Tablet PO SCH ×2 (10:22→21:53)
[2018-08-01] MEDS: SACCHAROMYCES BOULARDII 250 MG PO SCH ×2 (10:31→21:54)
--- NOTE | 2018-08-01 13:49 | P.HPIM ---
History of Present Illness Primary Care Physician: No Primary Care Physician Chief Complaint: Nausea and vomiting History of Present Illness: The patient is a 48-year-old male with past medical history of systolic congestive heart failure status post AICD placement who is presenting to the hospital with nausea and vomiting as well as throat pain. He was just discharged from the hospital for treatment of cellulitis, foot wounds and C. difficile. The patient says that his symptoms started about 3 days ago. He says he developed nausea and vomiting and is unsure of what caused that to happen. He says he has felt clammy at times. He endorsed some diarrhea a few days ago. He says he developed throat pain in the upper portion of his chest. He rated the pain as a 6 out of 10 in severity. He did not take any medications to help relieve his symptoms. He denies any history of major GI problems. He said yesterday he had some shortness of breath associated with his coughing and vomiting. His breathing is stable at this time. He is hungry and awaiting his procedure. He states that he is at a alf because he has foot blisters and a bad living environment at home. Discussed with nursing. Diagnosis (1) Abnormal finding on imaging: (2) Hypokalemia: Inpatient Certification Inpatient Certification: I certify that the inpatient services were ordered in accordance with Medicare regulations governing the order. This includes certification that hospital inpatient services are reasonable and necessary and in the case of services not specified as inpatient-only under 42 CFR 419.22(n), that they are appropriately provided as inpatient services in accordance to with the 2-midnight benchmark under 43 CFR 412.3(e) Estimated Total Length of Stay (Days): 2 Plans for Post Hospital Care: Not yet determined Review of Systems Review of Systems: all other systems reviewed are negative [facility] Medical History Medical History CHF (congestive heart failure) (Acute) Diabetes (Acute) FH: cholecystectomy (Acute) History of Clostridium difficile infection (Acute) Hypertension (Acute) Pacemaker (Acute) Surgical History Surgical History History of landy hole surgery (Acute) History of heart artery stent (Acute) History of surgery of head (Acute) S/P debridement (Acute) Family History Family History Mother Brain cancer Father Lung cancer Social History Social History Substance History: No History of Abuse Second Hand Smoke Exposure: No Smoking Status: Former smoker Tobacco Type: Cigarettes How Often Do You Have a Drink Containing Alcohol: Never Recent Travel in [facility] within the Last 8 Weeks: No Recent Out of Country Travel within the Last 8 Weeks: No Immunization History Tetanus Immunization: Unsure Hx Influenza Vaccine This Season: No Medications and Allergies Allergies Allergy/AdvReac Type Severity Reaction Status Date / Time monosodium glutamate Allergy Severe Headache Verified 06/08/18 15:46 penicillin G Allergy Intermediate SWELLING Verified 06/08/18 15:46 diazepam AdvReac Unknown ANXIETY Verified 06/08/18 15:46 ARTICIFICAL SWEETNER Allergy Severe Headache Uncoded 06/08/18 15:46 Home Medications Medication Instructions Recorded Confirmed Type furosemide [Lasix] 40 mg PO DAILY 04/20/18 08/01/18 History metformin 1,000 mg PO DAILY 06/08/18 08/01/18 History lisinopril 40 mg PO DAILY 07/28/18 08/01/18 History Saccharomyces boulardii 250 mg PO BID 08/01/18 08/01/18 History silver sulfadiazine 1 applic TOPICAL DAILY 08/01/18 08/01/18 History simethicone 80 mg PO BID 08/01/18 08/01/18 History Active Medications: Active Medications Acetaminophen (Tylenol) 650 mg PO Q4H PRN PRN Reason: Temp > 100.4 Al Hydroxide/Mg Hydroxide (Milk Of Nader Lopez) 30 ml PO Q12H PRN PRN Reason: Mild Constipation Aspirin (Ecotrin) 81 mg PO DAILY [facility] Last Admin: 08/01/18 08:13 Dose: 81 mg Bisacodyl (Dulcolax Supp) 10 mg RECTAL DAILY PRN PRN Reason: SEVERE CONSITIPATION Dextrose (D50w Vial) 50 ml IV.PUSH UNSCH PRN PRN Reason: PER HYPOGLYCEMIA PROTOCOL Glucagon (Glucagon Inj) 1 mg OTHER PRN PRN PRN Reason: for Hypoglycemia Protocol Sodium Chloride (Ns Inj) 1,000 mls @ 50 mls/hr IV.CONT .Q20H [facility] Stop: 08/01/18 16:59 Last Admin: 08/01/18 09:48 Dose: 100 mls/hr Potassium Chloride (Kcl 20 Meq Premix Inj) 20 meq in 100 mls @ 50 mls/hr IV.SIG Q2H [facility] Stop: 08/01/18 18:59 Insulin Aspart (Novolog Insulin Correctional Sugar Inj) 0 unit SQ ACHS [facility]; Protocol Last Admin: 08/01/18 12:48 Dose: Not Given Lactulose (Lactulose Liq) 30 ml PO DAILY PRN PRN Reason: SEVERE CONSITIPATION Metronidazole (Flagyl) 500 mg PO Q8HR [facility] Last Admin: 08/01/18 08:13 Dose: 500 mg Morphine Sulfate (Morphine Inj) 2 mg IV.PUSH Q4H PRN PRN Reason: PAIN SCALE 6 TO 10 Nifedipine (Procardia Xl) 60 mg PO DAILY [facility] Last Admin: 08/01/18 08:13 Dose: 60 mg Non-Formulary Medication (Saccharomyces Boulardii [Saccharomyces Boulardii]) 250 mg PO BID [facility] Last Admin: 08/01/18 10:31 Dose: Not Given Ondansetron HCl (Zofran Inj) 4 mg IV.PUSH Q6H PRN PRN Reason: NAUSEA OR VOMITING Pantoprazole Sodium (Protonix Inj) 40 mg IV.PUSH Q12H [facility] Last Admin: 08/01/18 08:14 Dose: 40 mg Potassium Chloride (Kcl Powder) 20 meq PO DAILY [facility] Senna/Docusate Sodium (Patience-Colace) 1 tab PO BID [facility] Last Admin: 08/01/18 10:22 Dose: Not Given Sennosides (Senokot) 17.2 mg PO Q12H PRN PRN Reason: Moderate Constipation Silver Sulfadiazine (Silvadene 1% Cream (50 Gm)) 1 applicatio TOPICAL DAILY [facility] Simethicone (Mylicon Chew) 80 mg PO BID [facility] Sodium Chloride (Ns Flush) 2 ml IV.FLUSH UNSCH PRN PRN Reason: FLUSH AFTER USING IV ACCESS Sodium Chloride (Ns Flush) 2 ml IV.FLUSH BID [facility] Last Admin: 08/01/18 10:22 Dose: Not Given Sodium Chloride (Ns Flush) 2 ml IV.FLUSH PRN PRN PRN Reason: FLUSH AFTER USING IV ACCESS Physical Exam Vital signs: Vital Signs 08/01/18 04:07 08/01/18 07:36 08/01/18 11:41 Temperature 98.7 F Pulse Rate 102 H 89 97 H Respiratory Rate 28 H 24 20 Blood Pressure 169/93 H 165/79 H 135/92 H Pulse Oximetry 100 97 08/01/18 12:00 Temperature 98.3 F Pulse Rate 79 Respiratory Rate 18 Blood Pressure 132/67 Pulse Oximetry 98 Intake & Output 07/31/18 08/01/18 08/01/18 18:59 06:59 18:59 Intake Total 250 / 250 Balance 250 / 250 Weight 79.379 kg 79.7 kg Intake: IV 250 / 250 Levaquin 750 mg Premix Inj 150 150 / 150 ML @ 100 mls/hr IV.SIG Q24H [facility] Rx#:[id number] KCl 20 mEq Premix Inj 20 meq In 100 / 100 100 ml @ 50 mls/hr IV.SIG ONCE ONE Rx#:[id number] Other: Post Void Residual 250 Weight On Admission 79.7 kg Narrative: GENERAL: No distress. SKIN: Focused skin assessment warm/dry. HEAD: Atraumatic. Normocephalic. EYES: Pupils equal and round. No scleral icterus. No injection or drainage. ENT: No nasal bleeding or discharge. Mucous membranes pink and moist. NECK: Trachea midline. No JVD. CARDIOVASCULAR: Regular rate and rhythm. No murmur appreciated. RESPIRATORY: No accessory muscle use. Clear to auscultation. Breath sounds equal bilaterally. GASTROINTESTINAL: Abdomen soft, non-tender, nondistended. Hepatic and splenic margins not palpable. MUSCULOSKELETAL: Bilateral feet wrapped in bandages with multiple toe amputations. NEUROLOGICAL: Awake and alert. No obvious cranial nerve deficits. Motor grossly within normal limits. Normal speech. Results Labs CBC & Chem 7: 08/01/18 04:35 08/01/18 10:35 Imaging Impressions Chest X-Ray 08/01/18 04:29 CONCLUSION: No acute cardiopulmonary disease. Chest CTA 08/01/18 04:33 CONCLUSION: 1. No pulmonary emboli. 2. Circumferential wall thickening throughout the thoracic esophagus suggesting esophagitis or less likely infiltrating mass. 3. Bronchiectasis within the basilar segments of the right lower lobe raising concern for chronic aspiration. Caprini VTE Risk Assessment Caprini VTE Risk Assessment: Moderate/High Risk (score >= 2) Caprini Risk Assessment Model: Point Value = 1 Point Value = 2 Point Value = 3 Point Value = 5 Age 41-60 Minor surgery BMI > 25 kg/m2 Swollen legs Varicose veins or History of unexplained or recurrent spontaneous Oral contraceptives or hormone replacement Sepsis (< 1 month) Serious lung disease, including pneumonia (< 1 month) Abnormal pulmonary function Acute myocardial infarction Congestive heart failure (< 1 month) History of inflammatory bowel disease Medical patient at bed rest Age 61-74 Arthroscopic surgery Major open surgery (> 45 min) Laparoscopic surgery (> 45 min) Malignancy Confined to bed (> 72 hours) Immobilizing plaster cast Central venous access Age >= 75 History of VTE Family history of VTE Factor V Leiden Prothrombin [id number] Lupus anticoagulant Anticardiolipin antibodies Elevated serum homocysteine Heparin-induced thrombocytopenia Other congenital or acquired thrombophilia Stroke (< 1 month) Elective arthroplasty Hip, pelvis, or leg fracture Acute spinal cord injury (< 1 month) Prophylaxis Regimen: Total Risk Factor Score Risk Level Prophylaxis Regimen 0-1 Low Early ambulation 2 Moderate Order ONE of the following: *Sequential Compression Device (SCD) *Heparin 5000 units SQ BID 3-4 Higher Order ONE of the following medications: *Heparin 5000 units SQ TID *Enoxaparin/Lovenox 40 mg SQ daily (WT < 150 kg, CrCl > 30 mL/min) *Enoxaparin/Lovenox 30 mg SQ daily (WT < 150 kg, CrCl > 10-29 mL/min) *Enoxaparin/Lovenox 30 mg SQ BID (WT < 150 kg, CrCl > 30 mL/min) AND/OR *Sequential Compression Device (SCD) 5 or more Highest Order ONE of the following medications: *Heparin 5000 units SQ TID (Preferred with Epidurals) *Enoxaparin/Lovenox 40 mg SQ daily (WT < 150 kg, CrCl > 30 mL/min) *Enoxaparin/Lovenox 30 mg SQ daily (WT < 150 kg, CrCl > 10-29 mL/min) *Enoxaparin/Lovenox 30 mg SQ BID (WT < 150 kg, CrCl > 30 mL/min) AND *Sequential Compression Device (SCD) Assessment and Plan (1) Abnormal finding on imaging: Code(s): R93.89 - Abnormal findings on diagnostic imaging of other specified body structures Status: Acute (2) Hypokalemia: Code(s): E87.6 - Hypokalemia Status: Acute Plan Throat pain/ N/V CT showed: No pulmonary emboli; Circumferential wall thickening throughout the thoracic esophagus suggesting esophagitis or less likely infiltrating mass; Bronchiectasis within the basilar segments of the right lower lobe raising concern for chronic aspiration. GI consult appreciated. -EGD pending. -pain control and antiemetics as needed. -NPO for now with IVFs. Bilateral cellulitis of the feet/bilateral wound infection of the feet Status post IV vancomycin and Azactam per ID during recent hospitalization. Podiatry did not recommend any surgical intervention. -wound nurse consult requested. -physical therapy. C. difficile diarrhea C. difficile PCR positive during last hospitalization. -Patient is currently on Flagyl 500 mg p.o. q. 8 hours x 10 days. History of chronic systolic CHF Appears euvolemic. -monitor volume status while on IVFs. -telemetry. Acute renal failure/Hypokalemia S/t N/V. -hold Lasix and lisinopril. -gentle IVFs. -replete with PO/IV KCl. -follow BMP and avoid nephrotoxins. -check mag level. Diabetes type 2 Relatively well controlled at this time. -Hold oral antihyperglycemic agent. -continue insulin sliding scale with fingerstick blood glucose monitoring. DVT prophylaxis: Heparin H&P: Quality VTE Deep Vein Thrombosis/Pulmonary Embolism Present on Admission: No
[2018-08-01] MEDS ORDERED: Lidocaine PF 1% Inj 5 ML Syringe OTHER ONE (13:58)
--- NOTE | 2018-08-01 14:22 | P.PCN ---
Date of procedure: 08/01/18 Pre-op diagnosis: Nausea vomiting, dysphagia, chest pain, odynophagia Procedure: PROCEDURE PERFORMED EGD with biopsy PROCEDURE: The procedure, risks and benefits were discussed with Patient/POA and informed consent was obtained. Anesthesia sedated Patient with Diprivan. Patient was placed in the left lateral decubitus position. EGD: The Pentax videoscope was introduced through the oropharynx and advanced to the second portion of the duodenum under direct visualization. Retroflexion was performed in the stomach. FINDINGS: The esophagus there is significant esophageal mucosal friability with erythema in the distal esophagus consistent with grade D esophagitis proximal esophagus was on biopsies were taken from the distal esophagus The stomach this appeared to be unremarkable and within normal limits The duodenum this also appeared to be unremarkable with normal limits ESTIMATED BLOOD LOSS: None SPECIMENS REMOVED: Esophageal biopsy COMPLICATIONS: None IMPRESSION: Severe grade D reflux esophagitis probably the cause for his pain dysphagia and nausea and vomiting possibly secondary to uncontrolled diabetes PLAN: Await biopsies Continue with Protonix 40 mg twice daily Advance diet as tolerated Controlled diabetes EGD in 2 months Anesthesia: MAC Surgeon: Isaias Alcaraz Condition: stable Disposition: floor
[2018-08-01] MEDS: Potassium Chlor 20 mEq Premix 20 MEQ/100 ML PIGGYBACK IV.SIG SCH ×2 (15:54→17:54)
[2018-08-01 18:13] LABS: Calcium 7.9 mg/dL (8.5-10.1); Carbon Dioxide 24.1 meq/L (21.0-32.0); Magnesium 1.8 mg/dL (1.5-2.5); Potassium 3.7 meq/L (3.5-5.1)
[2018-08-01 18:18] LABS: Troponin I 0.04 ng/mL (0.02-0.05)
--- NOTE | 2018-08-01 18:21 | ECG ---
Date Performed: 08/01/2018 Time Performed: 03:44:19 PTAGE: 48 years EKG: ELECTRONIC VENTRICULAR PACEMAKER ABNORMAL RHYTHM ECG Since the PREVIOUS TRACING , no significant change noted DOCTOR: Erin Holder Interpretating Date/Time 08/01/2018 18:21:00
[2018-08-01 19:47] LABS: Hepatitis A IgM Antibody Nonreactive (Nonreactive); Hepatitits B Surface Antigen Nonreactive (Nonreactive)
[2018-08-01] MEDS ORDERED: Sodium Chloride 0.9% 2 ML Flush PRN IV.FLUSH (21:48)
[2018-08-01] MEDS: Heparin - SQ 10,000 UNITS/ML Vial SQ SCH (22:02)
[2018-08-01] MEDS: Melatonin 5 MG Tablet PO PRN (22:02)
[2018-08-01] MEDS: Simethicone 80 MG Chew Tablet PO SCH (22:03)
[2018-08-02] MEDS: Pantoprazole Inj 40 MG Vial IV.PUSH SCH ×2 (06:03→18:15)
[2018-08-02] MEDS: metroNIDAZOLE 500 MG Tablet PO SCH ×3 (06:03→21:52)
[2018-08-02 08:26] LABS: Baso % (Auto) 0.4 % (0.0-2.0); Eos % (Auto) 0.1 % (0.0-4.0); Hematocrit 28.7 % (39.0-51.0); Hemoglobin 9.5 gm/dL (13.0-17.0); Lymph # (Auto) 0.9 th/mm3 (1.0-4.8); Lymph % (Auto) 10.5 % (9.0-44.0); Mean Corpuscular HGB Conc 33.2 % (32.0-36.0); Mean Corpuscular Hemoglobin 27.2 pg (27.0-34.0); Mean Platelet Volume 8.3 fL (7.0-11.0); Mono # (Auto) 0.7 th/mm3 (0.0-0.9); Mono % (Auto) 7.4 % (0.0-8.0); Neut # (Auto) 7.4 th/mm3 (1.8-7.7); Neut % (Auto) 81.6 % (16.0-70.0); Platelet Count 305 th/mm3 (150-450); Red Cell Distribution Width 17.2 % (11.6-17.2)
[2018-08-02] MEDS: Insulin NovoLOG Aspart Correctional Sugar Inj SQ SCH ×4 (08:42→20:06)
[2018-08-02] MEDS: Heparin - SQ 10,000 UNITS/ML Vial SQ SCH ×2 (08:43→20:07)
[2018-08-02] MEDS: Sodium Chloride 0.9% 2 ML Flush BID IV.FLUSH SCH ×2 (08:43→20:06)
[2018-08-02] MEDS: Simethicone 80 MG Chew Tablet PO SCH ×2 (08:43→20:07)
[2018-08-02] MEDS: Senna/Docusate Sodium 8.6/50 MG Tablet PO SCH ×2 (08:43→20:07)
[2018-08-02] MEDS: SACCHAROMYCES BOULARDII 250 MG PO SCH ×2 (08:44→20:08)
[2018-08-02 08:58] LABS: Alanine Aminotransferase 15 U/L (12-78); Albumin 2.7 g/dL (3.4-5.0); Alkaline Phosphatase 101 U/L (45-117); Anion Gap 12 meq/L (5-15); Aspartate Aminotransferase 19 U/L (15-37); Blood Urea Nitrogen 25 mg/dL (7-18); Calcium 8.2 mg/dL (8.5-10.1); Carbon Dioxide 23.6 meq/L (21.0-32.0); Chloride 103 meq/L (98-107); Glomerular Filtration Rate 45 mL/min (>89); Glucose,Random 111 mg/dL (74-106); Sodium 139 meq/L (136-145); Total Protein 7.1 g/dL (6.4-8.2)
[2018-08-02] MEDS ORDERED: Potassium Chloride 20 MEQ Pwd Pkt PO SCH (09:00)
--- NOTE | 2018-08-02 11:37 | P.PNIM ---
Subjective Interval history: Patient seen and examined this morning. Afebrile vital signs stable. No acute events overnight. Status post EGD with biopsies obtained. She reports that he is doing fine at this time with no chest pain or shortness of breath. He is looking forward to going home soon. Understands the plan of care at this time is to await the results of the biopsy. Physical Exam Vital signs: Vital Signs 08/01/18 11:41 08/01/18 12:00 08/01/18 16:00 Temperature 98.3 F 98.4 F Pulse Rate 97 H 79 103 H Respiratory Rate 20 18 18 Blood Pressure 135/92 H 132/67 157/87 H Pulse Oximetry 98 98 08/01/18 19:25 08/01/18 22:17 08/02/18 00:00 Temperature 98.7 F Pulse Rate 103 H 97 H Respiratory Rate 18 Blood Pressure 161/91 H Pulse Oximetry 98 97 08/02/18 03:05 08/02/18 04:00 08/02/18 08:00 Temperature 98.7 F 98 F Pulse Rate 100 H 93 H 107 H Respiratory Rate 18 20 Blood Pressure 173/98 H 184/98 H Pulse Oximetry 98 98 Intake & Output 08/01/18 08/02/18 08/02/18 18:59 06:59 18:59 Intake Total 650 / 650 1340 / 1340 Balance 650 / 650 1340 / 1340 Weight 79.7 kg 79.7 kg Intake: IV 350 / 350 1100 / 1100 NS Inj 1,000 ML @ 50 mls/hr IV. 1000 / 1000 CONT .Q20H [facility] Rx#:[id number] Levaquin 750 mg Premix Inj 150 150 / 150 ML @ 100 mls/hr IV.SIG Q24H [facility] Rx#:[id number] KCl 20 mEq Premix Inj 20 meq In 200 / 200 100 / 100 100 ml @ 50 mls/hr IV.SIG Q2H [facility] Rx#:[id number] Oral 240 / 240 Anesthesia Amount 300 / 300 Other: Post Void Residual 250 # Voids 2 Date of Last Bowel Movement 08/02/18 # Incontinent Bowel Movements 1 Weight On Admission 79.7 kg Narrative: GEN: Well-developed, well-nourished male patient. No acute distress. CV: Regular rate and rhythm without obvious murmurs LUNGS: Clear to auscultation bilaterally. Normal respiratory effort. No wheezes , rales, rhonchi. GI: Soft, nontender, nondistended. No palpable masses. Bowel sounds WNL. EXT: No edema. NEURO/PSYCH: Afocal. Awake, alert, and oriented x3. Appropriate insight and judgment. Results - Labs CBC & Chem 7: 08/02/18 06:30 08/02/18 06:30 Laboratory Results - last 24 hr 08/01/18 08/01/18 08/01/18 10:35 10:35 12:44 WBC RBC Hgb Hct MCV MCH MCHC RDW Plt Count MPV Neut % (Auto) Lymph % (Auto) [place] % (Auto) Eos % (Auto) Baso % (Auto) Neut # (Auto) Lymph # (Auto) [place] # (Auto) Eos # (Auto) Baso # (Auto) WBC Differential Differential Comment Sodium Potassium 3.0 L Chloride Carbon Dioxide Anion Gap BUN Creatinine Estimated GFR POC Glucose 152 H Random Glucose Calcium Magnesium Total Bilirubin AST ALT Alkaline Phosphatase Troponin I 0.03 Total Protein Albumin Hepatitis A IgM Ab Hep Bs Antigen Hep B Core IgM Ab Hep C IgG Ab 08/01/18 08/01/18 08/01/18 17:27 17:40 17:40 WBC RBC Hgb Hct MCV MCH MCHC RDW Plt Count MPV Neut % (Auto) Lymph % (Auto) [place] % (Auto) Eos % (Auto) Baso % (Auto) Neut # (Auto) Lymph # (Auto) [place] # (Auto) Eos # (Auto) Baso # (Auto) WBC Differential Differential Comment Sodium 137 Potassium 3.7 Chloride 102 Carbon Dioxide 24.1 Anion Gap 11 BUN 25 H Creatinine 1.59 H Estimated GFR 47 L POC Glucose 186 H Random Glucose 165 H Calcium 7.9 L Magnesium 1.8 Total Bilirubin AST ALT Alkaline Phosphatase Troponin I 0.04 Total Protein Albumin Hepatitis A IgM Ab Nonreactive Hep Bs Antigen Nonreactive Hep B Core IgM Ab Nonreactive Hep C IgG Ab Nonreactive 08/01/18 08/02/18 08/02/18 21:30 06:30 06:30 WBC 9.0 RBC 3.50 L Hgb 9.5 L Hct 28.7 L MCV 82.0 MCH 27.2 MCHC 33.2 RDW 17.2 Plt Count 305 D MPV 8.3 Neut % (Auto) 81.6 H Lymph % (Auto) 10.5 [place] % (Auto) 7.4 Eos % (Auto) 0.1 Baso % (Auto) 0.4 Neut # (Auto) 7.4 Lymph # (Auto) 0.9 L [place] # (Auto) 0.7 Eos # (Auto) 0.0 Baso # (Auto) 0.0 WBC Differential . Differential Comment Auto diff final Sodium 139 Potassium 3.0 L Chloride 103 Carbon Dioxide 23.6 Anion Gap 12 BUN 25 H Creatinine 1.66 H Estimated GFR 45 L POC Glucose 195 H Random Glucose 111 H Calcium 8.2 L Magnesium Total Bilirubin 0.3 AST 19 ALT 15 Alkaline Phosphatase 101 Troponin I Total Protein 7.1 D Albumin 2.7 L D Hepatitis A IgM Ab Hep Bs Antigen Hep B Core IgM Ab Hep C IgG Ab 08/02/18 08:42 WBC RBC Hgb Hct MCV MCH MCHC RDW Plt Count MPV Neut % (Auto) Lymph % (Auto) [place] % (Auto) Eos % (Auto) Baso % (Auto) Neut # (Auto) Lymph # (Auto) [place] # (Auto) Eos # (Auto) Baso # (Auto) WBC Differential Differential Comment Sodium Potassium Chloride Carbon Dioxide Anion Gap BUN Creatinine Estimated GFR POC Glucose 137 H Random Glucose Calcium Magnesium Total Bilirubin AST ALT Alkaline Phosphatase Troponin I Total Protein Albumin Hepatitis A IgM Ab Hep Bs Antigen Hep B Core IgM Ab Hep C IgG Ab Microbiology 08/01/18 05:20 Blood - Peripheral Aerobic Blood Culture - Preliminary No growth in 1 day 08/01/18 05:20 Blood - Peripheral Anaerobic Blood Culture - Preliminary No growth in 1 day 08/01/18 05:26 Blood - Peripheral Aerobic Blood Culture - Preliminary No growth in 1 day 08/01/18 05:26 Blood - Peripheral Anaerobic Blood Culture - Preliminary No growth in 1 day Assessment and Plan - Assessment (1) Abnormal finding on imaging Code(s): R93.89 - Abnormal findings on diagnostic imaging of other specified body structures Status: Acute (2) Hypokalemia Code(s): E87.6 - Hypokalemia Status: Acute (3) Esophagitis determined by endoscopy Code(s): K20.9 - Esophagitis, unspecified Status: Acute - Plan Throat pain/ N/V CT showed: No pulmonary emboli; Circumferential wall thickening throughout the thoracic esophagus suggesting esophagitis or less likely infiltrating mass; Bronchiectasis within the basilar segments of the right lower lobe raising concern for chronic aspiration. -GI consult appreciated. -EGD performed which showed esophagitis. -Biopsy was taken during EGD we are awaiting the results of the biopsies. -pain control and antiemetics as needed. -Clear liquid diet advance as tolerated. Bilateral cellulitis of the feet/bilateral wound infection of the feet Status post IV vancomycin and Azactam per ID during recent hospitalization. Podiatry did not recommend any surgical intervention. -wound nurse consult requested. -physical therapy. C. difficile diarrhea C. difficile PCR positive during last hospitalization. -Patient is currently on Flagyl 500 mg p.o. q. 8 hours x 10 days. History of chronic systolic CHF Appears euvolemic. -monitor volume status while on IVFs. -telemetry. Acute renal failure/Hypokalemia S/t N/V. -hold Lasix and lisinopril. -gentle IVFs. -replete with PO/IV KCl. -follow BMP and avoid nephrotoxins. -check mag level. Diabetes type 2 Relatively well controlled at this time. -Hold oral antihyperglycemic agent. -continue insulin sliding scale with fingerstick blood glucose monitoring. DVT prophylaxis: Heparin Code Status: Full code Discharge Planning: Pending biopsy results
[2018-08-02] MEDS: Morphine Sulfate Inj 2 MG/ML Vial IV.PUSH PRN ×3 (13:23→21:52)
[2018-08-02 21:26] VITALS: RESP 18
[2018-08-03] MEDS: Morphine Sulfate Inj 2 MG/ML Vial IV.PUSH PRN ×4 (01:52→20:09)
[2018-08-03] MEDS: metroNIDAZOLE 500 MG Tablet PO SCH ×3 (05:33→21:23)
[2018-08-03] MEDS: Pantoprazole Inj 40 MG Vial IV.PUSH SCH ×2 (06:07→18:15)
[2018-08-03] MEDS: Simethicone 80 MG Chew Tablet PO SCH ×2 (08:00→20:08)
[2018-08-03] MEDS: Heparin - SQ 10,000 UNITS/ML Vial SQ SCH ×2 (08:04→20:07)
[2018-08-03] MEDS: Insulin NovoLOG Aspart Correctional Sugar Inj SQ SCH ×4 (08:06→20:10)
[2018-08-03] MEDS: Senna/Docusate Sodium 8.6/50 MG Tablet PO SCH ×2 (08:10→20:07)
[2018-08-03] MEDS: SACCHAROMYCES BOULARDII 250 MG PO SCH ×2 (08:10→20:12)
[2018-08-03] MEDS: Sodium Chloride 0.9% 2 ML Flush BID IV.FLUSH SCH ×2 (08:10→20:12)
[2018-08-03] MEDS: Labetalol 200 MG Tablet PO SCH ×2 (13:41→20:08)
--- NOTE | 2018-08-03 13:50 | P.PNIM ---
Subjective Interval history: Follow-up for nausea, vomiting, C. Diff colitis and feet infection. Patient is currently doing well. No fever, chills. He started Flagyl on 07/31/2018 and currently does not have any diarrheal episodes. Physical Exam Vital signs: Vital Signs 08/02/18 16:00 08/02/18 19:30 08/02/18 20:00 Temperature 97.9 F 98.5 F Pulse Rate 75 85 94 H Respiratory Rate 20 18 Blood Pressure 182/99 H 145/73 H Pulse Oximetry 98 99 08/02/18 23:25 08/03/18 00:00 08/03/18 03:30 Temperature 98.0 F 97.9 F Pulse Rate 85 75 90 Respiratory Rate 18 18 Blood Pressure 124/61 151/88 H Pulse Oximetry 99 98 08/03/18 04:00 08/03/18 08:00 08/03/18 10:47 Temperature 97.6 F Pulse Rate 67 97 H Respiratory Rate 18 Blood Pressure 160/93 H Pulse Oximetry 99 99 08/03/18 12:00 Temperature 98.6 F Pulse Rate 79 Respiratory Rate 18 Blood Pressure 176/99 H Pulse Oximetry 99 Intake & Output 08/02/18 08/03/18 08/03/18 18:59 06:59 18:59 Intake Total 520 / 520 600 / 600 Output Total 600 / 600 900 / 900 Balance -80 / -80 -300 / -300 Weight 80.6 kg Intake: Oral 520 / 520 600 / 600 Output: Urine 600 / 600 900 / 900 Other: Date of Last Bowel Movement 08/02/18 08/03/18 08/03/18 # Bowel Movements 1 Narrative: GENERAL: Alert, NAD. SKIN: Warm and dry. HEAD: Normocephalic. EYES: No scleral icterus. No injection or drainage. NECK: Supple, trachea midline. No JVD or lymphadenopathy. CARDIOVASCULAR: Regular rate and rhythm without murmurs, gallops, or rubs. AICD under skin. RESPIRATORY: Breath sounds equal bilaterally. No accessory muscle use. GASTROINTESTINAL: Abdomen soft, non-tender, nondistended. MUSCULOSKELETAL: No cyanosis, or edema. Bilateral foot covered with dressing. Dressing is somewhat soaked. BACK: Nontender without obvious deformity. No CVA tenderness. Results Labs CBC & Chem 7: 08/02/18 06:30 08/02/18 06:30 Labs: Microbiology 08/01/18 05:20 Blood - Peripheral Aerobic Blood Culture - Preliminary No growth in 2 days 08/01/18 05:20 Blood - Peripheral Anaerobic Blood Culture - Preliminary No growth in 2 days 08/01/18 05:26 Blood - Peripheral Aerobic Blood Culture - Preliminary No growth in 2 days 08/01/18 05:26 Blood - Peripheral Anaerobic Blood Culture - Preliminary No growth in 2 days Assessment and Plan (1) Abnormal finding on imaging: Code(s): R93.89 - Abnormal findings on diagnostic imaging of other specified body structures Status: Acute (2) Hypokalemia: Code(s): E87.6 - Hypokalemia Status: Acute (3) Esophagitis determined by endoscopy: Code(s): K20.9 - Esophagitis, unspecified Status: Acute Plan The patient is a 48-year-old male with past medical history of systolic congestive heart failure status post AICD placement who is presented to the hospital on 08/01/2018 with nausea and vomiting as well as throat pain. Patient was discharged recently after being treated for foot wounds as well as C. Diff colitis. He could not tolerate vancomycin and thus Flagyl was initiated for C. Diff colitis. Gastroenteritis -s/p EGD which showed esophagitis. -Symptoms improved. -Clear liquid diet. We can likely advance diet. -PPI. Acute kidney injury -Creatinine around 1.6. Baseline around 1.0. -Will recheck BMP in the AM. Likely due to volume depletion. Bilateral foot wound -Will consult Podiatry. ID followed this patient previously. -I discussed with Dr. Min (ID) who would like to hold off using any abx for now. C. Diff colitis -Continue Flagyl which is currently effective. Cardiomyopathy Hypertension -Aspirin, Nifedipine. -Due to acute kidney injury, will avoid Losartan for now. -Will start Labetalol 200mg BID for BP. Full code. Heparin SQ. Discharge plan: Will wait for podiatry eval. Progress Note: Quality VTE Deep Vein Thrombosis/Pulmonary Embolism Present on Admission: No
--- NOTE | 2018-08-03 15:20 | P.PNGI ---
Subjective Interval history: Patient awake and alert Denies nausea or vomiting States tolerating clear liquid diet No reported diarrheal episodes today Physical Exam Vital signs: Vital Signs 08/02/18 16:00 08/02/18 19:30 08/02/18 20:00 Temperature 97.9 F 98.5 F Pulse Rate 75 85 94 H Respiratory Rate 20 18 Blood Pressure 182/99 H 145/73 H Pulse Oximetry 98 99 08/02/18 23:25 08/03/18 00:00 08/03/18 03:30 Temperature 98.0 F 97.9 F Pulse Rate 85 75 90 Respiratory Rate 18 18 Blood Pressure 124/61 151/88 H Pulse Oximetry 99 98 08/03/18 04:00 08/03/18 08:00 08/03/18 10:47 Temperature 97.6 F Pulse Rate 67 97 H Respiratory Rate 18 Blood Pressure 160/93 H Pulse Oximetry 99 99 08/03/18 12:00 Temperature 98.6 F Pulse Rate 79 Respiratory Rate 18 Blood Pressure 176/99 H Pulse Oximetry 99 Intake & Output 08/02/18 08/03/18 08/03/18 18:59 06:59 18:59 Intake Total 520 / 520 600 / 600 Output Total 600 / 600 900 / 900 Balance -80 / -80 -300 / -300 Weight 80.6 kg Intake: Oral 520 / 520 600 / 600 Output: Urine 600 / 600 900 / 900 Other: Date of Last Bowel Movement 08/02/18 08/03/18 08/03/18 # Bowel Movements 1 - Constitutional no acute distress, chronically ill appearing, cooperative - Routine HEENT Exam Head: Present: normocephalic ENT: Present: mucous membranes moist - Routine Neck Exam Present: supple - Routine Respiratory Exam Present: CTA bilaterally. Absent: accessory muscle use - Routine Cardiovascular Exam Present: RRR - Routine Abdominal Exam Present: soft, normoactive bowel sounds. Absent: tenderness, distended - Routine Skin Exam Present: dry, warm - Routine Neurological Exam Present: alert, oriented X3 Results - Labs CBC & Chem 7: 08/02/18 06:30 08/02/18 06:30 Laboratory Results - last 24 hr 08/02/18 08/02/18 08/03/18 18:09 20:05 08:00 POC Glucose 157 H 159 H 120 H 08/03/18 11:38 POC Glucose 156 H Microbiology 08/01/18 05:20 Blood - Peripheral Aerobic Blood Culture - Preliminary No growth in 2 days 08/01/18 05:20 Blood - Peripheral Anaerobic Blood Culture - Preliminary No growth in 2 days 08/01/18 05:26 Blood - Peripheral Aerobic Blood Culture - Preliminary No growth in 2 days 08/01/18 05:26 Blood - Peripheral Anaerobic Blood Culture - Preliminary No growth in 2 days Assessment and Plan (1) Abnormal finding on imaging Status: Acute Code(s): R93.89 - Abnormal findings on diagnostic imaging of other specified body structures (2) Hypokalemia Status: Acute Code(s): E87.6 - Hypokalemia - Plan 1. Dysphagia and odynophagia. Abnormal imaging suggestive of esophagitis. History of GERD, history of untreated diabetes. On pantoprazole. 2. Hypokalemia, replacement has been ordered. 3. Anemia. 4. Elevated alkaline phosphatase. 08/03/2018 Dysphagia and odynophagia 08/01/2018 EGD revealed the following findings--Severe grade D reflux esophagitis probably the cause for his pain dysphagia and nausea and vomiting possibly secondary to uncontrolled diabetes Anemia--08/02/2018 hemoglobin 9.5 hematocrit 28.7 Plan Clear liquid diet-for advancement as tolerated Await biopsies Protonix 40 mg twice daily Recommend EGD in 2 months Supportive care GI will sign off at this time, please notify if any further assistance needed This patient has been seen by myself and Dr. Farrar and this note is written on his behalf - Attending Attestation Dr. Farrar
--- NOTE | 2018-08-03 17:06 | P.CONPOD ---
History of Present Illness Service: podiatry Consult date: 08/03/18 Reason for Consult: bilateral foot wounds Primary Care Provider: No Primary Care Physician Chief Complaint: Nausea and vomiting History of Present Illness: Patient has bilateral foot/ankle wounds and has had graft placement. He has MRSA positive culture on the foot. He has been having wound care, last dressing change was 07/31/18. He saw Dr Noland and came in with pitting edema to both legs. Review of Systems All other systems reviewed negative except as stated in HPI PMFSH - History History Provided By: Patient - Medical History Medical History: Medical History (Last Reviewed 08/01/18 @ 13:46 by Moy Hill DO) CHF (congestive heart failure) Diabetes FH: cholecystectomy History of Clostridium difficile infection Hypertension Pacemaker - Surgical History Surgical History: Surgical History (Last Reviewed 08/01/18 @ 13:46 by Moy Hill DO) History of landy hole surgery History of heart artery stent History of surgery of head S/P debridement - Family History Family History: Family History (Last Reviewed 08/01/18 @ 13:46 by Moy Hill DO) Mother Brain cancer Father Lung cancer - Tobacco History Second Hand Smoke Exposure: No Tobacco Use In Past 30 Days: Yes Smoking Status: Former smoker Tobacco Type: Cigarettes - Alcohol History How Often Do You Have a Drink Containing Alcohol: Never - Substance Use History Substance History: No History of Abuse - Travel History Recent Travel in the [place] Within the Last 8 Weeks: No Recent Travel Out of the Country Within the Last 8 Weeks: No - Immunization History Tetanus Immunization: Unsure Hx Influenza Vaccine This Season: No Medications and Allergies Active Medications: Active Medications Acetaminophen (Tylenol) 650 mg PO Q4H PRN PRN Reason: Temp > 100.4 Al Hydroxide/Mg Hydroxide (Milk Of Magnes[place]anza Liq) 30 ml PO Q12H PRN PRN Reason: Mild Constipation Aspirin (Ecotrin) 81 mg PO DAILY PATRICK Last Admin: 08/03/18 08:00 Dose: 81 mg Bisacodyl (Dulcolax Supp) 10 mg RECTAL DAILY PRN PRN Reason: SEVERE CONSITIPATION Clonidine HCl (Catapres) 0.1 mg PO Q4H PRN PRN Reason: SBP>180, DBP>90 Last Admin: 08/03/18 08:12 Dose: 0.1 mg Dextrose (D50w Vial) 50 ml IV.PUSH UNSCH PRN PRN Reason: PER HYPOGLYCEMIA PROTOCOL Glucagon (Glucagon Inj) 1 mg OTHER PRN PRN PRN Reason: for Hypoglycemia Protocol Heparin Sodium (Porcine) (Heparin Inj) 5,000 units SQ Q12HR [facility] Last Admin: 08/03/18 08:04 Dose: 5,000 units Insulin Aspart (Novolog Insulin Correctional Sugar Inj) 0 unit SQ ACHS [facility]; Protocol Last Admin: 08/03/18 13:42 Dose: 1 unit Labetalol HCl (Trandate) 200 mg PO BID [facility] Last Admin: 08/03/18 13:41 Dose: 200 mg Lactulose (Lactulose Liq) 30 ml PO DAILY PRN PRN Reason: SEVERE CONSITIPATION Melatonin (Melatonin) 5 mg PO HS PRN PRN Reason: INSOMNIA Last Admin: 08/01/18 22:02 Dose: 5 mg Metronidazole (Flagyl) 500 mg PO Q8HR [facility] Last Admin: 08/03/18 13:42 Dose: 500 mg Morphine Sulfate (Morphine Inj) 2 mg IV.PUSH Q4H PRN PRN Reason: PAIN SCALE 6 TO 10 Last Admin: 08/03/18 14:55 Dose: 2 mg Nifedipine (Procardia Xl) 60 mg PO DAILY [facility] Last Admin: 08/03/18 08:00 Dose: 60 mg Non-Formulary Medication (Saccharomyces Boulardii [Saccharomyces Boulardii]) 250 mg PO BID [facility] Last Admin: 08/03/18 08:10 Dose: Not Given Ondansetron HCl (Zofran Inj) 4 mg IV.PUSH Q6H PRN PRN Reason: NAUSEA OR VOMITING Last Admin: 08/03/18 08:05 Dose: 4 mg Pantoprazole Sodium (Protonix Inj) 40 mg IV.PUSH Q12H [facility] Last Admin: 08/03/18 06:07 Dose: 40 mg Potassium Chloride (K-Dur) 20 meq PO DAILY [facility] Last Admin: 08/03/18 08:00 Dose: 20 meq Senna/Docusate Sodium (Patience-Colace) 1 tab PO BID [facility] Last Admin: 08/03/18 08:10 Dose: Not Given Sennosides (Senokot) 17.2 mg PO Q12H PRN PRN Reason: Moderate Constipation Silver Sulfadiazine (Silvadene 1% Cream (50 Gm)) 1 applicatio TOPICAL DAILY [facility] Last Admin: 08/03/18 08:10 Dose: 1 applicatio Simethicone (Mylicon Chew) 80 mg PO BID [facility] Last Admin: 08/03/18 08:00 Dose: 80 mg Sodium Chloride (Ns Flush) 2 ml IV.FLUSH BID [facility] Last Admin: 08/03/18 08:10 Dose: 2 ml Sodium Chloride (Ns Flush) 2 ml IV.FLUSH PRN PRN PRN Reason: FLUSH AFTER USING IV ACCESS Allergies Allergy/AdvReac Type Severity Reaction Status Date / Time monosodium glutamate Allergy Severe Headache Verified 06/08/18 15:46 penicillin G Allergy Intermediate SWELLING Verified 06/08/18 15:46 diazepam AdvReac Unknown ANXIETY Verified 06/08/18 15:46 ARTICIFICAL SWEETNER Allergy Severe Headache Uncoded 06/08/18 15:46 Home Medications Medication Instructions Recorded Confirmed Type furosemide [Lasix] 40 mg PO DAILY 04/20/18 08/01/18 History metformin 1,000 mg PO DAILY 06/08/18 08/01/18 History lisinopril 40 mg PO DAILY 07/28/18 08/01/18 History Saccharomyces boulardii 250 mg PO BID 08/01/18 08/01/18 History silver sulfadiazine 1 applic TOPICAL DAILY 08/01/18 08/01/18 History simethicone 80 mg PO BID 08/01/18 08/01/18 History Physical Exam Vital signs: Vital Signs 08/02/18 19:30 08/02/18 20:00 08/02/18 23:25 Temperature 98.5 F 98.0 F Pulse Rate 85 94 H 85 Respiratory Rate 18 18 Blood Pressure 145/73 H 124/61 Pulse Oximetry 99 99 08/03/18 00:00 08/03/18 03:30 08/03/18 04:00 Temperature 97.9 F Pulse Rate 75 90 67 Respiratory Rate 18 Blood Pressure 151/88 H Pulse Oximetry 98 08/03/18 08:00 08/03/18 10:47 08/03/18 12:00 Temperature 97.6 F 98.6 F Pulse Rate 97 H 83 Respiratory Rate 18 18 Blood Pressure 160/93 H 176/99 H Pulse Oximetry 99 99 99 Intake & Output 08/02/18 08/03/18 08/03/18 18:59 06:59 18:59 Intake Total 520 / 520 600 / 600 Output Total 600 / 600 900 / 900 Balance -80 / -80 -300 / -300 Weight 80.6 kg Intake: Oral 520 / 520 600 / 600 Output: Urine 600 / 600 900 / 900 Other: Date of Last Bowel Movement 08/02/18 08/03/18 08/03/18 # Bowel Movements 1 Narrative: Lateral L ankle with superficial ulcer encompassing entire ankle. Stable appearance. R plantar lateral foot with stable wound Results - Labs CBC & Chem 7: 08/02/18 06:30 08/02/18 06:30 Laboratory Results - last 24 hr 08/02/18 08/02/18 08/03/18 18:09 20:05 08:00 POC Glucose 157 H 159 H 120 H 08/03/18 08/03/18 11:38 16:24 POC Glucose 156 H 217 H Microbiology 08/01/18 05:20 Blood - Peripheral Aerobic Blood Culture - Preliminary No growth in 2 days 08/01/18 05:20 Blood - Peripheral Anaerobic Blood Culture - Preliminary No growth in 2 days 08/01/18 05:26 Blood - Peripheral Aerobic Blood Culture - Preliminary No growth in 2 days 08/01/18 05:26 Blood - Peripheral Anaerobic Blood Culture - Preliminary No growth in 2 days Assessment and Plan - Assessment (1) Ulcer of right lower extremity with necrosis of muscle Code(s): L97.913 - 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 Continue nonweightbearing on Right foot due to graft on bottom of foot wound. Podiatry signing off. No further treatment planned at this time.
[2018-08-03] MEDS: Melatonin 5 MG Tablet PO PRN (20:07)
[2018-08-04] MEDS: Morphine Sulfate Inj 2 MG/ML Vial IV.PUSH PRN ×2 (00:12→04:37)
[2018-08-04] MEDS: Pantoprazole Inj 40 MG Vial IV.PUSH SCH ×2 (06:25→18:08)
[2018-08-04] MEDS: metroNIDAZOLE 500 MG Tablet PO SCH ×2 (06:25→13:09)
[2018-08-04 06:30] VITALS: BP 131/76; TEMP 97.5; O2SAT 98
[2018-08-04 06:57] LABS: Calcium 7.4 mg/dL (8.5-10.1); Carbon Dioxide 28.6 meq/L (21.0-32.0)
[2018-08-04 07:10] LABS: Albumin 2.6 g/dL (3.4-5.0); Calcium-Albumin Corrected 8.5 mg/dL (8.5-10.1)
[2018-08-04 07:24] LABS: Potassium 2.7 meq/L (3.5-5.1)
[2018-08-04] MEDS: Heparin - SQ 10,000 UNITS/ML Vial SQ SCH (08:44)
[2018-08-04] MEDS: Potassium Chlor 20 mEq Premix 20 MEQ/100 ML PIGGYBACK IV.SIG SCH ×2 (08:44→10:40)
[2018-08-04] MEDS: Labetalol 200 MG Tablet PO SCH (08:44)
[2018-08-04] MEDS: Senna/Docusate Sodium 8.6/50 MG Tablet PO SCH (08:44)
[2018-08-04] MEDS: Simethicone 80 MG Chew Tablet PO SCH (08:44)
[2018-08-04] MEDS: Sodium Chloride 0.9% 2 ML Flush BID IV.FLUSH SCH (08:45)
[2018-08-04] MEDS: Insulin NovoLOG Aspart Correctional Sugar Inj SQ SCH ×3 (08:45→16:34)
[2018-08-04] MEDS: SACCHAROMYCES BOULARDII 250 MG PO SCH (08:48)
--- NOTE | 2018-08-04 10:35 | P.PNIM ---
Subjective Interval history: Follow-up for nausea, vomiting, C. Diff colitis and feet infection. Patient is currently doing well. Sitting in his chair. Denies any chest pain, shortness of breath, abdominal pain, fever or chills. Denies any nausea vomiting or diarrhea. Physical Exam Vital signs: Vital Signs 08/03/18 10:47 08/03/18 12:00 08/03/18 16:00 Temperature 98.6 F 97.6 F Pulse Rate 83 68 Respiratory Rate 18 18 Blood Pressure 176/99 H 157/84 H Pulse Oximetry 99 99 96 08/03/18 20:00 08/03/18 21:06 08/04/18 00:00 Temperature 97.9 F 97.1 F L Pulse Rate 71 72 Respiratory Rate 18 18 Blood Pressure 150/87 H 145/85 H Pulse Oximetry 98 98 99 08/04/18 04:00 Temperature 97.5 F L Pulse Rate 78 Respiratory Rate 18 Blood Pressure 131/76 Pulse Oximetry 98 Intake & Output 08/03/18 08/04/18 08/04/18 18:59 06:59 18:59 Intake Total 960 / 960 240 / 240 Output Total 1500 / 1500 Balance -540 / -540 240 / 240 Weight 79.9 kg Intake: Oral 960 / 960 240 / 240 Output: Urine 1500 / 1500 Other: # Voids 1 Date of Last Bowel Movement 08/03/18 # Bowel Movements 2 Narrative: GENERAL: Alert, NAD. SKIN: Warm and dry. HEAD: Normocephalic. EYES: No scleral icterus. No injection or drainage. NECK: Supple, trachea midline. No JVD or lymphadenopathy. CARDIOVASCULAR: Regular rate and rhythm without murmurs, gallops, or rubs. AICD under skin. RESPIRATORY: Breath sounds equal bilaterally. No accessory muscle use. GASTROINTESTINAL: Abdomen soft, non-tender, nondistended. MUSCULOSKELETAL: No cyanosis, or edema. Bilateral foot covered with dressing. Dressing is somewhat soaked. BACK: Nontender without obvious deformity. No CVA tenderness. Results Labs CBC & Chem 7: 08/02/18 06:30 08/04/18 04:15 Labs: Microbiology 08/01/18 05:20 Blood - Peripheral Aerobic Blood Culture - Preliminary No growth in 2 days 08/01/18 05:20 Blood - Peripheral Anaerobic Blood Culture - Preliminary No growth in 2 days 08/01/18 05:26 Blood - Peripheral Aerobic Blood Culture - Preliminary No growth in 2 days 08/01/18 05:26 Blood - Peripheral Anaerobic Blood Culture - Preliminary No growth in 2 days Assessment and Plan (1) Abnormal finding on imaging: Code(s): R93.89 - Abnormal findings on diagnostic imaging of other specified body structures Status: Acute (2) Hypokalemia: Code(s): E87.6 - Hypokalemia Status: Acute Plan The patient is a 48-year-old male with past medical history of systolic congestive heart failure status post AICD placement who is presented to the hospital on 08/01/2018 with nausea and vomiting as well as throat pain. Patient was discharged recently after being treated for foot wounds as well as C. Diff colitis. He could not tolerate vancomycin and thus Flagyl was initiated for C. Diff colitis. Gastroenteritis -s/p EGD which showed esophagitis. -Symptoms improved. -Tolerating cardiac diet well. -PPI. Acute kidney injury Hypokalemia -Creatinine around 1.6-1.7. Baseline around 1.0. -Magnesium 2.0. Potassium was 2.7. Will replace with IV potassium. We will check potassium at noon. Bilateral foot wound -Will consult Podiatry. ID followed this patient previously. -I discussed with Dr. Min (ID) who would like to hold off using any abx for now. C. Diff colitis -Continue Flagyl which is currently effective. Cardiomyopathy Hypertension -Aspirin, Nifedipine. -Due to acute kidney injury, will avoid Losartan for now. -Labetalol 200mg BID for BP. Full code. Heparin SQ. Discharge plan: Patient does not want to go back to SNF. His is trained in PT and able to do dressing changes as well. She will come today and discuss with RN. Probable discharge home today. Progress Note: Quality VTE Deep Vein Thrombosis/Pulmonary Embolism Present on Admission: No
[2018-08-04 19:48] VITALS: PULSE 63
--- NOTE | 2018-08-04 20:15 | P.DS ---
DS: Providers Date of admission: 08/01/18 07:10 Primary care physician: No Primary Care Physician Consults: 08/01/18 06:45 Consult to Gastroenterology Routine Consulting Provider: Isaias Alcaraz Reason for Consultation: Esophagitis CONSULT FOR AM Notified:: Service Spoke with:: audrey Date Notified:: 08/01/18 Time Notified:: 07:52 Ordering Provider: ANDRÉS 08/03/18 12:20 Consult to Podiatry Routine Consulting Provider: Goldie Sainz Reason for Consultation: Known to your service. Feet infection. Currently on Flagyl for c. Diff. Notified:: Service Spoke with:: estuardo Date Notified:: 08/03/18 Time Notified:: 12:28 Ordering Provider: ARNOL 08/04/18 09:02 HUB Only Consult Order Routine Consulting Provider: Quita Morales Brief History from admission: The patient is a 48-year-old male with past medical history of systolic congestive heart failure status post AICD placement who is presenting to the hospital with nausea and vomiting as well as throat pain. He was just discharged from the hospital for treatment of cellulitis, foot wounds and C. difficile. The patient says that his symptoms started about 3 days ago. He says he developed nausea and vomiting and is unsure of what caused that to happen. He says he has felt clammy at times. He endorsed some diarrhea a few days ago. He says he developed throat pain in the upper portion of his chest. He rated the pain as a 6 out of 10 in severity. He did not take any medications to help relieve his symptoms. He denies any history of major GI problems. He said yesterday he had some shortness of breath associated with his coughing and vomiting. His breathing is stable at this time. He is hungry and awaiting his procedure. He states that he is at a [facility] because he has foot blisters and a bad living environment at home. Discussed with nursing. DS: Diagnosis Discharge Diagnosis (1) Abnormal finding on imaging: Status: Acute (2) Hypokalemia: Status: Acute DS: Summary The patient is a 48-year-old male with past medical history of systolic congestive heart failure status post AICD placement who is presented to the hospital on 08/01/2018 with nausea and vomiting as well as throat pain. Patient was discharged recently after being treated for foot wounds as well as C. Diff colitis. He could not tolerate vancomycin and thus Flagyl was initiated for C. Diff colitis. Gastroenteritis -s/p EGD which showed esophagitis. -Symptoms improved. -Tolerating cardiac diet well. -PPI. Acute kidney injury Hypokalemia -Creatinine around 1.6-1.7. Baseline around 1.0. -Magnesium 2.0. Potassium was 2.7. replaced with IV potassium. We will check potassium at noon. Bilateral foot wound -Will consult Podiatry. ID followed this patient previously. -I discussed with Dr. Min (ID) who would like to hold off using any abx for now. C. Diff colitis -Continue Flagyl which is currently effective. Cardiomyopathy Hypertension -Aspirin, Nifedipine. -Due to acute kidney injury, will avoid Losartan for now. -Labetalol 200mg BID for BP. Full code. Heparin SQ. Patient does not want to go back to SNF. His is trained in PT and able to do dressing changes as well. Repeat K+ was 3.8. Patient was subsequently discharged home. He did not want home health. Time Spent with Patient Total time spent providing and/or coordinating discharge services: Quality: VTE Deep Vein Thrombosis/Pulmonary Embolism Present on Admission: No Exam Narrative Exam Narrative: GENERAL: Alert, NAD. SKIN: Warm and dry. HEAD: Normocephalic. EYES: No scleral icterus. No injection or drainage. NECK: Supple, trachea midline. No JVD or lymphadenopathy. CARDIOVASCULAR: Regular rate and rhythm without murmurs, gallops, or rubs. AICD under skin. RESPIRATORY: Breath sounds equal bilaterally. No accessory muscle use. GASTROINTESTINAL: Abdomen soft, non-tender, nondistended. MUSCULOSKELETAL: No cyanosis, or edema. Bilateral foot covered with dressing. Dressing is somewhat soaked. BACK: Nontender without obvious deformity. No CVA tenderness. Results Pending studies at discharge: Pending at discharge 08/01/18 08:29 Surgical [PTH] Routine Labs on day of discharge: Labs from last 24 hours 08/04/18 08/04/18 08/04/18 16:21 14:10 12:23 Sodium Potassium 3.8 D Chloride Carbon Dioxide Anion Gap BUN Creatinine Estimated GFR POC Glucose 96 168 H Random Glucose Calcium Calcium Adj for Albumin Magnesium Albumin 02/08/04/18 08/04/18 08:43 04:15 04:15 Sodium 142 Potassium 2.7 L* Chloride 104 Carbon Dioxide 28.6 Anion Gap 9 BUN 22 H Creatinine 1.72 H Estimated GFR 43 L POC Glucose 134 H Random Glucose 112 H Calcium 7.4 L* D Calcium Adj for Albumin 8.5 Magnesium 2.0 Albumin 2.6 L 08/03/18 20:06 Sodium Potassium Chloride Carbon Dioxide Anion Gap BUN Creatinine Estimated GFR POC Glucose 163 H Random Glucose Calcium Calcium Adj for Albumin Magnesium Albumin Preliminary micro results at discharge 08/01/18 05:20 Aerobic Blood Culture - Preliminary Blood - Peripheral No growth in 3 days Anaerobic Blood Culture - Preliminary No growth in 3 days 08/01/18 05:26 Aerobic Blood Culture - Preliminary Blood - Peripheral No growth in 3 days Anaerobic Blood Culture - Preliminary No growth in 3 days Impressions ITS Impressions Chest X-Ray 08/01/18 04:29 CONCLUSION: No acute cardiopulmonary disease. Chest CTA 08/01/18 04:33 CONCLUSION: 1. No pulmonary emboli. 2. Circumferential wall thickening throughout the thoracic esophagus suggesting esophagitis or less likely infiltrating mass. 3. Bronchiectasis within the basilar segments of the right lower lobe raising concern for chronic aspiration. Discharge Plan Discharge Disposition Patient Disposition: Discharge Home Discharge Condition Condition: Good Discharge Order Discharge Orders: Discharge Order (Routine); Ordered 08/04/18 Ordered By: Barry Cassidy Discharge Details Anticipated Discharge Date: 08/04/18 Physicians Team Primary Care Provider: Primary Care Nga Mckenzie Attending Provider: Barry Cassidy Other Providers: Isaias Alcaraz ; Goldie Sainz ; [facility] Rxs /Orders / Referrals /Forms Prescriptions: New labetalol 200 mg Tablet 200 mg PO BID Qty: 60 RF: 3 pantoprazole 40 mg Tablet,Delayed Release (Dr/Ec) 40 mg PO BID Qty: 60 RF: 3 aspirin 81 mg Tablet,Delayed Release (Dr/Ec) 81 mg PO DAILY Qty: 90 RF: 3 Continue metronidazole 500 mg Tablet 500 mg PO Q8HR Qty: 30 RF: 0 nifedipine 60 mg Tablet Extended Release 24hr 60 mg PO DAILY Qty: 30 RF: 0 silver sulfadiazine 1 % Cream 1 applic TOPICAL DAILY RF: 0 simethicone 80 mg Tablet,Chewable 80 mg PO BID RF: 0 Saccharomyces boulardii 250 mg Capsule 250 mg PO BID RF: 0 Discontinued lisinopril 40 mg Tablet 40 mg PO DAILY RF: 0 potassium chloride 20 mEq packet 20 meq PO DAILY Qty: 30 RF: 3 furosemide [Lasix] 40 mg Tablet 40 mg PO DAILY RF: 0 metformin 1,000 mg Tablet 1,000 mg PO DAILY RF: 0 Ambulatory Orders / Order Sets / DME: Basic Metabolic Panel (Routine) Timeframe: 4 Days Location: Determined by Patient Ordered By: Barry Cassidy Referrals: David Pinto MD [Physician] - See Instructions (Acute kidney injury) Primary Care Nga Mckenzie [Primary Care Provider] - See Instructions (PCP within 1 -2 weeks. ) Discharge Instructions Patient Printed Instructions: Chest Pain (ED) Additional Instructions: Every other day dressing per nursing to bilateral foot/ankle wounds with bactroban ointment, xeroform, 4x4, abd pads, cast padding, mary. Continue nonweightbearing on Right foot due to graft on bottom of foot wound. Status ED Status: Left Department Discharge Information Discharge Date/Time: 08/04/18 20:45
== END 2018-08-04 20:45 | disposition home or self-care (01) | DRG 392 ==
LOC: NEPD 03:18 → NEDA 07:10 → N04 11:41
PROVIDERS: ADMIT Hospitalist; ATTEND Hospitalist
PROC: PANENDO (2018-08-01 13:58)
DX: D64.9 Anemia, unspecified; I11.0 Hypertensive heart disease with heart failure; Z91.120 Patient's intentional underdosing of medication regimen due to financial hardship; Z80.8 Family history of malignant neoplasm of other organs or systems; L03.115 Cellulitis of right lower limb; L03.116 Cellulitis of left lower limb; L97.313 Non-pressure chronic ulcer of right ankle with necrosis of muscle; I42.9 Cardiomyopathy, unspecified; J47.9 Bronchiectasis, uncomplicated; Z87.891 Personal history of nicotine dependence; K21.0 Gastro-esophageal reflux disease with esophagitis; Z95.5 Presence of coronary angioplasty implant and graft; Z80.1 Family history of malignant neoplasm of trachea, bronchus and lung; A04.72 Enterocolitis due to Clostridium difficile, not specified as recurrent; Z89.421 Acquired absence of other right toe(s); I25.10 Atherosclerotic heart disease of native coronary artery without angina pectoris; N17.9 Acute kidney failure, unspecified; Z79.84 Long term (current) use of oral hypoglycemic drugs; R13.10 Dysphagia, unspecified; E87.6 Hypokalemia; Z95.810 Presence of automatic (implantable) cardiac defibrillator; Z88.0 Allergy status to penicillin; L97.919 Non-pressure chronic ulcer of unspecified part of right lower leg with unspecified severity; Z89.422 Acquired absence of other left toe(s); R74.8 Abnormal levels of other serum enzymes; I50.22 Chronic systolic (congestive) heart failure
CPT/HCPCS: 71010; 71045; 71275; 80048; 80053; 80074; 82040; 82948; 82962; 83605; 83735; 84132; 84484; 85025; 87040; 88305; 88312; 90765; 90775; 93005; 96365; 96375; 97110; 97530; 99291; C9113; J1100; J1644; J1815; J1885; J1956; J2270; J2405; J2704; J3480; J7030; Q9967